=== PATIENT | male | born 1955 | race Caucasian/White ===

== ENCOUNTER 2016-10-05 11:07 | Inpatient (IN) | payer MEDICARE, MEDICAID ==
[~2016-10-05] VITALS: Ht 167.6 cm; Wt 70.3 kg
[~2016-10-05 11:07] MED LIST: ASPI-498 OR; BUDEPOW26 XX; CELE200C OR; CHOL20007 OR; DEXL60CA3 PO; DOCU100T15 PO; EZET10TA38 PO; FENO160T8 PO; FLUO20CA19 PO; GABA300C OR; LOSA100T27 PO; NOR10T PO; PRAS10TA6 PO
[2016-10-05] MEDS ORDERED: ONDANSETRON HCL 4 MG/2 ML VIAL ONE (11:19)
[2016-10-05] MEDS ORDERED: MORPHINE SULFATE 4 MG/ML SYRG ONE (11:20)
[2016-10-05] MEDS ORDERED: MORPHINE SULFATE 4 MG/ML SYRG IV ONE (11:30)
[2016-10-05] MEDS ORDERED: LORazepam 2MG/ML-1ML VIAL IV ONE (11:30)
[2016-10-05] MEDS ORDERED: ONDANSETRON HCL 4 MG/2 ML VIAL IV ONE (11:30)
[2016-10-05 11:34] LABS: Basophils # (auto) 0 uL; Eosinophils # (auto) 0 uL; Eosinophils % (auto) 0.1 % (0.0-7.0); Hematocrit 45.7 % (41.0-53.0); Hemoglobin 15.5 g/dL (13.5-17.5); Lymphocytes # (auto) 0.5 uL; Lymphocytes % (auto) 4.9 % (10.0-50.0); Mean Corpuscular Hgb Conc. 33.9 g/dL (32.0-36.0); Mean Corpuscular Volume 82.5 fL (80.0-100.0); Mean Platelet Volume 7.6 fL (7.4-10.4); Monocytes # (auto) 0.2 uL; Monocytes % (auto) 2.2 % (0.0-12.0); Neutrophils # (auto) 9.1 uL; Neutrophils % (auto) 92.8 % (37.0-80.0); Platelet Count (auto) 297 10^3/uL (140-450); Red Cell Distribution Width 13.6 % (11.6-16.0); White Blood Cell 9.8 10^3/uL (4.4-10.8)
[2016-10-05 12:04] LABS: Albumin 4.3 g/dL (3.4-5.0); Alkaline Phosphatase 65 U/L (45-117); Anion Gap 8 (5-15); Aspartate Aminotransferase 35 U/L (15-37); BUN/Creatinine Ratio 21.3; Bilirubin, Total 0.5 mg/dL (0.2-1.0); Blood Urea Nitrogen 23 mg/dL (7-18); Calcium 9.7 mg/dL (8.5-10.1); Carbon Dioxide 25 mmol/L (21-32); Chloride 110 mmol/L (98-107); GFR African American 90 mL/min; GFR Non-African American 74 mL/min; Glucose 130 mg/dL (74-106); Potassium 4.2 mmol/L (3.5-5.1); Sodium 143 mmol/L (136-145); Total Protein 8.6 g/dL (6.4-8.2)
[2016-10-05] MEDS ORDERED: NITROGLYCERIN 0.4 MG SL TAB SL PRN (13:30)
[2016-10-05] MEDS ORDERED: LORazepam 2MG/ML-1ML VIAL IV PRN (13:30)
[2016-10-05] MEDS ORDERED: ONDANSETRON HCL 4 MG/2 ML VIAL IV PRN (13:30)
[2016-10-05] MEDS ORDERED: MORPHINE SULF INJ 2 MG/ML SYRINGE 1ML IV PRN (13:30)
[2016-10-05] MEDS ORDERED: PANTOPRAZOLE SODIUM 40 MG/10 ML VIAL IV ONE ×2 (13:30→14:00)
[2016-10-05] MEDS: SODIUM CHLORIDE 0.9% 1,000 ML IV SCH (13:49)
[2016-10-05] MEDS: GABAPENTIN 300 MG CAP PO SCH ×2 (13:49→21:41)
[2016-10-05] MEDS: MORPHINE SULF INJ 2 MG/ML SYRINGE 1ML IV PRN ×3 (13:51→23:40)
[2016-10-05] MEDS ORDERED: FLUoxetine HCL 20 MG CAP PO ONE (14:00)
[2016-10-05] MEDS ORDERED: PRASUGREL HCL 10 MG TAB PO ONE (14:00)
[2016-10-05] MEDS ORDERED: ASPirin 81 mg TAB PO ONE (14:00)
[2016-10-05] MEDS: IPRATROPIUM BROM 0.5 MG/2.5ML INH SOL NEB SCH (18:00)
[2016-10-05] MEDS: ALBUTEROL SULF 2.5 MG/0.5ML(0.5%) NEB SOLN NEB SCH (18:00)
[2016-10-05] MEDS ORDERED: CHOL20007 PO (18:26)
[2016-10-05] MEDS ORDERED: PRAS10TA6 PO (18:26)
[2016-10-05 22:00] VITALS: BP 100/62
[2016-10-05] MEDS: BUDESONIDE (INHALATION) 0.5 MG/2 ML NEB NEB SCH (22:00)
[2016-10-05 23:44] VITALS: BP 148/72
[2016-10-06] MEDS: HYDROcodone-ACET 10/325MG TAB PO PRN ×2 (04:26→17:09)
[2016-10-06 05:00] VITALS: BP 99/64
[2016-10-06 05:41] LABS: Basophils # (auto) 0 uL; Basophils % (auto) 0.3 % (0.0-2.0); Eosinophils # (auto) 0 uL; Hematocrit 36.7 % (41.0-53.0); Hemoglobin 12.3 g/dL (13.5-17.5); Lymphocytes # (auto) 0.8 uL; Lymphocytes % (auto) 17.8 % (10.0-50.0); Mean Corpuscular Hemoglobin 27.8 pg (28.0-32.0); Mean Corpuscular Hgb Conc. 33.5 g/dL (32.0-36.0); Mean Corpuscular Volume 82.9 fL (80.0-100.0); Mean Platelet Volume 8.4 fL (7.4-10.4); Monocytes # (auto) 0.5 uL; Neutrophils # (auto) 3.1 uL; Neutrophils % (auto) 69.9 % (37.0-80.0); Platelet Count (auto) 203 10^3/uL (140-450); Red Cell Distribution Width 14.1 % (11.6-16.0); White Blood Cell 4.4 10^3/uL (4.4-10.8)
[2016-10-06] MEDS: GABAPENTIN 300 MG CAP PO SCH ×3 (05:45→21:51)
[2016-10-06 05:53] LABS: BUN/Creatinine Ratio 24.5; Potassium 3.4 mmol/L (3.5-5.1)
[2016-10-06] MEDS: IPRATROPIUM BROM 0.5 MG/2.5ML INH SOL NEB SCH ×4 (05:57→19:31)
[2016-10-06] MEDS: BUDESONIDE (INHALATION) 0.5 MG/2 ML NEB NEB SCH ×3 (05:58→19:33)
[2016-10-06] MEDS: ALBUTEROL SULF 2.5 MG/0.5ML(0.5%) NEB SOLN NEB SCH ×4 (05:58→19:31)
[2016-10-06 08:00] VITALS: BP 114/62
[2016-10-06 08:05] VITALS: BP 114/62
[2016-10-06] MEDS: ASPirin 81 mg TAB PO SCH (09:29)
[2016-10-06] MEDS: PANTOPRAZOLE SODIUM 40 MG/10 ML VIAL IV SCH (09:29)
[2016-10-06] MEDS: FLUoxetine HCL 20 MG CAP PO SCH (09:30)
[2016-10-06] MEDS: PRASUGREL HCL 10 MG TAB PO SCH (09:36)
[2016-10-06 11:45] VITALS: BP 113/68
[2016-10-06] MEDS: SODIUM CHLORIDE 0.9% 1,000 ML IV SCH ×2 (16:10→18:37)
[2016-10-06 16:39] VITALS: BP 140/81
[2016-10-06] MEDS ORDERED: POTASSIUM CHL 20 Meq TABLET PO ONE (17:45)
[2016-10-06 21:33] VITALS: BP 122/69
[2016-10-07] MEDS: ALBUTEROL SULF 2.5 MG/0.5ML(0.5%) NEB SOLN NEB SCH ×5 (00:37→23:50)
[2016-10-07] MEDS: IPRATROPIUM BROM 0.5 MG/2.5ML INH SOL NEB SCH ×5 (00:37→23:50)
[2016-10-07] MEDS: HYDROcodone-ACET 10/325MG TAB PO PRN ×3 (03:16→18:23)
[2016-10-07] MEDS: SODIUM CHLORIDE 0.9% 1,000 ML IV SCH ×2 (05:30→20:04)
[2016-10-07 05:52] VITALS: BP 133/74
[2016-10-07] MEDS: GABAPENTIN 300 MG CAP PO SCH ×3 (05:56→21:39)
[2016-10-07 07:45] LABS: Urine RBC None Seen /hpf (0 - 3)
[2016-10-07] MEDS ORDERED: LIDOCAINE 2%HCL (LOCAL ANESTH.) INJ 20ML MDV ONE (07:56)
[2016-10-07] MEDS ORDERED: IOHEXOL 350 MG/ML 100ML IJ ONE (07:56)
[2016-10-07 08:13] LABS: Urine Bilirubin Negative (Negative); Urine Blood Negative /uL (Negative); Urine Color Yellow (Yellow); Urine Glucose Normal (Normal); Urine Ketone Negative (Negative); Urine Mucus FEW (None Seen); Urine Nitrite Negative (Negative); Urine Squamous Epithelial Cell FEW /hpf (<5); Urine Urobilinogen Normal (Negative); Urine pH 5.5 (5.0-8.0)
[2016-10-07] MEDS ORDERED: ANGIOMAX 250 MG VIAL IV ONE (08:35)
[2016-10-07] MEDS ORDERED: MIDAZOLAM HCL 1MG/1ML-2 ML VIAL ONE (08:36)
[2016-10-07] MEDS ORDERED: fentaNYL CITRATE 100 MCG/2 ML VL ONE (08:36)
[2016-10-07] MEDS ORDERED: SODIUM CHL 0.9% 50 ML ONE (08:36)
[2016-10-07 08:46] LABS: INR 0.96 (0.9-1.15); Prothrombin Time 10.4 sec (9.37-12.3)
[2016-10-07 08:49] VITALS: BP 127/68
[2016-10-07] MEDS ORDERED: ATROPINE SULF 0.5 MG/5ML SYR ONE (09:15)
[2016-10-07] MEDS: ASPirin 81 mg TAB PO SCH (09:52)
[2016-10-07] MEDS: PRASUGREL HCL 10 MG TAB PO SCH (09:52)
[2016-10-07] MEDS: FLUoxetine HCL 20 MG CAP PO SCH (12:26)
[2016-10-07] MEDS: PANTOPRAZOLE SODIUM 40 MG/10 ML VIAL IV SCH (12:28)
[2016-10-07 13:00] VITALS: BP 130/69
[2016-10-07 17:00] VITALS: BP 126/73
[2016-10-07] MEDS: BUDESONIDE (INHALATION) 0.5 MG/2 ML NEB NEB SCH (19:12)
[2016-10-07 20:03] VITALS: BP 126/73
[2016-10-07 22:00] VITALS: BP 126/71
[2016-10-08] MEDS: HYDROcodone-ACET 10/325MG TAB PO PRN ×3 (01:05→16:00)
[2016-10-08 05:00] VITALS: BP 136/73
[2016-10-08] MEDS: GABAPENTIN 300 MG CAP PO SCH ×2 (05:45→14:14)
[2016-10-08] MEDS: SODIUM CHLORIDE 0.9% 1,000 ML IV SCH (08:10)
[2016-10-08] MEDS: IPRATROPIUM BROM 0.5 MG/2.5ML INH SOL NEB SCH ×3 (08:22→18:00)
[2016-10-08] MEDS: ALBUTEROL SULF 2.5 MG/0.5ML(0.5%) NEB SOLN NEB SCH ×3 (08:22→18:00)
[2016-10-08 08:45] VITALS: BP 129/61
[2016-10-08] MEDS: FLUoxetine HCL 20 MG CAP PO SCH (09:17)
[2016-10-08] MEDS: PRASUGREL HCL 10 MG TAB PO SCH (09:17)
[2016-10-08] MEDS: ASPirin 81 mg TAB PO SCH (09:17)
[2016-10-08] MEDS: PANTOPRAZOLE SODIUM 40 MG/10 ML VIAL IV SCH (09:17)
[2016-10-08] MEDS: BUDESONIDE (INHALATION) 0.5 MG/2 ML NEB NEB SCH ×2 (10:00→18:40)
[2016-10-08 13:00] VITALS: BP 125/66
[2016-10-08 17:04] VITALS: BP 138/77
[2016-10-08 17:08] VITALS: BP 138/77
== END 2016-10-08 18:30 | disposition home or self-care (01) | DRG 247 ==
LOC: EDBD 11:07 → ER 11:07 → TELE 11:08 → TELE-E-ADS 17:44 → TELE-WESTW 18:19
PROVIDERS: ADMIT Internal Medicine; ATTEND Internal Medicine Cardiovascular Disease
PROC: B2111ZZ Fluoroscopy of Multiple Coronary Arteries using Low Osmolar Contrast (ICD-10-PCS; principal; 2016-10-08)
PROC: 027034Z Dilation of Coronary Artery, One Artery with Drug-eluting Intraluminal Device, Percutaneous Approach (ICD-10-PCS; 2016-10-08)
DX: I25.10 Atherosclerotic heart disease of native coronary artery without angina pectoris (principal); I24.9 Acute ischemic heart disease, unspecified; E78.5 Hyperlipidemia, unspecified; I10 Essential (primary) hypertension; J44.9 Chronic obstructive pulmonary disease, unspecified; Z87.891 Personal history of nicotine dependence; Z95.5 Presence of coronary angioplasty implant and graft; I25.2 Old myocardial infarction; Z88.1 Allergy status to other antibiotic agents; Z88.8 Allergy status to other drugs, medicaments and biological substances; Z79.899 Other long term (current) drug therapy
CPT/HCPCS: 36415; 71010; 80048; 80053; 81001; 83735; 84484; 85025; 85610; 93005; 93306; 94640; 96374; 96375; 96376; 99152; C1874; C1887; C9113; J0461; J2250; J2405

== ENCOUNTER → 2016-10-21 | Outpatient (CLI) | payer MEDICARE, MEDICAID ==
[~2016-10-21] MED LIST changes: +CHOL20007 PO
[2016-10-21 09:19] VITALS: BP_SYST 123; BP_SYST 124; BP_DIAS 72
== END | disposition home or self-care (01) ==
LOC: CHF HDHVI 08:52
PROVIDERS: ATTEND Internal Medicine Cardiovascular Disease
DX: I25.738 Atherosclerosis of nonautologous biological coronary artery bypass graft(s) with other forms of angina pectoris (principal); I50.33 Acute on chronic diastolic (congestive) heart failure; R06.02 Shortness of breath; E11.9 Type 2 diabetes mellitus without complications; Z98.61 Coronary angioplasty status
CPT/HCPCS: G0166

== ENCOUNTER → 2016-10-22 | Outpatient (CLI) | payer MEDICARE, MEDICAID ==
[2016-10-22 09:13] VITALS: BP_SYST 127; BP_SYST 140; BP_DIAS 76; BP_DIAS 82
== END | disposition home or self-care (01) ==
LOC: CHF HDHVI 09:07
PROVIDERS: ATTEND Internal Medicine Cardiovascular Disease
CPT/HCPCS: G0166

== ENCOUNTER → 2016-10-23 | Outpatient (CLI) | payer MEDICARE, MEDICAID ==
[2016-10-23 09:10] VITALS: BP_SYST 133; BP_SYST 139; BP_DIAS 72; BP_DIAS 79
== END | disposition home or self-care (01) ==
LOC: CHF HDHVI 08:54
PROVIDERS: ATTEND Internal Medicine Cardiovascular Disease
CPT/HCPCS: G0166

== ENCOUNTER → 2016-10-26 | Outpatient (CLI) | payer MEDICARE, MEDICAID ==
[2016-10-26 09:13] VITALS: BP_SYST 120; BP_SYST 122; BP_DIAS 72; BP_DIAS 79
== END | disposition home or self-care (01) ==
LOC: CHF HDHVI 08:58
PROVIDERS: ATTEND Internal Medicine Cardiovascular Disease
DX: I25.738 Atherosclerosis of nonautologous biological coronary artery bypass graft(s) with other forms of angina pectoris (principal); I50.33 Acute on chronic diastolic (congestive) heart failure; E11.9 Type 2 diabetes mellitus without complications; R06.02 Shortness of breath; Z98.61 Coronary angioplasty status; Z95.0 Presence of cardiac pacemaker
CPT/HCPCS: G0166

== ENCOUNTER → 2016-10-27 | Outpatient (CLI) | payer MEDICARE, MEDICAID ==
[2016-10-27 09:08] VITALS: BP_SYST 133; BP_SYST 136; BP_DIAS 76
== END | disposition home or self-care (01) ==
LOC: CHF HDHVI 09:26
PROVIDERS: ATTEND Internal Medicine Cardiovascular Disease
DX: I25.738 Atherosclerosis of nonautologous biological coronary artery bypass graft(s) with other forms of angina pectoris (principal); I50.33 Acute on chronic diastolic (congestive) heart failure; R06.02 Shortness of breath; E11.9 Type 2 diabetes mellitus without complications; Z98.61 Coronary angioplasty status; Z95.0 Presence of cardiac pacemaker
CPT/HCPCS: G0166

== ENCOUNTER → 2016-10-28 | Outpatient (CLI) | payer MEDICARE, MEDICAID ==
[2016-10-28 09:08] VITALS: BP_SYST 130; BP_DIAS 69; BP_DIAS 70
== END | disposition home or self-care (01) ==
LOC: CHF HDHVI 09:03
PROVIDERS: ATTEND Internal Medicine Cardiovascular Disease
DX: I25.738 Atherosclerosis of nonautologous biological coronary artery bypass graft(s) with other forms of angina pectoris (principal); I50.33 Acute on chronic diastolic (congestive) heart failure; E11.9 Type 2 diabetes mellitus without complications; R06.02 Shortness of breath; Z98.61 Coronary angioplasty status; Z95.0 Presence of cardiac pacemaker
CPT/HCPCS: G0166

== ENCOUNTER → 2016-10-29 | Outpatient (CLI) | payer MEDICARE, MEDICAID ==
[~2016-10-29] MED LIST changes: +MIDAZOLAM HCL 1MG/1ML-2 ML VIAL ONE; +ROCURONIUM 10MG/ML 10ML VIAL IV ONE; +fentaNYL CITRATE 0 ML ONE
[2016-10-29 09:05] VITALS: BP_SYST 129; BP_SYST 130; BP_DIAS 64; BP_DIAS 69
== END | disposition home or self-care (01) ==
LOC: CHF HDHVI 09:10
PROVIDERS: ATTEND Internal Medicine Cardiovascular Disease
DX: I25.738 Atherosclerosis of nonautologous biological coronary artery bypass graft(s) with other forms of angina pectoris (principal); I50.33 Acute on chronic diastolic (congestive) heart failure; E11.9 Type 2 diabetes mellitus without complications; Z98.61 Coronary angioplasty status
CPT/HCPCS: G0166; J2250

== ENCOUNTER → 2016-10-30 | Outpatient (CLI) | payer MEDICARE, MEDICAID ==
[~2016-10-30] MED LIST changes: -MIDAZOLAM HCL 1MG/1ML-2 ML VIAL ONE; -ROCURONIUM 10MG/ML 10ML VIAL IV ONE; -fentaNYL CITRATE 0 ML ONE
[2016-10-30 09:09] VITALS: BP_SYST 120; BP_SYST 122; BP_DIAS 60; BP_DIAS 77
== END | disposition home or self-care (01) ==
LOC: CHF HDHVI 09:13
PROVIDERS: ATTEND Internal Medicine Cardiovascular Disease
DX: I25.738 Atherosclerosis of nonautologous biological coronary artery bypass graft(s) with other forms of angina pectoris (principal); I50.33 Acute on chronic diastolic (congestive) heart failure; E11.9 Type 2 diabetes mellitus without complications; Z98.61 Coronary angioplasty status
CPT/HCPCS: G0166

== ENCOUNTER → 2016-11-02 | Outpatient (CLI) | payer MEDICARE, MEDICAID ==
[2016-11-02 09:15] VITALS: BP_SYST 128; BP_SYST 138; BP_DIAS 64; BP_DIAS 68
== END | disposition home or self-care (01) ==
LOC: CHF HDHVI 08:53
PROVIDERS: ATTEND Internal Medicine Cardiovascular Disease
DX: I25.118 Atherosclerotic heart disease of native coronary artery with other forms of angina pectoris (principal); I63.9 Cerebral infarction, unspecified; I73.9 Peripheral vascular disease, unspecified; E11.9 Type 2 diabetes mellitus without complications
CPT/HCPCS: G0166

== ENCOUNTER → 2016-11-04 | Outpatient (CLI) | payer MEDICARE, MEDICAID ==
[2016-11-04 09:07] VITALS: BP_SYST 121; BP_SYST 126; BP_DIAS 70
== END | disposition home or self-care (01) ==
LOC: CHF HDHVI 09:04
PROVIDERS: ATTEND Internal Medicine Cardiovascular Disease
DX: I25.738 Atherosclerosis of nonautologous biological coronary artery bypass graft(s) with other forms of angina pectoris (principal); I50.33 Acute on chronic diastolic (congestive) heart failure; E11.9 Type 2 diabetes mellitus without complications; Z98.61 Coronary angioplasty status; Z95.0 Presence of cardiac pacemaker
CPT/HCPCS: G0166

== ENCOUNTER → 2016-11-06 | Outpatient (CLI) | payer MEDICARE, MEDICAID ==
[2016-11-06 09:03] VITALS: BP_SYST 124; BP_SYST 137; BP_DIAS 69; BP_DIAS 70
== END | disposition home or self-care (01) ==
LOC: CHF HDHVI 09:12
PROVIDERS: ATTEND Internal Medicine Cardiovascular Disease
DX: I25.738 Atherosclerosis of nonautologous biological coronary artery bypass graft(s) with other forms of angina pectoris (principal); I50.33 Acute on chronic diastolic (congestive) heart failure; E11.9 Type 2 diabetes mellitus without complications; Z98.61 Coronary angioplasty status
CPT/HCPCS: G0166

== ENCOUNTER → 2016-11-09 | Outpatient (CLI) | payer MEDICARE, MEDICAID ==
[2016-11-09 09:11] VITALS: BP_SYST 134; BP_SYST 138; BP_DIAS 70; BP_DIAS 76
== END | disposition home or self-care (01) ==
LOC: CHF HDHVI 08:49
PROVIDERS: ATTEND Internal Medicine Cardiovascular Disease
DX: I50.33 Acute on chronic diastolic (congestive) heart failure (principal); E11.9 Type 2 diabetes mellitus without complications; R06.02 Shortness of breath; Z95.1 Presence of aortocoronary bypass graft; Z98.61 Coronary angioplasty status
CPT/HCPCS: G0166

== ENCOUNTER → 2016-11-11 | Outpatient (CLI) | payer MEDICARE, MEDICAID ==
[2016-11-11 09:14] VITALS: BP_SYST 118; BP_SYST 119; BP_DIAS 69; BP_DIAS 77
== END | disposition home or self-care (01) ==
LOC: CHF HDHVI 09:00
PROVIDERS: ATTEND Internal Medicine Cardiovascular Disease
DX: I25.738 Atherosclerosis of nonautologous biological coronary artery bypass graft(s) with other forms of angina pectoris (principal); I50.33 Acute on chronic diastolic (congestive) heart failure; E11.9 Type 2 diabetes mellitus without complications; R06.02 Shortness of breath; Z95.5 Presence of coronary angioplasty implant and graft
CPT/HCPCS: G0166

== ENCOUNTER → 2016-11-12 | Outpatient (CLI) | payer MEDICARE, MEDICAID ==
[2016-11-12 09:15] VITALS: BP_SYST 123; BP_SYST 125; BP_DIAS 70; BP_DIAS 75
== END | disposition home or self-care (01) ==
LOC: CHF HDHVI 08:56
PROVIDERS: ATTEND Internal Medicine Cardiovascular Disease
DX: I25.738 Atherosclerosis of nonautologous biological coronary artery bypass graft(s) with other forms of angina pectoris (principal); I50.33 Acute on chronic diastolic (congestive) heart failure; R06.02 Shortness of breath; E11.9 Type 2 diabetes mellitus without complications; Z98.61 Coronary angioplasty status
CPT/HCPCS: G0166

== ENCOUNTER → 2016-11-13 | Outpatient (CLI) | payer MEDICARE, MEDICAID ==
[2016-11-13 09:08] VITALS: BP_SYST 121; BP_SYST 133; BP_DIAS 65; BP_DIAS 69
== END | disposition home or self-care (01) ==
LOC: CHF HDHVI 08:55
PROVIDERS: ATTEND Internal Medicine Cardiovascular Disease
DX: I25.738 Atherosclerosis of nonautologous biological coronary artery bypass graft(s) with other forms of angina pectoris (principal); I50.33 Acute on chronic diastolic (congestive) heart failure; E11.9 Type 2 diabetes mellitus without complications; Z98.61 Coronary angioplasty status
CPT/HCPCS: G0166

== ENCOUNTER → 2016-11-16 | Outpatient (CLI) | payer MEDICARE, MEDICAID ==
[2016-11-16 09:05] VITALS: BP_SYST 122; BP_SYST 125; BP_DIAS 66; BP_DIAS 67
== END | disposition home or self-care (01) ==
LOC: CHF HDHVI 08:43
PROVIDERS: ATTEND Internal Medicine Cardiovascular Disease
DX: I25.738 Atherosclerosis of nonautologous biological coronary artery bypass graft(s) with other forms of angina pectoris (principal); I50.33 Acute on chronic diastolic (congestive) heart failure; E11.9 Type 2 diabetes mellitus without complications; R06.02 Shortness of breath; Z98.61 Coronary angioplasty status
CPT/HCPCS: G0166

== ENCOUNTER → 2016-11-17 | Outpatient (CLI) | payer MEDICARE, MEDICAID ==
[2016-11-17 09:06] VITALS: BP_SYST 121; BP_SYST 122; BP_DIAS 64; BP_DIAS 69
== END | disposition home or self-care (01) ==
LOC: CHF HDHVI 09:05
PROVIDERS: ATTEND Internal Medicine Cardiovascular Disease
DX: I25.738 Atherosclerosis of nonautologous biological coronary artery bypass graft(s) with other forms of angina pectoris (principal); I50.33 Acute on chronic diastolic (congestive) heart failure; E11.9 Type 2 diabetes mellitus without complications; Z98.61 Coronary angioplasty status
CPT/HCPCS: G0166

== ENCOUNTER → 2016-11-19 | Outpatient (CLI) | payer MEDICARE, MEDICAID ==
[2016-11-19 09:15] VITALS: BP_SYST 131; BP_SYST 137; BP_DIAS 69; BP_DIAS 75
== END | disposition home or self-care (01) ==
LOC: CHF HDHVI 08:53
PROVIDERS: ATTEND Internal Medicine Cardiovascular Disease
DX: I25.738 Atherosclerosis of nonautologous biological coronary artery bypass graft(s) with other forms of angina pectoris (principal); I50.33 Acute on chronic diastolic (congestive) heart failure; E11.9 Type 2 diabetes mellitus without complications; Z98.61 Coronary angioplasty status
CPT/HCPCS: G0166

== ENCOUNTER → 2016-11-20 | Outpatient (CLI) | payer MEDICARE, MEDICAID ==
[2016-11-20 09:02] VITALS: BP_SYST 132; BP_SYST 133; BP_DIAS 67; BP_DIAS 72
== END | disposition home or self-care (01) ==
LOC: CHF HDHVI 08:50
PROVIDERS: ATTEND Internal Medicine Cardiovascular Disease
DX: I25.738 Atherosclerosis of nonautologous biological coronary artery bypass graft(s) with other forms of angina pectoris (principal); I50.33 Acute on chronic diastolic (congestive) heart failure; E11.9 Type 2 diabetes mellitus without complications; Z98.61 Coronary angioplasty status
CPT/HCPCS: G0166

== ENCOUNTER → 2016-11-24 | Outpatient (CLI) | payer MEDICARE, MEDICAID ==
[2016-11-24 08:58] VITALS: BP_SYST 130; BP_SYST 136; BP_DIAS 69; BP_DIAS 74
== END | disposition home or self-care (01) ==
LOC: CHF HDHVI 08:57
PROVIDERS: ATTEND Internal Medicine Cardiovascular Disease
DX: I25.738 Atherosclerosis of nonautologous biological coronary artery bypass graft(s) with other forms of angina pectoris (principal); I50.33 Acute on chronic diastolic (congestive) heart failure; E11.9 Type 2 diabetes mellitus without complications; R06.02 Shortness of breath; Z95.5 Presence of coronary angioplasty implant and graft; Z98.61 Coronary angioplasty status
CPT/HCPCS: G0166

== ENCOUNTER → 2016-11-25 | Outpatient (CLI) | payer MEDICARE, MEDICAID ==
[2016-11-25 08:50] VITALS: BP_SYST 133; BP_SYST 142; BP_DIAS 71; BP_DIAS 76
== END | disposition home or self-care (01) ==
LOC: CHF HDHVI 08:45
PROVIDERS: ATTEND Internal Medicine Cardiovascular Disease
DX: I25.738 Atherosclerosis of nonautologous biological coronary artery bypass graft(s) with other forms of angina pectoris (principal); I50.33 Acute on chronic diastolic (congestive) heart failure; E11.9 Type 2 diabetes mellitus without complications; Z98.61 Coronary angioplasty status
CPT/HCPCS: G0166

== ENCOUNTER → 2016-11-26 | Outpatient (CLI) | payer MEDICARE, MEDICAID ==
[2016-11-26 08:53] VITALS: BP 133/73
== END | disposition home or self-care (01) ==
LOC: CHF HDHVI 08:52
PROVIDERS: ATTEND Internal Medicine Cardiovascular Disease
DX: I25.738 Atherosclerosis of nonautologous biological coronary artery bypass graft(s) with other forms of angina pectoris (principal); I50.33 Acute on chronic diastolic (congestive) heart failure; E11.9 Type 2 diabetes mellitus without complications; Z98.61 Coronary angioplasty status
CPT/HCPCS: G0166

== ENCOUNTER → 2016-11-27 | Outpatient (CLI) | payer MEDICARE, MEDICAID ==
[2016-11-27 09:03] VITALS: BP_SYST 131; BP_SYST 132; BP_DIAS 73; BP_DIAS 76
== END | disposition home or self-care (01) ==
LOC: CHF HDHVI 09:03
PROVIDERS: ATTEND Internal Medicine Cardiovascular Disease
DX: I25.738 Atherosclerosis of nonautologous biological coronary artery bypass graft(s) with other forms of angina pectoris (principal); I50.33 Acute on chronic diastolic (congestive) heart failure; E11.9 Type 2 diabetes mellitus without complications; Z98.61 Coronary angioplasty status
CPT/HCPCS: G0166

== ENCOUNTER → 2016-11-30 | Outpatient (CLI) | payer MEDICARE, MEDICAID ==
[~2016-11-30] VITALS: Ht 162.6 cm; Wt 68.0 kg
[~2016-11-30] MED LIST changes: +ADENOSINE 57 MG in GIVE UN-DILUTED 0 ML IV ONE; +ADENOSINE 90 MG/30 ML INJ IV ONE
[2016-11-30 12:29] LABS: Basophils # (auto) 0 uL; Basophils % (auto) 0.4 % (0.0-2.0); Eosinophils # (auto) 0.1 uL; Eosinophils % (auto) 0.8 % (0.0-7.0); Hematocrit 36.9 % (41.0-53.0); Hemoglobin 12.3 g/dL (13.5-17.5); Lymphocytes # (auto) 1.3 uL; Lymphocytes % (auto) 18.3 % (10.0-50.0); Mean Corpuscular Hgb Conc. 33.2 g/dL (32.0-36.0); Mean Corpuscular Volume 84.3 fL (80.0-100.0); Monocytes # (auto) 0.5 uL; Monocytes % (auto) 7.4 % (0.0-12.0); Neutrophils # (auto) 5.1 uL; Neutrophils % (auto) 73.1 % (37.0-80.0); Platelet Count (auto) 256 10^3/uL (140-450); Red Cell Distribution Width 14.4 % (11.6-16.0)
[2016-11-30 12:33] LABS: BUN/Creatinine Ratio 30.4; Calcium 8.3 mg/dL (8.5-10.1); Potassium 3.7 mmol/L (3.5-5.1)
== END | disposition home or self-care (01) ==
LOC: CHF HDHVI 08:00
PROVIDERS: ATTEND Internal Medicine Cardiovascular Disease
DX: I10 Essential (primary) hypertension (principal); D64.9 Anemia, unspecified
CPT/HCPCS: 36415; 78452; 80048; 85025; 93005; 96374; 96375; J0153

== ENCOUNTER → 2016-12-01 | Outpatient (CLI) | payer MEDICARE, MEDICAID ==
[~2016-12-01] MED LIST changes: -ADENOSINE 57 MG in GIVE UN-DILUTED 0 ML IV ONE; -ADENOSINE 90 MG/30 ML INJ IV ONE
[2016-12-01 08:55] VITALS: BP_SYST 132; BP_SYST 133; BP_DIAS 69; BP_DIAS 76
== END | disposition home or self-care (01) ==
LOC: CHF HDHVI 08:40
PROVIDERS: ATTEND Internal Medicine Cardiovascular Disease
DX: I25.738 Atherosclerosis of nonautologous biological coronary artery bypass graft(s) with other forms of angina pectoris (principal); I50.33 Acute on chronic diastolic (congestive) heart failure; E11.9 Type 2 diabetes mellitus without complications; Z98.61 Coronary angioplasty status
CPT/HCPCS: G0166

== ENCOUNTER → 2016-12-02 | Outpatient (CLI) | payer MEDICARE, MEDICAID ==
[2016-12-02 08:53] VITALS: BP_SYST 130; BP_SYST 132; BP_DIAS 70; BP_DIAS 71
== END | disposition home or self-care (01) ==
LOC: CHF HDHVI 08:49
PROVIDERS: ATTEND Internal Medicine Cardiovascular Disease
DX: I25.738 Atherosclerosis of nonautologous biological coronary artery bypass graft(s) with other forms of angina pectoris (principal); I50.33 Acute on chronic diastolic (congestive) heart failure; E11.9 Type 2 diabetes mellitus without complications; Z98.61 Coronary angioplasty status
CPT/HCPCS: G0166

== ENCOUNTER → 2016-12-03 | Outpatient (CLI) | payer MEDICARE, MEDICAID ==
[2016-12-03 08:47] VITALS: BP_SYST 128; BP_SYST 135; BP_DIAS 73; BP_DIAS 77
== END | disposition home or self-care (01) ==
LOC: CHF HDHVI 08:46
PROVIDERS: ATTEND Internal Medicine Cardiovascular Disease
DX: I25.738 Atherosclerosis of nonautologous biological coronary artery bypass graft(s) with other forms of angina pectoris (principal); I50.33 Acute on chronic diastolic (congestive) heart failure; E11.9 Type 2 diabetes mellitus without complications; Z98.61 Coronary angioplasty status
CPT/HCPCS: G0166

== ENCOUNTER → 2016-12-04 | Outpatient (CLI) | payer MEDICARE, MEDICAID ==
[2016-12-04 08:52] VITALS: BP_SYST 128; BP_SYST 134; BP_DIAS 69; BP_DIAS 74
== END | disposition home or self-care (01) ==
LOC: CHF HDHVI 09:07
PROVIDERS: ATTEND Internal Medicine Cardiovascular Disease
DX: I25.738 Atherosclerosis of nonautologous biological coronary artery bypass graft(s) with other forms of angina pectoris (principal); I50.33 Acute on chronic diastolic (congestive) heart failure; E11.9 Type 2 diabetes mellitus without complications; Z98.61 Coronary angioplasty status
CPT/HCPCS: G0166

== ENCOUNTER → 2016-12-07 | Outpatient (CLI) | payer MEDICARE, MEDICAID ==
[2016-12-07 08:53] VITALS: BP_SYST 119; BP_SYST 128; BP_DIAS 70
== END | disposition home or self-care (01) ==
LOC: CHF HDHVI 08:36
PROVIDERS: ATTEND Internal Medicine Cardiovascular Disease
DX: I25.738 Atherosclerosis of nonautologous biological coronary artery bypass graft(s) with other forms of angina pectoris (principal); I50.33 Acute on chronic diastolic (congestive) heart failure; E11.9 Type 2 diabetes mellitus without complications; Z98.61 Coronary angioplasty status
CPT/HCPCS: G0166

== ENCOUNTER → 2016-12-08 | Outpatient (CLI) | payer MEDICARE, MEDICAID ==
[2016-12-08 08:55] VITALS: BP_SYST 139; BP_SYST 143; BP_DIAS 75; BP_DIAS 76
== END | disposition home or self-care (01) ==
LOC: CHF HDHVI 08:41
PROVIDERS: ATTEND Internal Medicine Cardiovascular Disease
DX: I25.738 Atherosclerosis of nonautologous biological coronary artery bypass graft(s) with other forms of angina pectoris (principal); I50.33 Acute on chronic diastolic (congestive) heart failure; E11.9 Type 2 diabetes mellitus without complications; Z98.61 Coronary angioplasty status
CPT/HCPCS: G0166

== ENCOUNTER → 2016-12-09 | Outpatient (CLI) | payer MEDICARE, MEDICAID ==
[2016-12-09 08:57] VITALS: BP_SYST 120; BP_SYST 134; BP_DIAS 74; BP_DIAS 93
== END | disposition home or self-care (01) ==
LOC: CHF HDHVI 08:34
PROVIDERS: ATTEND Internal Medicine Cardiovascular Disease
DX: I25.738 Atherosclerosis of nonautologous biological coronary artery bypass graft(s) with other forms of angina pectoris (principal); I50.33 Acute on chronic diastolic (congestive) heart failure; E11.9 Type 2 diabetes mellitus without complications; Z98.61 Coronary angioplasty status
CPT/HCPCS: G0166

== ENCOUNTER → 2016-12-10 | Outpatient (CLI) | payer MEDICARE, MEDICAID ==
[2016-12-10 08:55] VITALS: BP_SYST 122; BP_SYST 131; BP_DIAS 69; BP_DIAS 73
== END | disposition home or self-care (01) ==
LOC: CHF HDHVI 08:46
PROVIDERS: ATTEND Internal Medicine Cardiovascular Disease
DX: I25.738 Atherosclerosis of nonautologous biological coronary artery bypass graft(s) with other forms of angina pectoris (principal); I50.33 Acute on chronic diastolic (congestive) heart failure; E11.9 Type 2 diabetes mellitus without complications; Z98.61 Coronary angioplasty status
CPT/HCPCS: G0166

== ENCOUNTER → 2016-12-11 | Outpatient (CLI) | payer MEDICARE, MEDICAID ==
[2016-12-11 08:47] VITALS: BP_SYST 131; BP_SYST 133; BP_DIAS 73; BP_DIAS 81
== END | disposition home or self-care (01) ==
LOC: CHF HDHVI 08:32
PROVIDERS: ATTEND Internal Medicine Cardiovascular Disease
DX: I25.738 Atherosclerosis of nonautologous biological coronary artery bypass graft(s) with other forms of angina pectoris (principal); I50.33 Acute on chronic diastolic (congestive) heart failure; E11.9 Type 2 diabetes mellitus without complications; Z98.61 Coronary angioplasty status
CPT/HCPCS: G0166

== ENCOUNTER → 2016-12-14 | Outpatient (CLI) | payer MEDICARE, MEDICAID ==
[2016-12-14 11:54] VITALS: BP_SYST 125; BP_SYST 139; BP_DIAS 68; BP_DIAS 71
== END | disposition home or self-care (01) ==
LOC: CHF HDHVI 08:36
PROVIDERS: ATTEND Internal Medicine Cardiovascular Disease
DX: I25.738 Atherosclerosis of nonautologous biological coronary artery bypass graft(s) with other forms of angina pectoris (principal); I50.33 Acute on chronic diastolic (congestive) heart failure; E11.9 Type 2 diabetes mellitus without complications; R06.02 Shortness of breath; Z98.61 Coronary angioplasty status
CPT/HCPCS: G0166

== ENCOUNTER → 2016-12-15 | Outpatient (CLI) | payer MEDICARE, MEDICAID ==
[2016-12-15 08:58] VITALS: BP_SYST 131; BP_SYST 132; BP_DIAS 79
== END | disposition home or self-care (01) ==
LOC: CHF HDHVI 08:40
PROVIDERS: ATTEND Internal Medicine Cardiovascular Disease
DX: I25.738 Atherosclerosis of nonautologous biological coronary artery bypass graft(s) with other forms of angina pectoris (principal); I50.33 Acute on chronic diastolic (congestive) heart failure; E11.9 Type 2 diabetes mellitus without complications; R06.02 Shortness of breath; Z98.61 Coronary angioplasty status
CPT/HCPCS: G0166

== ENCOUNTER → 2016-12-16 | Outpatient (CLI) | payer MEDICARE, MEDICAID ==
[2016-12-16 09:10] VITALS: BP_SYST 129; BP_SYST 130; BP_DIAS 71; BP_DIAS 75
[2016-12-16 10:15] VITALS: BP 122/81
[2016-12-16 10:45] VITALS: BP 122/81
== END | disposition home or self-care (01) ==
LOC: CHF HDHVI 08:51
PROVIDERS: ATTEND Internal Medicine Cardiovascular Disease
DX: I25.738 Atherosclerosis of nonautologous biological coronary artery bypass graft(s) with other forms of angina pectoris (principal); I50.33 Acute on chronic diastolic (congestive) heart failure; I25.10 Atherosclerotic heart disease of native coronary artery without angina pectoris; E11.9 Type 2 diabetes mellitus without complications; Z98.61 Coronary angioplasty status
CPT/HCPCS: G0166; G0463

== ENCOUNTER → 2017-01-19 | Outpatient (CLI) | payer MEDICARE, MEDICAID ==
[2017-01-19 12:18] LABS: Basophils # (auto) 0 uL; Basophils % (auto) 0.5 % (0.0-2.0); CONDITION Y; Eosinophils # (auto) 0.1 uL; Eosinophils % (auto) 1.3 % (0.0-7.0); Hematocrit 40.8 % (41.0-53.0); Hemoglobin 13.7 g/dL (13.5-17.5); Lymphocytes # (auto) 1.7 uL; Lymphocytes % (auto) 33.7 % (10.0-50.0); Mean Corpuscular Hemoglobin 27.8 pg (28.0-32.0); Mean Corpuscular Hgb Conc. 33.6 g/dL (32.0-36.0); Mean Corpuscular Volume 82.9 fL (80.0-100.0); Mean Platelet Volume 8.2 fL (7.4-10.4); Monocytes # (auto) 0.4 uL; Monocytes % (auto) 7.4 % (0.0-12.0); Neutrophils # (auto) 2.9 uL; Neutrophils % (auto) 57.1 % (37.0-80.0); Platelet Count (auto) 259 10^3/uL (140-450); White Blood Cell 5.1 10^3/uL (4.4-10.8)
[2017-01-19 12:49] LABS: BUN/Creatinine Ratio 28.6; Potassium 4.4 mmol/L (3.5-5.1)
[2017-01-19 13:48] LABS: B-Type Natriuretic Peptide 0.71 pg/mL (0-100)
[2017-01-19 13:59] LABS: Temperature: 24.3 C (20.0-25.0)
== END | disposition home or self-care (01) ==
LOC: Rad HDHVI 08:05
PROVIDERS: ATTEND Internal Medicine Cardiovascular Disease
DX: I11.0 Hypertensive heart disease with heart failure (principal); I50.9 Heart failure, unspecified; D64.9 Anemia, unspecified
CPT/HCPCS: 36415; 80048; 83880; 85025; 93306

== ENCOUNTER → 2017-11-26 | Outpatient (CLI) | payer MEDICARE, MEDICAID ==
[2017-11-26 12:02] LABS: Urine Blood Negative /uL (Negative); Urine Specific Gravity 1.021 (1.001-1.035)
[2017-11-26 12:03] LABS: Basophils # (auto) 0 uL; Basophils % (auto) 0.5 % (0.0-2.0); Eosinophils # (auto) 0 uL; Hematocrit 39.8 % (41.0-53.0); Hemoglobin 13.1 g/dL (13.5-17.5); Lymphocytes # (auto) 1.7 uL; Lymphocytes % (auto) 33.6 % (10.0-50.0); Mean Corpuscular Hemoglobin 28.3 pg (28.0-32.0); Mean Corpuscular Hgb Conc. 32.9 g/dL (32.0-36.0); Monocytes # (auto) 0.4 uL; Monocytes % (auto) 7.5 % (0.0-12.0); Neutrophils # (auto) 2.9 uL; Neutrophils % (auto) 57.4 % (37.0-80.0); Nucleated Red Blood Cells % 0.6 %; Platelet Count (auto) 218 10^3/uL (140-450); Red Blood Cells 4.63 10^6/uL (4.5-5.90); Red Cell Distribution Width 15.2 % (11.8-14.3)
[2017-11-26 12:28] LABS: Albumin 3.3 g/dL (3.4-5.0); BUN/Creatinine Ratio 21.8; Calcium 8.9 mg/dL (8.5-10.1)
[2017-11-26 12:29] LABS: Bilirubin, Total 0.3 mg/dL (0.2-1.0)
[2017-11-26 12:42] LABS: Free T4 (Free Thyroxine) 1.41 ng/dL (0.89-1.76)
[2017-11-26 12:43] LABS: Prostate Specific Antigen 0.66 ng/mL (0.0-4.0)
== END | disposition home or self-care (01) ==
LOC: LAB 08:06
PROVIDERS: ATTEND Internal Medicine Cardiovascular Disease
DX: Z00.01 Encounter for general adult medical examination with abnormal findings (principal); E03.9 Hypothyroidism, unspecified; E55.9 Vitamin D deficiency, unspecified; C61 Malignant neoplasm of prostate; E29.1 Testicular hypofunction; E11.9 Type 2 diabetes mellitus without complications; N39.0 Urinary tract infection, site not specified; D51.9 Vitamin B12 deficiency anemia, unspecified
CPT/HCPCS: 36415; 80053; 80061; 81003; 82306; 82607; 83036; 84153; 84403; 84439; 84443; 85025

== ENCOUNTER → 2017-12-08 | Outpatient (CLI) | payer MEDICARE, MEDICAID | END | disposition home or self-care (01) | LOC: Rad HDHVI 12:53 | PROVIDERS: ATTEND Internal Medicine Cardiovascular Disease | DX: I08.8 Other rheumatic multiple valve diseases (principal); I25.5 Ischemic cardiomyopathy; I11.0 Hypertensive heart disease with heart failure; I50.43 Acute on chronic combined systolic (congestive) and diastolic (congestive) heart failure; E03.9 Hypothyroidism, unspecified; E11.9 Type 2 diabetes mellitus without complications; Z85.46 Personal history of malignant neoplasm of prostate | CPT/HCPCS: 93306 ==

== ENCOUNTER → 2018-05-09 | Outpatient (CLI) | payer MEDICARE, MEDICAID ==
[~2018-05-09] MED LIST changes: +LOSA-49 PO; -LOSA100T27 PO
[2018-05-09 16:14] LABS: Basophils # (auto) 0 uL; Basophils % (auto) 0.6 % (0.0-2.0); Eosinophils # (auto) 0 uL; Eosinophils % (auto) 0.5 % (0.0-7.0); Hematocrit 42.7 % (41.0-53.0); Lymphocytes # (auto) 1.6 uL; Lymphocytes % (auto) 30.6 % (10.0-50.0); Mean Corpuscular Hemoglobin 27.8 pg (28.0-32.0); Mean Corpuscular Hgb Conc. 32.7 g/dL (32.0-36.0); Monocytes # (auto) 0.5 uL; Monocytes % (auto) 9.6 % (0.0-12.0); Neutrophils # (auto) 3.1 uL; Neutrophils % (auto) 58.7 % (37.0-80.0); Nucleated Red Blood Cells % 0.5 %; Platelet Count (auto) 203 10^3/uL (140-450); Red Blood Cells 5.03 10^6/uL (4.5-5.90); White Blood Cell 5.4 10^3/uL (4.4-10.8)
[2018-05-09 16:32] LABS: Potassium 4.4 mmol/L (3.5-5.1)
[2018-05-09 16:37] LABS: BUN/Creatinine Ratio 21.5; Calcium 9.3 mg/dL (8.5-10.1)
== END | disposition home or self-care (01) ==
LOC: LAB 11:51
PROVIDERS: ATTEND Internal Medicine Cardiovascular Disease
DX: D64.9 Anemia, unspecified (principal); R94.4 Abnormal results of kidney function studies; I11.0 Hypertensive heart disease with heart failure; I50.9 Heart failure, unspecified
CPT/HCPCS: 36415; 80048; 85025

== ENCOUNTER → 2018-05-13 | Outpatient (CLI) | payer MEDICARE, MEDICAID | END | disposition home or self-care (01) | LOC: Rad HDHVI 13:44 | PROVIDERS: ATTEND Internal Medicine Cardiovascular Disease | DX: I25.2 Old myocardial infarction (principal); I20.9 Angina pectoris, unspecified; I95.9 Hypotension, unspecified | CPT/HCPCS: 93306 ==

== ENCOUNTER → 2018-05-26 | Outpatient (CLI) | payer MEDICARE, MEDICAID ==
[~2018-05-26] VITALS: Ht 162.6 cm; Wt 73.5 kg
[~2018-05-26] MED LIST changes: +ADENOSINE 62 MG in GIVE UN-DILUTED 0 ML IV ONE; +ADENOSINE 90 MG/30 ML INJ IV ONE
== END | disposition home or self-care (01) ==
LOC: Rad HDHVI 09:44
PROVIDERS: ATTEND Internal Medicine Cardiovascular Disease
DX: I20.9 Angina pectoris, unspecified (principal); I95.9 Hypotension, unspecified
CPT/HCPCS: 78452; 93005; 96374; 96375; A9500; J0153

== ENCOUNTER → 2018-06-07 | Outpatient (CLI) | payer MEDICARE, MEDICAID ==
[~2018-06-07] MED LIST changes: -ADENOSINE 62 MG in GIVE UN-DILUTED 0 ML IV ONE; -ADENOSINE 90 MG/30 ML INJ IV ONE; +ALBUAER3 IN; +ATOR1TAB PO; +CHOL500021 OR; +CLOP75TA41 PO; +DOCU-55 PO; +FINA5TAB4 PO; +FLUT1AER3 IN; +ISOS30TA4 PO; +MECL-87 PO; +TAMS0.4C36 PO
[2018-06-07 08:20] VITALS: BP 136/87
[2018-06-07 08:54] VITALS: BP 152/88
[2018-06-07 12:11] LABS: Basophils # (auto) 0 uL; Basophils % (auto) 0.9 % (0.0-2.0); Eosinophils # (auto) 0 uL; Eosinophils % (auto) 0.8 % (0.0-7.0); Hematocrit 38.8 % (41.0-53.0); Hemoglobin 12.7 g/dL (13.5-17.5); Lymphocytes # (auto) 2.1 uL; Lymphocytes % (auto) 42.8 % (10.0-50.0); Mean Corpuscular Hemoglobin 27.4 pg (28.0-32.0); Mean Corpuscular Hgb Conc. 32.6 g/dL (32.0-36.0); Mean Corpuscular Volume 84.1 fL (80.0-100.0); Monocytes # (auto) 0.5 uL; Monocytes % (auto) 9.6 % (0.0-12.0); Neutrophils # (auto) 2.2 uL; Neutrophils % (auto) 45.9 % (37.0-80.0); Nucleated Red Blood Cells % 0.7 %; Platelet Count (auto) 200 10^3/uL (140-450); Red Blood Cells 4.62 10^6/uL (4.5-5.90); Red Cell Distribution Width 14.3 % (11.8-14.3); White Blood Cell 4.8 10^3/uL (4.4-10.8)
[2018-06-07 12:20] LABS: Calcium 8.5 mg/dL (8.5-10.1); Potassium 4.4 mmol/L (3.5-5.1)
[2018-06-07 12:22] LABS: INR 0.93 (0.9-1.15); Partial Thromboplastin Time 25.5 sec (23.78-33.04)
[2018-06-07 12:23] LABS: BUN/Creatinine Ratio 18.6
== END | disposition home or self-care (01) ==
LOC: Rad HDHVI 08:06
PROVIDERS: ATTEND Internal Medicine Cardiovascular Disease
DX: Z01.818 Encounter for other preprocedural examination (principal); I70.0 Atherosclerosis of aorta; D64.9 Anemia, unspecified; R79.1 Abnormal coagulation profile; I10 Essential (primary) hypertension
CPT/HCPCS: 36415; 71046; 80048; 85025; 85610; 85730; 93005; G0463

== ENCOUNTER → 2018-08-16 | Outpatient (CLI) | payer MEDICARE, MEDICAID ==
[~2018-08-16] MED LIST changes: -CHOL20007 OR; -CHOL20007 PO; -DOCU100T15 PO; -EZET10TA38 PO; -FENO160T8 PO; -LOSA-49 PO; -PRAS10TA6 PO
[2018-08-16 11:00] VITALS: BP_SYST 135; BP_SYST 142; BP_DIAS 78; BP_DIAS 79
[2018-08-16 11:15] VITALS: BP 142/79
--- NOTE | 2018-08-16 11:15 | NUR ---
EECP Tx# 1 This is patient's 1st day of EECP. ekg completed. Patient has a Hx of: Coronary Artery Disease Status Post Multi Vessel Angioplasty PTCA STENT SOB COPD First BP check on Right arm is at 142/79 with a heart rate of 78bpm. Per patient he states he has Fatigue, Mild SOB. Will keep monitoring patient through his Tx if any other changes occur. 1st pleth at 1 min into Tx patient's EECP pressure will increase if tolerable. 2nd pleth at 35 min into Tx patient is tolerating Tx pressure at 280 well with no complaints or discomfort at this time. Monitor shows good pleth valves with a heart rate of 78bpm. 3rd and final pleth at 57 min into Tx patient is tolerating Tx pressure at 280.Patient denies any symptoms or discomfort at this time.Monitor shows excellent pleth valves with a heart rate of 76bpm. Patient has 3 min left till his Tx is completed for the day. Last BP check on Left arm is at 135/78 with a heart rate of 73bpm. Patient denies any symptoms or discomfort at this time.
--- NOTE | 2018-08-16 11:15 | NUR ---
CHF PT TO CHF CLINIC FOR BASELINE EVAL AND EKG PRIOR TO STARTING EECP TX.
[2018-08-16 12:25] VITALS: BP 135/78
--- NOTE | 2018-08-16 12:25 | NUR ---
CHF Discharge Instructions See e-MAR for any mediations given with this visit. Patient education given on disease process. Patient verbalized understanding. Previous labs reviewed. Patient discharged in stable condition with after care instructions and follow up appointment.
== END | disposition home or self-care (01) ==
LOC: CHF HDHVI 10:28
PROVIDERS: ATTEND Internal Medicine Cardiovascular Disease
DX: I25.118 Atherosclerotic heart disease of native coronary artery with other forms of angina pectoris (principal); I11.0 Hypertensive heart disease with heart failure; I50.23 Acute on chronic systolic (congestive) heart failure; J44.9 Chronic obstructive pulmonary disease, unspecified; R94.31 Abnormal electrocardiogram [ECG] [EKG]; Z98.61 Coronary angioplasty status
CPT/HCPCS: 93005; G0166; G0463

== ENCOUNTER → 2018-08-18 | Outpatient (CLI) | payer MEDICARE, MEDICAID ==
[2018-08-18 11:07] VITALS: BP_SYST 134; BP_SYST 147; BP_DIAS 77; BP_DIAS 88
--- NOTE | 2018-08-18 11:07 | NUR ---
EECP Tx# 2 First BP check on his Left arm is at 147/88 with a heart rate of 93bpm. Patient states he has mild SOB. We will continue to monitor patient through his Tx if any changes occur. Arginext was taken before coming in to his Tx. 1st Pleth at 1 min into Tx patient EECP pressure will be increase if tolerable. 2nd pleth at 43 min into Tx patient is tolerating Tx pressure at 160 well with no complaints or discomfort at this time. 3rd and final pleth at 56 min into Tx patient is doing well with his Tx.Monitor shows a good ekg and waveforms with a heart rate of 84bpm.Patient has 4 min left till his Tx is completed for the day. Last BP check on his Left arm is at 134/77 with a heart rate of 81bpm. Patient denies any symptoms or discomfort at this time.
== END | disposition home or self-care (01) ==
LOC: CHF HDHVI 10:50
PROVIDERS: ATTEND Internal Medicine Cardiovascular Disease
DX: I25.118 Atherosclerotic heart disease of native coronary artery with other forms of angina pectoris (principal); I11.0 Hypertensive heart disease with heart failure; I50.23 Acute on chronic systolic (congestive) heart failure; J44.9 Chronic obstructive pulmonary disease, unspecified; Z98.61 Coronary angioplasty status
CPT/HCPCS: G0166

== ENCOUNTER → 2018-08-19 | Outpatient (CLI) | payer MEDICARE, MEDICAID ==
[2018-08-19 10:33] VITALS: BP_SYST 130; BP_SYST 147; BP_DIAS 72; BP_DIAS 83
--- NOTE | 2018-08-19 10:33 | NUR ---
EECP Tx# 3 First BP check on his Left arm is at 147/83 with a heart rate of 86 bpm. Patient states he is having mild SOB. We will continue to monitor patient through his tx if any changes occur. 1st pleth at 6 min into Tx patient EECP pressure will be increase if tolerable. 2nd pleth at 37 min into Tx patient is tolerating Tx pressure at 280 well with no discomfort at this time.Monitor shows a regular rhythm with a heart rate of 87bpm. 3rd and final pleth at 53 min into Tx patient is tolerating Tx pressure at 280 well with no discomfort at this time.Monitor shows good pleth valves with a heart rate of 91bpm.Patient has 7 min left till his Tx is completed for the day. Last BP check on his Left arm is at 130/72 with a heart rate of 88bpm. Patient denies any symptoms or discomfort at this time.
== END | disposition home or self-care (01) ==
LOC: CHF HDHVI 10:26
PROVIDERS: ATTEND Internal Medicine Cardiovascular Disease
DX: I25.118 Atherosclerotic heart disease of native coronary artery with other forms of angina pectoris (principal); I11.0 Hypertensive heart disease with heart failure; I50.23 Acute on chronic systolic (congestive) heart failure; J44.9 Chronic obstructive pulmonary disease, unspecified; Z98.61 Coronary angioplasty status
CPT/HCPCS: G0166

== ENCOUNTER → 2018-08-22 | Outpatient (CLI) | payer MEDICARE, MEDICAID ==
[2018-08-22 10:54] VITALS: BP_SYST 130; BP_SYST 134; BP_DIAS 77; BP_DIAS 79
--- NOTE | 2018-08-22 10:54 | NUR ---
EECP Tx# 4 First BP check on his Left arm is at 130/77 with a heart rate of 76 bpm. Patient states he is having mild SOB. We will continue to monitor patient through his tx if any changes occur. 1st pleth at 1 min into Tx patient EECP pressure will be increase if tolerable. 2nd pleth at 38 min into Tx patient is tolerating Tx pressure at 280 well with no discomfort at this time. Monitor shows good pleth valves with a heart rate of 80bpm. 3rd and final pleth at 56 min into Tx patient is tolerating Tx pressure at 280 well with no discomfort at this time.Monitor shows good pleth valves with a heart rate of 81bpm.Patient has 4 min left till his Tx is completed for the day. Last BP check on his Left arm is at 134/79 with a heart rate of 72bpm. Patient denies any symptoms or discomfort at this time.
== END | disposition home or self-care (01) ==
LOC: CHF HDHVI 10:43
PROVIDERS: ATTEND Internal Medicine Cardiovascular Disease
DX: I25.118 Atherosclerotic heart disease of native coronary artery with other forms of angina pectoris (principal); I11.0 Hypertensive heart disease with heart failure; I50.23 Acute on chronic systolic (congestive) heart failure; J44.9 Chronic obstructive pulmonary disease, unspecified; Z98.61 Coronary angioplasty status
CPT/HCPCS: G0166

== ENCOUNTER → 2018-08-23 | Outpatient (CLI) | payer MEDICARE, MEDICAID ==
[2018-08-23 10:36] VITALS: BP_SYST 135; BP_SYST 150; BP_DIAS 77; BP_DIAS 79
--- NOTE | 2018-08-23 10:36 | NUR ---
EECP Tx# 5 First BP check on his Right arm is at 150/77 with a heart rate of 84bpm. Per patient he states he has mild SOB. As well as dizziness that comes and goes. At this time Patient denies feeling Dizzy. We will continue to monitor patient through his Tx if any changes occur. Arginext was taken before coming in to his Tx. Medications have been taken as prescribed no new changes at this time. 1st pleth at 1 min into Tx .EECP pressure will slowly increase if tolerable. 2nd pleth at 37 min into Tx patient is tolerating Tx pressure at 280 well with no discomfort at this time. Monitor shows a regular rhythm with a heart rate of 81 bpm. 3rd and final pleth at 55 min into Tx patient is tolerating Tx pressure.Monitor shows good pleth valves with a heart rate of 80bpm. Patient has 5 min left till his Tx is completed for the day. Last BP check on his Left arm is at 135/79 with a heart rate of 73bpm. Patient denies any symptoms or discomfort at this time.
== END | disposition home or self-care (01) ==
LOC: CHF HDHVI 10:40
PROVIDERS: ATTEND Internal Medicine Cardiovascular Disease
DX: I11.0 Hypertensive heart disease with heart failure (principal); I50.23 Acute on chronic systolic (congestive) heart failure; J44.9 Chronic obstructive pulmonary disease, unspecified; I25.118 Atherosclerotic heart disease of native coronary artery with other forms of angina pectoris; E78.5 Hyperlipidemia, unspecified; Z98.61 Coronary angioplasty status
CPT/HCPCS: G0166

== ENCOUNTER → 2018-08-24 | Outpatient (CLI) | payer MEDICARE, MEDICAID ==
[2018-08-24 10:52] VITALS: BP_SYST 138; BP_SYST 148; BP_DIAS 83; BP_DIAS 85
--- NOTE | 2018-08-24 10:52 | NUR ---
[facility] Tx# 6 First BP check on his Left arm is at 148/85 with a heart rate of 85bpm.Patient took his Arginext before coming in to his Tx.Patient states he is having mild SOB.We will continue to monitor patient through his Tx if any changes occur.Monitor shows a good ekg and waveforms with good pleth valves.Last BP and HR is at 138/83 with a heart rate of 75bpm.Patient denies any symptoms or discomfort at this time.
== END | disposition home or self-care (01) ==
LOC: CHF HDHVI 10:32
PROVIDERS: ATTEND Internal Medicine Cardiovascular Disease
DX: I25.118 Atherosclerotic heart disease of native coronary artery with other forms of angina pectoris (principal); J44.9 Chronic obstructive pulmonary disease, unspecified; I50.23 Acute on chronic systolic (congestive) heart failure; Z98.61 Coronary angioplasty status
CPT/HCPCS: G0166

== ENCOUNTER → 2018-08-25 | Outpatient (CLI) | payer MEDICARE, MEDICAID ==
[2018-08-25 11:00] VITALS: BP_SYST 131; BP_SYST 145; BP_DIAS 80; BP_DIAS 81
--- NOTE | 2018-08-25 11:00 | NUR ---
EECP Tx# 7 First BP check on his Left arm is at 145/81 with a heart rate of 85bpm. Per patient he states he is having mild SOB and fatigue. We will continue to monitor patient through his Tx if oxygen needs to be provided to patient. Arginext was taken before coming in to his Tx. 1st pleth at 1 min into Tx patient EECP pressure will be increase if tolerable. 2nd pleth at 26 min into Tx patient is tolerating Tx pressure at 120 at this time.Patient can't tolerate pressure higher than 120 at this moment.Monitor shows a good ekg and waveforms with excellent pleth valves and a heart rate of 87bpm. 3rd and final pleth at 51 min into Tx patient is doing well with his Tx.Monitor shows a good ekg and waveforms with good pleth valves and a heart rate of 83bpm.Patient has 9 min left till his Tx is completed for the day. Last BP and HR check left arm is at 131/80 with a heart rate of 74bpm. Patient denies any chest pain or discomfort at this time.
== END | disposition home or self-care (01) ==
LOC: CHF HDHVI 10:38
PROVIDERS: ATTEND Internal Medicine Cardiovascular Disease
DX: I25.118 Atherosclerotic heart disease of native coronary artery with other forms of angina pectoris (principal); I11.0 Hypertensive heart disease with heart failure; I50.23 Acute on chronic systolic (congestive) heart failure; J44.9 Chronic obstructive pulmonary disease, unspecified; Z98.61 Coronary angioplasty status
CPT/HCPCS: G0166

== ENCOUNTER → 2018-08-26 | Outpatient (CLI) | payer MEDICARE, MEDICAID ==
[2018-08-26 10:49] VITALS: BP_SYST 136; BP_SYST 141; BP_DIAS 77; BP_DIAS 80
--- NOTE | 2018-08-26 16:02 | NUR ---
EECP Tx# 8 First BP check on his Left arm is at 141/77 with a heart rate of 76bpm. Per patient he states he is having mild SOB and fatigue. We will continue to monitor patient through his Tx if oxygen needs to be provided to patient. Arginext was taken before coming in to his Tx. 1st pleth at 1 min into Tx patient EECP pressure will be increase if tolerable. 2nd pleth at 40 min into Tx patient is tolerating Tx pressure at 280 well at this time.Monitor shows a good ekg and waveforms.Heart rate is at 83bpm. 3rd and final pleth at 48 min into Tx patient is doing well with his Tx.Monitor shows a good ekg and waveforms with a heart rate of 77bpm.Patient has 12 min left till his Tx is completed for the day. Last BP and HR is at 136/80 with a heart rate of 68bpm. Patient denies any chest pain or discomfort at this time.
== END | disposition home or self-care (01) ==
LOC: Rad HDHVI 10:31
PROVIDERS: ATTEND Internal Medicine Cardiovascular Disease
DX: I25.118 Atherosclerotic heart disease of native coronary artery with other forms of angina pectoris (principal); I11.0 Hypertensive heart disease with heart failure; I50.23 Acute on chronic systolic (congestive) heart failure; J44.9 Chronic obstructive pulmonary disease, unspecified; Z98.61 Coronary angioplasty status
CPT/HCPCS: G0166

== ENCOUNTER → 2018-08-29 | Outpatient (CLI) | payer MEDICARE, MEDICAID ==
[2018-08-29 11:19] VITALS: BP_SYST 146; BP_SYST 147; BP_DIAS 77; BP_DIAS 81
--- NOTE | 2018-08-29 11:19 | NUR ---
EECP Tx# 9 First BP check on his Left arm is at 146/77 with a heart rate of 76bpm. Per patient he states he is having mild SOB. We will continue to monitor patient through his Tx if oxygen needs to be provided to patient. Arginext was taken before coming in to his Tx. 1st pleth at 1 min into Tx patient EECP pressure will be increase if tolerable. 2nd pleth at 30 min into Tx patient is tolerating Tx pressure at 220 well at this time.Monitor shows a good ekg and waveforms.Heart rate is at 81bpm. 3rd and final pleth at 46 min into Tx patient is doing well with his Tx.Monitor shows a good ekg and waveforms with a heart rate of 83bpm.Patient has 14 min left till his Tx is completed for the day. Last BP and HR is at 147/81 with a heart rate of 80bpm. Patient denies any chest pain or discomfort at this time.
== END | disposition home or self-care (01) ==
LOC: CHF HDHVI 10:37
PROVIDERS: ATTEND Internal Medicine Cardiovascular Disease
DX: I25.118 Atherosclerotic heart disease of native coronary artery with other forms of angina pectoris (principal); I11.0 Hypertensive heart disease with heart failure; I50.23 Acute on chronic systolic (congestive) heart failure; J44.9 Chronic obstructive pulmonary disease, unspecified; Z98.61 Coronary angioplasty status
CPT/HCPCS: G0166

== ENCOUNTER → 2018-08-31 | Outpatient (CLI) | payer MEDICARE, MEDICAID ==
[2018-08-31 10:49] VITALS: BP_SYST 136; BP_SYST 145; BP_DIAS 82
--- NOTE | 2018-08-31 14:38 | NUR ---
EECP Tx# 10 First BP check on his Left arm is at 145/82 with a heart rate of 89bpm. Patient states he was having a mild SOB. We will continue to monitor patient through his Tx if any changes occur. Arginext was taken before coming in to his Tx. 1st pleth at 1 min into Tx patient EECP pressure will increase if tolerable. 2nd pleth at 34 min into Tx patient is tolerating Tx pressure at 160 well with no complaints or problems.Monitor shows a good ekg and waveforms with excellent pleth valves and a heart rate of 89bpm. 3rd and final pleth at 58 min into Tx.Monitor shows a good ekg and waveforms with a heart rate of 87bpm.Monitor shows excellent pleth valves.Patient has 2 min left till his Tx is completed for the day. Last BP check on left arm is at 136/82 with a heart rate of 84bpm. Patient denies any symptoms or discomfort at this time.
== END | disposition home or self-care (01) ==
LOC: CHF HDHVI 10:37
PROVIDERS: ATTEND Internal Medicine Cardiovascular Disease
DX: I25.118 Atherosclerotic heart disease of native coronary artery with other forms of angina pectoris (principal); I50.23 Acute on chronic systolic (congestive) heart failure; J44.9 Chronic obstructive pulmonary disease, unspecified; Z98.61 Coronary angioplasty status
CPT/HCPCS: G0166

== ENCOUNTER → 2018-09-02 | Outpatient (CLI) | payer MEDICARE, MEDICAID ==
[2018-09-02 10:37] VITALS: BP_SYST 133; BP_SYST 145; BP_DIAS 70; BP_DIAS 82
--- NOTE | 2018-09-02 10:37 | NUR ---
EECP Tx# 11 First BP check on his Left arm is at 145/82 with a heart rate of 89bpm. Patient states he has mild SOB. We will monitor patient through his Tx if any changes occur during his Tx. Arginext was taken before coming in to his Tx. Patient EECP pressure will increase if tolerable. Patient at this time is tolerating Tx pressure at 200 well with no discomfort at this time.Monitor shows a good ekg and waveforms with good pleth valves at this time heart rate is at 81bpm. Patient Last BP and HR check on his Left arm is at 133/70 with a heart rate of 92bpm. Patient denies any symptoms or discomfort at this time.
== END | disposition home or self-care (01) ==
LOC: CHF HDHVI 10:33
PROVIDERS: ATTEND Internal Medicine Cardiovascular Disease
DX: I25.118 Atherosclerotic heart disease of native coronary artery with other forms of angina pectoris (principal); I11.0 Hypertensive heart disease with heart failure; I50.23 Acute on chronic systolic (congestive) heart failure; E11.9 Type 2 diabetes mellitus without complications; J44.9 Chronic obstructive pulmonary disease, unspecified; Z98.61 Coronary angioplasty status
CPT/HCPCS: G0166

== ENCOUNTER → 2018-09-05 | Outpatient (CLI) | payer MEDICARE, MEDICAID ==
[2018-09-05 10:47] VITALS: BP_SYST 132; BP_SYST 147; BP_DIAS 77; BP_DIAS 83
--- NOTE | 2018-09-05 10:47 | NUR ---
EECP Tx# 12 First BP check on his Left arm is at 147/83 with a heart rate of 89bpm. Patient states he has mild SOB. We will monitor patient through his Tx if any changes occur during his Tx. Arginext was taken before coming in to his Tx. Patient EECP pressure will increase if tolerable. Patient at this time is tolerating Tx pressure at 160 well with no discomfort at this time.Monitor shows a good ekg and waveforms.Heart rate at this time is 88bpm. Patient Last BP and HR check on his Left arm is at 132/77 with a heart rate of 75bpm. Patient denies any symptoms or discomfort at this time.
== END | disposition home or self-care (01) ==
LOC: CHF HDHVI 10:45
PROVIDERS: ATTEND Internal Medicine Cardiovascular Disease
DX: I25.118 Atherosclerotic heart disease of native coronary artery with other forms of angina pectoris (principal); I11.0 Hypertensive heart disease with heart failure; I50.23 Acute on chronic systolic (congestive) heart failure; J44.9 Chronic obstructive pulmonary disease, unspecified; Z98.61 Coronary angioplasty status
CPT/HCPCS: G0166

== ENCOUNTER → 2018-09-09 | Outpatient (CLI) | payer MEDICARE, MEDICAID ==
[2018-09-09 09:30] VITALS: BP 151/83
[2018-09-09 10:30] VITALS: BP 135/87
--- NOTE | 2018-09-09 10:30 | NUR ---
CHF CLINIC Discharge Instructions See e-MAR for any mediations given with this visit. Patient education given on disease process. Patient verbalized understanding. Previous labs reviewed. Patient discharged in stable condition with after care instructions and follow up appointment. NOTE PATIENT C/O OF SHOULDER PAIN, XRAY OF SHOULDER DONE, PATIENT TO RETURN NEXT WEEK FOR EECP TREATMENT.
== END | disposition home or self-care (01) ==
LOC: Rad HDHVI 11:13
PROVIDERS: ATTEND Internal Medicine Cardiovascular Disease
DX: M19.011 Primary osteoarthritis, right shoulder (principal); M85.811 Other specified disorders of bone density and structure, right shoulder; R94.31 Abnormal electrocardiogram [ECG] [EKG]
CPT/HCPCS: 73030; 93005; G0463

== ENCOUNTER → 2018-09-12 | Outpatient (CLI) | payer MEDICARE, MEDICAID ==
[2018-09-12 10:34] VITALS: BP_SYST 130; BP_SYST 135; BP_DIAS 71; BP_DIAS 75
--- NOTE | 2018-09-12 10:34 | NUR ---
EECP Tx# 13 First BP check on his L arm is at 130/71 with a heart rate of 74bpm. Patient states he is having mild SOB. Patient is still having right shoulder discomfort 12/05 We will continue to monitor patient through his Tx Arginext was taken before coming in to his Tx. EECP pressure will be increase if tolerable. 1st pleth at 2 min into Tx monitor shows a good ekg and waveforms with good pleth valves. 2nd pleth at 30 min into Tx patient is tolerating Tx pressure at 160 well with no discomfort at this time.Patient can't tolerate pressure at a higher rate.Monitor shows a good ekg and waveforms with excellent pleth valves and a heart rate of 82bpm. 3rd and final pleth at 55 min into Tx patient is tolerating Tx pressure at 160.Monitor shows a good ekg and waveforms with a heart rate of 75bpm.Patient has 5 min left till his Tx is completed for the day. Last BP and HR check on his Left arm is at 135/75 with a heart rate of 75 Patient denies any symptoms or discomfort at this time.
== END | disposition home or self-care (01) ==
LOC: Rad HDHVI 10:25
PROVIDERS: ATTEND Internal Medicine Cardiovascular Disease
DX: I11.0 Hypertensive heart disease with heart failure (principal); I50.23 Acute on chronic systolic (congestive) heart failure; I25.118 Atherosclerotic heart disease of native coronary artery with other forms of angina pectoris; J44.9 Chronic obstructive pulmonary disease, unspecified; Z98.61 Coronary angioplasty status
CPT/HCPCS: G0166

== ENCOUNTER → 2018-09-14 | Outpatient (CLI) | payer MEDICARE, MEDICAID ==
[2018-09-14 10:49] VITALS: BP_SYST 127; BP_SYST 149; BP_DIAS 73; BP_DIAS 88
--- NOTE | 2018-09-14 14:56 | NUR ---
EECP Tx# 14 First BP check on his L arm is at 149/88 with a heart rate of 83bpm. Patient states he is having mild SOB. Patient is still having right shoulder discomfort / We will continue to monitor patient through his Tx Arginext was taken before coming in to his Tx. EECP pressure will be increase if tolerable. 1st pleth at 1 min into Tx monitor shows a good ekg and waveforms with good pleth valves. 2nd pleth at 36 min into Tx patient is tolerating Tx pressure at 160 well with no discomfort at this time.Patient can't tolerate pressure at a higher rate.Monitor shows a good ekg and waveforms with good pleth valves and a heart rate of 79bpm. 3rd and final pleth at 58 min into Tx patient is tolerating Tx pressure at 160.Monitor shows a good ekg and waveforms with a heart rate of 77bpm.Patient has 2 min left till his Tx is completed for the day. Last BP and HR check on his Left arm is at 127/73 with a heart rate of 74bpm Patient denies any symptoms or discomfort at this time.
== END | disposition home or self-care (01) ==
LOC: Rad HDHVI 10:53
PROVIDERS: ATTEND Internal Medicine Cardiovascular Disease
DX: I25.118 Atherosclerotic heart disease of native coronary artery with other forms of angina pectoris (principal); I11.0 Hypertensive heart disease with heart failure; I50.23 Acute on chronic systolic (congestive) heart failure; J44.9 Chronic obstructive pulmonary disease, unspecified; Z98.61 Coronary angioplasty status
CPT/HCPCS: G0166

== ENCOUNTER → 2018-09-16 | Outpatient (CLI) | payer MEDICARE, MEDICAID ==
[2018-09-16 10:52] VITALS: BP_SYST 114; BP_SYST 125; BP_DIAS 73; BP_DIAS 74
--- NOTE | 2018-09-16 14:36 | NUR ---
EECP Tx# 15 First BP check on his L arm is at 114/73 with a heart rate of 80bpm. Patient states he is having mild SOB and fatigue Patient is still having right shoulder discomfort 3/10. Per patient he states putting a warm patch makes R shoulder feel better. We will continue to monitor patient through his Tx Arginext was taken before coming in to his Tx. EECP pressure will be increase if tolerable. 1st pleth at 1 min into Tx monitor shows a good ekg and waveforms with good pleth valves. 2nd pleth at 40 min into Tx patient is tolerating Tx pressure at 200 well with no discomfort at this time. Patient at this time can't tolerate pressure at a higher rate.Monitor shows a good ekg and waveforms with excellent pleth valves and a heart rate of 93bpm. 3rd and final pleth at 52 min into Tx patient is tolerating Tx pressure at 200.Monitor shows a good ekg and waveforms with a heart rate of 87bpm.Patient has 8 min left till his Tx is completed for the day. Last BP and HR check on his Left arm is at 125/74 with a heart rate of 88bpm Patient denies any symptoms or discomfort at this time.
== END | disposition home or self-care (01) ==
LOC: CHF HDHVI 10:32
PROVIDERS: ATTEND Internal Medicine Cardiovascular Disease
DX: I25.118 Atherosclerotic heart disease of native coronary artery with other forms of angina pectoris (principal); I11.0 Hypertensive heart disease with heart failure; I50.23 Acute on chronic systolic (congestive) heart failure; J44.9 Chronic obstructive pulmonary disease, unspecified; E11.9 Type 2 diabetes mellitus without complications; Z98.61 Coronary angioplasty status
CPT/HCPCS: G0166

== ENCOUNTER → 2018-09-19 | Outpatient (CLI) | payer MEDICARE, MEDICAID ==
--- NOTE | 2018-09-19 12:02 | NUR ---
EECP Tx# 16 First BP check on his L arm is at 153/81 with a heart rate of 85bpm. Patient has a Hx: SOB Patient is still having right shoulder discomfort 2/10. Per patient he sates R shoulder has been feeling better. We will continue to monitor patient through his Tx Arginext was taken before coming in to his Tx. EECP pressure will be increase if tolerable. 1st pleth at 1 min into Tx monitor shows a good ekg and waveforms with good pleth valves. 2nd pleth at 29 min into Tx patient is tolerating Tx pressure at 200 well with no discomfort at this time. Patient at this time can't tolerate pressure at a higher rate.Monitor shows excellent pleth valves with a heart rate of 86bpm. 3rd and final pleth at 55 min into Tx patient is tolerating Tx pressure at 200.Monitor shows good pleth valves heart rate is at 77bpm.Patient has 5 min left till his Tx is completed for the day. Last BP and HR check on his Left arm is at 121/68 with a heart rate of 78bpm Patient denies any symptoms or discomfort at this time.
[2018-09-19 12:06] VITALS: BP_SYST 121; BP_SYST 153; BP_DIAS 68; BP_DIAS 81
== END | disposition home or self-care (01) ==
LOC: CHF HDHVI 10:41
PROVIDERS: ATTEND Internal Medicine Cardiovascular Disease
DX: I25.118 Atherosclerotic heart disease of native coronary artery with other forms of angina pectoris (principal); J44.9 Chronic obstructive pulmonary disease, unspecified; I11.0 Hypertensive heart disease with heart failure; I50.23 Acute on chronic systolic (congestive) heart failure; Z98.61 Coronary angioplasty status
CPT/HCPCS: G0166

== ENCOUNTER → 2018-09-20 | Outpatient (CLI) | payer MEDICARE, MEDICAID ==
--- NOTE | 2018-09-21 08:16 | NUR ---
EECP Tx# 17 First BP check on his L arm is at 142/83 with a heart rate of 84bpm. Patient has a Hx: SOB Arginext was taken before coming in to his Tx. EECP pressure will be increase if tolerable. 1st pleth at 1 min into Tx monitor shows a good ekg and waveforms with good pleth valves. 2nd pleth at 42 min into Tx patient is tolerating Tx pressure at 200 well with no discomfort at this time. Patient at this time can't tolerate pressure at a higher rate.Monitor shows excellent pleth valves with a heart rate of 83bpm. 3rd and final pleth at 59 min into Tx patient is tolerating Tx pressure at 200.Monitor shows excellent pleth valves heart rate is at 79bpm.Patient has 5 min left till his Tx is completed for the day. Last BP and HR check on his Left arm is at 125/70 with a heart rate of 75bpm Patient denies any symptoms or discomfort at this time.
[2018-09-21 08:31] VITALS: BP_SYST 125; BP_SYST 142; BP_DIAS 70; BP_DIAS 83
== END | disposition home or self-care (01) ==
LOC: CHF HDHVI 10:44
PROVIDERS: ATTEND Internal Medicine Cardiovascular Disease
DX: I25.118 Atherosclerotic heart disease of native coronary artery with other forms of angina pectoris (principal); E11.9 Type 2 diabetes mellitus without complications; I11.0 Hypertensive heart disease with heart failure; I50.23 Acute on chronic systolic (congestive) heart failure; J44.9 Chronic obstructive pulmonary disease, unspecified; Z98.61 Coronary angioplasty status
CPT/HCPCS: G0166

== ENCOUNTER → 2018-09-21 | Outpatient (CLI) | payer MEDICARE, MEDICAID ==
--- NOTE | 2018-09-21 14:47 | NUR ---
EECP Tx# 18 Patient BP was check on his Left arm 152/76 with a heart rate of 78bpm. Patient denies any symptoms or discomfort at this time. Patient has a Hx of SOB. At this time EECP pressure is at 200.Patient is tolerating Tx pressure with no complaint or discomfort at this time.Monitor shows a good ekg and waveforms with excellent pleth valves. Last BP check on his Left arm is at 135/72 with a heart rate of 74bpm. At this time patient denies any symptoms or discomfort.
[2018-09-21 14:52] VITALS: BP_SYST 135; BP_SYST 152; BP_DIAS 72; BP_DIAS 76
== END | disposition home or self-care (01) ==
LOC: CHF HDHVI 11:01
PROVIDERS: ATTEND Internal Medicine Cardiovascular Disease
DX: I25.118 Atherosclerotic heart disease of native coronary artery with other forms of angina pectoris (principal); J44.9 Chronic obstructive pulmonary disease, unspecified; I11.0 Hypertensive heart disease with heart failure; I50.23 Acute on chronic systolic (congestive) heart failure; E11.9 Type 2 diabetes mellitus without complications; Z98.61 Coronary angioplasty status
CPT/HCPCS: G0166

== ENCOUNTER → 2018-09-22 | Outpatient (CLI) | payer MEDICARE, MEDICAID ==
[2018-09-22 10:58] VITALS: BP_SYST 136; BP_SYST 147; BP_DIAS 79; BP_DIAS 82
--- NOTE | 2018-09-22 11:16 | NUR ---
EECP Tx# 19 Patient came in c/o right arch pain above plantar.Patient was seen yesterday by . I notify .Per Dr.Subherwal morrow to have patient start treatment as long as patient is tolerating Tx and no discomfort on right arch.We will continue to monitor patient through his Tx if any changes occur. 1st BP check on his Left arm is at 147/79 with a heart rate of 69bpm. Patient has a Hx of SOB. Arginext was taken before coming in to his Tx. EECP pressure at this time is at 200 patient is tolerating Tx pressure at this time. patient denies any symptoms or discomfort at this moment.At 30 min into Tx monitor shows a good ekg and waveforms with good pleth valves and a heart rate of 70bpm. 3rd pleth at 53 min into Tx patient is doing well at this time.Monitor shows a good ekg and waveforms with excellent pleth valves and a heart rate of 74bpm. Last BP check on his Left arm is at 136/82 with a heart rate of 68bpm. Patient at this time denies any symptoms or discomfort.
== END | disposition home or self-care (01) ==
LOC: CHF HDHVI 10:40
PROVIDERS: ATTEND Internal Medicine Cardiovascular Disease
DX: I25.118 Atherosclerotic heart disease of native coronary artery with other forms of angina pectoris (principal); I11.0 Hypertensive heart disease with heart failure; I50.23 Acute on chronic systolic (congestive) heart failure; J44.9 Chronic obstructive pulmonary disease, unspecified; E11.9 Type 2 diabetes mellitus without complications; Z98.61 Coronary angioplasty status
CPT/HCPCS: G0166

== ENCOUNTER → 2018-09-23 | Outpatient (CLI) | payer MEDICARE, MEDICAID ==
[2018-09-23 10:41] VITALS: BP_SYST 131; BP_SYST 147; BP_DIAS 77; BP_DIAS 81
--- NOTE | 2018-09-23 16:53 | NUR ---
[facility] Tx# 20 First BP check on his Left arm is at 147/81 with a heart rate of 82bpm. Patient has a Hx of SOB. Arginext was taken before coming in to his Tx. Patient came in yesterday with right arch pain at this time pain level is at 5/10 At 31 min into Tx.EECP pressure is at 200 patient is tolerating Tx pressure at this time. patient denies any symptoms or discomfort at this moment.Monitor shows a good ekg and waveforms with a heart rate of 78bpm. 3rd pleth at 48 min into Tx patient is doing well at this time.Monitor shows a good ekg and waveforms with good pleth valves and a heart rate of 81bpm. Last BP check on his Left arm is at 131/77 with a heart rate of 78bpm. Patient at this time denies any symptoms or discomfort.
== END | disposition home or self-care (01) ==
LOC: CHF HDHVI 10:44
PROVIDERS: ATTEND Internal Medicine Cardiovascular Disease
DX: I25.118 Atherosclerotic heart disease of native coronary artery with other forms of angina pectoris (principal); I11.0 Hypertensive heart disease with heart failure; I50.23 Acute on chronic systolic (congestive) heart failure; J44.9 Chronic obstructive pulmonary disease, unspecified; Z98.61 Coronary angioplasty status
CPT/HCPCS: G0166

== ENCOUNTER → 2018-09-27 | Outpatient (CLI) | payer MEDICARE, MEDICAID ==
[2018-09-28 10:37] VITALS: BP_SYST 128; BP_SYST 129; BP_DIAS 71; BP_DIAS 85
--- NOTE | 2018-09-28 10:59 | NUR ---
Late entry for DOS 09/27/2018 EECP Tx# 21 First BP check on his Left arm is at 128/71 with a heart rate of 80bpm. Patient has a Hx of SOB. Arginext was taken before coming in to his Tx. Patient c/o Right arch pain at this time pain level is at 5/10 At 42 min into Tx.EECP pressure is at 200 patient is tolerating Tx pressure at this time. patient denies any symptoms or discomfort at this moment.Monitor shows a good ekg and waveforms with a heart rate of 81bpm. 3rd pleth at 58 min into Tx patient is doing well at this time.Monitor shows a good ekg and waveforms with good pleth valves and a heart rate of 78bpm. Last BP check on his Left arm is at 129/85 with a heart rate of 71bpm. Patient at this time denies any symptoms or discomfort.
== END | disposition home or self-care (01) ==
LOC: CHF HDHVI 10:27
PROVIDERS: ATTEND Internal Medicine Cardiovascular Disease
DX: I25.118 Atherosclerotic heart disease of native coronary artery with other forms of angina pectoris (principal); I11.0 Hypertensive heart disease with heart failure; I50.23 Acute on chronic systolic (congestive) heart failure; J44.9 Chronic obstructive pulmonary disease, unspecified; E11.9 Type 2 diabetes mellitus without complications; Z98.61 Coronary angioplasty status
CPT/HCPCS: G0166

== ENCOUNTER → 2018-09-28 | Outpatient (CLI) | payer MEDICARE, MEDICAID ==
[2018-09-28 10:41] VITALS: BP_SYST 134; BP_SYST 143; BP_DIAS 76; BP_DIAS 79
--- NOTE | 2018-09-28 11:28 | NUR ---
[facility] Tx# 22 First BP check on his Left arm is at 143/79 with a heart rate of 72bpm. Patient has a Hx of SOB. Arginext was taken before coming in to his Tx. Patient c/o Right arch pain at this time pain level is at 6/10 At 38 min into Tx.EECP pressure is at 200 patient is tolerating Tx pressure at this time.patient denies any symptoms or discomfort at this moment.Monitor shows a good ekg and waveforms with a heart rate of 80bpm. 3rd pleth at 52 min into Tx patient is doing well at this time.Monitor shows a good ekg and waveforms with good pleth valves and a heart rate of 81bpm.Patient has 8 min left till his Tx is completed for the day. Last BP check on his Left arm is at 134/76 with a heart rate of 70bpm. Patient at this time denies any symptoms or discomfort.
== END | disposition home or self-care (01) ==
LOC: CHF HDHVI 10:37
PROVIDERS: ATTEND Internal Medicine Cardiovascular Disease
DX: I25.118 Atherosclerotic heart disease of native coronary artery with other forms of angina pectoris (principal); I11.0 Hypertensive heart disease with heart failure; I50.23 Acute on chronic systolic (congestive) heart failure; J44.9 Chronic obstructive pulmonary disease, unspecified; Z98.61 Coronary angioplasty status
CPT/HCPCS: G0166

== ENCOUNTER → 2018-09-29 | Outpatient (CLI) | payer MEDICARE, MEDICAID ==
--- NOTE | 2018-09-29 15:15 | NUR ---
[facility] Tx# 23 First BP check on his Left arm is at 144/78 with a heart rate of 79bpm. Patient has a Hx of SOB. Arginext was taken before coming in to his Tx. At 39 min into Tx.EECP pressure is at 200 patient is tolerating Tx pressure at this time.patient denies any symptoms or discomfort at this moment.Monitor shows a good ekg and waveforms with a heart rate of 78bpm. 3rd pleth at 57 min into Tx patient is doing well at this time.Monitor shows a good ekg and waveforms with good pleth valves and a heart rate of 76bpm.Patient has 3 min left till his Tx is completed for the day. Last BP check on his Left arm is at 135/81 with a heart rate of 69bpm. Patient at this time denies any symptoms or discomfort.
[2018-09-29 15:20] VITALS: BP 144/78
[2018-09-29 15:22] VITALS: BP 135/81
== END | disposition home or self-care (01) ==
LOC: CHF HDHVI 10:28
PROVIDERS: ATTEND Internal Medicine Cardiovascular Disease
DX: I25.118 Atherosclerotic heart disease of native coronary artery with other forms of angina pectoris (principal); I11.0 Hypertensive heart disease with heart failure; I50.23 Acute on chronic systolic (congestive) heart failure; J44.9 Chronic obstructive pulmonary disease, unspecified; Z98.61 Coronary angioplasty status
CPT/HCPCS: G0166

== ENCOUNTER → 2018-09-30 | Outpatient (CLI) | payer MEDICARE, MEDICAID ==
[2018-09-30 10:29] VITALS: BP_SYST 126; BP_SYST 142; BP_DIAS 73; BP_DIAS 83
--- NOTE | 2018-09-30 15:54 | NUR ---
EECP Tx# 24 First BP check on his Left arm is at 142/83 with a heart rate of 80bpm. Patient has a Hx of SOB. Arginext was taken before coming in to his Tx. EECP pressure will increase if tolerable. 2nd pleth at 4 min into Tx.EECP pressure is at 200 patient is tolerating Tx pressure at this time.patient denies any symptoms or discomfort at this moment.Monitor shows a good ekg and waveforms with a heart rate of 88bpm with an Spo2 of 88bpm. 3rd pleth at 58 min into Tx patient is doing well at this time.Monitor shows a good ekg and waveforms with good pleth valves and a heart rate of 84bpm.Patient has 2 min left till his Tx is completed for the day. Last BP check on his Left arm is at 126/73 with a heart rate of 77bpm. Patient at this time denies any symptoms or discomfort. Addendum: 09/30/18 at 1602 by PARADISE OVALLES [id number] PLEASE DISREGARD Spo2 88bpm Documentation error. Correct Spo2 for 2nd pleth is Spo2 94 Spo2 for 3rd pleth is 93.
== END | disposition home or self-care (01) ==
LOC: CHF HDHVI 10:27
PROVIDERS: ATTEND Internal Medicine Cardiovascular Disease
DX: I25.118 Atherosclerotic heart disease of native coronary artery with other forms of angina pectoris (principal); I11.0 Hypertensive heart disease with heart failure; I50.23 Acute on chronic systolic (congestive) heart failure; J44.9 Chronic obstructive pulmonary disease, unspecified; Z98.61 Coronary angioplasty status
CPT/HCPCS: G0166

== ENCOUNTER → 2018-10-03 | Outpatient (CLI) | payer MEDICARE, MEDICAID ==
--- NOTE | 2018-10-03 14:29 | NUR ---
EECP Tx# 25 First BP check on his Left arm is at 154/80 with a heart rate of 86bpm. Patient has a Hx of SOB. Arginext was taken before coming in to his Tx. EECP pressure will increase if tolerable. 2nd pleth at 44 min into Tx.EECP pressure is at 200 patient is tolerating Tx pressure at this time.patient denies any symptoms or discomfort at this moment.Monitor shows a good ekg and waveforms with a heart rate of 86bpm. 3rd pleth at 58 min into Tx patient is doing well at this time.Monitor shows a good ekg and waveforms with good pleth valves and a heart rate of 88bpm.Patient has 2 min left till his Tx is completed for the day. Last BP check on his Left arm is at 135/76 with a heart rate of 79bpm. Patient at this time denies any symptoms or discomfort.
[2018-10-03 14:31] VITALS: BP 154/80
[2018-10-03 14:32] VITALS: BP 135/76
== END | disposition home or self-care (01) ==
LOC: CHF HDHVI 10:33
PROVIDERS: ATTEND Internal Medicine Cardiovascular Disease
DX: I25.118 Atherosclerotic heart disease of native coronary artery with other forms of angina pectoris (principal); I11.0 Hypertensive heart disease with heart failure; I50.23 Acute on chronic systolic (congestive) heart failure; J44.9 Chronic obstructive pulmonary disease, unspecified; Z98.61 Coronary angioplasty status
CPT/HCPCS: G0166

== ENCOUNTER → 2018-10-04 | Outpatient (CLI) | payer MEDICARE, MEDICAID ==
--- NOTE | 2018-10-04 14:38 | NUR ---
EECP Tx# 26 First BP check on his Left arm is at 153/77 with a heart rate of 83bpm. Patient has a Hx of SOB. Arginext was taken before coming in to his Tx. EECP pressure will increase if tolerable. 2nd pleth at 37 min into Tx.EECP pressure is at 200 patient is tolerating Tx pressure at this time.patient denies any symptoms or discomfort at this moment.Monitor shows a good ekg and waveforms with a heart rate of 82bpm and a Spo2 97 3rd pleth at 54 min into Tx patient is doing well at this time.Monitor shows a good ekg and waveforms with good pleth valves and a heart rate of 84bpm and a Spo2 96 Patient has 6 min left till his Tx is completed for the day. Last BP check on his Left arm is at 122/74 with a heart rate of 80bpm. Patient at this time denies any symptoms or discomfort.
[2018-10-04 14:40] VITALS: BP 153/77
[2018-10-04 14:44] VITALS: BP 122/74
== END | disposition home or self-care (01) ==
LOC: CHF HDHVI 10:28
PROVIDERS: ATTEND Internal Medicine Cardiovascular Disease
DX: I25.118 Atherosclerotic heart disease of native coronary artery with other forms of angina pectoris (principal); I11.0 Hypertensive heart disease with heart failure; I50.23 Acute on chronic systolic (congestive) heart failure; J44.9 Chronic obstructive pulmonary disease, unspecified; Z98.61 Coronary angioplasty status
CPT/HCPCS: G0166

== ENCOUNTER → 2018-10-05 | Outpatient (CLI) | payer MEDICARE, MEDICAID ==
--- NOTE | 2018-10-05 11:43 | NUR ---
EECP Tx# 27 First BP check on his Left arm is at 147/76 with a heart rate of 75bpm. Patient has a Hx of SOB. Arginext was taken before coming in to his Tx. EECP pressure will increase if tolerable. 2nd pleth at 34 min into Tx.EECP pressure is at 200 patient is tolerating Tx pressure at this time.patient denies any symptoms or discomfort at this moment.Monitor shows a good ekg and waveforms with a heart rate of 77bpm and a Spo2 94. 3rd pleth at 57 min into Tx patient is doing well at this time.Monitor shows a good ekg and waveforms with good pleth valves and a heart rate of 79bpm with an Spo2 97 Patient has 6 min left till his Tx is completed for the day. Last BP check on his Left arm is at 138/78 with a heart rate of 67bpm. Patient at this time denies any symptoms or discomfort.
[2018-10-05 11:47] VITALS: BP_SYST 138; BP_SYST 147; BP_DIAS 76; BP_DIAS 78
== END | disposition home or self-care (01) ==
LOC: CHF HDHVI 11:25
PROVIDERS: ATTEND Internal Medicine Cardiovascular Disease
DX: I25.118 Atherosclerotic heart disease of native coronary artery with other forms of angina pectoris (principal); I11.0 Hypertensive heart disease with heart failure; I50.23 Acute on chronic systolic (congestive) heart failure; J44.9 Chronic obstructive pulmonary disease, unspecified; Z98.61 Coronary angioplasty status
CPT/HCPCS: G0166

== ENCOUNTER → 2018-10-10 | Outpatient (CLI) | payer MEDICARE, MEDICAID ==
[~2018-10-10] VITALS: Ht 162.6 cm; Wt 72.6 kg
[~2018-10-10] MED LIST changes: +ADENOSINE 61 MG in GIVE UN-DILUTED 0 ML IV ONE; +ADENOSINE 90 MG/30 ML INJ IV ONE
--- NOTE | 2018-10-10 11:39 | NUR ---
EECP Tx# 28 First BP check on his Left arm is at 144/85 with a heart rate of 70bpm. Patient did no taken his Arginext morning. Medications are the same no new changes. 1st pleth at 1 min into Tx EECP pressure will increase if tolerable. 2nd pleth at 36 min into Tx patient is tolerating Tx pressure at 200 well with no discomfort at this time.Monitor shows a good ekg and waveforms with excellent pleth valves and a heart rate of 87bpm with an Spo2 of 95. 3rd and final pleth at 58 min mauricio Tx patient is tolerating Tx pressure at 200 well with no discomfort at this time.Monitor shows a good ekg and waveforms with good pleth valves and a heart rate of 83bpm. Patient has 2 min left till his Tx is completed for the day. Last BP check on his Left arm is at 127/89 with a heart rate of 78bpm. Patient denies any symptoms r discomfort at this time.
[2018-10-10 14:55] VITALS: BP 144/85
[2018-10-10 14:58] VITALS: BP 127/89
== END | disposition home or self-care (01) ==
LOC: Rad HDHVI 09:33
PROVIDERS: ATTEND Internal Medicine Cardiovascular Disease
DX: I25.118 Atherosclerotic heart disease of native coronary artery with other forms of angina pectoris (principal); I11.0 Hypertensive heart disease with heart failure; I50.23 Acute on chronic systolic (congestive) heart failure; J44.9 Chronic obstructive pulmonary disease, unspecified; Z98.61 Coronary angioplasty status
CPT/HCPCS: 78452; 93005; 96374; 96375; A9500; G0166; J0153

== ENCOUNTER → 2018-10-11 | Outpatient (CLI) | payer MEDICARE, MEDICAID ==
[~2018-10-11] MED LIST changes: -ADENOSINE 61 MG in GIVE UN-DILUTED 0 ML IV ONE; -ADENOSINE 90 MG/30 ML INJ IV ONE
--- NOTE | 2018-10-11 11:31 | NUR ---
EECP Tx# 29 First BP check on his Left arm is at 142/79 with a heart rate of 83bpm. Arginext was taken this AM before coming in to his Tx. Medications are the same no new changes. Patient has a Hx of SOB 1st pleth at 1 min into Tx EECP pressure will increase if tolerable Spo2 95. 2nd pleth at 41 min into Tx patient is tolerating Tx pressure at 200 well with no discomfort at this time.Monitor shows a good ekg and waveforms with good pleth valves and a heart rate of 85bpm with an Spo2 of 94. 3rd and final pleth at 58 min into Tx patient is tolerating Tx pressure at 200 well with no discomfort at this time.Monitor shows a good ekg and waveforms with good pleth valves and a heart rate of 84bpm with an Spo2 of 93. Patient has 2 min left till his Tx is completed for the day. Last BP check on his Left arm is at 132/73 with a heart rate of 82bpm. Patient denies any symptoms or discomfort at this time.
[2018-10-11 11:47] VITALS: BP 142/79
[2018-10-11 11:48] VITALS: BP 132/73
== END | disposition home or self-care (01) ==
LOC: CHF HDHVI 10:35
PROVIDERS: ATTEND Internal Medicine Cardiovascular Disease
DX: I25.118 Atherosclerotic heart disease of native coronary artery with other forms of angina pectoris (principal); J44.9 Chronic obstructive pulmonary disease, unspecified; I50.23 Acute on chronic systolic (congestive) heart failure; Z98.61 Coronary angioplasty status
CPT/HCPCS: G0166

== ENCOUNTER → 2018-10-12 | Outpatient (CLI) | payer MEDICARE, MEDICAID ==
--- NOTE | 2018-10-12 11:50 | NUR ---
EECP PT IN EECP THERAPY TACHYCARDIA NOTED. MD UPDATED EKG DONE, O2 PROVIDED. VITAL SIGNS OBTAINED 0 CHEST PAIN. PT DISCHARGED IN STABLE CONDITION
--- NOTE | 2018-10-12 14:34 | NUR ---
EECP Tx# 30 First BP check on his Left arm is at 145/81 with a heart rate of 110bpm. Patient denies any chest pain or any other symptoms at this time. Patient has a hx of SOB. EKG to be completed. Signed off by Magaly CARL Oxygen has katie provided for patient flow rate of 2L/min 1 min into Tx EECP pressure will be increase if tolerable Per patient all medications have been taken this morning. 2nd pleth at 43 min into Tx patient EECP pressure is at 200.Heart rate at this time is 99bpm with an Spo2 of 95.Patient at this time denies any symptoms or discomfort at this time.We will continue to monitor patient through his Tx if any changes occur. 3rd and final pleth at 54min into Tx patient is tolerating Tx pressure at 200 well with no complaint or discomfort at this time.Heart rate at this time is 102bpm with an Spo2 of 92. Patient denies any symptoms or discomfort at this time. We will continue to monitor patient through his Tx if any changes occur.Patient has 6 min left till his Tx is completed for the day. Patient Last BP check on Left arm is at 125/73 with a heart rate of 105bpm. Check Bp after 10 min of last Bp CHECK LAST BP CHECK ON HIS RIGHT ARM IS AT 129/77 WITH A HEART RATE OF 90BPM. Patient denies any symptoms or discomfort at this time.
[2018-10-12 16:02] VITALS: BP_SYST 125; BP_SYST 145; BP_DIAS 73; BP_DIAS 81
== END | disposition home or self-care (01) ==
LOC: CHF HDHVI 10:45
PROVIDERS: ATTEND Internal Medicine Cardiovascular Disease
DX: I25.118 Atherosclerotic heart disease of native coronary artery with other forms of angina pectoris (principal); I11.0 Hypertensive heart disease with heart failure; I50.23 Acute on chronic systolic (congestive) heart failure; J44.9 Chronic obstructive pulmonary disease, unspecified; R00.0 Tachycardia, unspecified; Z95.5 Presence of coronary angioplasty implant and graft
CPT/HCPCS: 93005; G0166

== ENCOUNTER → 2018-10-13 | Outpatient (CLI) | payer MEDICARE, MEDICAID ==
--- NOTE | 2018-10-14 09:54 | NUR ---
[facility] Tx# 31 First BP check on his Left arm is at 154/83 with a heart rate of 98bpm.At this time patient c/o of mild SOB no chest pain. O2 will be provided to patient flow rate 2L/m. Will continue to monitor patient through his Tx if any other changes occur.Arginext was taken before coming in to his Tx.Medications have been updated no new changes at this time.EECP pressure will be increase during his Tx if tolerable. At 36 min into Tx patient is tolerating Tx pressure at 200 well with no discomfort at this time.Patient can't tolerate pressure higher than 200 at this moment.Patient states he feels oxygen is helping him during his Tx.Spo2 at this time is 99 with oxygen flow rate of 2l/min. Monitor shows a good ekg and waveforms with a heart rate of 83bpm.3rd pleth check at 52 min into Tx patient is doing well with his Tx heart rate at this time is 84bpm with an Spo2 of 97. Patient has 8 min remaining till his Tx is completed for the day.Will check last BP and HR at the end of his Tx. Last BP check on his Left arm is at 125/75 with a heart rate of 79bpm with O2 flow rate of 2L/m. Patient at this time denies any symptoms or discomfort at this time.Per patient he states he feels less SOB with the oxygen that has been provided during his Tx.
== END | disposition home or self-care (01) ==
LOC: CHF HDHVI 10:37
PROVIDERS: ATTEND Internal Medicine Cardiovascular Disease
DX: I25.118 Atherosclerotic heart disease of native coronary artery with other forms of angina pectoris (principal); I11.0 Hypertensive heart disease with heart failure; I50.23 Acute on chronic systolic (congestive) heart failure; J44.9 Chronic obstructive pulmonary disease, unspecified; Z98.61 Coronary angioplasty status
CPT/HCPCS: G0166

== ENCOUNTER → 2018-10-14 | Outpatient (CLI) | payer MEDICARE, MEDICAID ==
--- NOTE | 2018-10-14 13:51 | NUR ---
EECP Tx# 32 Patient states that he was having an episode of SOB yesterday evening and Heart rate at that time was 114.Check patient BP this morning on his Left arm is at 144/79 with a heart rate of 87bpm.At this time.Patient c/o mild SOB we will provide O2 flow rate of 2L/min during his Tx and patient will see Doctor after his Tx. EECP pressure will increase if tolerable. At 27 min into Tx patient is tolerating Tx pressure at 200 well with no discomfort at this time.Monitor shows a good ekg and waveforms with a heart rate of 85bpm and a Spo2 of 97 with O2 flow rate of 2L/min.At 3rd pleth at 58 min into Tx patient is tolerating Tx pressure at 200 well with no discomfort monitor shows a good ekg and waveforms with excellent pleth valves and a heart rate of 79bpm with an Spo2 of 91 with O2 flow rate of 2L/min.At this time patient denies any symptoms or discomfort will check last BP and HR at the end of his Tx. Last BP and HR check on his Left arm is at 128/82 with a heart rate of 79bpm with oxygen flow rate of 2L/min. Patient denies any symptoms or discomfort at this time.Patient will follow up with .
[2018-10-14 14:26] VITALS: BP_SYST 128; BP_SYST 144; BP_DIAS 79; BP_DIAS 82
== END | disposition home or self-care (01) ==
LOC: CHF HDHVI 10:27
PROVIDERS: ATTEND Internal Medicine Cardiovascular Disease
DX: I25.118 Atherosclerotic heart disease of native coronary artery with other forms of angina pectoris (principal); J44.9 Chronic obstructive pulmonary disease, unspecified; I11.0 Hypertensive heart disease with heart failure; I50.23 Acute on chronic systolic (congestive) heart failure; Z98.61 Coronary angioplasty status
CPT/HCPCS: G0166

== ENCOUNTER → 2018-10-17 | Outpatient (CLI) | payer MEDICARE, MEDICAID ==
--- NOTE | 2018-10-17 12:22 | NUR ---
EECP Tx# 33 First BP check this morning on left arm is at 135/79 with a heart rate of 75bpm.Patient states he is having mild SOB.We will provide patient with 02 oxygen flow rate of 2L/min during his EECP Tx.Medications have been review with patient per patient he states wants patient to take Toprol 25 mg before coming in to his EECP Tx instead of his Toprol 50mg. Arginext has been taken as well before coming in to his Tx. EECP pressure will be increase if tolerable 1st pleth at 1 min into Tx monitor shows a good ekg and waveforms with a heart rate of 76bpm and a Spo2 of 98 with 02 flow rate of 2L/m. 2nd pleth at 37 min into Tx patient is tolerating Tx pressure at 200 well with no discomfort at this time.Monitor shows a good ekg and waveforms with good pleth valves and a heart rate of 85bpm and a Spo2 of 98 with O2 flow rate of 2L/m. 3rd and final pleth at 51 min into Tx patient is doing well with his Tx. Monitor shows a good ekg and waveforms with excellent pleth valves and a heart rate of 74bpm.Patient Spo2 is at 98 with 02 flow rate of 2L/m.Patient has 9 min left till his Tx is completed for the day.Patient denies any symptoms or discomfort at this time.Will check last BP and HR at the end of his Tx. Last BP and HR check on his Left arm is at 131/75 with a heart rate of 70bpm with O2 flow rate of 2L/m. Patient at this time denies any symptoms or discomfort at this time.
[2018-10-17 14:24] VITALS: BP 135/79
[2018-10-17 14:25] VITALS: BP 131/75
== END | disposition home or self-care (01) ==
LOC: CHF HDHVI 10:29
PROVIDERS: ATTEND Internal Medicine Cardiovascular Disease
DX: I25.118 Atherosclerotic heart disease of native coronary artery with other forms of angina pectoris (principal); I11.0 Hypertensive heart disease with heart failure; I50.23 Acute on chronic systolic (congestive) heart failure; J44.9 Chronic obstructive pulmonary disease, unspecified; Z98.61 Coronary angioplasty status
CPT/HCPCS: G0166

== ENCOUNTER → 2018-10-18 | Outpatient (CLI) | payer MEDICARE, MEDICAID ==
[2018-10-18 10:40] VITALS: BP_SYST 135; BP_SYST 142; BP_DIAS 77; BP_DIAS 79
--- NOTE | 2018-10-18 12:07 | NUR ---
EECP Tx# 34 First BP check on his left arm is at 142/79 with a heart rate of 83bpm.Patient came in and notify me that he was having SOB.Patient will be provided with O2 oxygen flow rate of 2L/min during his Tx.We will monitor patient through his Tx if any other changes occur.Medications have been updated no new changes at this time.Patient took his Arginext before coming in to his Tx. EECP pressure will be increase if tolerable. 1st pleth at 5 min into Tx patient is tolerating Tx pressure at 160 well with no discomfort at this time.Monitor shows a good ekg and waveforms with good pleth valves and a heart rate of 80bpm with oxygen flow rate of 95. 2nd pleth at 32 min into Tx patient is tolerating Tx pressure at 200 well with no discomfort at this time. 3rd and final pleth at 50 min into Tx patient is tolerating Tx pressure at 200 well with no discomfort at this time.Monitor shows a regular rhythm with good pleth valves and heart rate of 81bpm and oxygen flow rate of 2L/M. Patient has 10 min left till his Tx is completed for the day. Last BP and HR check on his Left arm is at 135/77 with a heart rate of 77bpm. Patient denies any symptoms or discomfort at this time. Patient will come in tomorrow for Tx #35.
== END | disposition home or self-care (01) ==
LOC: CHF HDHVI 10:28
PROVIDERS: ATTEND Internal Medicine Cardiovascular Disease
DX: I25.118 Atherosclerotic heart disease of native coronary artery with other forms of angina pectoris (principal); I11.0 Hypertensive heart disease with heart failure; I50.23 Acute on chronic systolic (congestive) heart failure; J44.9 Chronic obstructive pulmonary disease, unspecified; Z98.61 Coronary angioplasty status
CPT/HCPCS: G0166

== ENCOUNTER → 2018-10-19 | Outpatient (CLI) | payer MEDICARE, MEDICAID ==
--- NOTE | 2018-10-20 09:19 | NUR ---
Late entry for DOS 10/19/2018 Tx# 35 First BP check on his Left arm is at 148/84 with a heart rate of 94bpm.Patient c/o SOB.Oxygen will be provided during his Tx.Arginext was taken before coming in and all medications have been review no new changes at this time. eecp pressure will be increase if tolerable. 1st pleth at 1 min into Tx patient was put in 02 oxygen flow rate of 2L/min.Monitor at this time shows good pleth valves with a heart rate of 93bpm and a SPo2 of 98 with 02. 2nd pleth at 39 min into Tx patient is tolerating Tx pressure at 200 well with no complaints or discomfort at this time.Monitor shows good pleth valves with a heart rate of 79bpm and a Spo2 of 99 with 02. 3rd and final pleth at 54 min into Tx patient is tolerating Tx pressure at 200 well.Patient denies any symptoms or discomfort at this time.Monitor shows a good ekg and waveforms with good pleth valves and a heart rate of 74 bpm with an Spo2 of 98 with 02 flow rate of 2L/min.Patient has 6 min left till his 35 day of Tx have been completed. Patient has completed his 35 days of EECP. Patient states that he did felt an increase of energy during his Tx.Per patient he felt that the oxygen help him during his Tx decreasing his SOB. Patient has an appointment schedule to follow up with .
[2018-10-20 09:33] VITALS: BP_SYST 145; BP_SYST 148; BP_DIAS 82; BP_DIAS 84
== END | disposition home or self-care (01) ==
LOC: LAB 11:20
PROVIDERS: ATTEND Internal Medicine Cardiovascular Disease
DX: J44.9 Chronic obstructive pulmonary disease, unspecified (principal); I25.118 Atherosclerotic heart disease of native coronary artery with other forms of angina pectoris; I11.0 Hypertensive heart disease with heart failure; I50.23 Acute on chronic systolic (congestive) heart failure; Z98.61 Coronary angioplasty status
CPT/HCPCS: G0166

== ENCOUNTER → 2018-11-07 | Outpatient (CLI) | payer MEDICARE, MEDICAID ==
[~2018-11-07] MED LIST changes: +IOHEXOL 350 MG/ML 100ML IJ ONE
[2018-11-07 14:17] VITALS: BP 148/84
--- NOTE | 2018-11-07 14:17 | NUR ---
CHF PT ARRIVED TO THE CHF CLINIC FOR IV AND CT CHEST WITH IV CONTRAST. PT A/0 X 2 0 DISTRESS. C/O SOB SENT FROM DR GRAHAM OFFICE WITH ORDERS
--- NOTE | 2018-11-07 14:40 | NUR ---
IV insertion IV access obtained, via clean sterile technique by inserting 18 gauge catheter at after attempt(s). IV secured properly. No trauma to site. Patient tolerated procedure well.
--- NOTE | 2018-11-07 15:45 | NUR ---
IV removal IV DC'd with sterile technique, catheter fully intact. Pressure dressing applied to site. Patient tolerated procedure well. Discharged with aftercare instructions per MD. NOTE: PT TOLERATED PROCEDURE WELL 0 DISTRESS
[2018-11-07 15:50] VITALS: BP 174/91
--- NOTE | 2018-11-07 15:50 | NUR ---
Discharge Instructions See e-MAR for any mediations given with this visit. Patient education given on disease process. Patient verbalized understanding. Previous labs reviewed. Patient discharged in stable condition with after care instructions and follow up appointment. MEDICATIONS PT ENCOURAGED TO INCREASE FLUID INTAKE AND CALL OR GO TO ER IF SHORTNESS OF BREATH INCREASES. PT VERBALIZED UNDERSTANDING
--- NOTE | 2018-11-07 16:24 | NUR ---
LAB CREATINE RECEIVED 0.86
== END | disposition home or self-care (01) ==
LOC: Rad HDHVI 14:10
PROVIDERS: ATTEND Internal Medicine Cardiovascular Disease
DX: J43.9 Emphysema, unspecified (principal); E11.9 Type 2 diabetes mellitus without complications; E55.9 Vitamin D deficiency, unspecified; R94.4 Abnormal results of kidney function studies; I25.10 Atherosclerotic heart disease of native coronary artery without angina pectoris; R91.1 Solitary pulmonary nodule
CPT/HCPCS: 36415; 71260; 82306; 82565; 83036; G0463; Q9967

== ENCOUNTER → 2019-05-16 | Outpatient (CLI) | payer MEDICARE, MEDICAID ==
[~2019-05-16] MED LIST changes: +BUDE1POW9 XX; -BUDEPOW26 XX; +LIDOCAINE 2%HCL (LOCAL ANESTH.) INJ 20ML MDV ONE; +METO-6 PO; +OXYB5TAB61 PO; +SPIR25TA88 PO
[2019-05-16 09:20] VITALS: BP 122/73
[2019-05-16 09:35] VITALS: BP 137/73
--- NOTE | 2019-05-16 09:35 | NUR ---
Pre-Op Discharge Summary: See e-MAR for any medications given for this visit. Pre-op orders received and carried out per MD of EKG, LABS and chest xrays. Patient given a copy of EKG with instructions to go to [facility] out patient for further follow up care. PT SCHEDULED FOR LEFT HEART CATH VERBALIZED UNDERSTANDING
[2019-05-16 12:15] LABS: Basophils # (auto) 0 uL; Eosinophils # (auto) 0 uL; Lymphocytes # (auto) 1.5 uL; Mean Corpuscular Hemoglobin 26.8 pg (28.0-32.0); Monocytes # (auto) 0.4 uL
[2019-05-16 12:18] LABS: Basophils % (auto) 0.8 % (0.0-2.0); Eosinophils % (auto) 0.9 % (0.0-7.0); Hematocrit 39.2 % (41.0-53.0); Hemoglobin 12.9 g/dL (13.5-17.5); Lymphocytes % (auto) 33.4 % (10.0-50.0); Mean Corpuscular Volume 81.5 fL (80.0-100.0); Monocytes % (auto) 8.1 % (0.0-12.0); Neutrophils # (auto) 2.5 uL; Neutrophils % (auto) 56.8 % (37.0-80.0); Nucleated Red Blood Cells % 0.1 %; Platelet Count (auto) 183 10^3/uL (140-450); Red Blood Cells 4.82 10^6/uL (4.5-5.90); Red Cell Distribution Width 14.3 % (11.8-14.3); White Blood Cell 4.4 10^3/uL (4.4-10.8)
[2019-05-16 12:36] LABS: INR 1.01 (0.9-1.15); Partial Thromboplastin Time 24.7 sec (23.64-32.05)
[2019-05-16 12:49] LABS: Potassium 4.3 mmol/L (3.5-5.1)
[2019-05-16 12:55] LABS: BUN/Creatinine Ratio 16.8; Calcium 9.3 mg/dL (8.5-10.1)
== END | disposition home or self-care (01) ==
LOC: Rad HDHVI 08:54
PROVIDERS: ATTEND Internal Medicine Cardiovascular Disease
DX: Z01.812 Encounter for preprocedural laboratory examination (principal); I70.0 Atherosclerosis of aorta; I50.9 Heart failure, unspecified; J44.9 Chronic obstructive pulmonary disease, unspecified; I25.119 Atherosclerotic heart disease of native coronary artery with unspecified angina pectoris; Z95.818 Presence of other cardiac implants and grafts
CPT/HCPCS: 36415; 71046; 80048; 85025; 85610; 85730; 93005; G0463

== ENCOUNTER 2019-05-18 08:53 | Day surgery (SDC) | payer MEDICARE, MEDICAID ==
[~2019-05-18] VITALS: Ht 162.6 cm; Wt 74.8 kg
[~2019-05-18 08:53] MED LIST changes: -BUDE1POW9 XX; -DOCU-55 PO; -FINA5TAB4 PO; -FLUT1AER3 IN; -IOHEXOL 350 MG/ML 100ML IJ ONE; -ISOS30TA4 PO; -LIDOCAINE 2%HCL (LOCAL ANESTH.) INJ 20ML MDV ONE; -TAMS0.4C36 PO
[2019-05-18] MEDS ORDERED: fentaNYL CITRATE 100 MCG/2 ML VL ONE (13:04)
[2019-05-18] MEDS ORDERED: ANGIOMAX 250 MG VIAL IV ONE (13:04)
[2019-05-18] MEDS ORDERED: MIDAZOLAM HCL 1MG/1ML-2 ML VIAL ONE (13:05)
[2019-05-18] MEDS ORDERED: IOHEXOL 350 MG/ML 100ML IJ ONE (13:05)
[2019-05-18] MEDS ORDERED: SODIUM CHL 0.9% 0 ML ONE (13:05)
[2019-05-18] MEDS ORDERED: LIDOCAINE 2%HCL (LOCAL ANESTH.) INJ 20ML MDV ONE (13:08)
[2019-05-18] MEDS ORDERED: SODIUM CHL 0.9% 500 ML IV ONE (15:30)
[2019-05-18] MEDS ORDERED: HYDROcodone-ACET 5/325MG TAB PO PRN (15:30)
[2019-05-18] MEDS ORDERED: ACETAMINOPHEN 500 MG TAB PO PRN (15:30)
[2019-05-18] MEDS ORDERED: ONDANSETRON HCL 4 MG/2 ML VIAL IV PRN (15:30)
== END 2019-05-18 16:20 | disposition home or self-care (01) ==
LOC: CATH 08:53
PROVIDERS: ATTEND Internal Medicine Cardiovascular Disease
DX: I25.10 Atherosclerotic heart disease of native coronary artery without angina pectoris (principal); E78.00 Pure hypercholesterolemia, unspecified; I25.2 Old myocardial infarction; J44.9 Chronic obstructive pulmonary disease, unspecified; I11.0 Hypertensive heart disease with heart failure; I50.9 Heart failure, unspecified; Z87.891 Personal history of nicotine dependence; Z95.818 Presence of other cardiac implants and grafts; Z88.8 Allergy status to other drugs, medicaments and biological substances
CPT/HCPCS: 93458; 93571; C1760; C1769; C1894; J1644; J2250; J3010; J7030; Q9967; 99152; 99153

== ENCOUNTER → 2019-11-03 | Outpatient (CLI) | payer MEDICARE, MEDICAID ==
[~2019-11-03] MED LIST changes: -MECL-87 PO; +MECL25TA18 PO
[2019-11-03 12:01] LABS: Basophils # (auto) 0 10 ^3/uL (0-0.2); Basophils % (auto) 0.9 % (0.0-2.0); Eosinophils # (auto) 0.1 10 ^3/uL (0-0.8); Eosinophils % (auto) 1.8 % (0.0-7.0); Hematocrit 38.7 % (41.0-53.0); Hemoglobin 12.6 g/dL (13.5-17.5); Lymphocytes # (auto) 1.9 10 ^3/uL (0.4-5.4); Lymphocytes % (auto) 40.3 % (10.0-50.0); Mean Corpuscular Hemoglobin 26.5 pg (28.0-32.0); Mean Corpuscular Hgb Conc. 32.7 g/dL (32.0-36.0); Monocytes # (auto) 0.5 10 ^3/uL (0-1.3); Monocytes % (auto) 10.9 % (0.0-12.0); Neutrophils # (auto) 2.2 10 ^3/uL (1.6-8.6); Neutrophils % (auto) 46.1 % (37.0-80.0); Nucleated Red Blood Cells % 0.4 %; Platelet Count (auto) 223 10^3/uL (140-450); Red Blood Cells 4.78 10^6/uL (4.5-5.90); Red Cell Distribution Width 15.7 % (11.8-14.3); Urine Blood 1+ /uL (Negative); Urine Specific Gravity 1.027 (1.001-1.035); White Blood Cell 4.8 10^3/uL (4.4-10.8)
[2019-11-03 12:09] LABS: Alanine Aminotransferase 31 U/L (16-61); Albumin 3.3 g/dL (3.4-5.0); Anion Gap 5 (5-15); Blood Urea Nitrogen 20 mg/dL (7-18); Calcium 8.6 mg/dL (8.5-10.1); Carbon Dioxide 24 mmol/L (21-32); Chloride 111 mmol/L (98-107); Glucose 91 mg/dL (74-106); Potassium 4.3 mmol/L (3.5-5.1); Sodium 140 mmol/L (136-145)
[2019-11-03 12:15] LABS: Alkaline Phosphatase 53 U/L (45-117); Aspartate Aminotransferase 22 U/L (15-37); Bilirubin, Total 0.2 mg/dL (0.2-1.0); Cholesterol 134 mg/dL (< 200); GFR African American 108 mL/min; GFR Non-African American 89 mL/min; HDL Cholesterol 22 mg/dL (40-59); Total Protein 7.1 g/dL (6.4-8.2); Triglycerides 530 mg/dL (< 150)
[2019-11-03 12:23] LABS: Free T4 (Free Thyroxine) 1.09 ng/dL (0.89-1.76); Prostate Specific Antigen 0.59 ng/mL (0.0-4.0)
== END | disposition home or self-care (01) ==
LOC: LAB 08:10
PROVIDERS: ATTEND Internal Medicine Cardiovascular Disease
DX: C61 Malignant neoplasm of prostate (principal); E03.9 Hypothyroidism, unspecified; K90.9 Intestinal malabsorption, unspecified; E29.1 Testicular hypofunction; N39.0 Urinary tract infection, site not specified; D51.9 Vitamin B12 deficiency anemia, unspecified; Z00.00 Encounter for general adult medical examination without abnormal findings; Z79.899 Other long term (current) drug therapy
CPT/HCPCS: 36415; 80053; 80061; 81003; 82306; 82607; 83036; 84153; 84403; 84439; 84443; 85025

== ENCOUNTER → 2020-02-16 | Outpatient (CLI) | payer MEDICARE, MEDICAID ==
[~2020-02-16] MED LIST changes: -DEXL60CA3 PO; +DEXL60CA4 PO
[2020-02-16 12:19] LABS: Basophils # (auto) 0 10 ^3/uL (0-0.2); Eosinophils # (auto) 0 10 ^3/uL (0-0.8); Hemoglobin 12.5 g/dL (13.5-17.5); Lymphocytes # (auto) 2.2 10 ^3/uL (0.4-5.4); Mean Corpuscular Hgb Conc. 32.3 g/dL (32.0-36.0); Monocytes # (auto) 0.5 10 ^3/uL (0-1.3)
[2020-02-16 12:21] LABS: Basophils % (auto) 0.8 % (0.0-2.0); Eosinophils % (auto) 0.6 % (0.0-7.0); Hematocrit 38.5 % (41.0-53.0); Lymphocytes % (auto) 40.6 % (10.0-50.0); Mean Corpuscular Hemoglobin 26.9 pg (28.0-32.0); Mean Corpuscular Volume 83.3 fL (80.0-100.0); Monocytes % (auto) 9.5 % (0.0-12.0); Neutrophils # (auto) 2.6 10 ^3/uL (1.6-8.6); Neutrophils % (auto) 48.5 % (37.0-80.0); Platelet Count (auto) 213 10^3/uL (140-450); Red Blood Cells 4.63 10^6/uL (4.5-5.90); Red Cell Distribution Width 15.5 % (11.8-14.3); White Blood Cell 5.4 10^3/uL (4.4-10.8)
[2020-02-16 12:33] LABS: Calcium 9.2 mg/dL (8.5-10.1)
[2020-02-16 12:36] LABS: BUN/Creatinine Ratio 15.9
[2020-02-16 16:21] LABS: Urine Blood Negative /uL (Negative); Urine Specific Gravity 1.012 (1.001-1.035)
== END | disposition home or self-care (01) ==
LOC: LAB 11:14
PROVIDERS: ATTEND Internal Medicine Cardiovascular Disease
DX: I10 Essential (primary) hypertension (principal); D64.9 Anemia, unspecified; N39.0 Urinary tract infection, site not specified
CPT/HCPCS: 36415; 80048; 81003; 85025

== ENCOUNTER → 2020-04-30 | Outpatient (CLI) | payer MEDICARE, MEDICAID | END | disposition home or self-care (01) | LOC: Rad HDHVI 10:03 | PROVIDERS: ATTEND Internal Medicine Cardiovascular Disease | DX: I50.33 Acute on chronic diastolic (congestive) heart failure (principal); R07.9 Chest pain, unspecified | CPT/HCPCS: 93306 ==

== ENCOUNTER → 2020-05-02 | Outpatient (CLI) | payer MEDICARE, MEDICAID ==
[~2020-05-02] VITALS: Ht 162.6 cm; Wt 79.8 kg
[~2020-05-02] MED LIST changes: +ADENOSINE 67 MG in GIVE UN-DILUTED 0 ML IV ONE; +ADENOSINE 90 MG/30 ML INJ IV ONE
== END | disposition home or self-care (01) ==
LOC: Rad HDHVI 13:15
PROVIDERS: ATTEND Internal Medicine Cardiovascular Disease
DX: I25.10 Atherosclerotic heart disease of native coronary artery without angina pectoris (principal); I10 Essential (primary) hypertension; I25.2 Old myocardial infarction; E11.9 Type 2 diabetes mellitus without complications; E78.00 Pure hypercholesterolemia, unspecified; R07.9 Chest pain, unspecified; Z82.49 Family history of ischemic heart disease and other diseases of the circulatory system
CPT/HCPCS: 78452; 93005; 96374; 96375; A9500; J0153

== ENCOUNTER 2020-05-08 09:03 | Inpatient (IN) | payer MEDICARE, MEDICAID ==
[~2020-05-08] VITALS: Ht 162.6 cm; Wt 78.0 kg
[~2020-05-08 09:03] MED LIST changes: -ADENOSINE 67 MG in GIVE UN-DILUTED 0 ML IV ONE; -ADENOSINE 90 MG/30 ML INJ IV ONE
[2020-05-08] MEDS ORDERED: cefTRIAXone 1GM/50ML D5W 50 ML IV ONE (10:00)
[2020-05-08] MEDS ORDERED: ASCORBIC ACID 500 MG TAB PO ONE (10:00)
[2020-05-08] MEDS ORDERED: ZINC SULFATE 220mg CAP or TAB PO ONE (10:00)
[2020-05-08] MEDS ORDERED: methylPREDNISolone SOD SUCC 125 MG/2 ML VL IV ONE (10:00)
[2020-05-08] MEDS ORDERED: AZITHROMYCIN 500MG/ 250ML 250 ML IV ONE (10:00)
[2020-05-08 11:29] LABS: Hemoglobin 14.5 g/dL (13.5-17.5); Mean Corpuscular Hemoglobin 29.6 pg (28.0-32.0); Mean Corpuscular Hgb Conc. 34.6 g/dL (32.0-36.0); Mean Corpuscular Volume 85.7 fL (80.0-100.0); Platelet Count (auto) 203 10^3/uL (140-450); Red Cell Distribution Width 15.4 % (11.8-14.3); White Blood Cell 4.7 10^3/uL (4.4-10.8)
[2020-05-08 11:45] LABS: Basophils % (manual) 0 (0.0-2.0); Blast Cells 0; Eosinophils % (manual) 0 (0-7); Metamyelocytes % 0; Myelocytes % 0; Promyelocytes % 0; Reactive Lymphocytes 0
[2020-05-08 11:46] LABS: Lactic Acid w/Reflex 2.3 mmol/L (0.4-2.0)
[2020-05-08 12:13] LABS: Band Neutrophils % (manual) 6; Lymphocytes % (manual) 11 (10.0-50.0); Monocytes % (manual) 19 (0-12)
[2020-05-08 12:53] LABS: Anion Gap 4 (5-15); Blood Urea Nitrogen 15 mg/dL (7-18); Calcium 9.3 mg/dL (8.5-10.1); Carbon Dioxide 25 mmol/L (21-32); Chloride 108 mmol/L (98-107); Glucose 99 mg/dL (74-106); Potassium 5.1 mmol/L (3.5-5.1); Sodium 137 mmol/L (136-145)
[2020-05-08 13:00] LABS: Alanine Aminotransferase 114 U/L (16-61); Alkaline Phosphatase 39 U/L (45-117); Aspartate Aminotransferase 88 U/L (15-37); BUN/Creatinine Ratio 11.5; Bilirubin, Total 0.3 mg/dL (0.2-1.0); CRP High Sensitivity 0.48 mg/dL (< 0.3); GFR African American 71 mL/min; GFR Non-African American 59 mL/min; Lactate Dehydrogenase 236 U/L (87-241)
[2020-05-08] MEDS ORDERED: KETOROLAC TROMETH 30 MG/ML 1ML VIAL IV ONE (14:30)
[2020-05-08] MEDS: DexAMETHasone SOD PHOS 10MG/1ML VIAL INJ IV SCH (19:05)
[2020-05-08 20:35] VITALS: BP 125/79
--- NOTE | 2020-05-08 20:35 | NUR ---
Telemetry admit from ER AISHWARYA WILSON admitted to Telemetry unit after SBAR received. Patient oriented to Jayne Carvalho RN primary RN, unit, room, bed, and unit policies regarding patient care and visiting hours. Patient now on continuous telemetry monitoring, tele box #3. Patient placed on bedside oxygen, weighed by bedscale and encouraged to call if they need something. All questions and concerns addressed, patient verbalized understanding. Bed is in lowest locked position with bed rails up x2 and call light is within reach of the patient.
[2020-05-08] MEDS: GABAPENTIN 300 MG CAP PO SCH (21:46)
[2020-05-08] MEDS: CELECOXIB 100 MG CAP PO SCH (21:48)
[2020-05-08] MEDS: OXYBUTYNIN CHL 5 MG TAB PO SCH (21:49)
[2020-05-08] MEDS: HYDROcodone-ACET 10/325MG TAB PO PRN (21:54)
[2020-05-08 22:00] VITALS: BP 125/79
[2020-05-08] MEDS ORDERED: HYDROcodone-ACET 10/325MG TAB PO SCH (22:00)
[2020-05-08] MEDS ORDERED: ALBUTEROL SULF HFA 90MCG INH 200DOSE IN SCH (22:00)
[2020-05-08] MEDS: ALBUTEROL SULF HFA 90MCG INH 200DOSE IN SCH (22:32)
[2020-05-08 23:30] VITALS: BP 112/61
[2020-05-08] MEDS ORDERED: FENO134C16 PO (23:39)
[2020-05-08] MEDS ORDERED: NITR0.4S29 SL (23:39)
[2020-05-08] MEDS ORDERED: DOCU-55 PO (23:39)
[2020-05-08] MEDS ORDERED: PNEUMOCOCCAL VACC POLYS 25 MCG/0.5 ML VIAL IM ONE (23:45)
[2020-05-09 05:00] VITALS: BP 112/70
[2020-05-09] MEDS: GABAPENTIN 300 MG CAP PO SCH ×3 (06:01→22:14)
[2020-05-09] MEDS: HYDROcodone-ACET 10/325MG TAB PO PRN ×2 (06:32→21:43)
[2020-05-09] MEDS: ALBUTEROL SULF HFA 90MCG INH 200DOSE IN SCH ×2 (07:12→21:58)
[2020-05-09 09:00] VITALS: BP 154/88
[2020-05-09] MEDS ORDERED: PATIENTS OWN MEDICATION (Cholecalciferol (Vitamin D) 5,000 UNIT) OR SCH (10:00)
[2020-05-09] MEDS: DexAMETHasone SOD PHOS 10MG/1ML VIAL INJ IV SCH (10:46)
[2020-05-09] MEDS: ZINC SULFATE 220mg CAP or TAB PO SCH (10:46)
[2020-05-09] MEDS: SPIRONOLACTONE 25 MG TAB PO SCH (10:47)
[2020-05-09] MEDS: CELECOXIB 100 MG CAP PO SCH ×2 (10:48→22:28)
[2020-05-09] MEDS: ATORVASTATIN 20 MG TAB PO SCH (10:48)
[2020-05-09] MEDS: MECLIZINE HCL 25 MG TAB PO SCH (10:48)
[2020-05-09] MEDS: ASPirin-EC 81 mg tab PO SCH (10:48)
[2020-05-09] MEDS: PANTOPRAZOLE 40 MG TAB PO SCH (10:49)
[2020-05-09] MEDS: CLOPIDOGREL BISULFATE 75 MG TAB PO SCH (10:49)
[2020-05-09] MEDS: METOPROLOL SUCCINATE XL 50 MG TAB PO SCH (10:49)
[2020-05-09] MEDS: ASCORBIC ACID 500 MG TAB PO SCH (10:50)
[2020-05-09] MEDS: CHOLECALCIFEROL (VITD3) 1,000UNIT=25mCg TAB PO SCH (10:50)
[2020-05-09] MEDS: ENOXAPARIN SOD 60 MG/0.6 ML SYRINGE SC SCH (10:51)
[2020-05-09 13:00] VITALS: BP 113/67
[2020-05-09 17:00] VITALS: BP 130/73
--- NOTE | 2020-05-09 19:55 | NUR ---
Opening Shift Note Assumed care of patient, awake and alert. No S/S of distress/SOB noted. Instructed on POC and to call for assist PRN. Bed is in lowest locked position with bed rails up x2 and call light is within reach of the patient.
[2020-05-09 22:00] VITALS: BP 124/75
[2020-05-09] MEDS: OXYBUTYNIN CHL 5 MG TAB PO SCH (22:27)
[2020-05-10 05:00] VITALS: BP 124/64
[2020-05-10] MEDS: ALBUTEROL SULF HFA 90MCG INH 200DOSE IN SCH (05:54)
[2020-05-10] MEDS: GABAPENTIN 300 MG CAP PO SCH ×2 (06:25→14:22)
[2020-05-10 08:00] VITALS: BP 115/72
[2020-05-10] MEDS: DexAMETHasone SOD PHOS 10MG/1ML VIAL INJ IV SCH (09:57)
[2020-05-10] MEDS: ZINC SULFATE 220mg CAP or TAB PO SCH (09:57)
[2020-05-10] MEDS: CELECOXIB 100 MG CAP PO SCH (09:58)
[2020-05-10] MEDS: MECLIZINE HCL 25 MG TAB PO SCH (09:58)
[2020-05-10] MEDS: SPIRONOLACTONE 25 MG TAB PO SCH (09:58)
[2020-05-10] MEDS: ASPirin-EC 81 mg tab PO SCH (09:58)
[2020-05-10] MEDS: ATORVASTATIN 20 MG TAB PO SCH (09:59)
[2020-05-10] MEDS: CLOPIDOGREL BISULFATE 75 MG TAB PO SCH (09:59)
[2020-05-10] MEDS: PANTOPRAZOLE 40 MG TAB PO SCH (09:59)
[2020-05-10] MEDS: METOPROLOL SUCCINATE XL 50 MG TAB PO SCH (09:59)
[2020-05-10] MEDS: ASCORBIC ACID 500 MG TAB PO SCH (10:00)
[2020-05-10] MEDS: ENOXAPARIN SOD 60 MG/0.6 ML SYRINGE SC SCH (10:00)
[2020-05-10] MEDS ORDERED: FLUoxetine HCL 20 MG CAP PO SCH (10:00)
[2020-05-10] MEDS: CHOLECALCIFEROL (VITD3) 1,000UNIT=25mCg TAB PO SCH (10:00)
--- NOTE | 2020-05-10 10:05 | NUR ---
Pain Patient complains of back pain 02/04. Patient requesting [place] as this is what relieves his pain at home. Will medicate per MD orders and continue to monitor.
[2020-05-10] MEDS: HYDROcodone-ACET 10/325MG TAB PO PRN (10:09)
[2020-05-10 12:00] VITALS: BP 129/70
[2020-05-10 14:30] VITALS: BP 129/70
--- NOTE | 2020-05-10 17:15 | NUR ---
Discharge Discharge instructions given as ordered. Encourage to follow up with PMD as instructed once he has been cleared from viral infection. All questions and concerns addressed. Patient verbalized understanding. Needed vaccines given. IV removed with catheter intact, pressure dressing applied. Telemetry unit returned to ICU. Patient taken to vehicle via wheelchair with all personal belongings, accompanied by staff. No distress noted at time of departure.
== END 2020-05-10 17:30 | disposition home or self-care (01) | DRG 177 ==
LOC: ER 09:03 → TELE 16:54 → TELE-EAST 20:40
PROVIDERS: ADMIT Internal Medicine Cardiovascular Disease; ATTEND Internal Medicine Cardiovascular Disease
DX: U07.1 COVID-19 (principal); J96.90 Respiratory failure, unspecified, unspecified whether with hypoxia or hypercapnia; I25.10 Atherosclerotic heart disease of native coronary artery without angina pectoris; E78.5 Hyperlipidemia, unspecified; E87.5 Hyperkalemia; I10 Essential (primary) hypertension; J44.9 Chronic obstructive pulmonary disease, unspecified; R07.89 Other chest pain; Z88.5 Allergy status to narcotic agent; Z88.8 Allergy status to other drugs, medicaments and biological substances; Z23 Encounter for immunization; I25.2 Old myocardial infarction; Z82.49 Family history of ischemic heart disease and other diseases of the circulatory system; Z98.61 Coronary angioplasty status; E11.9 Type 2 diabetes mellitus without complications; Z88.6 Allergy status to analgesic agent
CPT/HCPCS: 36415; 36600; 71045; 80053; 82728; 82805; 83605; 83615; 83880; 84484; 85007; 85027; 85379; 86141; 87040; 87426; 93005; 94640; 96365; 96368; 96375; G0378; J0696; J1100; J1885

== ENCOUNTER 2020-05-14 13:32 | Inpatient (IN) | payer MEDICARE, MEDICAID ==
[~2020-05-14] VITALS: Ht 162.6 cm; Wt 77.1 kg
[~2020-05-14 13:32] MED LIST changes: +DOCU-55 PO; +FENO134C16 PO; +NITR0.4S29 SL
[2020-05-14 14:17] LABS: Basophils # (auto) 0 10 ^3/uL (0-0.2); Basophils % (auto) 0.4 % (0.0-2.0); Eosinophils # (auto) 0 10 ^3/uL (0-0.8); Hematocrit 40.3 % (41.0-53.0); Hemoglobin 13.3 g/dL (13.5-17.5); Lymphocytes # (auto) 0.7 10 ^3/uL (0.4-5.4); Lymphocytes % (auto) 12.4 % (10.0-50.0); Mean Corpuscular Hemoglobin 28.2 pg (28.0-32.0); Mean Corpuscular Volume 85.3 fL (80.0-100.0); Monocytes # (auto) 0.6 10 ^3/uL (0-1.3); Monocytes % (auto) 11.4 % (0.0-12.0); Neutrophils # (auto) 4.2 10 ^3/uL (1.6-8.6); Neutrophils % (auto) 75.8 % (37.0-80.0); Platelet Count (auto) 190 10^3/uL (140-450); Red Blood Cells 4.72 10^6/uL (4.5-5.90); Red Cell Distribution Width 15.4 % (11.8-14.3); White Blood Cell 5.6 10^3/uL (4.4-10.8)
[2020-05-14 14:34] LABS: Albumin 3.1 g/dL (3.4-5.0); Anion Gap 6 (5-15); Calcium 8.3 mg/dL (8.5-10.1); Carbon Dioxide 24 mmol/L (21-32); Chloride 107 mmol/L (98-107); Glucose 104 mg/dL (74-106); Sodium 137 mmol/L (136-145)
[2020-05-14 14:43] LABS: Alanine Aminotransferase 65 U/L (16-61); Alkaline Phosphatase 54 U/L (45-117); Aspartate Aminotransferase 47 U/L (15-37); Bilirubin, Total 0.4 mg/dL (0.2-1.0); CRP High Sensitivity 3.21 mg/dL (< 0.3); GFR African American 86 mL/min; GFR Non-African American 71 mL/min; Lactate Dehydrogenase 243 U/L (87-241); Total Protein 7.6 g/dL (6.4-8.2)
[2020-05-14 15:33] LABS: BUN/Creatinine Ratio 21.6; Blood Urea Nitrogen 24 mg/dL (7-18)
[2020-05-14] MEDS ORDERED: MORPHINE SULFATE 4 MG/ML SYR/VIAL IV ONE (16:00)
[2020-05-14] MEDS ORDERED: ONDANSETRON HCL 4 MG/2 ML VIAL IV ONE (16:00)
[2020-05-14] MEDS ORDERED: SODIUM CHLORIDE 0.9% 1,000 ML IV ONE (19:15)
[2020-05-14] MEDS ORDERED: MORPHINE SULF INJ 2 MG/ML SYRINGE 1ML IV PRN (19:15)
[2020-05-14] MEDS ORDERED: ASCORBIC ACID 500 MG TAB PO ONE (20:00)
[2020-05-14] MEDS ORDERED: DexAMETHasone SOD PHOS 10MG/1ML VIAL INJ IV ONE (20:00)
[2020-05-14] MEDS ORDERED: ZINC SULFATE 220mg CAP or TAB PO ONE (20:00)
[2020-05-14] MEDS ORDERED: AZITHROMYCIN 500MG/ 250ML 250 ML IV ONE (20:00)
[2020-05-14] MEDS ORDERED: CHOLECALCIFEROL (VITD3) 1,000UNIT=25mCg TAB PO ONE (20:00)
[2020-05-14] MEDS: LEVALBUTEROL HCL 1.25 MG/3 ML NEB NEB SCH (22:00)
[2020-05-14 22:45] VITALS: BP 127/75
--- NOTE | 2020-05-14 22:45 | NUR ---
Telemetry admit from ER AISHWARYA WILSON admitted to Telemetry unit. Patient oriented to Kapil Marin, primary RN, unit, room, bed, and unit policies regarding patient care and visiting hours. Patient now on continuous telemetry monitoring, tele box #1 and telemetry reading on arrival to unit is [facility]. Patient placed on 2L oxygen on NC with a SPO2 of 97%, and weighed by bedscale. Patient reports 7/10 back pain. Patient states that he takes [place] 10s at home for his chronic back pain. Will notified MD. Patient has been encouraged to call if they need something. All questions and concerns addressed, patient verbalized understanding.
[2020-05-14 23:00] VITALS: BP 127/75
--- NOTE | 2020-05-14 23:10 | NUR ---
MD CONTACTED Contacted Dr. Gipson about the patient's 01/04 back pain and notified him about the patient's pain medication that he takes at home. New order received for [place] 10/325 PO Q8HR PRN.
[2020-05-15] MEDS: HYDROcodone-ACET 10/325MG TAB PO PRN ×2 (00:05→17:14)
--- NOTE | 2020-05-15 00:25 | NUR ---
MD CONTACTED Patient is requesting a sleeping aid. He states that he has a hard time sleeping in the hospital. Notified Dr. Gipson. New order for Temazepam 15 mg PO PRN HS.
[2020-05-15] MEDS: TEMAZEPAM 15 MG CAP PO PRN ×2 (01:00→23:51)
[2020-05-15 05:53] VITALS: BP 149/87
[2020-05-15] MEDS: LEVALBUTEROL HCL 1.25 MG/3 ML NEB NEB SCH ×3 (06:25→21:19)
[2020-05-15 08:36] VITALS: BP 149/80
[2020-05-15 09:38] VITALS: BP 149/80
[2020-05-15] MEDS: PANTOPRAZOLE 40 MG TAB PO SCH (10:25)
[2020-05-15] MEDS: ZINC SULFATE 220mg CAP or TAB PO SCH (10:25)
[2020-05-15] MEDS: ASPirin 81 mg TAB PO SCH (10:25)
[2020-05-15] MEDS: CLOPIDOGREL BISULFATE 75 MG TAB PO SCH (10:25)
[2020-05-15] MEDS: DexAMETHasone SOD PHOS 10MG/1ML VIAL INJ IV SCH (10:25)
[2020-05-15] MEDS: AZITHROMYCIN 500MG/ 250ML 250 ML IV SCH (10:25)
[2020-05-15] MEDS: ASCORBIC ACID 500 MG TAB PO SCH (10:26)
[2020-05-15] MEDS: CHOLECALCIFEROL (VITD3) 1,000UNIT=25mCg TAB PO SCH (10:26)
[2020-05-15 13:00] VITALS: BP 154/90
[2020-05-15 16:56] VITALS: BP 145/81
--- NOTE | 2020-05-15 19:47 | NUR ---
Opening Shift Note Assumed care of patient, awake and alert. Patient is resting comfortably in bed while watching TV and eating dinner. Patient is currently on 2 L NC with no signs of distress/SOB. Patient reports having 4/10 lower back pain but states that his pain is tolerable at the moment. Instructed on POC and to call for assist PRN, will continue to monitor for changes Q1hr and PRN.
[2020-05-15 22:00] VITALS: BP 143/80
--- NOTE | 2020-05-15 22:15 | NUR ---
ASSESSMENT Patient states that he suddenly started feeling "itchy" and noticed redness in his arms bilaterally. Patient is requesting medication to relieve his symptoms. Will contact Dr. Gipson.
--- NOTE | 2020-05-15 23:15 | NUR ---
PATIENT'S SYMPTOMS HAVE IMPROVED. RESTING COMFORTABLY IN BED.
[2020-05-15] MEDS ORDERED: diphenhdrAMINE HCL 50 MG/1 ML VL IV ONE (23:30)
--- NOTE | 2020-05-15 23:33 | NUR ---
RECEIVED ORDER FOR [id number] MG IV ONCE FROM DR. RICKS.
[2020-05-16] MEDS: HYDROcodone-ACET 10/325MG TAB PO PRN (03:32)
[2020-05-16 05:00] VITALS: BP 142/81
[2020-05-16] MEDS: LEVALBUTEROL HCL 1.25 MG/3 ML NEB NEB SCH ×3 (06:24→23:07)
--- NOTE | 2020-05-16 07:38 | NUR ---
OPENING NOTE ASSUMED CARE OF PT. ALERT AND ORIENTED. NO S/S OF SOB/DISTRESS NOTED. BED SET TO LOWEST POSITION/LOCKED, BEDSIDE RAILS UP X2, CALL LIGHT WITHIN REACH. INSTRUCTED PT TO CALL FOR ASSISTANCE. UPDATED ON POC. PT VERBALIZED UNDERSTANDING. WILL CONTINUE TO MONITOR Q1HR AND PRN.
--- NOTE | 2020-05-16 07:49 | NUR ---
PATIENT IS C/O OF A TERRIBLE HEADACHE 04/06. PATIENT STATES, "IT FEELS LIKE IT'S GOING TO EXPLODE." WILL MAKE MD AWARE. PAGED RE: NEW ORDER FOR PAIN MEDICATION. AWAITING CALL BACK.
[2020-05-16 09:00] VITALS: BP 136/80
[2020-05-16] MEDS: HYDROmorphone HCL 2 MG/ML VL IV PRN ×3 (09:04→21:20)
[2020-05-16] MEDS: DexAMETHasone SOD PHOS 10MG/1ML VIAL INJ IV SCH (09:13)
[2020-05-16] MEDS: AZITHROMYCIN 500MG/ 250ML 250 ML IV SCH (09:13)
[2020-05-16] MEDS: ASPirin 81 mg TAB PO SCH (09:15)
[2020-05-16] MEDS: ZINC SULFATE 220mg CAP or TAB PO SCH (09:15)
[2020-05-16] MEDS: PANTOPRAZOLE 40 MG TAB PO SCH (09:16)
[2020-05-16] MEDS: ASCORBIC ACID 500 MG TAB PO SCH (09:16)
[2020-05-16] MEDS: CHOLECALCIFEROL (VITD3) 1,000UNIT=25mCg TAB PO SCH (09:16)
[2020-05-16] MEDS: CLOPIDOGREL BISULFATE 75 MG TAB PO SCH (09:16)
[2020-05-16 13:00] VITALS: BP 129/74
[2020-05-16 16:58] VITALS: BP 123/65
[2020-05-16] MEDS ORDERED: REMDESIVIR 200 MG in NS 210ml LOADING DOSE ADULT IV ONE (17:00)
--- NOTE | 2020-05-16 18:00 | NUR ---
REMDESIVIR PRE-INFUSION VS BP: 127/72 MMHG HR: 73 BPM SPO2: 95% WILL CONTINUE TO MONITOR.
--- NOTE | 2020-05-16 18:15 | NUR ---
REMDESIVIR PRE-INFUSION VS BP: 140/75 MMHG HR: 91 BPM SPO2: 94% WILL CONTINUE TO MONITOR. NO S/S OF SOB/DISTRESS NOTED. Addendum: 05/16/20 at 2050 by Anyi Renae RN THIS IS 15 MIN-INFUSION
--- NOTE | 2020-05-16 18:21 | NUR ---
THIS IS 15 MIN-INFUSION
[2020-05-16 22:00] VITALS: BP 127/74
[2020-05-17] MEDS: HYDROcodone-ACET 5/325MG TAB PO PRN ×3 (02:05→19:09)
[2020-05-17 05:44] VITALS: BP 123/69
[2020-05-17] MEDS: LEVALBUTEROL HCL 1.25 MG/3 ML NEB NEB SCH ×3 (05:53→23:02)
[2020-05-17] MEDS: HYDROmorphone HCL 2 MG/ML VL IV PRN ×3 (06:02→19:28)
[2020-05-17 07:54] LABS: Albumin 2.7 g/dL (3.4-5.0); BUN/Creatinine Ratio 29.4; Calcium 8.5 mg/dL (8.5-10.1)
[2020-05-17 07:56] LABS: Bilirubin, Total 0.3 mg/dL (0.2-1.0); Total Protein 7.1 g/dL (6.4-8.2)
[2020-05-17 08:39] VITALS: BP 135/83
[2020-05-17] MEDS ORDERED: PATIENTS OWN MEDICATION (REMDESIVIR 100 MG) IV SCH (10:00)
[2020-05-17] MEDS: ZINC SULFATE 220mg CAP or TAB PO SCH (12:15)
[2020-05-17] MEDS: AZITHROMYCIN 500MG/ 250ML 250 ML IV SCH (12:15)
[2020-05-17] MEDS: ASPirin 81 mg TAB PO SCH (12:15)
[2020-05-17] MEDS: DexAMETHasone SOD PHOS 10MG/1ML VIAL INJ IV SCH (12:15)
[2020-05-17] MEDS: CLOPIDOGREL BISULFATE 75 MG TAB PO SCH (12:15)
[2020-05-17] MEDS: ASCORBIC ACID 500 MG TAB PO SCH (12:16)
[2020-05-17] MEDS: CHOLECALCIFEROL (VITD3) 1,000UNIT=25mCg TAB PO SCH (12:16)
[2020-05-17] MEDS: PANTOPRAZOLE 40 MG TAB PO SCH (12:16)
[2020-05-17] MEDS: ONDANSETRON HCL 4 MG/2 ML VIAL IV PRN (12:17)
[2020-05-17 13:00] VITALS: BP 125/68
--- NOTE | 2020-05-17 15:04 | NUR ---
Assessment Patient is a 64 year old male, patient is alert and oriented. Patient cognitive abilities are intact. Patient states that he can do all ADL's and ambulate with a walker independently. Patient stated that he is retired and receives social security as income. Patient stated that he lives with his (Sesar [phone]), patient has plans to return home post discharge. Patient stated that his will provide transportation post discharge. Patient stated that his is his support system. Patient is receptive to receiving Advance Directives forms. Discharge planning: Patient will return home post discharge and follow up with his PCP post discharge. SW will provide Advance Directive forms to patient. Patient has no post discharge needs to identify at this moment. Addendum: 05/17/20 at 1509 by FRANKY POWELL Amended: Links added.
[2020-05-17 16:40] VITALS: BP 132/80
[2020-05-17] MEDS: REMDESIVIR 100mg in NS 230ml DAILYx4DAYS (NO VENT) IV SCH (17:25)
[2020-05-17] MEDS: TEMAZEPAM 15 MG CAP PO PRN (21:02)
[2020-05-17 22:00] VITALS: BP 132/70
[2020-05-18 05:00] VITALS: BP 130/70
[2020-05-18] MEDS: HYDROmorphone HCL 2 MG/ML VL IV PRN ×2 (05:10→20:48)
[2020-05-18] MEDS: ONDANSETRON HCL 4 MG/2 ML VIAL IV PRN (05:11)
[2020-05-18] MEDS: LEVALBUTEROL HCL 1.25 MG/3 ML NEB NEB SCH ×3 (06:08→21:08)
[2020-05-18 08:51] VITALS: BP 122/62
[2020-05-18] MEDS: AZITHROMYCIN 500MG/ 250ML 250 ML IV SCH (10:54)
[2020-05-18] MEDS: DexAMETHasone SOD PHOS 10MG/1ML VIAL INJ IV SCH (10:54)
[2020-05-18] MEDS: ASCORBIC ACID 500 MG TAB PO SCH (10:55)
[2020-05-18] MEDS: CHOLECALCIFEROL (VITD3) 1,000UNIT=25mCg TAB PO SCH (10:56)
[2020-05-18] MEDS: HYDROcodone-ACET 5/325MG TAB PO PRN (10:56)
[2020-05-18] MEDS: ASPirin 81 mg TAB PO SCH (10:56)
[2020-05-18] MEDS: PANTOPRAZOLE 40 MG TAB PO SCH (10:57)
[2020-05-18] MEDS: ZINC SULFATE 220mg CAP or TAB PO SCH (10:57)
[2020-05-18] MEDS: CLOPIDOGREL BISULFATE 75 MG TAB PO SCH (10:57)
--- NOTE | 2020-05-18 12:00 | NUR ---
IV insertion IV access obtained, via clean sterile technique by inserting 20 gauge catheter at right wrist after 1 attempt. IV secured properly. No trauma to site. Patient tolerated procedure well.
[2020-05-18 12:08] VITALS: BP 122/62
[2020-05-18 12:48] VITALS: BP 124/67
--- NOTE | 2020-05-18 14:27 | NUR ---
Nutrition Assessment Est energy needs [id number] kcal (20-25 kcal/kg BW 79kg) Est protein needs 63-79g (0.8-1g/kg BW 79kg) Will monitor and reassess prn. Addendum: 05/18/20 at [address] Amended: Links added.
[2020-05-18 16:31] VITALS: BP 150/78
[2020-05-18] MEDS: REMDESIVIR 100mg in NS 230ml DAILYx4DAYS (NO VENT) IV SCH (17:15)
--- NOTE | 2020-05-18 17:15 | NUR ---
PRE REMDESIVIR VITALS 133/68 88HR 95% 97.9 TEMP 19 RR
--- NOTE | 2020-05-18 17:30 | NUR ---
PRE REMDESIVIR VITALS 138/69 95% 84HR 97.6 TEMP NO S/S OF DISTRESS NOTED.
--- NOTE | 2020-05-18 18:20 | NUR ---
POST REMDESIVIR VITALS 103/51 52HR 94% 97.9 TEMP 20 RR Addendum: 05/18/20 at 1913 by SUMIT PETERSEN RN RN WRONG PT
--- NOTE | 2020-05-18 18:30 | NUR ---
POST REMDESIVIR VITALS 136/67 87HR 95% 98.2 TEMP 20 RR NO S/S OF DISTRESS NOTED
--- NOTE | 2020-05-18 19:30 | NUR ---
1 hour post remdesivir 134/64 bp hr 87 95% 19 rr 98.2 temp no S/S of distress noted.
--- NOTE | 2020-05-18 19:30 | NUR ---
Opening Shift Note Assumed care of patient, awake and alert. No S/S of distress/SOB. Instructed on POC and to call for assist PRN, will continue to monitor for changes Q1hr and PRN.
[2020-05-18 22:00] VITALS: BP 142/75
[2020-05-18] MEDS: TEMAZEPAM 15 MG CAP PO PRN (22:18)
[2020-05-19] MEDS: HYDROmorphone HCL 2 MG/ML VL IV PRN ×3 (02:40→22:43)
[2020-05-19] MEDS: NITROGLYCERIN 0.4 MG SL TAB SL PRN ×3 (02:55→21:00)
--- NOTE | 2020-05-19 02:56 | NUR ---
Patient stated he was having chest pain - sharp stabbing pain. Nitro sublingual given. Chest pain protocol initiated. VS taken - BP 135/78, HR 94, O2 sat at 89%, pain level 8. EKG reading SR 92. After 2-3 minutes, patient stated pain was subsiding and level was down to 4. Will continue to monitor.
[2020-05-19 05:00] VITALS: BP 122/72
[2020-05-19] MEDS: LEVALBUTEROL HCL 1.25 MG/3 ML NEB NEB SCH ×3 (07:20→20:32)
[2020-05-19 08:00] LABS: Potassium 3.9 mmol/L (3.5-5.1)
[2020-05-19 08:09] LABS: Albumin 2.3 g/dL (3.4-5.0); Calcium 8.5 mg/dL (8.5-10.1)
[2020-05-19 08:12] LABS: Bilirubin, Total 0.3 mg/dL (0.2-1.0); Total Protein 6.7 g/dL (6.4-8.2)
[2020-05-19] MEDS: ONDANSETRON HCL 4 MG/2 ML VIAL IV PRN ×3 (08:48→22:44)
[2020-05-19] MEDS: DexAMETHasone SOD PHOS 10MG/1ML VIAL INJ IV SCH (08:53)
[2020-05-19] MEDS: ASPirin 81 mg TAB PO SCH (08:55)
[2020-05-19] MEDS: CLOPIDOGREL BISULFATE 75 MG TAB PO SCH (08:55)
[2020-05-19] MEDS: AZITHROMYCIN 500MG/ 250ML 250 ML IV SCH (08:55)
[2020-05-19] MEDS: PANTOPRAZOLE 40 MG TAB PO SCH (08:56)
[2020-05-19] MEDS: CHOLECALCIFEROL (VITD3) 1,000UNIT=25mCg TAB PO SCH (08:58)
[2020-05-19] MEDS: ASCORBIC ACID 500 MG TAB PO SCH (08:58)
[2020-05-19] MEDS: ZINC SULFATE 220mg CAP or TAB PO SCH (08:59)
[2020-05-19 09:00] VITALS: BP 116/80
[2020-05-19] MEDS: HYDROcodone-ACET 5/325MG TAB PO PRN (11:58)
[2020-05-19 13:00] VITALS: BP 139/74
[2020-05-19 15:17] LABS: Basophils # (auto) 0 10 ^3/uL (0-0.2); Eosinophils # (auto) 0 10 ^3/uL (0-0.8); Hematocrit 37.7 % (41.0-53.0); Hemoglobin 12.4 g/dL (13.5-17.5); Lymphocytes # (auto) 0.5 10 ^3/uL (0.4-5.4); Mean Corpuscular Hemoglobin 28.2 pg (28.0-32.0); Mean Corpuscular Volume 85.4 fL (80.0-100.0); Monocytes # (auto) 0.2 10 ^3/uL (0-1.3); Monocytes % (auto) 2.6 % (0.0-12.0); Neutrophils # (auto) 7.5 10 ^3/uL (1.6-8.6); Neutrophils % (auto) 91.4 % (37.0-80.0); Platelet Count (auto) 316 10^3/uL (140-450); Red Blood Cells 4.41 10^6/uL (4.5-5.90); White Blood Cell 8.2 10^3/uL (4.4-10.8)
[2020-05-19 15:54] LABS: Calcium 8.5 mg/dL (8.5-10.1)
[2020-05-19 15:56] LABS: BUN/Creatinine Ratio 22.3
--- NOTE | 2020-05-19 16:45 | NUR ---
PRE REMDESIVIR V/S 97.8 TEMP 90HR 18 RR 124/82
[2020-05-19 17:00] VITALS: BP 124/72
[2020-05-19] MEDS: REMDESIVIR 100mg in NS 230ml DAILYx4DAYS (NO VENT) IV SCH (17:00)
--- NOTE | 2020-05-19 17:00 | NUR ---
15 REMDESIVIR V/S 124/72 97% 81HR 145/82 20 RR NO S/S OF DISTRESS NOTED
--- NOTE | 2020-05-19 18:02 | NUR ---
POST REMDESIVIR V/S 95% 77HR 20RR 97.6 TEMP 20RR NO S/S OF DISTRESS NOTED
--- NOTE | 2020-05-19 19:02 | NUR ---
1 hr post remdesivir 97% 86hr 98.2 temp 17 rr 138/70 NO S/S OF DISTRESS NOTED.
--- NOTE | 2020-05-19 19:30 | NUR ---
OPENING NOTE Received report from day shift RN. Patient is A&O X's 4 with no s/s of distress and reports some back pain at this time. Patient reports not wanting any pain medication at this time. Educated patient on POC and to use call light when in need of any assistance and before ambulating. Patient verbalized understanding. Patient is currently receiving 5L O2 via N.C. Respirations are even and unlabored. Bed is in lowest/locked position with side rails up X's 2 and call light is within reach of patient. Bed alarm is on for safety. Will continue care.
--- NOTE | 2020-05-19 20:42 | NUR ---
Respiratory note: PT STARTED ON SCHEDULED MED NEB TX BUT ENTERING THE ROOM THE PT WAS COUGHING ALOT AND COMPLAINING OF CHEST PAIN. PT DID NOT TAKE TREATMENT STATING IT IS NOT GOING TO HELP, I NEED NITRO. RN MADE AWARE. TREATMENT STOPPED AT THIS TIME. PT'S SATURATION DROPPED TO 67% ON NASAL CANNULA, SWITCHED THE PT TO A 15L NRB MASK. PTS SAT INCREASED TO 94%. WILL CONT TO MONITOR.
--- NOTE | 2020-05-19 20:50 | NUR ---
CHEST PAIN Patient was c/o severe 10/10 chest pain at this time. Patient denies any radiation of pain, describes it as "sharp". VS taken 123/54 HR 98 Patient switched from 5L NC d/t saturation dropped to 67% to 15L NRB saturation 94%. EKG was done. Nitro given. SEE EMAR. DR. Gipson was notified of situation and patient's status at about 2100 and read EKG at 2104. No new orders received. EKG was normal. Patient reports that CP decreased now to about a 4 but feels better. Educated patient to use call light and notify me if symptoms worsen. Patient verbalized understanding. Will continue care.
[2020-05-19 22:00] VITALS: BP 123/54
[2020-05-19] MEDS: TEMAZEPAM 15 MG CAP PO PRN (22:06)
--- NOTE | 2020-05-19 23:00 | NUR ---
REASSESSMENT Patient is now on 5L Oxymizer with SPO2 at 99%. No s/s of distress noted. Will continue care.
--- NOTE | 2020-05-19 23:10 | NUR ---
Respiratory note: PT REASSESSED AND IS NOW ON 5L OXYMIZER WITH SP02 OF 99%. NO RESPIRATORY DISTRESS NOTED.
[2020-05-20 05:00] VITALS: BP 133/72
[2020-05-20] MEDS: LEVALBUTEROL HCL 1.25 MG/3 ML NEB NEB SCH ×3 (06:18→21:54)
[2020-05-20] MEDS: HYDROmorphone HCL 2 MG/ML VL IV PRN ×2 (06:23→17:58)
[2020-05-20 06:39] LABS: Potassium 4.4 mmol/L (3.5-5.1)
[2020-05-20 07:09] LABS: Albumin 2.2 g/dL (3.4-5.0); Bilirubin, Total 0.4 mg/dL (0.2-1.0); Calcium 8.1 mg/dL (8.5-10.1); Total Protein 6.6 g/dL (6.4-8.2)
[2020-05-20 09:01] VITALS: BP 131/73
[2020-05-20] MEDS: PANTOPRAZOLE 40 MG TAB PO SCH (10:00)
[2020-05-20] MEDS: ASCORBIC ACID 500 MG TAB PO SCH (10:00)
[2020-05-20] MEDS: DexAMETHasone SOD PHOS 10MG/1ML VIAL INJ IV SCH (11:14)
[2020-05-20] MEDS: AZITHROMYCIN 500MG/ 250ML 250 ML IV SCH (11:14)
[2020-05-20] MEDS: ASPirin 81 mg TAB PO SCH (11:15)
[2020-05-20] MEDS: CLOPIDOGREL BISULFATE 75 MG TAB PO SCH (11:15)
[2020-05-20] MEDS: ZINC SULFATE 220mg CAP or TAB PO SCH (11:15)
[2020-05-20] MEDS: CHOLECALCIFEROL (VITD3) 1,000UNIT=25mCg TAB PO SCH (11:16)
[2020-05-20 13:00] VITALS: BP 121/71
[2020-05-20] MEDS: HYDROcodone-ACET 5/325MG TAB PO PRN (13:05)
--- NOTE | 2020-05-20 17:07 | NUR ---
ss for ARUNA Mullins RN has been given IM for patient to sign. Patient is in Covid unit. Addendum: 05/20/20 at 1716 by Nory Rogers SS Amended: Links added.
[2020-05-20 17:08] VITALS: BP 139/80
[2020-05-20] MEDS: REMDESIVIR 100mg in NS 230ml DAILYx4DAYS (NO VENT) IV SCH (17:59)
--- NOTE | 2020-05-20 19:40 | NUR ---
OPENING NOTE Received report from day shift RN. Patient is A&O X's 4 with no s/s of distress. Patient is currently receiving 6L O2 via oxymizer. Patient has continuous pulse ox and SPO2 96%. Patient reports no pain or SOB at this time. Educated patient on POC and to use call light when in need of any assistance. Patient also confirmed that he was aware and given information on the convalescent plasma already and agrees to receive it. Consents are signed and in chart. Bed is in lowest/locked position with side rails up X's 2 and call light is within reach of patient. IV to right wrist is intact and patent, flushed with NS. Will continue care.
[2020-05-20] MEDS: TEMAZEPAM 15 MG CAP PO PRN (22:06)
[2020-05-20 22:18] VITALS: BP 126/75
[2020-05-21] VITALS (8 sets, daily range): BP systolic 107–143; BP diastolic 59–83
[2020-05-21] MEDS: HYDROmorphone HCL 2 MG/ML VL IV PRN ×2 (02:57→17:30)
[2020-05-21] MEDS: LEVALBUTEROL HCL 1.25 MG/3 ML NEB NEB SCH ×3 (06:51→21:29)
--- NOTE | 2020-05-21 08:00 | NUR ---
Opening Shift Note Assumed care of patient, awake, alert and oriented X4. O2 @ 6 LPM via Oxymizer with sats @ 92%. No S/S of distress/SOB or pain. Tele# 1, sinus rhythm @ 93 bpm. IV to right wrist, 20 gauge, patent and saline locked. Instructed on POC and to call for assist PRN, verbalized understanding. Bed locked, in lowest position, call light within reach, will continue to monitor for changes Q1hr and PRN.
[2020-05-21] MEDS: HYDROcodone-ACET 5/325MG TAB PO PRN (12:33)
--- NOTE | 2020-05-21 13:01 | NUR ---
Nutrition Followup Notes Pt wt is 81.6 kg Pt is positive for COVID. Pt is with a 2 gm Sodium diet, appetite is good aeb 75% PO intake x6 meals per RN doc. Pt is with no s/s of distress or pain per RN note. Est energy needs 4053-4603 kcal (20-25 kcal/kg BW 79kg) Est protein needs 63-79g (0.8-1g/kg BW 79kg) Will monitor and reassess prn. LABS: BUN 19 H, CA 8.1 L, ALB 2.2 L GI: Pt had 1 BM on 05/19 per RN doc. BS: 19 low risk. Refer to wound assessment notes for further details. PES: Overweight r/t caloric intake in excess of needs aeb pt with a BMI of 29.9kg/m2 Comments Will continue to monitor PO status, skin status, pertinent labs and weight trends. Will f/u in 3-5 days 1) Continue to monitor po intake, labs, skin 2) Refer pt to OPD on DC 3) Continue current plan of care
[2020-05-21] MEDS: DexAMETHasone SOD PHOS 10MG/1ML VIAL INJ IV SCH (14:32)
[2020-05-21] MEDS: AZITHROMYCIN 500MG/ 250ML 250 ML IV SCH (14:32)
[2020-05-21] MEDS: ZINC SULFATE 220mg CAP or TAB PO SCH (14:33)
[2020-05-21] MEDS: PANTOPRAZOLE 40 MG TAB PO SCH (14:33)
[2020-05-21] MEDS: ASPirin 81 mg TAB PO SCH (14:33)
[2020-05-21] MEDS: CLOPIDOGREL BISULFATE 75 MG TAB PO SCH (14:33)
[2020-05-21] MEDS: ASCORBIC ACID 500 MG TAB PO SCH (14:34)
[2020-05-21] MEDS: CHOLECALCIFEROL (VITD3) 1,000UNIT=25mCg TAB PO SCH (14:34)
--- NOTE | 2020-05-21 17:28 | NUR ---
IV removal IV DC'd with clean sterile technique to right wrist due to leaking, catheter fully intact.Pressure dressing applied to site. Patient tolerated well. IV insertion IV access obtained, via clean sterile technique by inserting 22 gauge catheter to the right forearm. IV secured properly. No trauma to site. Patient tolerated procedure well.
--- NOTE | 2020-05-21 19:00 | NUR ---
OPENING NOTE Received report from day shift RN. Patient is A&O X's 4 with no s/s of distress and reports no pain at this time. Patient is receiving 6L O2 via oxymizer. Patient is on continuous pulse ox. Educated patient on POC and to use call light when in need of assistance. Patient verbalized understanding. bed is in lowest/locked position with side rails up X's 2 and call light is within reach of patient. Will continue care.
--- NOTE | 2020-05-21 19:12 | NUR ---
Care endorsed to SIDDHARTHA Navarrete, night nurse.
[2020-05-21] MEDS: TEMAZEPAM 15 MG CAP PO PRN (22:32)
[2020-05-22] MEDS: HYDROmorphone HCL 2 MG/ML VL IV PRN (02:42)
[2020-05-22 05:00] VITALS: BP 131/69
[2020-05-22] MEDS: LEVALBUTEROL HCL 1.25 MG/3 ML NEB NEB SCH ×3 (06:06→20:34)
[2020-05-22 08:31] VITALS: BP 122/81
[2020-05-22] MEDS: ASCORBIC ACID 1,000 MG TAB PO SCH (10:03)
[2020-05-22] MEDS: DexAMETHasone SOD PHOS 10MG/1ML VIAL INJ IV SCH (10:03)
[2020-05-22] MEDS: AZITHROMYCIN 500MG/ 250ML 250 ML IV SCH (10:03)
[2020-05-22] MEDS: ASPirin 81 mg TAB PO SCH (10:04)
[2020-05-22] MEDS: ZINC SULFATE 220mg CAP or TAB PO SCH (10:04)
[2020-05-22] MEDS: PANTOPRAZOLE 40 MG TAB PO SCH (10:04)
[2020-05-22] MEDS: CLOPIDOGREL BISULFATE 75 MG TAB PO SCH (10:04)
[2020-05-22] MEDS: CHOLECALCIFEROL (VITD3) 1,000UNIT=25mCg TAB PO SCH (10:04)
--- NOTE | 2020-05-22 12:45 | NUR ---
pain Patient complains of a 10/10 throbbing headache. Will medicate per MD orders with Dilaudid 1mg IV at this time and continue to monitor his pain.
[2020-05-22] MEDS: HYDROcodone-ACET 5/325MG TAB PO PRN (16:27)
[2020-05-22 17:00] VITALS: BP 128/72
--- NOTE | 2020-05-22 18:20 | NUR ---
Spoke with family Spoke with patient's daughter over phone. Daughter updated on patient condition at this time, all questions and concerns addressed. Daughter requesting to speak with MD, will page Dr. Gipson to notify.
--- NOTE | 2020-05-22 19:25 | NUR ---
Opening Shift Note Received report from Scarlett CARL. Assumed care of patient, awake and alert. No S/S of distress/SOB or pain. Instructed on POC and to call for assist PRN. Fall precaution measures in place, will continue to monitor for changes Q1hr and PRN.
[2020-05-22 22:00] VITALS: BP 121/76
[2020-05-22] MEDS: TEMAZEPAM 15 MG CAP PO PRN (23:01)
[2020-05-23] MEDS: HYDROmorphone HCL 2 MG/ML VL IV PRN ×3 (01:39→18:58)
--- NOTE | 2020-05-23 01:39 | NUR ---
Patient complains of headache at 10/, Dilaudid IV given per order. Will continue care.
[2020-05-23] MEDS: LEVALBUTEROL HCL 1.25 MG/3 ML NEB NEB SCH ×3 (06:50→21:25)
[2020-05-23] MEDS: DexAMETHasone SOD PHOS 10MG/1ML VIAL INJ IV SCH (10:05)
[2020-05-23] MEDS: ASPirin 81 mg TAB PO SCH (10:06)
[2020-05-23] MEDS: AZITHROMYCIN 500MG/ 250ML 250 ML IV SCH (10:06)
[2020-05-23] MEDS: CLOPIDOGREL BISULFATE 75 MG TAB PO SCH (10:06)
[2020-05-23] MEDS: ZINC SULFATE 220mg CAP or TAB PO SCH (10:06)
[2020-05-23] MEDS: PANTOPRAZOLE 40 MG TAB PO SCH (10:07)
[2020-05-23] MEDS: ASCORBIC ACID 1,000 MG TAB PO SCH (10:07)
[2020-05-23] MEDS: CHOLECALCIFEROL (VITD3) 1,000UNIT=25mCg TAB PO SCH (10:12)
--- NOTE | 2020-05-23 11:58 | NUR ---
pain Patient complains of a 9/10 throbbing headache. Will medicate per MD orders with Dilaudid 1mg IV at this time and continue to monitor his pain.
[2020-05-23 12:44] VITALS: BP 125/78
[2020-05-23 16:40] VITALS: BP 123/73
--- NOTE | 2020-05-23 18:55 | NUR ---
pain Patient complains of a 9/10 throbbing headache. Will medicate per MD orders with Dilaudid 1mg IV at this time and continue to monitor his pain.
--- NOTE | 2020-05-23 21:40 | NUR ---
Respiratory note: TOOK PT OFF OF NRB AT THIS TIME AND PLACED ON 8L SM.
[2020-05-23 22:27] VITALS: BP 131/71
[2020-05-23] MEDS: HYDROcodone-ACET 5/325MG TAB PO PRN (23:26)
[2020-05-23] MEDS: TEMAZEPAM 15 MG CAP PO PRN (23:26)
[2020-05-24] VITALS (7 sets, daily range): BP systolic 105–139; BP diastolic 55–72
[2020-05-24] MEDS: LEVALBUTEROL HCL 1.25 MG/3 ML NEB NEB SCH ×3 (06:15→21:40)
[2020-05-24] MEDS: ASPirin 81 mg TAB PO SCH (08:47)
[2020-05-24] MEDS: DexAMETHasone SOD PHOS 10MG/1ML VIAL INJ IV SCH (08:47)
[2020-05-24] MEDS: AZITHROMYCIN 500MG/ 250ML 250 ML IV SCH (08:47)
[2020-05-24] MEDS: PANTOPRAZOLE 40 MG TAB PO SCH (08:47)
[2020-05-24] MEDS: CLOPIDOGREL BISULFATE 75 MG TAB PO SCH (08:47)
[2020-05-24] MEDS: HYDROmorphone HCL 2 MG/ML VL IV PRN ×2 (08:48→16:36)
[2020-05-24] MEDS: ZINC SULFATE 220mg CAP or TAB PO SCH (08:48)
[2020-05-24] MEDS: CHOLECALCIFEROL (VITD3) 1,000UNIT=25mCg TAB PO SCH (08:48)
[2020-05-24] MEDS: ASCORBIC ACID 1,000 MG TAB PO SCH (08:48)
--- NOTE | 2020-05-24 13:57 | NUR ---
Nutrition Followup Notes Pt wt is 76.2 kg Pt is positive for COVID. Pt is with a 2 gm Sodium diet, appetite is improved and good aeb 95% PO intake x5 meals per RN doc. Pt is with no s/s of distress or pain per RN note. Est energy needs 7356-7720 kcal (20-25 kcal/kg BW 79kg) Est protein needs 63-79g (0.8-1g/kg BW 79kg) Will monitor and reassess prn. LABS: BUN 19 H, CA 8.1 L, ALB 2.2 L GI: Pt had 1 BM on 05/24 per RN doc. BS: 21 low risk. Refer to wound assessment notes for further details. PES: Overweight r/t caloric intake in excess of needs aeb pt with a BMI of 29.9kg/m2 Comments Will continue to monitor PO status, skin status, pertinent labs and weight trends. Will f/u in 3-5 days 1) Continue to monitor po intake, labs, skin 2) Refer pt to OPD on DC 3) Continue current plan of care
--- NOTE | 2020-05-24 16:30 | NUR ---
Oxygen Patient's oxygen titrated down to 3L Oxymizer, patient currently saturating 93%, breath sounds are even/unlabored.Will continue to monitor. Addendum: 05/24/20 at 1737 by Pretty Villatoro RN oxygen re-assesed Patient is on 3L Oxymizer and oxygen saturations are at 95%. Will continue to monitor.
--- NOTE | 2020-05-24 19:19 | NUR ---
closing shift note care endorsed to NOC SIDDHARTHA Hannah.
--- NOTE | 2020-05-24 19:20 | NUR ---
Opening Shift Note Received report from Soraida CARL. Assumed care of patient, awake and alert. No S/S of distress/SOB or pain. Instructed on POC and to call for assist PRN, will continue to monitor for changes Q1hr and PRN.
[2020-05-24] MEDS: HYDROcodone-ACET 5/325MG TAB PO PRN (23:10)
[2020-05-24] MEDS: TEMAZEPAM 15 MG CAP PO PRN (23:11)
[2020-05-25 05:00] VITALS: BP 113/67
[2020-05-25] MEDS: LEVALBUTEROL HCL 1.25 MG/3 ML NEB NEB SCH ×2 (06:11→13:29)
[2020-05-25] MEDS: HYDROmorphone HCL 2 MG/ML VL IV PRN (06:15)
[2020-05-25 08:00] VITALS: BP 104/66
[2020-05-25 09:12] VITALS: BP 104/66
[2020-05-25] MEDS: AZITHROMYCIN 500MG/ 250ML 250 ML IV SCH (09:34)
[2020-05-25] MEDS: DexAMETHasone SOD PHOS 10MG/1ML VIAL INJ IV SCH (09:34)
[2020-05-25] MEDS: ASPirin 81 mg TAB PO SCH (09:34)
[2020-05-25] MEDS: ZINC SULFATE 220mg CAP or TAB PO SCH (09:34)
[2020-05-25] MEDS: CHOLECALCIFEROL (VITD3) 1,000UNIT=25mCg TAB PO SCH (09:35)
[2020-05-25] MEDS: CLOPIDOGREL BISULFATE 75 MG TAB PO SCH (09:35)
[2020-05-25] MEDS: ASCORBIC ACID 1,000 MG TAB PO SCH (09:35)
[2020-05-25] MEDS: PANTOPRAZOLE 40 MG TAB PO SCH (09:35)
[2020-05-25 13:00] VITALS: BP 119/68
--- NOTE | 2020-05-25 13:33 | NUR ---
prescription called in to [facility] A pharmacy located at [id number] [place] [address], , per MD orders.
[2020-05-25 14:39] VITALS: BP 119/68
--- NOTE | 2020-05-25 17:01 | NUR ---
Patient had an episode of dizziness while getting dressed. VS: bp 139/83, HR 109, Spo2 88-90% on 2L NC. Advised patient to take it easy and sit down before getting up to walk to allow blood-flow to run down to legs. Patient verbalized understanding. Patient states, "feels better" .
--- NOTE | 2020-05-25 17:56 | NUR ---
Discharge instructions given as ordered. Encourage to follow up with PMD as instructed. All questions and concerns addressed. Patient verbalized understanding. Medication reconciliation form completed and copy given to patient. IV removed with catheter intact, pressure dressing applied. Telemetry unit returned to ICU. Patient taken to vehicle via wheelchair with all personal belongings, accompanied by this nurse and EVS member. No distress noted at time of departure.
--- NOTE | 2020-05-25 18:00 | NUR ---
Patient left on 2L NC with personal portable oxygen. oxygen saturations 90%-91%. No s/s of distress noted/stated.
== END 2020-05-25 18:00 | disposition home or self-care (01) | DRG 177 ==
LOC: ER 13:32 → EDBD 13:32 → TELE 19:23 → TELE-EAST 21:45
PROVIDERS: ADMIT Internal Medicine Cardiovascular Disease; ATTEND Internal Medicine Cardiovascular Disease
PROC: XW033E5 Introduction of Remdesivir Anti-infective into Peripheral Vein, Percutaneous Approach, New Technology Group 5 (ICD-10-PCS; 2020-05-16)
PROC: XW13325 Transfusion of Convalescent Plasma (Nonautologous) into Peripheral Vein, Percutaneous Approach, New Technology Group 5 (ICD-10-PCS; principal; 2020-05-21)
DX: U07.1 COVID-19 (principal); J12.89 Other viral pneumonia; E86.9 Volume depletion, unspecified; R19.7 Diarrhea, unspecified; E78.5 Hyperlipidemia, unspecified; I10 Essential (primary) hypertension; E11.9 Type 2 diabetes mellitus without complications; G89.29 Other chronic pain; I25.10 Atherosclerotic heart disease of native coronary artery without angina pectoris; Z82.49 Family history of ischemic heart disease and other diseases of the circulatory system; Z95.5 Presence of coronary angioplasty implant and graft; Z79.899 Other long term (current) drug therapy; I25.2 Old myocardial infarction; Z88.5 Allergy status to narcotic agent; Z88.6 Allergy status to analgesic agent; Z88.8 Allergy status to other drugs, medicaments and biological substances
CPT/HCPCS: 36415; 36600; 70450; 71045; 72125; 80048; 80053; 82728; 82805; 83615; 84484; 85025; 85379; 86141; 86850; 86900; 86901; 87081; 93005; 94640; 96372; 97163; G0378; J1100; J2405

== ENCOUNTER → 2020-06-24 | Outpatient (CLI) | payer MEDICARE, MEDICAID | END | disposition home or self-care (01) | LOC: Rad HDHVI 10:04 | PROVIDERS: ATTEND Internal Medicine Cardiovascular Disease | DX: M47.816 Spondylosis without myelopathy or radiculopathy, lumbar region (principal); R91.8 Other nonspecific abnormal finding of lung field; M43.16 Spondylolisthesis, lumbar region; M25.78 Osteophyte, vertebrae; M51.25 Other intervertebral disc displacement, thoracolumbar region; M51.26 Other intervertebral disc displacement, lumbar region; M47.815 Spondylosis without myelopathy or radiculopathy, thoracolumbar region; R06.02 Shortness of breath; Z98.1 Arthrodesis status | CPT/HCPCS: 71046; 72131 ==

== ENCOUNTER → 2020-06-26 | Outpatient (CLI) | payer MEDICARE, MEDICAID | END | disposition home or self-care (01) | LOC: Rad HDHVI 12:51 | PROVIDERS: ATTEND Internal Medicine Cardiovascular Disease | DX: I08.8 Other rheumatic multiple valve diseases (principal); I27.21 Secondary pulmonary arterial hypertension; I25.5 Ischemic cardiomyopathy; R07.89 Other chest pain | CPT/HCPCS: 93306 ==

== ENCOUNTER 2021-01-14 07:37 | Emergency (ER) | payer MEDICARE, MEDICAID ==
[~2021-01-14] VITALS: Ht 157.5 cm; Wt 76.2 kg
[~2021-01-14 07:37] MED LIST changes: +ATOR-47 PO; -ATOR1TAB PO; -CLOP75TA41 PO; +CLOP75TA70 PO; +SPIR25TA PO; -SPIR25TA88 PO
[2021-01-14] MEDS ORDERED: ALBUTEROL SULF 2.5 MG/0.5ML(0.5%) NEB SOLN NEB ONE (08:00)
[2021-01-14] MEDS ORDERED: methylPREDNISolone SOD SUCC 125 MG/2 ML VL IV ONE (08:00)
[2021-01-14] MEDS ORDERED: IPRATROPIUM BROM 0.5 MG/2.5ML INH SOL NEB ONE (08:00)
[2021-01-14] MEDS ORDERED: MAGNESIUM SULFATE 1GM/100ML 100 ML IV ONE (08:00)
[2021-01-14 08:29] LABS: Basophils # (auto) 0 10 ^3/uL (0-0.2); Basophils % (auto) 0.6 % (0.0-2.0); Eosinophils # (auto) 0 10 ^3/uL (0-0.8); Eosinophils % (auto) 0.1 % (0.0-7.0); Hematocrit 38.4 % (41.0-53.0); Hemoglobin 12.8 g/dL (13.5-17.5); Lymphocytes # (auto) 0.4 10 ^3/uL (0.4-5.4); Lymphocytes % (auto) 7.4 % (10.0-50.0); Mean Corpuscular Hemoglobin 27.6 pg (28.0-32.0); Mean Corpuscular Hgb Conc. 33.4 g/dL (32.0-36.0); Mean Corpuscular Volume 82.7 fL (80.0-100.0); Monocytes # (auto) 0.4 10 ^3/uL (0-1.3); Monocytes % (auto) 7.2 % (0.0-12.0); Neutrophils # (auto) 5.1 10 ^3/uL (1.6-8.6); Neutrophils % (auto) 84.7 % (37.0-80.0); Red Blood Cells 4.64 10^6/uL (4.5-5.90)
[2021-01-14] MEDS ORDERED: HYDROcodone-ACET 5/325MG TAB PO ONE (08:45)
[2021-01-14 08:47] LABS: Alanine Aminotransferase 38 U/L (16-61); Albumin 3.7 g/dL (3.4-5.0); Anion Gap 8 (5-15); Aspartate Aminotransferase 27 U/L (15-37); Blood Urea Nitrogen 22 mg/dL (7-18); Carbon Dioxide 21 mmol/L (21-32); Chloride 106 mmol/L (98-107); Glucose 129 mg/dL (74-106); Potassium 4.2 mmol/L (3.5-5.1); Sodium 135 mmol/L (136-145)
[2021-01-14 08:52] LABS: Alkaline Phosphatase 38 U/L (45-117); BUN/Creatinine Ratio 17.3; Bilirubin, Total 0.4 mg/dL (0.2-1.0); GFR African American 73 mL/min; GFR Non-African American 61 mL/min; Total Protein 7.8 g/dL (6.4-8.2)
[2021-01-14] MEDS ORDERED: IOHEXOL 350 MG/ML 100ML IJ ONE (09:10)
[2021-01-14 10:44] VITALS: BP 120/72
== END 2021-01-14 10:45 | disposition home or self-care (01) ==
LOC: ER 07:37
DX: J44.1 Chronic obstructive pulmonary disease with (acute) exacerbation (principal); R00.0 Tachycardia, unspecified; I11.0 Hypertensive heart disease with heart failure; I50.9 Heart failure, unspecified; I25.10 Atherosclerotic heart disease of native coronary artery without angina pectoris; I25.2 Old myocardial infarction; E11.9 Type 2 diabetes mellitus without complications; E78.5 Hyperlipidemia, unspecified; Z87.891 Personal history of nicotine dependence; Z79.82 Long term (current) use of aspirin; Z79.01 Long term (current) use of anticoagulants; Z79.899 Other long term (current) drug therapy; Z88.8 Allergy status to other drugs, medicaments and biological substances; Z20.822 Contact with and (suspected) exposure to COVID-19
CPT/HCPCS: 36415; 71045; 71275; 74018; 80053; 83735; 83880; 84484; 85025; 87426; 93005; 94640; 96365; 96375; 99285; C9803; J2930; J3475; J7644; Q9967; U0003

== ENCOUNTER → 2021-06-02 | Outpatient (CLI) | payer MEDICARE, MEDICAID ==
[2021-06-02 10:43] LABS: Basophils # (auto) 0 10 ^3/uL (0-0.2); Basophils % (auto) 0.7 % (0.0-2.0); Eosinophils # (auto) 0.1 10 ^3/uL (0-0.8); Eosinophils % (auto) 1.3 % (0.0-7.0); Hematocrit 39.3 % (41.0-53.0); Hemoglobin 12.9 g/dL (13.5-17.5); Lymphocytes # (auto) 1.8 10 ^3/uL (0.4-5.4); Lymphocytes % (auto) 36.7 % (10.0-50.0); Mean Corpuscular Hemoglobin 27.6 pg (28.0-32.0); Mean Corpuscular Hgb Conc. 32.7 g/dL (32.0-36.0); Mean Corpuscular Volume 84.4 fL (80.0-100.0); Monocytes # (auto) 0.5 10 ^3/uL (0-1.3); Monocytes % (auto) 9.5 % (0.0-12.0); Neutrophils # (auto) 2.6 10 ^3/uL (1.6-8.6); Neutrophils % (auto) 51.8 % (37.0-80.0); Red Blood Cells 4.66 10^6/uL (4.5-5.90)
[2021-06-02 10:52] LABS: Urine Blood TRACE /uL (Negative); Urine Specific Gravity 1.019 (1.001-1.035)
[2021-06-02 11:10] LABS: Potassium 4.8 mmol/L (3.5-5.1)
[2021-06-02 11:14] LABS: Free T4 (Free Thyroxine) 1.15 ng/dL (0.89-1.76); Prostate Specific Antigen 0.6 ng/mL (0.0-4.0)
[2021-06-02 11:20] LABS: Albumin 3.5 g/dL (3.4-5.0); BUN/Creatinine Ratio 20.7; Bilirubin, Total 0.3 mg/dL (0.2-1.0); Calcium 8.8 mg/dL (8.5-10.1); Total Protein 7.5 g/dL (6.4-8.2)
== END | disposition home or self-care (01) ==
LOC: LAB 08:27
PROVIDERS: ATTEND Internal Medicine Cardiovascular Disease
DX: C61 Malignant neoplasm of prostate (principal); D51.3 Other dietary vitamin B12 deficiency anemia; D64.9 Anemia, unspecified; E11.9 Type 2 diabetes mellitus without complications; E55.9 Vitamin D deficiency, unspecified; I10 Essential (primary) hypertension; R00.2 Palpitations; R53.1 Weakness; R30.0 Dysuria
CPT/HCPCS: 36415; 80053; 80061; 81003; 82306; 82607; 83036; 84153; 84403; 84439; 84443; 85025

== ENCOUNTER → 2021-06-23 | Outpatient (CLI) | payer MEDICARE, MEDICAID | END | disposition home or self-care (01) | LOC: Rad HDHVI 08:52 | PROVIDERS: ATTEND Internal Medicine Cardiovascular Disease | DX: I51.7 Cardiomegaly (principal); R06.02 Shortness of breath | CPT/HCPCS: 93306 ==

== ENCOUNTER → 2021-06-30 | Outpatient (CLI) | payer MEDICARE, MEDICAID ==
[~2021-06-30] VITALS: Ht 162.6 cm; Wt 74.4 kg
[~2021-06-30] MED LIST changes: +ADENOSINE 62 MG in GIVE UN-DILUTED 0 ML IV ONE; +ADENOSINE 90 MG/30 ML INJ IV ONE
== END | disposition home or self-care (01) ==
LOC: Rad HDHVI 08:16
PROVIDERS: ATTEND Internal Medicine Cardiovascular Disease
DX: I11.0 Hypertensive heart disease with heart failure (principal); I50.43 Acute on chronic combined systolic (congestive) and diastolic (congestive) heart failure; I25.10 Atherosclerotic heart disease of native coronary artery without angina pectoris; E78.5 Hyperlipidemia, unspecified; I25.2 Old myocardial infarction; R07.89 Other chest pain; I10 Essential (primary) hypertension; R06.02 Shortness of breath; Z82.49 Family history of ischemic heart disease and other diseases of the circulatory system
CPT/HCPCS: 78452; 93005; 96374; 96375; A9500; J0153

== ENCOUNTER → 2021-08-25 | Outpatient (CLI) | payer MEDICARE, MEDICAID ==
[~2021-08-25] MED LIST changes: -ADENOSINE 62 MG in GIVE UN-DILUTED 0 ML IV ONE; -ADENOSINE 90 MG/30 ML INJ IV ONE
[2021-08-25 11:52] VITALS: BP 130/68
[2021-08-25 12:28] VITALS: BP 130/70
[2021-08-25 12:48] VITALS: BP 130/70
== END | disposition home or self-care (01) ==
LOC: CHF HDHVI 10:57
PROVIDERS: ATTEND Internal Medicine Cardiovascular Disease
DX: I11.0 Hypertensive heart disease with heart failure (principal); I50.42 Chronic combined systolic (congestive) and diastolic (congestive) heart failure; I25.118 Atherosclerotic heart disease of native coronary artery with other forms of angina pectoris; J44.9 Chronic obstructive pulmonary disease, unspecified; I73.9 Peripheral vascular disease, unspecified; I25.5 Ischemic cardiomyopathy; E78.5 Hyperlipidemia, unspecified
CPT/HCPCS: 93005; G0166; G0463

== ENCOUNTER → 2021-08-27 | Outpatient (CLI) | payer MEDICARE, MEDICAID ==
[2021-08-27 12:52] VITALS: BP 134/70
[2021-08-27 12:58] VITALS: BP 130/70
== END | disposition home or self-care (01) ==
LOC: CHF HDHVI 11:39
PROVIDERS: ATTEND Internal Medicine Cardiovascular Disease
DX: I50.42 Chronic combined systolic (congestive) and diastolic (congestive) heart failure (principal); I25.118 Atherosclerotic heart disease of native coronary artery with other forms of angina pectoris; J44.9 Chronic obstructive pulmonary disease, unspecified; I73.9 Peripheral vascular disease, unspecified; I25.5 Ischemic cardiomyopathy; E78.5 Hyperlipidemia, unspecified
CPT/HCPCS: G0166

== ENCOUNTER → 2021-08-28 | Outpatient (CLI) | payer MEDICARE, MEDICAID ==
[2021-08-28 12:45] VITALS: BP 150/78
[2021-08-28 12:50] VITALS: BP 136/78
== END | disposition home or self-care (01) ==
LOC: CHF HDHVI 11:32
PROVIDERS: ATTEND Internal Medicine Cardiovascular Disease
DX: I11.0 Hypertensive heart disease with heart failure (principal); I50.42 Chronic combined systolic (congestive) and diastolic (congestive) heart failure; I25.118 Atherosclerotic heart disease of native coronary artery with other forms of angina pectoris; E11.9 Type 2 diabetes mellitus without complications; J44.9 Chronic obstructive pulmonary disease, unspecified; I25.5 Ischemic cardiomyopathy; E78.5 Hyperlipidemia, unspecified; I73.9 Peripheral vascular disease, unspecified; Z95.5 Presence of coronary angioplasty implant and graft
CPT/HCPCS: G0166

== ENCOUNTER → 2021-08-29 | Outpatient (CLI) | payer MEDICARE, MEDICAID ==
[2021-08-29 12:57] VITALS: BP 150/84
[2021-08-29 13:03] VITALS: BP 126/74
== END | disposition home or self-care (01) ==
LOC: CHF HDHVI 11:34
PROVIDERS: ATTEND Internal Medicine Cardiovascular Disease
DX: I11.0 Hypertensive heart disease with heart failure (principal); I50.42 Chronic combined systolic (congestive) and diastolic (congestive) heart failure; I25.118 Atherosclerotic heart disease of native coronary artery with other forms of angina pectoris; I25.5 Ischemic cardiomyopathy; J44.9 Chronic obstructive pulmonary disease, unspecified; I73.9 Peripheral vascular disease, unspecified; E78.5 Hyperlipidemia, unspecified
CPT/HCPCS: G0166

== ENCOUNTER → 2021-09-03 | Outpatient (CLI) | payer MEDICARE, MEDICAID ==
[2021-09-03 15:52] VITALS: BP 144/76
[2021-09-03 15:57] VITALS: BP 132/74
== END | disposition home or self-care (01) ==
LOC: CHF HDHVI 11:13
PROVIDERS: ATTEND Internal Medicine Cardiovascular Disease
DX: I11.0 Hypertensive heart disease with heart failure (principal); I50.42 Chronic combined systolic (congestive) and diastolic (congestive) heart failure; I25.118 Atherosclerotic heart disease of native coronary artery with other forms of angina pectoris; I25.5 Ischemic cardiomyopathy; J44.9 Chronic obstructive pulmonary disease, unspecified; I73.9 Peripheral vascular disease, unspecified; E78.5 Hyperlipidemia, unspecified
CPT/HCPCS: G0166

== ENCOUNTER → 2021-09-04 | Outpatient (CLI) | payer MEDICARE, MEDICAID ==
[2021-09-04 11:44] VITALS: BP 144/72
[2021-09-04 12:18] VITALS: BP 122/70
== END | disposition home or self-care (01) ==
LOC: CHF HDHVI 11:10
PROVIDERS: ATTEND Internal Medicine Cardiovascular Disease
DX: I11.0 Hypertensive heart disease with heart failure (principal); I50.42 Chronic combined systolic (congestive) and diastolic (congestive) heart failure; I25.118 Atherosclerotic heart disease of native coronary artery with other forms of angina pectoris; J44.9 Chronic obstructive pulmonary disease, unspecified; I73.9 Peripheral vascular disease, unspecified; I25.5 Ischemic cardiomyopathy; E78.5 Hyperlipidemia, unspecified
CPT/HCPCS: G0166

== ENCOUNTER → 2021-09-05 | Outpatient (CLI) | payer MEDICARE, MEDICAID ==
[2021-09-05 11:40] VITALS: BP 110/70
[2021-09-05 12:01] VITALS: BP 124/72
== END | disposition home or self-care (01) ==
LOC: CHF HDHVI 10:54
PROVIDERS: ATTEND Internal Medicine Cardiovascular Disease
DX: I11.0 Hypertensive heart disease with heart failure (principal); I50.42 Chronic combined systolic (congestive) and diastolic (congestive) heart failure; I25.118 Atherosclerotic heart disease of native coronary artery with other forms of angina pectoris; Z79.899 Other long term (current) drug therapy; J44.9 Chronic obstructive pulmonary disease, unspecified; E78.5 Hyperlipidemia, unspecified; I73.9 Peripheral vascular disease, unspecified; I25.5 Ischemic cardiomyopathy; Z88.8 Allergy status to other drugs, medicaments and biological substances; M25.511 Pain in right shoulder
CPT/HCPCS: G0166

== ENCOUNTER → 2021-09-10 | Outpatient (CLI) | payer MEDICARE, MEDICAID ==
[2021-09-10 15:03] VITALS: BP 112/72
[2021-09-10 15:13] VITALS: BP 150/70
== END | disposition home or self-care (01) ==
LOC: CHF HDHVI 11:02
PROVIDERS: ATTEND Internal Medicine Cardiovascular Disease
DX: I11.0 Hypertensive heart disease with heart failure (principal); I25.118 Atherosclerotic heart disease of native coronary artery with other forms of angina pectoris; I50.42 Chronic combined systolic (congestive) and diastolic (congestive) heart failure; J44.9 Chronic obstructive pulmonary disease, unspecified; I73.9 Peripheral vascular disease, unspecified; I25.5 Ischemic cardiomyopathy; Z79.899 Other long term (current) drug therapy; M25.011 Hemarthrosis, right shoulder
CPT/HCPCS: G0166

== ENCOUNTER → 2021-09-11 | Outpatient (CLI) | payer MEDICARE, MEDICAID ==
[2021-09-11 11:38] VITALS: BP 110/62
[2021-09-11 12:05] VITALS: BP 130/74
== END | disposition home or self-care (01) ==
LOC: CHF HDHVI 11:07
PROVIDERS: ATTEND Internal Medicine Cardiovascular Disease
DX: I11.0 Hypertensive heart disease with heart failure (principal); I50.42 Chronic combined systolic (congestive) and diastolic (congestive) heart failure; I25.118 Atherosclerotic heart disease of native coronary artery with other forms of angina pectoris; J44.9 Chronic obstructive pulmonary disease, unspecified; I25.5 Ischemic cardiomyopathy; I73.9 Peripheral vascular disease, unspecified
CPT/HCPCS: G0166

== ENCOUNTER → 2021-09-15 | Outpatient (CLI) | payer MEDICARE, MEDICAID ==
[2021-09-15 11:27] VITALS: BP 126/68
[2021-09-15 11:49] VITALS: BP 124/72
== END | disposition home or self-care (01) ==
LOC: CHF HDHVI 10:47
PROVIDERS: ATTEND Internal Medicine Cardiovascular Disease
DX: I11.0 Hypertensive heart disease with heart failure (principal); I50.42 Chronic combined systolic (congestive) and diastolic (congestive) heart failure; I25.118 Atherosclerotic heart disease of native coronary artery with other forms of angina pectoris; J44.9 Chronic obstructive pulmonary disease, unspecified; I73.9 Peripheral vascular disease, unspecified; I25.5 Ischemic cardiomyopathy; E78.5 Hyperlipidemia, unspecified
CPT/HCPCS: G0166

== ENCOUNTER → 2021-09-17 | Outpatient (CLI) | payer MEDICARE, MEDICAID ==
[2021-09-17 11:26] VITALS: BP 134/66
[2021-09-17 11:42] VITALS: BP 122/68
== END | disposition home or self-care (01) ==
LOC: CHF HDHVI 10:39
PROVIDERS: ATTEND Internal Medicine Cardiovascular Disease
DX: I11.0 Hypertensive heart disease with heart failure (principal); I50.42 Chronic combined systolic (congestive) and diastolic (congestive) heart failure; I25.118 Atherosclerotic heart disease of native coronary artery with other forms of angina pectoris; I25.5 Ischemic cardiomyopathy; I73.9 Peripheral vascular disease, unspecified; J44.9 Chronic obstructive pulmonary disease, unspecified; E78.5 Hyperlipidemia, unspecified
CPT/HCPCS: G0166

== ENCOUNTER → 2021-09-18 | Outpatient (CLI) | payer MEDICARE, MEDICAID ==
[2021-09-18 11:13] VITALS: BP 126/70
[2021-09-18 11:59] VITALS: BP 132/68
== END | disposition home or self-care (01) ==
LOC: CHF HDHVI 10:43
PROVIDERS: ATTEND Internal Medicine Cardiovascular Disease
DX: I11.0 Hypertensive heart disease with heart failure (principal); I50.42 Chronic combined systolic (congestive) and diastolic (congestive) heart failure; I25.118 Atherosclerotic heart disease of native coronary artery with other forms of angina pectoris; J44.9 Chronic obstructive pulmonary disease, unspecified; I73.9 Peripheral vascular disease, unspecified; I25.5 Ischemic cardiomyopathy; E78.5 Hyperlipidemia, unspecified
CPT/HCPCS: G0166

== ENCOUNTER → 2021-09-19 | Outpatient (CLI) | payer MEDICARE, MEDICAID ==
[2021-09-19 11:21] VITALS: BP 130/70
[2021-09-19 11:51] VITALS: BP 126/68
== END | disposition home or self-care (01) ==
LOC: CHF HDHVI 10:51
PROVIDERS: ATTEND Internal Medicine Cardiovascular Disease
DX: I11.0 Hypertensive heart disease with heart failure (principal); I50.42 Chronic combined systolic (congestive) and diastolic (congestive) heart failure; I25.118 Atherosclerotic heart disease of native coronary artery with other forms of angina pectoris; J44.9 Chronic obstructive pulmonary disease, unspecified; I73.9 Peripheral vascular disease, unspecified; I25.5 Ischemic cardiomyopathy; E78.5 Hyperlipidemia, unspecified
CPT/HCPCS: G0166

== ENCOUNTER → 2021-09-22 | Outpatient (CLI) | payer MEDICARE, MEDICAID ==
[2021-09-22 11:48] VITALS: BP 116/68
[2021-09-22 11:56] VITALS: BP 122/64
== END | disposition home or self-care (01) ==
LOC: CHF HDHVI 10:48
PROVIDERS: ATTEND Internal Medicine Cardiovascular Disease
DX: I11.0 Hypertensive heart disease with heart failure (principal); I50.42 Chronic combined systolic (congestive) and diastolic (congestive) heart failure; I25.118 Atherosclerotic heart disease of native coronary artery with other forms of angina pectoris; J44.9 Chronic obstructive pulmonary disease, unspecified; I73.9 Peripheral vascular disease, unspecified; I25.5 Ischemic cardiomyopathy; E78.5 Hyperlipidemia, unspecified
CPT/HCPCS: G0166

== ENCOUNTER → 2021-09-25 | Outpatient (CLI) | payer MEDICARE, MEDICAID ==
[2021-09-25 12:08] VITALS: BP 116/68
[2021-09-25 12:15] VITALS: BP 120/62
== END | disposition home or self-care (01) ==
LOC: CHF HDHVI 10:51
PROVIDERS: ATTEND Internal Medicine Cardiovascular Disease
DX: I11.0 Hypertensive heart disease with heart failure (principal); I50.42 Chronic combined systolic (congestive) and diastolic (congestive) heart failure; I25.118 Atherosclerotic heart disease of native coronary artery with other forms of angina pectoris; J44.9 Chronic obstructive pulmonary disease, unspecified; I73.9 Peripheral vascular disease, unspecified; E78.5 Hyperlipidemia, unspecified; I25.5 Ischemic cardiomyopathy
CPT/HCPCS: G0166

== ENCOUNTER → 2021-09-26 | Outpatient (CLI) | payer MEDICARE, MEDICAID ==
[2021-09-26 12:17] VITALS: BP 130/70
[2021-09-26 12:25] VITALS: BP 128/70
== END | disposition home or self-care (01) ==
LOC: CHF HDHVI 10:54
PROVIDERS: ATTEND Internal Medicine Cardiovascular Disease
DX: I11.0 Hypertensive heart disease with heart failure (principal); I50.42 Chronic combined systolic (congestive) and diastolic (congestive) heart failure; I25.118 Atherosclerotic heart disease of native coronary artery with other forms of angina pectoris; I73.9 Peripheral vascular disease, unspecified; J44.9 Chronic obstructive pulmonary disease, unspecified; E78.5 Hyperlipidemia, unspecified; I25.5 Ischemic cardiomyopathy
CPT/HCPCS: G0166

== ENCOUNTER → 2021-10-02 | Outpatient (CLI) | payer MEDICARE, MEDICAID ==
[2021-10-02 11:14] VITALS: BP 122/64
[2021-10-02 11:49] VITALS: BP 112/60
== END | disposition home or self-care (01) ==
LOC: CHF HDHVI 10:44
PROVIDERS: ATTEND Internal Medicine Cardiovascular Disease
DX: I11.0 Hypertensive heart disease with heart failure (principal); I50.42 Chronic combined systolic (congestive) and diastolic (congestive) heart failure; I25.118 Atherosclerotic heart disease of native coronary artery with other forms of angina pectoris; I25.5 Ischemic cardiomyopathy; I73.9 Peripheral vascular disease, unspecified; J44.9 Chronic obstructive pulmonary disease, unspecified; E78.5 Hyperlipidemia, unspecified
CPT/HCPCS: G0166

== ENCOUNTER → 2022-01-21 | Outpatient (CLI) | payer MEDICARE, MEDICAID ==
[2022-01-21 16:28] LABS: Urine Blood Negative /uL (Negative); Urine Specific Gravity 1.013 (1.001-1.035)
== END | disposition home or self-care (01) ==
LOC: CHF HDHVI 12:21
PROVIDERS: ATTEND Internal Medicine Cardiovascular Disease
DX: N39.0 Urinary tract infection, site not specified (principal)
CPT/HCPCS: 81003

== ENCOUNTER → 2022-01-27 | Outpatient (CLI) | payer MEDICARE, MEDICAID ==
[~2022-01-27] MED LIST changes: +READI-CAT 2 (BARIUM SULF)(VANILLA SMOOTHIE) 450ML ONE
== END | disposition home or self-care (01) ==
LOC: Rad HDHVI 09:24
PROVIDERS: ATTEND Internal Medicine Cardiovascular Disease
DX: K76.0 Fatty (change of) liver, not elsewhere classified (principal); K40.90 Unilateral inguinal hernia, without obstruction or gangrene, not specified as recurrent; J43.8 Other emphysema; N42.89 Other specified disorders of prostate
CPT/HCPCS: 74176

== ENCOUNTER → 2022-07-22 | Outpatient (CLI) | payer MEDICARE, MEDICAID ==
[~2022-07-22] MED LIST changes: -READI-CAT 2 (BARIUM SULF)(VANILLA SMOOTHIE) 450ML ONE
[2022-07-22 11:06] LABS: Basophils # (auto) 0 10 ^3/uL (0-0.2); Basophils % (auto) 0.6 % (0.0-2.0); Eosinophils # (auto) 0 10 ^3/uL (0-0.8); Eosinophils % (auto) 0.9 % (0.0-7.0); Hematocrit 37.3 % (41.0-53.0); Hemoglobin 12.4 g/dL (13.5-17.5); Lymphocytes # (auto) 1.6 10 ^3/uL (0.4-5.4); Lymphocytes % (auto) 32.8 % (10.0-50.0); Mean Corpuscular Hgb Conc. 33.3 g/dL (32.0-36.0); Mean Corpuscular Volume 83.9 fL (80.0-100.0); Monocytes # (auto) 0.5 10 ^3/uL (0-1.3); Monocytes % (auto) 10.6 % (0.0-12.0); Neutrophils # (auto) 2.7 10 ^3/uL (1.6-8.6); Neutrophils % (auto) 55.1 % (37.0-80.0); Nucleated Red Blood Cells % 0.2 %; Red Blood Cells 4.45 10^6/uL (4.5-5.90); Red Cell Distribution Width 14.1 % (11.8-14.3); Urine Blood 1+ /uL (Negative); Urine Specific Gravity 1.021 (1.001-1.035); White Blood Cell 4.8 10^3/uL (4.4-10.8)
[2022-07-22 11:17] LABS: Albumin 3.9 g/dL (3.4-5.0); BUN/Creatinine Ratio 24.3; Calcium 9.2 mg/dL (8.5-10.1); Potassium 4.3 mmol/L (3.5-5.1)
[2022-07-22 11:20] LABS: Bilirubin, Total 0.3 mg/dL (0.2-1.0)
[2022-07-22 11:25] LABS: Free T4 (Free Thyroxine) 0.99 ng/dL (0.89-1.76)
[2022-07-22 11:26] LABS: Prostate Specific Antigen 0.85 ng/mL (0.0-4.0)
== END | disposition home or self-care (01) ==
LOC: LAB 08:12
PROVIDERS: ATTEND Internal Medicine Cardiovascular Disease
DX: I50.33 Acute on chronic diastolic (congestive) heart failure (principal); E55.9 Vitamin D deficiency, unspecified
CPT/HCPCS: 36415; 80053; 80061; 81003; 82306; 82607; 83036; 84153; 84403; 84439; 84443; 85025

== ENCOUNTER 2022-09-27 17:07 | Emergency (ER) | payer MEDICARE, MEDICAID ==
[~2022-09-27] VITALS: Ht 157.5 cm; Wt 82.3 kg
[2022-09-27 17:21] VITALS: BP 154/78
[2022-09-27 17:50] LABS: Basophils # (auto) 0 10 ^3/uL (0-0.2); Basophils % (auto) 0.7 % (0.0-2.0); Eosinophils # (auto) 0.1 10 ^3/uL (0-0.8); Eosinophils % (auto) 1.6 % (0.0-7.0); Hematocrit 38.7 % (41.0-53.0); Hemoglobin 12.7 g/dL (13.5-17.5); Lymphocytes # (auto) 2.3 10 ^3/uL (0.4-5.4); Lymphocytes % (auto) 35.5 % (10.0-50.0); Mean Corpuscular Hemoglobin 26.1 pg (28.0-32.0); Mean Corpuscular Hgb Conc. 32.8 g/dL (32.0-36.0); Mean Corpuscular Volume 79.5 fL (80.0-100.0); Monocytes # (auto) 0.8 10 ^3/uL (0-1.3); Monocytes % (auto) 12.3 % (0.0-12.0); Neutrophils # (auto) 3.2 10 ^3/uL (1.6-8.6); Neutrophils % (auto) 49.9 % (37.0-80.0); Nucleated Red Blood Cells % 0.1 %; Red Blood Cells 4.87 10^6/uL (4.5-5.90); Red Cell Distribution Width 14.1 % (11.8-14.3); White Blood Cell 6.5 10^3/uL (4.4-10.8)
[2022-09-27 17:57] LABS: Urine Bacteria NONE SEEN /hpf (None Seen); Urine Blood 3+ /uL (Negative); Urine Specific Gravity 1.018 (1.001-1.035); Urine WBC 10 /hpf (0 - 3)
[2022-09-27 17:59] LABS: Urine Budding Yeast Moderate /hpf (None Seen)
[2022-09-27 18:08] LABS: Calcium 9.6 mg/dL (8.5-10.1); Potassium 3.9 mmol/L (3.5-5.1)
[2022-09-27 18:10] LABS: BUN/Creatinine Ratio 22.9 (10.0-20.0)
[2022-09-27 18:12] LABS: Bilirubin, Total 0.2 mg/dL (0.2-1.0); Total Protein 7.6 g/dL (6.4-8.2)
[2022-09-27] MEDS ORDERED: cefTRIAXone SOD 1,000 MG VL IM ONE (23:00)
[2022-09-28] MEDS ORDERED: CEPH-510 PO (00:10)
== END 2022-09-28 02:18 | disposition home or self-care (01) ==
LOC: ER 17:07 → EEVIPCON 17:07 → ER 09-28 02:18
DX: N30.91 Cystitis, unspecified with hematuria (principal); D64.9 Anemia, unspecified; I11.0 Hypertensive heart disease with heart failure; I50.9 Heart failure, unspecified; J44.9 Chronic obstructive pulmonary disease, unspecified; E11.9 Type 2 diabetes mellitus without complications; E78.5 Hyperlipidemia, unspecified; Z87.891 Personal history of nicotine dependence; Z88.6 Allergy status to analgesic agent; Z88.8 Allergy status to other drugs, medicaments and biological substances
CPT/HCPCS: 36415; 74176; 80053; 81001; 85025; 96372; 99285; J0696

== ENCOUNTER 2023-02-04 06:14 | Day surgery (SDC) | payer MEDICARE, MEDICAID ==
[2023-01-25 13:00] LABS: Basophils # (auto) 0.1 10 ^3/uL (0-0.2); Basophils % (auto) 0.7 % (0.0-2.0); Eosinophils # (auto) 0 10 ^3/uL (0-0.8); Eosinophils % (auto) 0.5 % (0.0-7.0); Hematocrit 42.4 % (41.0-53.0); Hemoglobin 13.8 g/dL (13.5-17.5); Lymphocytes # (auto) 2.2 10 ^3/uL (0.4-5.4); Lymphocytes % (auto) 27.6 % (10.0-50.0); Mean Corpuscular Hemoglobin 27.4 pg (28.0-32.0); Mean Corpuscular Hgb Conc. 32.7 g/dL (32.0-36.0); Mean Corpuscular Volume 83.7 fL (80.0-100.0); Monocytes # (auto) 0.8 10 ^3/uL (0-1.3); Monocytes % (auto) 10.2 % (0.0-12.0); Neutrophils # (auto) 4.9 10 ^3/uL (1.6-8.6); Red Blood Cells 5.06 10^6/uL (4.5-5.90); Red Cell Distribution Width 18.7 % (11.8-14.3); White Blood Cell 8.1 10^3/uL (4.4-10.8)
[2023-01-25 13:13] LABS: INR 1.03 (0.9-1.15); Partial Thromboplastin Time 25.9 SEC (24.5-34.5); Prothrombin Time 10.8 sec (9.3-11.8)
[2023-01-25 13:33] LABS: Urine Bacteria NONE SEEN /hpf (None Seen); Urine Blood 1+ /uL (Negative); Urine Clarity HAZY (Clear); Urine Color Yellow (Yellow); Urine Mucus FEW (None Seen); Urine Protein, UAD TRACE (Negative); Urine Specific Gravity 1.021 (1.001-1.035); Urine Urobilinogen Normal (Negative); Urine WBC 78 /hpf (0 - 3); Urine WBC Clumps PRESENT /hpf (None Seen); Urine pH 5.5 (5.0-8.0)
[2023-01-25 13:54] LABS: Potassium 4.5 mmol/L (3.5-5.1)
[2023-01-25 14:00] LABS: BUN/Creatinine Ratio 19.8 (10.0-20.0); Bilirubin, Total 0.4 mg/dL (0.2-1.0); Calcium 9.7 mg/dL (8.5-10.1); Total Protein 7.9 g/dL (6.4-8.2)
[~2023-02-04] VITALS: Ht 157.5 cm; Wt 81.6 kg
[~2023-02-04 06:14] MED LIST changes: -ATOR-47 PO; +CALC-332 OR; +FORMPOW9 XX; +MECL1TAB32 PO; -MECL25TA18 PO; +OXYB5TAB10 PO; -OXYB5TAB61 PO; +ROSU1TAB15 PO
[2023-02-04] MEDS ORDERED: LIDOCAINE 2% (LOCAL ANESTH.) PF 5ml SDV ONE (06:49)
[2023-02-04] MEDS ORDERED: PROPOFOL 10 MG/ML 20 ML IV ONE (06:49)
[2023-02-04] MEDS ORDERED: ONDANSETRON HCL 4 MG/2 ML VIAL ONE (06:49)
[2023-02-04] MEDS ORDERED: GLYCOPYRROLATE 0.2 MG/ML 1ML VIAL ONE (06:49)
[2023-02-04] MEDS ORDERED: DexAMETHasone SOD PHOS 10MG/1ML VIAL INJ ONE (06:49)
[2023-02-04] MEDS ORDERED: ASPirin 325 MG TAB PO ONE (07:15)
[2023-02-04] MEDS ORDERED: CIPROFLOXACIN 400MG/200ML 200 ML IV ONE (07:42)
[2023-02-04] MEDS ORDERED: ESMOLOL HCL 10 ML IV ONE (08:13)
[2023-02-04 08:25] VITALS: PULSE 85; RESP 12; O2SAT 99
[2023-02-04 09:10] VITALS: BP 148/79; PULSE 73; RESP 10; O2SAT 99
== END 2023-02-04 09:40 | disposition home or self-care (01) ==
LOC: SUR 06:14
PROVIDERS: ATTEND Urology
DX: C67.5 Malignant neoplasm of bladder neck (principal); I11.0 Hypertensive heart disease with heart failure; I50.9 Heart failure, unspecified; E78.2 Mixed hyperlipidemia; F32.9 Major depressive disorder, single episode, unspecified; Z95.5 Presence of coronary angioplasty implant and graft; Z98.890 Other specified postprocedural states; Z79.899 Other long term (current) drug therapy
CPT/HCPCS: 36415; 52240; 80053; 81001; 85025; 85610; 85730; 87086; 87088; 87186; J0744; J1100; J2001; J2405; J2704

== ENCOUNTER → 2023-06-03 | Outpatient (CLI) | payer MEDICARE, MEDICAID | END | disposition home or self-care (01) | LOC: Rad HDHVI 12:47 | PROVIDERS: ATTEND Internal Medicine Cardiovascular Disease | DX: I08.8 Other rheumatic multiple valve diseases (principal); I11.9 Hypertensive heart disease without heart failure | CPT/HCPCS: 93306 ==

== ENCOUNTER 2023-08-21 22:43 | Inpatient (IN) | payer MEDICARE, MEDICAID ==
[~2023-08-21] VITALS: Ht 162.6 cm; Wt 88.1 kg
[~2023-08-21 22:43] MED LIST changes: -ALBUAER3 IN; +ALBUAER3 INH; -ASPI-498 OR; +ASPI-498 PO; -GABA300C OR; +GABA300C PO
[2023-08-21 23:00] VITALS: PULSE 95; RESP 20; O2SAT 99
[2023-08-21 23:06] LABS: Basophils # (auto) 0.1 10 ^3/uL (0-0.2); Basophils % (auto) 0.7 % (0.0-2.0); Eosinophils # (auto) 0.2 10 ^3/uL (0-0.8); Eosinophils % (auto) 1.8 % (0.0-7.0); Hematocrit 43.4 % (41.0-53.0); Hemoglobin 14.9 g/dL (13.5-17.5); Lymphocytes # (auto) 2.8 10 ^3/uL (0.4-5.4); Lymphocytes % (auto) 27.8 % (10.0-50.0); Mean Corpuscular Hemoglobin 30.2 pg (28.0-32.0); Mean Corpuscular Hgb Conc. 34.2 g/dL (32.0-36.0); Mean Corpuscular Volume 88.2 fL (80.0-100.0); Monocytes # (auto) 1.2 10 ^3/uL (0-1.3); Monocytes % (auto) 12.4 % (0.0-12.0); Neutrophils # (auto) 5.7 10 ^3/uL (1.6-8.6); Neutrophils % (auto) 57.3 % (37.0-80.0); Nucleated Red Blood Cells % 0.1 %; Red Blood Cells 4.92 10^6/uL (4.5-5.90); Red Cell Distribution Width 12.7 % (11.8-14.3); White Blood Cell 9.9 10^3/uL (4.4-10.8)
[2023-08-21 23:17] LABS: Alanine Aminotransferase 48 U/L (7-40); Albumin 4.5 g/dL (3.2-4.8); Alkaline Phosphatase 46 U/L (46-116); Anion Gap 10 (5-15); Aspartate Aminotransferase 63 U/L (13-40); BUN/Creatinine Ratio 10.8 (10.0-20.0); Blood Urea Nitrogen 11 mg/dL (9-23); Calcium 9.5 mg/dL (8.7-10.4); Carbon Dioxide 20 mmol/L (20-30); Chloride 109 mmol/L (98-107); Glucose 104 mg/dL (74-106); Magnesium 1.8 mg/dL (1.6-2.6); Potassium 3.7 mmol/L (3.5-5.1); Sodium 139 mmol/L (136-145)
[2023-08-21 23:18] LABS: Bilirubin, Total 0.7 mg/dL (0.2-1.0); Total Protein 7.4 g/dL (5.7-8.2)
[2023-08-21 23:26] LABS: INR 1.02 (0.9-1.15); Partial Thromboplastin Time 27.1 SEC (24.5-34.5); Prothrombin Time 10.7 sec (9.3-11.8)
[2023-08-22] VITALS (7 sets, daily range): BP systolic 116–141; BP diastolic 63–71; PULSE 62–99; RESP 14–19; TEMP 97.5–99.1; O2SAT 98
[2023-08-22] MEDS: ONDANSETRON HCL 4 MG/2 ML VIAL IV ONE ×2 (00:25→06:00)
[2023-08-22] MEDS: MORPHINE SULFATE 4 MG/ML SYR/VIAL IV ONE (00:29)
[2023-08-22] MEDS: IOHEXOL 350 MG/ML 100ML IJ ONE (00:30)
[2023-08-22] MEDS: ASPirin 81 mg TAB PO ONE (00:30)
[2023-08-22] MEDS: IODIXANOL 320MG/ML 100ML BTL IV ONE (00:30)
[2023-08-22] MEDS: HEPARIN SODIUM (PORCINE) 5000 UNITS/ML 1ML VIAL IV ONE (00:30)
[2023-08-22] MEDS: LIDOCAINE 2%HCL (LOCAL ANESTH.) INJ 20ML MDV ONE (00:30)
[2023-08-22] MEDS: HEPARIN SODIUM (PORCINE) 5000 UNITS/ML 1ML VIAL ONE (00:31)
[2023-08-22] MEDS: NITROGLYCERIN 2% OINT 1GM PKG TD ONE (00:31)
[2023-08-22] MEDS: ANGIOMAX 250 MG VIAL IV ONE (00:36)
[2023-08-22] MEDS: SODIUM CHL 0.9% 50 ML ONE ×2 (00:37→01:18)
[2023-08-22] MEDS: fentaNYL CITRATE 100 MCG/2 ML VL ONE (00:37)
[2023-08-22] MEDS: MIDAZOLAM HCL 2MG/2ML 2ml VIAL (1mg/ml) ONE (00:37)
[2023-08-22] MEDS ORDERED: ONDANSETRON HCL 4 MG/2 ML VIAL IV PRN (00:45)
[2023-08-22] MEDS ORDERED: ACETAMINOPHEN 325 MG TAB PO PRN (00:45)
[2023-08-22] MEDS ORDERED: DEXTROSE (50%) 50ML SYRG IV PRN ×2 (00:45→05:15)
[2023-08-22] MEDS: SODIUM CHLORIDE 0.9% 1,000 ML IV SCH (00:45)
[2023-08-22] MEDS: CLOPIDOGREL 300 MG TAB ONE ×2 (02:14)
[2023-08-22] MEDS: ASPirin 81 mg TAB ONE (02:14)
[2023-08-22] MEDS ORDERED: MORPHINE SULFATE INJ 2 MG/ml SYRG IV PRN (02:15)
[2023-08-22] MEDS ORDERED: NITROGLYCERIN 0.4 MG SL TAB SL PRN (02:15)
[2023-08-22] MEDS: SOD CHL 0.45% WITH 20MEQ KCL 1,000 ML IV ONE (02:30)
[2023-08-22 03:34] LABS: Basophils # (auto) 0 10 ^3/uL (0-0.2); Basophils % (auto) 0.5 % (0.0-2.0); Eosinophils # (auto) 0.1 10 ^3/uL (0-0.8); Eosinophils % (auto) 1.3 % (0.0-7.0); Hemoglobin 13.5 g/dL (13.5-17.5); Lymphocytes # (auto) 2.3 10 ^3/uL (0.4-5.4); Mean Corpuscular Hemoglobin 29.7 pg (28.0-32.0); Mean Corpuscular Hgb Conc. 33.8 g/dL (32.0-36.0); Mean Corpuscular Volume 88.1 fL (80.0-100.0); Monocytes # (auto) 1.1 10 ^3/uL (0-1.3); Monocytes % (auto) 10.4 % (0.0-12.0); Neutrophils % (auto) 65.8 % (37.0-80.0); Red Blood Cells 4.55 10^6/uL (4.5-5.90); Red Cell Distribution Width 12.9 % (11.8-14.3); White Blood Cell 10.6 10^3/uL (4.4-10.8)
[2023-08-22 03:40] LABS: Alanine Aminotransferase 44 U/L (7-40); Alkaline Phosphatase 42 U/L (46-116); Anion Gap 8 (5-15); Aspartate Aminotransferase 54 U/L (13-40); BUN/Creatinine Ratio 12.1 (10.0-20.0); Bilirubin, Total 0.8 mg/dL (0.2-1.0); Blood Urea Nitrogen 12 mg/dL (9-23); Calcium 8.9 mg/dL (8.7-10.4); Carbon Dioxide 20 mmol/L (20-30); Chloride 110 mmol/L (98-107); Glucose 115 mg/dL (74-106); Sodium 138 mmol/L (136-145)
[2023-08-22 03:41] LABS: Total Protein 6.8 g/dL (5.7-8.2)
[2023-08-22] MEDS: MORPHINE SULFATE INJ 2 MG/ml SYRG IV PRN (05:05)
[2023-08-22] MEDS ORDERED: HYDROcodone-ACET 5/325MG TAB PO ONE (06:00)
[2023-08-22] MEDS: ACCU-CHEK COMFORT CURVE STRIP VI SCH (06:29)
[2023-08-22] MEDS: InsuLIN REG 1unit/0.01ml Soln (100units/ml) SC SCH ×2 (06:32→21:27)
[2023-08-22] MEDS ORDERED: ACCU-CHEK COMFORT CURVE STRIP VI SCH (07:00)
[2023-08-22] MEDS ORDERED: InsuLIN REG 1unit/0.01ml Soln (100units/ml) SC SCH (07:00)
[2023-08-22] MEDS: METOPROLOL TARTRATE 25 MG TAB PO ONE (08:56)
[2023-08-22] MEDS: HYDROcodone-ACET 5/325MG TAB PO PRN (08:57)
[2023-08-22] MEDS ORDERED: CLOPIDOGREL BISULFATE 75 MG TAB PO ONE (10:00)
[2023-08-22] MEDS ORDERED: ASPirin-EC 81 mg tab PO ONE (10:00)
[2023-08-22] MEDS: ATORVASTATIN 20 MG TAB PO ONE (10:29)
[2023-08-22] MEDS: ASPirin 81 mg TAB PO SCH (10:29)
[2023-08-22] MEDS: CLOPIDOGREL BISULFATE 75 MG TAB PO SCH (10:29)
[2023-08-22] MEDS: DOCUSATE SOD 100 MG CAP PO PRN (14:24)
[2023-08-23] VITALS (7 sets, daily range): BP systolic 107–149; BP diastolic 72–78; PULSE 78–94; RESP 18; TEMP 98–98.7; O2SAT 95–100
[2023-08-23 05:35] LABS: Basophils # (auto) 0 10 ^3/uL (0-0.2); Basophils % (auto) 0.5 % (0.0-2.0); Eosinophils # (auto) 0.1 10 ^3/uL (0-0.8); Eosinophils % (auto) 1.9 % (0.0-7.0); Hematocrit 36.2 % (41.0-53.0); Hemoglobin 12.4 g/dL (13.5-17.5); Lymphocytes # (auto) 1.8 10 ^3/uL (0.4-5.4); Lymphocytes % (auto) 29.5 % (10.0-50.0); Mean Corpuscular Hemoglobin 30.4 pg (28.0-32.0); Mean Corpuscular Hgb Conc. 34.3 g/dL (32.0-36.0); Mean Corpuscular Volume 88.7 fL (80.0-100.0); Monocytes # (auto) 0.8 10 ^3/uL (0-1.3); Monocytes % (auto) 12.5 % (0.0-12.0); Neutrophils # (auto) 3.4 10 ^3/uL (1.6-8.6); Neutrophils % (auto) 55.6 % (37.0-80.0); Red Blood Cells 4.07 10^6/uL (4.5-5.90); Red Cell Distribution Width 12.8 % (11.8-14.3)
[2023-08-23 05:52] LABS: Alanine Aminotransferase 38 U/L (7-40); Albumin 3.9 g/dL (3.2-4.8); Alkaline Phosphatase 43 U/L (46-116); Anion Gap 7 (5-15); Aspartate Aminotransferase 35 U/L (13-40); BUN/Creatinine Ratio 14.5 (10.0-20.0); Bilirubin, Total 0.6 mg/dL (0.2-1.0); Blood Urea Nitrogen 12 mg/dL (9-23); Calcium 8.9 mg/dL (8.7-10.4); Carbon Dioxide 23 mmol/L (20-30); Chloride 107 mmol/L (98-107); Glucose 100 mg/dL (74-106); Potassium 3.6 mmol/L (3.5-5.1); Sodium 137 mmol/L (136-145); Total Protein 6.4 g/dL (5.7-8.2)
[2023-08-23] MEDS: GABAPENTIN 300 MG CAP PO SCH (09:15)
[2023-08-23] MEDS: KETOROLAC TROMETH 30 MG/ML 1ML VIAL IV ONE (11:38)
[2023-08-23] MEDS: FLUoxetine HCL 20 MG CAP PO ONE (11:38)
[2023-08-23 14:24] LABS: Urine Bacteria FEW /hpf (None Seen); Urine Blood 3+ /uL (Negative); Urine Clarity Clear (Clear); Urine Color Yellow (Yellow); Urine Mucus FEW (None Seen); Urine Protein, UAD 1+ (Negative); Urine Specific Gravity 1.022 (1.001-1.035); Urine Urobilinogen Normal (Negative); Urine WBC 13 /hpf (0 - 3)
[2023-08-23] MEDS: ATORVASTATIN 20 MG TAB PO SCH (21:53)
[2023-08-24 05:00] VITALS: BP 145/74; PULSE 81; RESP 18; TEMP 98.8; O2SAT 98
[2023-08-24 05:59] LABS: Chloride 106 mmol/L (98-107); Potassium 3.7 mmol/L (3.5-5.1); Sodium 137 mmol/L (136-145)
[2023-08-24 06:00] LABS: Anion Gap 6 (5-15); Calcium 9.2 mg/dL (8.5-10.1); Carbon Dioxide 25 mmol/L (20-30)
[2023-08-24 06:05] LABS: BUN/Creatinine Ratio 13.6 (10.0-20.0); Blood Urea Nitrogen 12 mg/dL (9-23); Glucose 89 mg/dL (74-106); Triglycerides 112 mg/dL (< 150)
[2023-08-24 06:06] LABS: LDL Cholesterol 82 mg/dL (< 100)
[2023-08-24 06:07] LABS: Cholesterol 129 mg/dL (< 200); HDL Cholesterol 31 mg/dL (40-59)
[2023-08-24 08:00] VITALS: PULSE 78; O2SAT 98
[2023-08-24 09:00] VITALS: BP 128/71; PULSE 71; RESP 17; TEMP 98.5; O2SAT 98
[2023-08-24] MEDS: FLUoxetine HCL 20 MG CAP PO SCH (10:05)
[2023-08-24] MEDS: PANTOPRAZOLE 40 MG TAB PO SCH (10:06)
[2023-08-24] MEDS: METOPROLOL SUCCINATE XL 50 MG TAB PO SCH (10:07)
[2023-08-24 13:00] VITALS: BP 126/66; PULSE 72; RESP 17; TEMP 97.8; O2SAT 93
[2023-08-24] MEDS ORDERED: METO25TA5 PO (14:28)
[2023-08-24] MEDS ORDERED: CHOL200010 PO (14:28)
[2023-08-24] MEDS ORDERED: FORM20NE3 INH (14:39)
[2023-08-24] MEDS ORDERED: TAMS0.4C36 PO (14:41)
[2023-08-24] MEDS ORDERED: FINA5TAB4 PO (14:41)
[2023-08-24] MEDS: KETOROLAC TROMETH 30 MG/ML 1ML VIAL IV ONE (15:54)
[2023-08-25] MEDS ORDERED: FLUoxetine HCL 10 MG CAP PO SCH (10:00)
== END 2023-08-24 18:00 | disposition home or self-care (01) | DRG 322 ==
LOC: EEVIPCON 22:43 → ER 22:43 → TELE-EAST 08-22 02:15 → TELE 08-22 02:15 → TELE-EAST 08-22 03:25
PROVIDERS: ADMIT Specialist; ATTEND Internal Medicine
PROC: 027034Z Dilation of Coronary Artery, One Artery with Drug-eluting Intraluminal Device, Percutaneous Approach (ICD-10-PCS; principal; 2023-08-22)
PROC: B2111ZZ Fluoroscopy of Multiple Coronary Arteries using Low Osmolar Contrast (ICD-10-PCS; 2023-08-22)
PROC: B2151ZZ Fluoroscopy of Left Heart using Low Osmolar Contrast (ICD-10-PCS; 2023-08-22)
PROC: 4A023N7 Measurement of Cardiac Sampling and Pressure, Left Heart, Percutaneous Approach (ICD-10-PCS; 2023-08-22)
PROC: 4A133B1 Monitoring of Arterial Pressure, Peripheral, Percutaneous Approach (ICD-10-PCS; 2023-08-22)
PROC: B41G1ZZ Fluoroscopy of Left Lower Extremity Arteries using Low Osmolar Contrast (ICD-10-PCS; 2023-08-22)
DX: I21.3 ST elevation (STEMI) myocardial infarction of unspecified site (principal); I50.32 Chronic diastolic (congestive) heart failure; R74.01 Elevation of levels of liver transaminase levels; F32.A Depression, unspecified; E78.5 Hyperlipidemia, unspecified; I11.0 Hypertensive heart disease with heart failure; J44.9 Chronic obstructive pulmonary disease, unspecified; E66.9 Obesity, unspecified; I25.2 Old myocardial infarction; Z85.51 Personal history of malignant neoplasm of bladder; Z88.5 Allergy status to narcotic agent; Z88.8 Allergy status to other drugs, medicaments and biological substances; Z79.899 Other long term (current) drug therapy; Z79.82 Long term (current) use of aspirin; Z87.891 Personal history of nicotine dependence; Z82.49 Family history of ischemic heart disease and other diseases of the circulatory system; Z68.33 Body mass index [BMI] 33.0-33.9, adult
CPT/HCPCS: 36415; 71045; 72125; 80048; 80053; 80061; 81001; 82962; 83735; 83880; 84484; 85025; 85379; 85610; 85730; 86850; 86900; 86901; 87081; 92941; 93005; 93306; 93458; G0378; J1885; J2250; J2405; Q9967

== ENCOUNTER 2023-09-04 02:41 | Inpatient (IN) | payer MEDICARE, MEDICAID ==
[~2023-09-04] VITALS: Ht 162.6 cm; Wt 84.7 kg
[~2023-09-04 02:41] MED LIST changes: -CALC-332 OR; +CHOL200010 PO; -CHOL500021 OR; +FINA5TAB4 PO; -FLUO20CA19 PO; +FORM20NE3 INH; -FORMPOW9 XX; -METO-6 PO; +METO25TA5 PO; -NITR0.4S29 SL; -NOR10T PO; +TAMS0.4C36 PO
[2023-09-04 03:05] LABS: Urine WBC None Seen /hpf (0 - 3)
[2023-09-04 03:14] LABS: Urine Bacteria NONE SEEN /hpf (None Seen); Urine Blood 3+ /uL (Negative); Urine Clarity CLOUDY (Clear); Urine Color Red (Yellow); Urine Protein, UAD 3+ (Negative); Urine Urobilinogen Normal (Negative)
[2023-09-04 03:20] LABS: Urine Specific Gravity 1.025 (1.001-1.035)
[2023-09-04 04:01] LABS: Basophils # (auto) 0 10 ^3/uL (0-0.2); Basophils % (auto) 0.4 % (0.0-2.0); Eosinophils # (auto) 0.1 10 ^3/uL (0-0.8); Eosinophils % (auto) 1.9 % (0.0-7.0); Hematocrit 37.3 % (41.0-53.0); Hemoglobin 12.5 g/dL (13.5-17.5); Lymphocytes # (auto) 2.6 10 ^3/uL (0.4-5.4); Lymphocytes % (auto) 32.9 % (10.0-50.0); Mean Corpuscular Hemoglobin 29.8 pg (28.0-32.0); Mean Corpuscular Hgb Conc. 33.6 g/dL (32.0-36.0); Mean Corpuscular Volume 88.8 fL (80.0-100.0); Monocytes # (auto) 0.6 10 ^3/uL (0-1.3); Monocytes % (auto) 7.8 % (0.0-12.0); Neutrophils # (auto) 4.5 10 ^3/uL (1.6-8.6); Red Cell Distribution Width 12.9 % (11.8-14.3); White Blood Cell 7.9 10^3/uL (4.4-10.8)
[2023-09-04] MEDS: ONDANSETRON HCL 4 MG/2 ML VIAL IV ONE (04:09)
[2023-09-04 04:11] VITALS: PULSE 73; RESP 22; O2SAT 100
[2023-09-04] MEDS: HYDROmorphone HCL 2 MG/ML VL/or syr IV ONE (04:12)
[2023-09-04 04:22] LABS: Alanine Aminotransferase 32 U/L (7-40); Albumin 4.3 g/dL (3.2-4.8); Alkaline Phosphatase 44 U/L (46-116); Anion Gap 6 (5-15); Aspartate Aminotransferase 22 U/L (13-40); BUN/Creatinine Ratio 20.8 (10.0-20.0); Blood Urea Nitrogen 21 mg/dL (9-23); Calcium 9.2 mg/dL (8.7-10.4); Carbon Dioxide 24 mmol/L (20-30); Chloride 108 mmol/L (98-107); Glucose 112 mg/dL (74-106); Potassium 4.2 mmol/L (3.5-5.1); Sodium 138 mmol/L (136-145)
[2023-09-04 04:23] LABS: Bilirubin, Total 0.3 mg/dL (0.2-1.0); Total Protein 7.2 g/dL (5.7-8.2)
[2023-09-04] MEDS: levoFLOXacin 500MG 100 ML IV ONE (05:50)
[2023-09-04] MEDS ORDERED: DEXTROSE (50%) 50ML SYRG IV PRN (07:15)
[2023-09-04] MEDS ORDERED: ONDANSETRON HCL 4 MG/2 ML VIAL IV PRN (07:15)
[2023-09-04] MEDS ORDERED: ACETAMINOPHEN 325 MG TAB PO PRN (07:15)
[2023-09-04 07:30] VITALS: PULSE 71; RESP 13; O2SAT 99
[2023-09-04] MEDS ORDERED: MORPHINE SULFATE INJ 2 MG/ml SYRG IV PRN (07:30)
[2023-09-04] MEDS ORDERED: NITROGLYCERIN 0.4 MG SL TAB SL PRN (07:30)
[2023-09-04 07:46] LABS: Basophils # (auto) 0 10 ^3/uL (0-0.2); Basophils % (auto) 0.2 % (0.0-2.0); Eosinophils # (auto) 0.1 10 ^3/uL (0-0.8); Eosinophils % (auto) 0.5 % (0.0-7.0); Hematocrit 36.1 % (41.0-53.0); Hemoglobin 11.8 g/dL (13.5-17.5); Lymphocytes # (auto) 1.4 10 ^3/uL (0.4-5.4); Lymphocytes % (auto) 12.8 % (10.0-50.0); Mean Corpuscular Hemoglobin 28.8 pg (28.0-32.0); Mean Corpuscular Hgb Conc. 32.7 g/dL (32.0-36.0); Mean Corpuscular Volume 88.1 fL (80.0-100.0); Monocytes # (auto) 0.5 10 ^3/uL (0-1.3); Monocytes % (auto) 4.8 % (0.0-12.0); Neutrophils # (auto) 9.3 10 ^3/uL (1.6-8.6); Neutrophils % (auto) 81.7 % (37.0-80.0); Red Blood Cells 4.09 10^6/uL (4.5-5.90); White Blood Cell 11.3 10^3/uL (4.4-10.8)
[2023-09-04 08:08] LABS: Alanine Aminotransferase 29 U/L (7-40); Alkaline Phosphatase 44 U/L (46-116); Calcium 9.5 mg/dL (8.5-10.1)
[2023-09-04 08:09] LABS: Albumin 4.2 g/dL (3.2-4.8); Anion Gap 5 (5-15); Aspartate Aminotransferase 23 U/L (13-40); BUN/Creatinine Ratio 18.4 (10.0-20.0); Bilirubin, Total 0.3 mg/dL (0.2-1.0); Blood Urea Nitrogen 19 mg/dL (9-23); Carbon Dioxide 25 mmol/L (20-30); Chloride 108 mmol/L (98-107); Glucose 108 mg/dL (74-106); Potassium 4.6 mmol/L (3.5-5.1); Sodium 138 mmol/L (136-145); Total Protein 6.8 g/dL (5.7-8.2)
[2023-09-04] MEDS: SODIUM CHLORIDE 0.9% 1,000 ML IV SCH (08:29)
[2023-09-04] MEDS: InsuLIN REG 1unit/0.01ml Soln (100units/ml) SC SCH ×2 (12:03→21:13)
[2023-09-04] MEDS: ACCU-CHEK COMFORT CURVE STRIP VI SCH (12:03)
[2023-09-04 13:00] VITALS: BP 148/67; PULSE 69; PULSE 71; RESP 16; TEMP 98.2; O2SAT 98
[2023-09-04] MEDS: HYDROcodone-ACET 5/325MG TAB PO PRN (13:20)
[2023-09-04 17:00] VITALS: BP 126/59; PULSE 73; RESP 14; TEMP 97.9; O2SAT 98
[2023-09-04] MEDS: TAMSULOSIN HYDROCHLORIDE 0.4 MG CAP PO SCH (17:19)
[2023-09-04 19:30] VITALS: PULSE 72; RESP 17; O2SAT 98
[2023-09-04] MEDS: DOCUSATE SOD 100 MG CAP PO PRN (21:40)
[2023-09-04 22:00] VITALS: BP 126/62; PULSE 74; RESP 20; TEMP 97.5; O2SAT 98
[2023-09-04] MEDS: HYDROmorphone HCL 2 MG/ML VL/or syr IV PRN (22:43)
[2023-09-05] VITALS (7 sets, daily range): BP systolic 124–139; BP diastolic 56–74; PULSE 65–92; RESP 17–20; TEMP 98.3–98.6; O2SAT 91–99
[2023-09-05 07:00] LABS: Basophils # (auto) 0 10 ^3/uL (0-0.2); Basophils % (auto) 0.4 % (0.0-2.0); Eosinophils # (auto) 0.1 10 ^3/uL (0-0.8); Hematocrit 32.4 % (41.0-53.0); Lymphocytes # (auto) 2.2 10 ^3/uL (0.4-5.4); Lymphocytes % (auto) 32.1 % (10.0-50.0); Mean Corpuscular Hemoglobin 30.1 pg (28.0-32.0); Mean Corpuscular Hgb Conc. 33.9 g/dL (32.0-36.0); Mean Corpuscular Volume 88.8 fL (80.0-100.0); Monocytes # (auto) 0.5 10 ^3/uL (0-1.3); Monocytes % (auto) 7.9 % (0.0-12.0); Neutrophils % (auto) 57.6 % (37.0-80.0); Nucleated Red Blood Cells % 0.1 %; Red Blood Cells 3.65 10^6/uL (4.5-5.90); Red Cell Distribution Width 12.8 % (11.8-14.3); White Blood Cell 6.9 10^3/uL (4.4-10.8)
[2023-09-05 07:08] LABS: Alanine Aminotransferase 24 U/L (7-40); Albumin 3.8 g/dL (3.2-4.8); Alkaline Phosphatase 42 U/L (46-116); Anion Gap 4 (5-15); Aspartate Aminotransferase 9 U/L (13-40); BUN/Creatinine Ratio 15.3 (10.0-20.0); Bilirubin, Total 0.4 mg/dL (0.2-1.0); Blood Urea Nitrogen 15 mg/dL (9-23); Calcium 9.1 mg/dL (8.5-10.1); Carbon Dioxide 27 mmol/L (20-30); Chloride 108 mmol/L (98-107); Glucose 90 mg/dL (74-106); Potassium 3.7 mmol/L (3.5-5.1); Sodium 139 mmol/L (136-145); Total Protein 6.1 g/dL (5.7-8.2)
[2023-09-05] MEDS: levoFLOXacin 500MG 100 ML IV SCH (10:58)
[2023-09-06] VITALS (7 sets, daily range): BP systolic 102–142; BP diastolic 66–72; PULSE 69–108; RESP 14–24; TEMP 97.9–98.1; O2SAT 95–99
[2023-09-06] MEDS: ENOXAPARIN SOD 40 MG/0.4 ML SYRINGE SC SCH (10:00)
[2023-09-06] MEDS: cefTRIAXone 1GM/50ML D5W 50 ML IV ONE (11:30)
[2023-09-06 12:38] LABS: INR 1.07 (0.9-1.15); Partial Thromboplastin Time 25.9 SEC (24.5-34.5); Prothrombin Time 11.2 sec (9.3-11.8)
[2023-09-06] MEDS: mitoMYcin 40 MG in STERILE WATER 60 ML IS ONE (14:45)
[2023-09-06] MEDS ORDERED: PROPOFOL 10 MG/ML 20 ML IV ONE (15:52)
[2023-09-06] MEDS ORDERED: fentaNYL CITRATE 100 MCG/2 ML VL ONE ×2 (15:52→16:52)
[2023-09-06] MEDS ORDERED: ONDANSETRON HCL 4 MG/2 ML VIAL ONE (16:43)
[2023-09-06] MEDS ORDERED: ePHEDrine SULFATE 50 MG/ML AMP ONE (16:44)
[2023-09-06] MEDS ORDERED: LABETALOL HCL 5 MG/ML 4ML SYRINGE IV PRN (17:30)
[2023-09-06] MEDS ORDERED: ONDANSETRON HCL 4 MG/2 ML VIAL IV PRN (17:30)
[2023-09-06] MEDS: HYDROmorphone HCL 2 MG/ML VL/or syr IV PRN (17:38)
[2023-09-07] VITALS (7 sets, daily range): BP systolic 115–142; BP diastolic 62–80; PULSE 66–101; RESP 16–20; TEMP 97.8–98.6; O2SAT 10–99
[2023-09-07] MEDS: cefTRIAXone 1GM/50ML D5W 50 ML IV SCH (08:30)
[2023-09-08] VITALS (7 sets, daily range): BP systolic 127–147; BP diastolic 61–69; PULSE 80–101; RESP 16–20; TEMP 98–98.6; O2SAT 94–99
[2023-09-08] MEDS: CLOPIDOGREL BISULFATE 75 MG TAB PO ONE (16:19)
[2023-09-08] MEDS: PHENAZOPYRIDINE HCL 100 MG TAB PO SCH (21:56)
[2023-09-08] MEDS: ENOXAPARIN SOD 40 MG/0.4 ML SYRINGE SC SCH (22:00)
[2023-09-09] VITALS (8 sets, daily range): BP systolic 113–153; BP diastolic 71–81; PULSE 83–105; RESP 16–19; TEMP 97.6–98.4; O2SAT 92–100
[2023-09-09] MEDS: CLOPIDOGREL BISULFATE 75 MG TAB PO SCH (10:24)
== END 2023-09-09 18:10 | disposition home or self-care (01) | DRG 669 ==
LOC: ER 02:41 → EEVIPCON 02:41 → TELE 07:27 → TELE-CENTR 12:53
PROVIDERS: ADMIT Nurse Practitioner Family; ATTEND Internal Medicine Cardiovascular Disease
PROC: 0TCB8ZZ Extirpation of Matter from Bladder, Via Natural or Artificial Opening Endoscopic (ICD-10-PCS; 2023-09-06)
PROC: 3E0M705 Introduction of Other Antineoplastic into Peritoneal Cavity, Via Natural or Artificial Opening (ICD-10-PCS; 2023-09-06)
PROC: 0T5B8ZZ Destruction of Bladder, Via Natural or Artificial Opening Endoscopic (ICD-10-PCS; principal; 2023-09-06 16:33)
DX: C67.9 Malignant neoplasm of bladder, unspecified (principal); J44.1 Chronic obstructive pulmonary disease with (acute) exacerbation; N30.91 Cystitis, unspecified with hematuria; E11.65 Type 2 diabetes mellitus with hyperglycemia; E78.5 Hyperlipidemia, unspecified; I50.9 Heart failure, unspecified; I11.0 Hypertensive heart disease with heart failure; N32.89 Other specified disorders of bladder; M54.9 Dorsalgia, unspecified; G89.29 Other chronic pain; I25.5 Ischemic cardiomyopathy; I25.10 Atherosclerotic heart disease of native coronary artery without angina pectoris; I25.2 Old myocardial infarction; Z85.51 Personal history of malignant neoplasm of bladder; Z95.5 Presence of coronary angioplasty implant and graft; Z86.008 Personal history of in-situ neoplasm of other site; Z88.5 Allergy status to narcotic agent; Z88.8 Allergy status to other drugs, medicaments and biological substances; Z79.899 Other long term (current) drug therapy; Z82.49 Family history of ischemic heart disease and other diseases of the circulatory system; Z79.82 Long term (current) use of aspirin
CPT/HCPCS: 36415; 74176; 80053; 81001; 82962; 85025; 85610; 85730; 87081; 96365; 96375; G0378; J1815; J1956; J2405; J2704; J9280

== ENCOUNTER 2023-11-22 04:00 | Inpatient (IN) | payer MEDICARE, MEDICAID ==
[~2023-11-22] VITALS: Ht 162.6 cm; Wt 80.0 kg
[~2023-11-22 04:00] MED LIST changes: +MECL-90 PO; -MECL1TAB32 PO; -OXYB5TAB10 PO; -ROSU1TAB15 PO; +ROSU40TA47 PO
[2023-11-22 04:35] VITALS: PULSE 96; RESP 15; O2SAT 97
[2023-11-22] MEDS: ASPirin 81 mg TAB PO ONE (04:53)
[2023-11-22] MEDS: NITROGLYCERIN 2% OINT 1GM PKG TD ONE (04:53)
[2023-11-22] MEDS: ONDANSETRON HCL 4 MG/2 ML VIAL IV ONE (04:53)
[2023-11-22] MEDS: MORPHINE SULFATE 4 MG/ML SYR/VIAL IV ONE (04:54)
[2023-11-22 04:55] LABS: Basophils # (auto) 0 10 ^3/uL (0-0.2); Basophils % (auto) 0.2 % (0.0-2.0); Eosinophils # (auto) 0 10 ^3/uL (0-0.8); Eosinophils % (auto) 0.1 % (0.0-7.0); Hematocrit 43.4 % (41.0-53.0); Hemoglobin 14.4 g/dL (13.5-17.5); Lymphocytes # (auto) 0.7 10 ^3/uL (0.4-5.4); Lymphocytes % (auto) 6.5 % (10.0-50.0); Mean Corpuscular Hemoglobin 28.7 pg (28.0-32.0); Mean Corpuscular Hgb Conc. 33.2 g/dL (32.0-36.0); Mean Corpuscular Volume 86.4 fL (80.0-100.0); Monocytes # (auto) 0.6 10 ^3/uL (0-1.3); Monocytes % (auto) 5.6 % (0.0-12.0); Neutrophils # (auto) 8.8 10 ^3/uL (1.6-8.6); Neutrophils % (auto) 87.6 % (37.0-80.0); Red Blood Cells 5.03 10^6/uL (4.5-5.90); Red Cell Distribution Width 13.1 % (11.8-14.3)
[2023-11-22 05:03] LABS: Alanine Aminotransferase 28 U/L (7-40); Albumin 4.7 g/dL (3.2-4.8); Alkaline Phosphatase 42 U/L (46-116); Anion Gap 10 (5-15); Aspartate Aminotransferase 30 U/L (13-40); BUN/Creatinine Ratio 9.6 (10.0-20.0); Bilirubin, Total 0.4 mg/dL (0.2-1.0); Blood Urea Nitrogen 11 mg/dL (9-23); Calcium 10.3 mg/dL (8.7-10.4); Carbon Dioxide 20 mmol/L (20-30); Chloride 106 mmol/L (98-107); Glucose 111 mg/dL (74-106); Magnesium 1.6 mg/dL (1.6-2.6); Potassium 3.8 mmol/L (3.5-5.1); Sodium 136 mmol/L (136-145); Total Protein 7.7 g/dL (5.7-8.2)
[2023-11-22 05:08] LABS: INR 1.03 (0.9-1.15); Partial Thromboplastin Time 25.4 SEC (24.5-34.5); Prothrombin Time 10.9 sec (9.3-11.8)
[2023-11-22] MEDS: IOHEXOL 350 MG/ML 100ML IJ ONE (05:22)
[2023-11-22] MEDS ORDERED: NITROGLYCERIN 0.4 MG SL TAB SL PRN (07:00)
[2023-11-22 08:20] VITALS: PULSE 108; RESP 16; O2SAT 98
[2023-11-22] MEDS ORDERED: FLUO-125 PO (09:31)
[2023-11-22] MEDS ORDERED: NITR0.4S29 SL (09:31)
[2023-11-22] MEDS: METOPROLOL TARTRATE 25 MG TAB PO SCH (09:32)
[2023-11-22] MEDS: SPIRONOLACTONE 25 MG TAB PO SCH (09:33)
[2023-11-22] MEDS: FUROSEMIDE 20 MG TAB PO SCH (09:33)
[2023-11-22] MEDS: ONDANSETRON HCL 4 MG/2 ML VIAL IV PRN (09:33)
[2023-11-22] MEDS: MORPHINE SULFATE INJ 2 MG/ml SYRG IV PRN (09:33)
[2023-11-22] MEDS: CLOPIDOGREL BISULFATE 75 MG TAB PO SCH (09:34)
[2023-11-22] MEDS ORDERED: HEPARIN DRIP/D5W 100UNITS/ML 250 ML IV SCH ×2 (10:00→10:45)
[2023-11-22 10:44] LABS: Urine Bacteria None Seen /hpf (None Seen)
[2023-11-22 10:56] LABS: Urine Blood 1+ /uL (Negative); Urine Clarity Clear (Clear); Urine Color Light-Yellow (Yellow); Urine Mucus FEW (None Seen); Urine Protein, UAD TRACE (Negative); Urine Urobilinogen Normal (Negative); Urine WBC 1 /hpf (0 - 3)
[2023-11-22] MEDS: HEPARIN SODIUM (PORCINE) 5000 UNITS/ML 1ML VIAL IV ONE (11:14)
[2023-11-22 11:59] VITALS: PULSE 92; RESP 18; O2SAT 95
[2023-11-22] MEDS: GABAPENTIN 300 MG CAP PO SCH (14:15)
[2023-11-22] MEDS: ceFAZolin 1GM/50ML 50 ML IV SCH (14:15)
[2023-11-22] MEDS: PANTOPRAZOLE 40 MG TAB PO ONE (14:42)
[2023-11-22] MEDS: FINASTERIDE 5 MG TAB PO ONE (14:51)
[2023-11-22 16:52] VITALS: BP 113/65; PULSE 98; RESP 17; TEMP 98; O2SAT 95
[2023-11-22] MEDS: ACETAMINOPHEN 325 MG TAB PO PRN (17:51)
[2023-11-22] MEDS: TAMSULOSIN HYDROCHLORIDE 0.4 MG CAP PO SCH (17:51)
[2023-11-22 20:10] VITALS: BP 131/61; PULSE 101; PULSE 91; RESP 20; TEMP 98.1; O2SAT 97
[2023-11-22 21:00] VITALS: BP 131/61; PULSE 91; RESP 20; TEMP 98.1; O2SAT 97
[2023-11-22] MEDS: ATORVASTATIN 20 MG TAB PO SCH (21:21)
[2023-11-22] MEDS ORDERED: ATORVASTATIN 20 MG TAB PO SCH (22:00)
[2023-11-23] VITALS (9 sets, daily range): BP systolic 115–138; BP diastolic 59–77; PULSE 69–91; RESP 14–23; TEMP 97.4–98.7; O2SAT 97–99
[2023-11-23] MEDS: PANTOPRAZOLE 40 MG TAB PO SCH (05:10)
[2023-11-23 06:43] LABS: Basophils # (auto) 0 10 ^3/uL (0-0.2); Basophils % (auto) 0.2 % (0.0-2.0); Eosinophils # (auto) 0 10 ^3/uL (0-0.8); Eosinophils % (auto) 0.1 % (0.0-7.0); Hematocrit 38.7 % (41.0-53.0); Hemoglobin 13.3 g/dL (13.5-17.5); Lymphocytes # (auto) 0.9 10 ^3/uL (0.4-5.4); Lymphocytes % (auto) 20.6 % (10.0-50.0); Mean Corpuscular Hemoglobin 29.3 pg (28.0-32.0); Mean Corpuscular Hgb Conc. 34.3 g/dL (32.0-36.0); Mean Corpuscular Volume 85.4 fL (80.0-100.0); Monocytes # (auto) 0.7 10 ^3/uL (0-1.3); Monocytes % (auto) 15.1 % (0.0-12.0); Neutrophils # (auto) 2.9 10 ^3/uL (1.6-8.6); Red Blood Cells 4.52 10^6/uL (4.5-5.90); White Blood Cell 4.5 10^3/uL (4.4-10.8)
[2023-11-23 06:46] LABS: Chloride 104 mmol/L (98-107); Potassium 3.3 mmol/L (3.5-5.1); Sodium 136 mmol/L (136-145)
[2023-11-23 06:47] LABS: Anion Gap 8 (5-15); Carbon Dioxide 24 mmol/L (20-30)
[2023-11-23 06:48] LABS: Calcium 9.3 mg/dL (8.5-10.1)
[2023-11-23 06:53] LABS: BUN/Creatinine Ratio 13.1 (10.0-20.0); Blood Urea Nitrogen 14 mg/dL (9-23); Glucose 115 mg/dL (74-106)
[2023-11-23] MEDS: ASPirin 81 mg TAB PO SCH (09:31)
[2023-11-23] MEDS: FINASTERIDE 5 MG TAB PO SCH (09:32)
[2023-11-23] MEDS: POTASSIUM CHL 20 Meq TABLET PO ONE (14:45)
[2023-11-23] MEDS ORDERED: HYDR-4798 PO (15:40)
[2023-11-23] MEDS ORDERED: FURO20TA3 PO (15:40)
[2023-11-23] MEDS ORDERED: POTA-36 PO (15:40)
[2023-11-23] MEDS ORDERED: POM PO (15:40)
[2023-11-23] MEDS ORDERED: FERR325T20 PO (15:40)
[2023-11-24] VITALS (8 sets, daily range): BP systolic 126–138; BP diastolic 68–86; PULSE 67–82; RESP 18–21; TEMP 97.3–98; O2SAT 67–100
[2023-11-24 07:25] LABS: Calcium 9.7 mg/dL (8.5-10.1); Chloride 105 mmol/L (98-107); Potassium 3.5 mmol/L (3.5-5.1); Sodium 140 mmol/L (136-145)
[2023-11-24 07:26] LABS: Anion Gap 6 (5-15); Carbon Dioxide 29 mmol/L (20-30)
[2023-11-24 07:31] LABS: BUN/Creatinine Ratio 13.9 (10.0-20.0); Blood Urea Nitrogen 15 mg/dL (9-23); Glucose 122 mg/dL (74-106)
[2023-11-24] MEDS: POTASSIUM EFFERVESENT TAB 25 MEQ PO SCH (09:36)
[2023-11-24] MEDS ORDERED: HYDROcodone-ACET 10/325MG TAB PO PRN (19:15)
[2023-11-24] MEDS: HYDROcodone-ACET 10/325MG TAB PO PRN (21:41)
[2023-11-24] MEDS: TEMAZEPAM 15 MG CAP PO PRN (21:41)
[2023-11-25] VITALS (10 sets, daily range): BP systolic 116–140; BP diastolic 61–85; PULSE 66–77; RESP 12–19; TEMP 36.5; O2SAT 95–99
[2023-11-25] MEDS ORDERED: ANGIOMAX 250 MG VIAL IV ONE (08:57)
[2023-11-25] MEDS ORDERED: SODIUM CHL 0.9% 0 ML ONE (08:58)
[2023-11-25] MEDS ORDERED: MIDAZOLAM HCL 2MG/2ML 2ml VIAL (1mg/ml) ONE (08:58)
[2023-11-25] MEDS ORDERED: fentaNYL CITRATE 100 MCG/2 ML VL ONE (08:58)
[2023-11-25] MEDS ORDERED: IOHEXOL 350 MG/ML 100ML IJ ONE (09:04)
[2023-11-25] MEDS ORDERED: LIDOCAINE 2%HCL (LOCAL ANESTH.) INJ 20ML MDV ONE (09:04)
[2023-11-25] MEDS ORDERED: HEPARIN SODIUM (PORCINE) 5000 UNITS/ML 1ML VIAL ONE (09:08)
[2023-11-25] MEDS ORDERED: VERAPAMIL 2.5MG/ML INJ 2ML VIAL IV ONE (09:08)
[2023-11-25] MEDS ORDERED: HYDROmorphone HCL 2 MG/ML VL/or syr ONE (09:50)
== END 2023-11-25 14:40 | disposition home or self-care (01) | DRG 287 ==
LOC: ER 04:00 → TELE 07:02 → TELE-WESTW 15:34
PROVIDERS: ADMIT Nurse Practitioner; ATTEND Internal Medicine
PROC: 4A023N7 Measurement of Cardiac Sampling and Pressure, Left Heart, Percutaneous Approach (ICD-10-PCS; principal; 2023-11-25)
PROC: B2111ZZ Fluoroscopy of Multiple Coronary Arteries using Low Osmolar Contrast (ICD-10-PCS; 2023-11-25)
PROC: B2151ZZ Fluoroscopy of Left Heart using Low Osmolar Contrast (ICD-10-PCS; 2023-11-25)
DX: I25.110 Atherosclerotic heart disease of native coronary artery with unstable angina pectoris (principal); I50.32 Chronic diastolic (congestive) heart failure; J96.10 Chronic respiratory failure, unspecified whether with hypoxia or hypercapnia; E11.9 Type 2 diabetes mellitus without complications; E78.5 Hyperlipidemia, unspecified; I11.0 Hypertensive heart disease with heart failure; N40.0 Benign prostatic hyperplasia without lower urinary tract symptoms; E87.6 Hypokalemia; J44.9 Chronic obstructive pulmonary disease, unspecified; E66.9 Obesity, unspecified; Z95.5 Presence of coronary angioplasty implant and graft; Z85.51 Personal history of malignant neoplasm of bladder; Z83.3 Family history of diabetes mellitus; I25.2 Old myocardial infarction; Z68.30 Body mass index [BMI] 30.0-30.9, adult; Z79.4 Long term (current) use of insulin; Z79.899 Other long term (current) drug therapy
CPT/HCPCS: 36415; 71045; 71275; 80048; 80053; 81001; 83735; 83880; 84484; 85025; 85379; 85610; 85730; 86850; 86900; 86901; 93005; 93458; 93970; 96374; 96375; 96376; 99152; 99291; G0378; J2250; J2405

== ENCOUNTER 2023-12-31 13:57 | Inpatient (IN) | payer MEDICARE, MEDICAID ==
[~2023-12-31] VITALS: Ht 162.6 cm; Wt 80.3 kg
[~2023-12-31 13:57] MED LIST changes: -ASPI-498 PO; -CELE200C OR; +FERR325T20 PO; +FLUO-125 PO; +FURO20TA3 PO; +HYDR-4798 PO; +NITR0.4S29 SL; +POM PO; +POTA-36 PO
[2023-12-31] MEDS: ONDANSETRON HCL 4 MG/2 ML VIAL IV ONE ×3 (15:21→21:24)
[2023-12-31] MEDS: MORPHINE SULFATE 4 MG/ML SYR/VIAL IV ONE ×2 (15:22→18:11)
[2023-12-31] MEDS: PANTOPRAZOLE 40 MG/10 ML VIAL INJ IV ONE (15:23)
[2023-12-31] MEDS: SODIUM CHLORIDE 0.9% 500 ML IVB ONE (15:24)
[2023-12-31 16:21] VITALS: PULSE 89; RESP 16; O2SAT 96
[2023-12-31 16:33] LABS: Basophils # (auto) 0 10 ^3/uL (0-0.2); Basophils % (auto) 0.3 % (0.0-2.0); Eosinophils # (auto) 0 10 ^3/uL (0-0.8); Hematocrit 45.3 % (41.0-53.0); Hemoglobin 15.3 g/dL (13.5-17.5); Lymphocytes # (auto) 1.3 10 ^3/uL (0.4-5.4); Lymphocytes % (auto) 12.4 % (10.0-50.0); Mean Corpuscular Hemoglobin 28.6 pg (28.0-32.0); Mean Corpuscular Hgb Conc. 33.9 g/dL (32.0-36.0); Mean Corpuscular Volume 84.5 fL (80.0-100.0); Monocytes # (auto) 0.6 10 ^3/uL (0-1.3); Monocytes % (auto) 5.5 % (0.0-12.0); Neutrophils # (auto) 8.3 10 ^3/uL (1.6-8.6); Neutrophils % (auto) 81.8 % (37.0-80.0); Nucleated Red Blood Cells % 0.1 %; Red Blood Cells 5.36 10^6/uL (4.5-5.90); Red Cell Distribution Width 13.7 % (11.8-14.3); White Blood Cell 10.2 10^3/uL (4.4-10.8)
[2023-12-31 16:34] LABS: Alanine Aminotransferase 28 U/L (7-40); Albumin 4.7 g/dL (3.2-4.8); Alkaline Phosphatase 43 U/L (46-116); Anion Gap 12 (5-15); Aspartate Aminotransferase 27 U/L (13-40); BUN/Creatinine Ratio 12.5 (10.0-20.0); Bilirubin, Total 0.5 mg/dL (0.2-1.0); Blood Urea Nitrogen 12 mg/dL (9-23); Calcium 11.3 mg/dL (8.7-10.4); Carbon Dioxide 21 mmol/L (20-30); Chloride 106 mmol/L (98-107); Glucose 112 mg/dL (74-106); Lipase 29 U/L (12-53); Potassium 3.8 mmol/L (3.5-5.1); Sodium 139 mmol/L (136-145); Total Protein 7.8 g/dL (5.7-8.2)
[2023-12-31 16:58] VITALS: PULSE 111; PULSE 122; RESP 16; O2SAT 96
[2023-12-31 19:30] VITALS: PULSE 91; RESP 16; O2SAT 97
[2023-12-31] MEDS: SODIUM CHLORIDE 0.9% 1,000 ML IV SCH (21:00)
[2023-12-31] MEDS ORDERED: ACETAMINOPHEN 325 MG TAB PO PRN (21:00)
[2023-12-31] MEDS: HYDROmorphone HCL 2 MG/ML VL/or syr IV ONE (21:23)
[2023-12-31] MEDS ORDERED: MORPHINE SULFATE INJ 2 MG/ml SYRG IV PRN (23:45)
[2023-12-31] MEDS ORDERED: NITROGLYCERIN 0.4 MG SL TAB SL PRN (23:45)
[2024-01-01] VITALS (8 sets, daily range): BP systolic 117–144; BP diastolic 60–74; PULSE 62–79; RESP 16–21; TEMP 97.5–99; O2SAT 96–99
[2024-01-01] MEDS: MORPHINE SULFATE INJ 2 MG/ml SYRG IV PRN (01:32)
[2024-01-01] MEDS: ONDANSETRON HCL 4 MG/2 ML VIAL IV PRN (01:32)
[2024-01-01 06:16] LABS: Basophils # (auto) 0 10 ^3/uL (0-0.2); Basophils % (auto) 0.3 % (0.0-2.0); Eosinophils # (auto) 0 10 ^3/uL (0-0.8); Eosinophils % (auto) 0.2 % (0.0-7.0); Hematocrit 39.2 % (41.0-53.0); Hemoglobin 13.2 g/dL (13.5-17.5); Lymphocytes # (auto) 1.6 10 ^3/uL (0.4-5.4); Mean Corpuscular Hemoglobin 28.4 pg (28.0-32.0); Mean Corpuscular Hgb Conc. 33.6 g/dL (32.0-36.0); Mean Corpuscular Volume 84.6 fL (80.0-100.0); Monocytes # (auto) 0.9 10 ^3/uL (0-1.3); Monocytes % (auto) 10.3 % (0.0-12.0); Neutrophils # (auto) 5.9 10 ^3/uL (1.6-8.6); Neutrophils % (auto) 70.2 % (37.0-80.0); Nucleated Red Blood Cells % 0.1 %; Red Blood Cells 4.64 10^6/uL (4.5-5.90); Red Cell Distribution Width 13.4 % (11.8-14.3); White Blood Cell 8.4 10^3/uL (4.4-10.8)
[2024-01-01 06:37] LABS: Alanine Aminotransferase 21 U/L (7-40); Alkaline Phosphatase 36 U/L (46-116); Anion Gap 6 (5-15); Calcium 9.8 mg/dL (8.7-10.4); Carbon Dioxide 26 mmol/L (20-30); Chloride 109 mmol/L (98-107); Sodium 141 mmol/L (136-145)
[2024-01-01 06:38] LABS: Albumin 4.1 g/dL (3.2-4.8); BUN/Creatinine Ratio 14.9 (10.0-20.0); Blood Urea Nitrogen 17 mg/dL (9-23); Glucose 104 mg/dL (74-106)
[2024-01-01 06:40] LABS: Aspartate Aminotransferase 19 U/L (13-40); Bilirubin, Total 0.4 mg/dL (0.2-1.0); Total Protein 6.6 g/dL (5.7-8.2)
[2024-01-01] MEDS: PANTOPRAZOLE 40 MG/10 ML VIAL INJ IV SCH (08:43)
[2024-01-01 11:13] LABS: INR 1.03 (0.9-1.15); Prothrombin Time 10.9 sec (9.3-11.8)
[2024-01-01] MEDS: GASTROGRAFIN 120 ML SOL ONE (14:03)
[2024-01-01] MEDS: SORE THROAT SPRAY 6OZ BOTTLE MT PRN (17:26)
[2024-01-01] MEDS: MELATONIN 5 MG TAB PO ONE (22:15)
[2024-01-02] VITALS (7 sets, daily range): BP systolic 103–154; BP diastolic 7–79; PULSE 66–93; RESP 16–20; TEMP 97–98.8; O2SAT 95–100
[2024-01-02 06:28] LABS: Anion Gap 9 (5-15); Calcium 9.6 mg/dL (8.5-10.1); Carbon Dioxide 23 mmol/L (20-30); Chloride 112 mmol/L (98-107); Potassium 3.6 mmol/L (3.5-5.1); Sodium 144 mmol/L (136-145)
[2024-01-02 06:34] LABS: Blood Urea Nitrogen 12 mg/dL (9-23); Glucose 75 mg/dL (74-106)
[2024-01-02 06:39] LABS: BUN/Creatinine Ratio 12.8 (10.0-20.0)
[2024-01-02 06:44] LABS: Basophils # (auto) 0 10 ^3/uL (0-0.2); Basophils % (auto) 0.3 % (0.0-2.0); Eosinophils # (auto) 0.1 10 ^3/uL (0-0.8); Eosinophils % (auto) 0.8 % (0.0-7.0); Hematocrit 40.8 % (41.0-53.0); Hemoglobin 13.5 g/dL (13.5-17.5); Lymphocytes # (auto) 1.8 10 ^3/uL (0.4-5.4); Lymphocytes % (auto) 27.8 % (10.0-50.0); Mean Corpuscular Hemoglobin 28.7 pg (28.0-32.0); Monocytes # (auto) 0.6 10 ^3/uL (0-1.3); Monocytes % (auto) 9.8 % (0.0-12.0); Neutrophils # (auto) 3.9 10 ^3/uL (1.6-8.6); Neutrophils % (auto) 61.3 % (37.0-80.0); Red Blood Cells 4.69 10^6/uL (4.5-5.90); Red Cell Distribution Width 13.9 % (11.8-14.3); White Blood Cell 6.3 10^3/uL (4.4-10.8)
[2024-01-02] MEDS: HYDROcodone-ACET 5/325MG TAB PO PRN (15:13)
[2024-01-03 01:00] VITALS: BP 128/70; PULSE 64; RESP 18; TEMP 97.9; O2SAT 99
[2024-01-03 08:00] VITALS: PULSE 72; RESP 18
[2024-01-03 09:00] VITALS: BP 132/66; PULSE 62; RESP 18; TEMP 98.7; O2SAT 96
[2024-01-03] MEDS ORDERED: FENO160T PO (11:06)
[2024-01-03] MEDS ORDERED: METO-289 PO (11:06)
[2024-01-03] MEDS ORDERED: VERI2.5T PO (11:10)
[2024-01-03] MEDS ORDERED: ASPI-543 PO (11:10)
[2024-01-03 12:36] VITALS: BP 141/74; PULSE 67; RESP 17; TEMP 98; O2SAT 100
[2024-01-03] MEDS: ASPirin 81 mg TAB PO ONE (15:15)
[2024-01-03 17:00] VITALS: BP 136/70; PULSE 62; RESP 17; TEMP 97.6; O2SAT 99
[2024-01-03] MEDS: CLOPIDOGREL BISULFATE 75 MG TAB PO ONE (19:07)
[2024-01-03] MEDS: TAMSULOSIN HYDROCHLORIDE 0.4 MG CAP PO SCH (19:07)
[2024-01-03] MEDS: ATORVASTATIN 20 MG TAB PO SCH (20:53)
[2024-01-03 21:00] VITALS: BP 152/70; PULSE 74; RESP 18; TEMP 98; O2SAT 97
[2024-01-03] MEDS: GABAPENTIN 300 MG CAP PO SCH (22:12)
[2024-01-03] MEDS: MELATONIN 5 MG TAB PO SCH (22:12)
[2024-01-03] MEDS: DOCUSATE SOD 100 MG CAP PO PRN (22:14)
[2024-01-04 08:00] VITALS: BP 137/73; PULSE 73; PULSE 82; RESP 16; RESP 18; TEMP 97.6; O2SAT 97
[2024-01-04] MEDS: ASPirin 81 mg TAB PO SCH (10:00)
[2024-01-04] MEDS: CLOPIDOGREL BISULFATE 75 MG TAB PO SCH (10:00)
[2024-01-04] MEDS: SPIRONOLACTONE 25 MG TAB PO SCH (10:14)
[2024-01-04] MEDS: FINASTERIDE 5 MG TAB PO SCH (10:14)
[2024-01-04] MEDS: FLUoxetine HCL 20 MG CAP PO SCH (10:15)
[2024-01-04] MEDS: METOPROLOL SUCCINATE XL 50 MG TAB PO SCH (10:16)
[2024-01-04] MEDS: FUROSEMIDE 20 MG TAB PO SCH (10:16)
[2024-01-04 12:00] VITALS: BP 124/67; PULSE 71; RESP 16; TEMP 98; O2SAT 99
[2024-01-04 13:44] VITALS: BP 137/73; PULSE 73; TEMP 36.7
== END 2024-01-04 16:19 | disposition home or self-care (01) | DRG 389 ==
LOC: ER 13:57 → TELE 23:44 → TELE-WESTW 23:44 → WEST WING 01-03 15:16
PROVIDERS: ADMIT Internal Medicine; ATTEND Internal Medicine
PROC: 0D9670Z Drainage of Stomach with Drainage Device, Via Natural or Artificial Opening (ICD-10-PCS; principal; 2024-01-01)
DX: K56.2 Volvulus (principal); I50.42 Chronic combined systolic (congestive) and diastolic (congestive) heart failure; J96.11 Chronic respiratory failure with hypoxia; J44.9 Chronic obstructive pulmonary disease, unspecified; E66.9 Obesity, unspecified; N40.0 Benign prostatic hyperplasia without lower urinary tract symptoms; E78.00 Pure hypercholesterolemia, unspecified; I25.10 Atherosclerotic heart disease of native coronary artery without angina pectoris; F41.9 Anxiety disorder, unspecified; D50.9 Iron deficiency anemia, unspecified; K59.00 Constipation, unspecified; G47.00 Insomnia, unspecified; F32.A Depression, unspecified; E11.9 Type 2 diabetes mellitus without complications; E87.6 Hypokalemia; I11.0 Hypertensive heart disease with heart failure; I25.2 Old myocardial infarction; Z82.49 Family history of ischemic heart disease and other diseases of the circulatory system; Z85.51 Personal history of malignant neoplasm of bladder; Z95.5 Presence of coronary angioplasty implant and graft; Z68.30 Body mass index [BMI] 30.0-30.9, adult; Z79.4 Long term (current) use of insulin
CPT/HCPCS: 36415; 71045; 74176; 74250; 80048; 80053; 83690; 85025; 85610; 93005; 96361; 96374; 96375; 96376; G0378; J2405

== ENCOUNTER 2024-01-27 23:12 | Inpatient (IN) | payer MEDICARE, MEDICAID ==
[~2024-01-27] VITALS: Ht 162.6 cm; Wt 79.7 kg
[~2024-01-27 23:12] MED LIST changes: +ASPI-543 PO; -FENO134C16 PO; +FENO160T PO; +METO-289 PO; -METO25TA5 PO; +VERI2.5T PO
[2024-01-27 23:30] VITALS: PULSE 104; RESP 20; O2SAT 95
[2024-01-28] VITALS (7 sets, daily range): BP systolic 122–128; BP diastolic 60–63; PULSE 14–68; RESP 14–18; TEMP 98; O2SAT 96–98
[2024-01-28 00:01] LABS: Alanine Aminotransferase 19 U/L (7-40); Albumin 4.4 g/dL (3.2-4.8); Alkaline Phosphatase 41 U/L (46-116); Anion Gap 10 (5-15); Aspartate Aminotransferase 12 U/L (13-40); BUN/Creatinine Ratio 11.8 (10.0-20.0); Bilirubin, Total 0.5 mg/dL (0.2-1.0); Blood Urea Nitrogen 14 mg/dL (9-23); Calcium 9.9 mg/dL (8.7-10.4); Carbon Dioxide 20 mmol/L (20-30); Chloride 107 mmol/L (98-107); Glucose 157 mg/dL (74-106); Lipase 33 U/L (12-53); Potassium 3.8 mmol/L (3.5-5.1); Sodium 137 mmol/L (136-145); Total Protein 7.1 g/dL (5.7-8.2)
[2024-01-28] MEDS: MORPHINE SULFATE 4 MG/ML SYR/VIAL IV ONE ×2 (00:14→07:40)
[2024-01-28] MEDS: ONDANSETRON HCL 4 MG/2 ML VIAL IV ONE ×2 (00:14→07:37)
[2024-01-28] MEDS: CEFEPIME 2GM/50ML NS 50 ML IV ONE (00:14)
[2024-01-28] MEDS: SODIUM CHLORIDE 0.9% 1,000 ML IV ONE (00:15)
[2024-01-28] MEDS: ACETAMINOPHEN 325 MG TAB PO ONE (00:15)
[2024-01-28 00:23] LABS: Basophils # (auto) 0.1 10 ^3/uL (0-0.2); Basophils % (auto) 0.4 % (0.0-2.0); Eosinophils # (auto) 0.1 10 ^3/uL (0-0.8); Eosinophils % (auto) 0.6 % (0.0-7.0); Hematocrit 39.4 % (41.0-53.0); Lymphocytes # (auto) 0.8 10 ^3/uL (0.4-5.4); Lymphocytes % (auto) 6.5 % (10.0-50.0); Mean Corpuscular Hemoglobin 28.2 pg (28.0-32.0); Mean Corpuscular Hgb Conc. 32.9 g/dL (32.0-36.0); Mean Corpuscular Volume 85.7 fL (80.0-100.0); Monocytes % (auto) 7.7 % (0.0-12.0); Neutrophils % (auto) 84.8 % (37.0-80.0); Red Cell Distribution Width 13.8 % (11.8-14.3)
[2024-01-28 03:11] LABS: Urine Bacteria FEW /hpf (None Seen); Urine Blood 2+ /uL (Negative); Urine Budding Yeast FEW /hpf (None Seen); Urine Clarity Turbid (Clear); Urine Color Yellow (Yellow); Urine Mucus FEW (None Seen); Urine Protein, UAD 1+ (Negative); Urine Urobilinogen Normal (Negative); Urine WBC 102 /hpf (0 - 3)
[2024-01-28] MEDS: LIDOCAINE 2% TOPICAL JELLY 5 ML URJT TOP ONE (03:37)
[2024-01-28] MEDS ORDERED: MORPHINE SULFATE INJ 2 MG/ml SYRG IV PRN (10:15)
[2024-01-28] MEDS ORDERED: NITROGLYCERIN 0.4 MG SL TAB SL PRN ×2 (10:15→10:30)
[2024-01-28] MEDS ORDERED: DOCUSATE SOD 100 MG CAP PO PRN ×2 (10:15→10:30)
[2024-01-28] MEDS ORDERED: SODIUM CHLORIDE 0.9% 1,000 ML IV SCH (10:15)
[2024-01-28] MEDS ORDERED: cefTRIAXone 1GM/50ML D5W 50 ML IV ONE (10:15)
[2024-01-28] MEDS ORDERED: ONDANSETRON HCL 4 MG/2 ML VIAL IV PRN ×2 (10:15→10:30)
[2024-01-28] MEDS: cefTRIAXone 1GM/50ML D5W 50 ML IV ONE (12:34)
[2024-01-28] MEDS: SODIUM CHLORIDE 0.9% 1,000 ML IV SCH (12:35)
[2024-01-28] MEDS: MORPHINE SULFATE INJ 2 MG/ml SYRG IV PRN (16:10)
[2024-01-28] MEDS ORDERED: CLOP75TA70 PO (17:14)
[2024-01-28] MEDS ORDERED: MECL-90 PO (17:16)
[2024-01-29] VITALS (7 sets, daily range): BP systolic 123–148; BP diastolic 59–73; PULSE 63–75; RESP 16–20; TEMP 97.4–98; O2SAT 96–99
[2024-01-29 07:07] LABS: Alanine Aminotransferase 18 U/L (7-40); Albumin 4.1 g/dL (3.2-4.8); Alkaline Phosphatase 39 U/L (46-116); Anion Gap 12 (5-15); Aspartate Aminotransferase 18 U/L (13-40); Bilirubin, Total 0.4 mg/dL (0.2-1.0); Blood Urea Nitrogen 7 mg/dL (9-23); Calcium 9.6 mg/dL (8.7-10.4); Carbon Dioxide 17 mmol/L (20-30); Chloride 108 mmol/L (98-107); Glucose 88 mg/dL (74-106); Potassium 4.6 mmol/L (3.5-5.1); Sodium 137 mmol/L (136-145)
[2024-01-29] MEDS ORDERED: cefTRIAXone 1GM/50ML D5W 50 ML IV SCH (09:00)
[2024-01-29] MEDS: cefTRIAXone 1GM/50ML D5W 50 ML IV SCH (10:12)
[2024-01-29 11:16] LABS: Basophils # (auto) 0 10 ^3/uL (0-0.2); Basophils % (auto) 0.4 % (0.0-2.0); Eosinophils # (auto) 0.1 10 ^3/uL (0-0.8); Eosinophils % (auto) 1.3 % (0.0-7.0); Hematocrit 37.2 % (41.0-53.0); Hemoglobin 12.5 g/dL (13.5-17.5); Lymphocytes # (auto) 1.3 10 ^3/uL (0.4-5.4); Lymphocytes % (auto) 17.7 % (10.0-50.0); Mean Corpuscular Hemoglobin 28.9 pg (28.0-32.0); Mean Corpuscular Hgb Conc. 33.6 g/dL (32.0-36.0); Mean Corpuscular Volume 85.9 fL (80.0-100.0); Monocytes # (auto) 0.8 10 ^3/uL (0-1.3); Monocytes % (auto) 10.6 % (0.0-12.0); Neutrophils # (auto) 5.1 10 ^3/uL (1.6-8.6); Red Blood Cells 4.33 10^6/uL (4.5-5.90); Red Cell Distribution Width 14.1 % (11.8-14.3); White Blood Cell 7.3 10^3/uL (4.4-10.8)
[2024-01-29] MEDS: LIDOCAINE HCL 5 % TOP OINT 35 GM TOP PRN (19:26)
[2024-01-30] VITALS (8 sets, daily range): BP systolic 138–152; BP diastolic 68–76; PULSE 71–85; RESP 17–20; TEMP 97.6–98.5; O2SAT 96–100
[2024-01-30] MEDS: HYDROcodone-ACET 10/325MG TAB PO PRN (15:00)
[2024-01-31 00:37] VITALS: BP 150/75; PULSE 78; RESP 16; TEMP 97.9; O2SAT 99
[2024-01-31 05:00] VITALS: BP 140/76; PULSE 84; RESP 17; TEMP 97.6; O2SAT 99
[2024-01-31 08:20] VITALS: RESP 18; O2SAT 96
[2024-01-31 08:41] VITALS: BP 133/72; PULSE 76; RESP 16; TEMP 97.6; O2SAT 97
[2024-01-31 13:00] VITALS: BP 140/70; PULSE 68; RESP 14; TEMP 98.3; O2SAT 97
[2024-01-31] MEDS ORDERED: APIX2.5T PO (14:39)
[2024-01-31] MEDS ORDERED: LEVO500T91 PO (14:39)
[2024-01-31 14:51] LABS: Urine Bacteria FEW /hpf (None Seen); Urine Blood 1+ /uL (Negative); Urine Budding Yeast OCCASIONAL /hpf (None Seen); Urine Clarity Clear (Clear); Urine Color Light-Yellow (Yellow); Urine Hyaline Cast FEW /lpf (0 - 2); Urine Mucus FEW (None Seen); Urine Protein, UAD Negative (Negative); Urine Specific Gravity 1.015 (1.001-1.035); Urine Urobilinogen Normal (Negative); Urine WBC 50 /hpf (0 - 3)
[2024-01-31 14:57] VITALS: TEMP 36.8
== END 2024-01-31 15:30 | disposition home or self-care (01) | DRG 872 ==
LOC: ER 23:12 → OVERFLOW 01-28 10:10 → WEST WING 01-28 12:14
PROVIDERS: ADMIT Nurse Practitioner Family; ATTEND Internal Medicine
DX: A41.81 Sepsis due to Enterococcus (principal); N30.01 Acute cystitis with hematuria; J96.10 Chronic respiratory failure, unspecified whether with hypoxia or hypercapnia; I50.42 Chronic combined systolic (congestive) and diastolic (congestive) heart failure; E11.9 Type 2 diabetes mellitus without complications; E87.6 Hypokalemia; I11.0 Hypertensive heart disease with heart failure; N40.0 Benign prostatic hyperplasia without lower urinary tract symptoms; E66.9 Obesity, unspecified; E78.00 Pure hypercholesterolemia, unspecified; I25.10 Atherosclerotic heart disease of native coronary artery without angina pectoris; J44.9 Chronic obstructive pulmonary disease, unspecified; Z87.440 Personal history of urinary (tract) infections; Z88.5 Allergy status to narcotic agent; Z88.8 Allergy status to other drugs, medicaments and biological substances; Z79.899 Other long term (current) drug therapy; Z79.82 Long term (current) use of aspirin; Z85.51 Personal history of malignant neoplasm of bladder; I25.2 Old myocardial infarction; Z95.5 Presence of coronary angioplasty implant and graft; Z68.30 Body mass index [BMI] 30.0-30.9, adult; Z79.01 Long term (current) use of anticoagulants
CPT/HCPCS: 36415; 71045; 76775; 80053; 81001; 83605; 83690; 83880; 85025; 87081; 87086; 87088; 87186; G0378; J0692; J2405

== ENCOUNTER 2024-07-04 10:50 | Emergency (ER) | payer MEDICARE, MEDICAID ==
[~2024-07-04] VITALS: Ht 152.4 cm; Wt 75.0 kg
[~2024-07-04 10:50] MED LIST changes: +APIX2.5T PO; +LEVO500T91 PO; -TAMS0.4C36 PO; +TAMS0.4C39 PO
--- NOTE | 2024-07-04 11:13 | ECG ---
[facility] Test Date: 2024-07-04 Test Time: 11:13:02 Pat Name: AISHWARYA WILSON Department: ER Room: Gender: M Decontaminator: GP : [id number] Requested By: BLAINE BOLTON Order Number: [id number] Reading MD: Eduardo Villeda Measurements Intervals [place] Rate: 74 P: 17 NE: 156 QRS: 5 QRSD: 91 T: -3 QT: 370 QTc: 411 Interpretive Statements Sinus rhythm Abnormal R-wave progression, early transition Electronically Signed On 07-04-2024 18:29:44 PST by Eduardo Villeda Please click the below link to view image of tracing.
--- NOTE | 2024-07-04 11:28 | ED.PDOC ---
History of Present Illness HPI Comments 68 yo male with recent history of bladder removal surgery for cancer at [facility], [place] on 06/16/24 here today with complaints of abdominal pain that started 2 days ago. No trauma. Has a ostomy for urine output with pink-tinged urine. No F/C/N/V/D. No chest pain. Patient has history of shortness of breath 2/2 COPD, on 2L NC at all times. No other complaints. Not constipated. No rash Chief Complaint: General Weakness Time Seen by MD: 11:06 Primary Care Provider: MILLICENT Allergies: Coded Allergies: Carisoprodol (Verified Allergy, Unknown, 05/16/19) Iodide (Verified Allergy, Unknown, 07/04/24) Meperidine (Verified Allergy, Unknown, 05/16/19) Oxycodone (Verified Allergy, Unknown, 05/16/19) Piroxicam (Verified Allergy, Unknown, 05/16/19) Propoxyphene (Verified Allergy, Unknown, 05/16/19) Home Meds Active Scripts Apixaban Base (ELIQUIS) 2.5 Mg Tab, 2.5 MG PO BID for 30 Days, #60 TAB 1 Refill Prov:KAIT CHAPARRO MD 01/31/24 Levofloxacin Hemihydrate (LEVAQUIN 500 MG) 500 Mg Tab, 500 MG PO DAILY for 10 Days, #10 TAB Prov:KAIT CHAPARRO MD 01/31/24 Reported Medications Meclizine Hcl (Meclizine Hcl) 25 Mg Tab, 25 MG PO DAILY for 30 Days, MG 01/28/24 Clopidogrel Bisulfate (CLOPIDOGREL) 75 Mg Tab, 75 MG PO EOD for 30 Days, MG 01/28/24 Aspirin (Aspir-Low) 81 Mg Tab, 81 MG PO DAILY, MG 01/03/24 Vericiguat (Verquvo) 2.5 Mg Tab, 5 MG PO DAILY, TAB 01/03/24 Metoprolol Succinate (Metoprolol Succinate Er) 50 Mg Tab, 50 MG PO DAILY, TAB 01/03/24 Fenofibrate (Fenofibrate) 160 Mg Tab, 160 MG PO DAILY, TAB 01/03/24 Ferrous Sulfate (Ferosul) 325 Mg Tab, 1 TAB PO TID 11/23/23 Patients Own Medication (PATIENTS OWN MEDICATION) ., 61 MG PO DAILY PTS OWN MED-OBTAIN FROM PT AND SEND TO RX DRUG: [id number] 61 MG CAPSULE FREQ: TAKE 1 CAPSULE BY MOUTH DAILY RX# EXP: DATE DISP: TECH: RPH: 11/23/23 Hydrocodone-Acetaminophen (Hydrocodone Bitartrate/AC 10-325 mg) 1 Tab Tab, 1 TAB PO Q6HR 11/23/23 Potassium Chloride (POTASSIUM CHLORIDE CR) 10 Meq Tb, 1 TAB PO DAILY 11/23/23 Furosemide (Furosemide) 20 Mg Tab, 1 TAB PO DAILY 11/23/23 Nitroglycerin (NTROSTAT SUBLINGUAL) 0.4 Mg Sl, 0.4 MG SL PRN, TAB *MAY REPEAT EVERY 5 MINUTES X 3 TOTAL IF NO RELIEF, INITIATE ANALGESIC THERAPY. NOTIFY PHYSICIAN *Do not crush. 11/22/23 Fluoxetine Hcl (Fluoxetine Hcl) 20 Mg Cap, 20 MG PO DAILY, MG 11/22/23 Tamsulosin Hcl (Tamsulosin Hcl) 0.4 Mg Cap, 2 CAP PO DAILY 08/24/23 Finasteride (Finasteride) 5 Mg Tab, 1 TAB PO DAILY 08/24/23 Formoterol Fumarate Dihydrate (Formoterol Fumarate) 20 Mcg/2 Ml Neb, 1 INH INH BID 08/24/23 Cholecalciferol (Vitamin D) 2,000 Unit Cap, 1 CAP PO DAILY 08/24/23 Rosuvastatin Calcium (Rosuvastatin Calcium) 40 Mg Tab, 40 MG PO DAILY, TAB 01/27/23 Docusate Sodium (Docusil) 100 Mg Cap, 100 MG PO BID, CAP 05/08/20 Spironolactone (Aldactone) 25 Mg Tab, 1 TAB PO DAILY for SP, #90 TAB 1 Refill 05/16/19 Albuterol Sulfate (VENTOLIN MDI) 90 Mcg Ih, 1 PUFF INH Q4-6HR PRN 06/07/18 Dexlansoprazole (Dexilant) 60 Mg Cap, 60 MG PO DAILY, CAP 08/06/15 Gabapentin (Neurontin) 300 Mg Cap, 1 TAB PO TID 01/15/11 Information Source: Patient Mode of Arrival: EMS Severity: Mild Timing: Days Duration: Days Prehospital treatment: Oxygen Past Medical History PAST MEDICAL HISTORY: CAD, Cancer, CHF, COPD, DM, High Lipids, HTN, MO, UTI'S Surgical History: PTCA Family History Family History: No family hx of DM, No family hx of Heart reid, Family hx of Cancer Social History Smoker: Non-Smoker, Quit Greater Than 1 Year Alcohol: Denies ETOH Use Drugs: Denies Drug Use Lives In: Home Constitutional: denies: chills, diaphoresis, fatigue, fever, malaise, sweats, weakness, others EENTM: denies: blurred vision, double vision, ear bleeding, ear discharge, ear drainage, ear pain, ear ringing, eye pain, eye redness, hearing loss, mouth pain, mouth swelling, nasal discharge, nose bleeding, nose congestion, nose pain, photophobia, tearing, throat pain, throat swelling, voice changes, others Respiratory: denies: cough, hemoptysis, orthopnea, SOB at rest, shortness of breath, SOB with excertion, stridor, wheezing, others Cardiovascular: denies: chest pain, dizzy spells, diaphoresis, Dyspnea on exertion, edema, irregular heart beat, left arm pain, lightheadedness, palpitations, PND, syncope, others Gastrointestinal: reports: abdominal pain; denies: abdomen distended, blood streaked bowels, constipated, diarrhea, dysphagia, difficulty swallowing, hematemesis, melena, nausea, poor appetite, poor fluid intake, rectal bleeding, rectal pain, vomiting, others Genitourinary: denies: burning, dysuria, flank pain, frequency, hematuria, incontinence, penile discharge, penile sore, pain, testicle pain, testicle swelling, urgency, others Neurological: denies: dizziness, fainting, headache, left sided numbness, left sided weakness, numbness, paresthesia, pre-existing deficit, right sided n umbness, right sided weakness, seizure, speech problems, tingling, tremors, weakness, others Musculoskeletal: denies: back pain, gout, joint pain, joint swelling, muscle pain, muscle stiffness, neck pain, others Hematologic/Lymphatic: denies: anemia, blood clots, easy bleeding, easy bruising, swollen glands, others Psychiatric: denies: anxiety, bipolar disorder, depression, hopeless, panic disorder, schizophrenia, sleepless, suicidal, others Physical Exam General Appearance: No Apparent Distress, Normal HEENT: Normal ENT Inspection Neck: Full Range of Motion, Non-Tender Respiratory: No Accessory Muscle Use, No Respiratory Distress, Other (on 2L NC which is chronic for him) Cardiovascular: Regular Rate/Rhythm Breast Exam: Deferred Gastrointestinal: Other (RLQ ostomy with pink tinged urine, mild diffuse ttp to lower quadrants) Genitalia: Deferred Pelvic: Deferred Rectal: Deferred Extremities: Non-tender Neurologic: Alert, No Motor Deficits, Normal Affect, Normal Mood Cerebellar Function: NOT DONE Reflexes: NOT DONE Skin: Normal Color Lymphatic: NOT DONE Was a procedure done? Was a procedure done?: No Differential Dx Considerations may include: bowel obstruction (small/large), cellulitis, NSTI, abscess, appendicitis, cholecystitis X-Ray, Labs, Meds, VS Vital Signs Date Time Temp Pulse Resp B/P (MAP) Pulse Ox O2 Delivery O2 Flow Rate FiO2 07/04/24 14:38 97.8 68 20 116/56 (76) 100 97.8 07/04/24 13:04 73 16 116/56 07/04/24 11:13 74 07/04/24 11:05 97.8 80 18 115/58 (77) 100 Lab Test 07/04/24 13:38 Range/Units White Blood Count 5.0 4.4-10.8 10^3/uL Red Blood Count 2.98 L 4.5-5.90 10^6/uL Hemoglobin 9.1 L 13.5-17.5 g/dL Hematocrit 27.2 L 41.0-53.0 % Mean Corpuscular Volume 91.4 80.0-100.0 fL Mean Corpuscular Hemoglobin 30.6 28.0-32.0 pg Mean Corpuscular Hemoglobin Concent 33.4 32.0-36.0 g/dL Red Cell Distribution Width 14.0 11.8-14.3 % Platelet Count 221 140-450 10^3/uL Mean Platelet Volume 6.8 L 6.9-10.8 fL Neutrophils (%) (Auto) 69.3 37.0-80.0 % Lymphocytes (%) (Auto) 21.1 10.0-50.0 % Monocytes (%) (Auto) 7.5 0.0-12.0 % Eosinophils (%) (Auto) 1.5 0.0-7.0 % Basophils (%) (Auto) 0.6 0.0-2.0 % Neutrophils # (Auto) 3.5 1.6-8.6 10 ^3/uL Lymphocytes # (Auto) 1.1 0.4-5.4 10 ^3/uL Monocytes # (Auto) 0.4 0-1.3 10 ^3/uL Eosinophils # (Auto) 0.1 0-0.8 10 ^3/uL Basophils # (Auto) 0 0-0.2 10 ^3/uL Nucleated Red Blood Cells 0.0 % Sodium Level 140 136-145 mmol/L Potassium Level 4.2 3.5-5.1 mmol/L Chloride Level 109 H 98-107 mmol/L Carbon Dioxide Level 24 20-31 mmol/L Anion Gap 7 5-15 Blood Urea Nitrogen 9 9-23 mg/dL Creatinine 0.90 0.700-1.30 mg/dL Glomerular Filtration Rate Calc 94 >90 mL/min BUN/Creatinine Ratio 10.0 10.0-20.0 Serum Glucose 89 74-106 mg/dL Lactic Acid Level 0.6 0.4-2.0 mmol/L Calcium Level 9.6 8.7-10.4 mg/dL Total Bilirubin 0.2 0.2-1.0 mg/dL Direct Bilirubin < 0.1 <0.3 mg/dL Aspartate Amino Transferase (AST) 14 13-40 U/L Alanine Aminotransferase (ALT) 10 7-40 U/L Alkaline Phosphatase 51 46-116 U/L Total Protein 6.2 5.7-8.2 g/dL Albumin 3.6 3.2-4.8 g/dL Lipase 47 12-53 U/L Current Medications Medications (Trade) Dose Ordered Sig/Tyler Route Start Time Stop Time Status Last Admin Sodium Chloride 1,000 ml @ 1,000 mls/hr Q1H ONCE IV 07/04/24 11:30 07/04/24 12:29 DC 07/04/24 13:03 Ondansetron HCl (Zofran) 4 mg ONCE ONCE IV 07/04/24 11:30 07/04/24 11:49 DC 07/04/24 13:03 Morphine Sulfate 4 mg ONCE ONCE IV 07/04/24 11:30 07/04/24 11:52 DC 07/04/24 13:04 X-Ray, Labs, Meds, VS Comment 68 yo male here w recent history of bladder removal 2/2 cancer here with c/o lower abdominal pain. VSS. Exam with minimal ttp but overall reassuring without signs of significant acute infection or other acute process. Labs reassuring, no significant leukocytosis. Patient mildly anemic with hgb 9 down from 12 in March 2024, no active bleed at this time. CT without evidence of acute pathology as well. Patient's pain was well controlled in the ER. I provided a refill of robaxin to hold them over until patient sees his surgeon next wednesday at the follow-up visit. Doubt appy, inna, obstruction, cellulitis, deep space infection or any other significant acute pathology. Patient was instructed to f/u with his PMD in 2-3 days for reeval and both he and his expressed understanding of this and were in agreement with the plan today. Images Reviewed?: Images reviewed and evaluated by me Time of 1ST Reevaluation: 12:36 Reevaluation 1ST: states pain improving Time of 2ND Reevaluation: 16:09 Reevaluation 2ND: Improved Patient Education/Counseling: Diagnosis, Treatment, Prognosis, Need For Follow Up Family Education/Counseling: Diagnosis, Treatment, Prognosis, Need For Follow Up, No Family Present Departure 1 Departure Time of Disposition: 16:09 Impression: Primary Impression: Abdominal pain Additional Impression: History of bladder cancer Disposition: 01 HOME / SELF CARE / HOMELESS Condition: Stable Discharged With: Spouse Critical Care Note Critical Care Time?: No Stability Stability form required: BALTAZAR Lopez MD Jul 04, 2024 11:28
[2024-07-04] MEDS: SODIUM CHLORIDE 0.9% 1,000 ML IV ONE (13:03)
[2024-07-04] MEDS: ONDANSETRON HCL 4 MG/2 ML VIAL IV ONE ×2 (13:03→16:44)
[2024-07-04] MEDS: MORPHINE SULFATE 4 MG/ML SYR/VIAL IV ONE ×2 (13:04→16:45)
[2024-07-04 13:55] LABS: Basophils # (auto) 0 10 ^3/uL (0-0.2); Basophils % (auto) 0.6 % (0.0-2.0); Eosinophils # (auto) 0.1 10 ^3/uL (0-0.8); Eosinophils % (auto) 1.5 % (0.0-7.0); Hematocrit 27.2 % (41.0-53.0); Hemoglobin 9.1 g/dL (13.5-17.5); Lymphocytes # (auto) 1.1 10 ^3/uL (0.4-5.4); Lymphocytes % (auto) 21.1 % (10.0-50.0); Mean Corpuscular Hemoglobin 30.6 pg (28.0-32.0); Mean Corpuscular Hgb Conc. 33.4 g/dL (32.0-36.0); Mean Corpuscular Volume 91.4 fL (80.0-100.0); Monocytes # (auto) 0.4 10 ^3/uL (0-1.3); Monocytes % (auto) 7.5 % (0.0-12.0); Neutrophils # (auto) 3.5 10 ^3/uL (1.6-8.6); Neutrophils % (auto) 69.3 % (37.0-80.0); Platelet Count (auto) 221 10^3/uL (140-450); Red Blood Cells 2.98 10^6/uL (4.5-5.90)
[2024-07-04 14:11] LABS: Alanine Aminotransferase 10 U/L (7-40); Albumin 3.6 g/dL (3.2-4.8); Alkaline Phosphatase 51 U/L (46-116); Anion Gap 7 (5-15); Aspartate Aminotransferase 14 U/L (13-40); Calcium 9.6 mg/dL (8.7-10.4); Carbon Dioxide 24 mmol/L (20-31); Glucose 89 mg/dL (74-106); Potassium 4.2 mmol/L (3.5-5.1); Sodium 140 mmol/L (136-145)
[2024-07-04 14:13] LABS: Total Protein 6.2 g/dL (5.7-8.2)
[2024-07-04 14:18] LABS: Bilirubin, Direct < 0.1 mg/dL (<0.3); Bilirubin, Total 0.2 mg/dL (0.2-1.0); Blood Urea Nitrogen 9 mg/dL (9-23); Chloride 109 mmol/L (98-107)
--- NOTE | 2024-07-04 14:39 | DVH ---
CT CT AB PEL WO CON-NO ORAL OR IV INDICATION: lower abdominal pain, hx bladder removal due to CA 06/16/24 EXAM DATE: 07/04/2024 02:12 PM COMPARISON: CT CT AB PEL WO CON-NO ORAL OR IV on DOS: 12/31/23, CT CT AB PEL WO CON-NO ORAL OR IV on DO S: 09/04/23, CT CT AB PEL WO CON-NO ORAL OR IV on DOS: 09/27/22 RADIATION DOSE: CTDIvol: 8 mGy, DLP: 454 mGy*cm PROCEDURE: Helical CT images were obtained of the abdomen and pelvis without IV contrast Sagittal an d coronal reconstructions are provided. ORAL CONTRAST: None. ADDITIONAL IMAGES / REFORMATS: None All CT scans at this medical facility are performed using dose modulation techniques as appropriate t o a performed exam including the following: Automated exposure control was utilized; adjustment of th e MA and/or KV according to patient size; and use of iterative reconstruction technique. FINDINGS: LUNG BASE: Bibasilar atelectasis. LIVER: Normal. GALLBLADDER AND BILIARY TREE: Gallbladder sludge is seen. No intra- or extrahepatic biliary ductal di lation. PANCREAS: Normal. SPLEEN: Normal. BOWEL: Post surgical changes with bowel anastomotic sutures. No small bowel dilation is seen. ADRENALS: Normal. KIDNEYS AND URETER: Bilateral ureteral stent into the ileal conduit with mild left hydronephrosis. BLADDER: Post surgical resection of the bladder with a right lower quadrant ileal conduit. REPRODUCTIVE ORGANS: Normal. LYMPH NODES:No lymphadenopathy. PERITONEUM: No ascites or free air. No other fluid collection. VESSELS: Scattered atherosclerotic calcifications are noted. Mild ectasia of the abdominal aorta. RETROPERITONEUM: Normal. ABDOMINAL WALL: Small bilateral fat containing inguinal hernias. BONES: Scattered osseous degenerative changes are noted. Lumbar spinal fusion hardware is noted. IMPRESSION: Post surgical resection of the bladder with a right lower quadrant ileal conduit. Bilateral ureteral stent into the ileal conduit with mild left hydronephrosis. Post surgical changes with bowel anastomotic sutures. No small bowel dilation is seen. Gallbladder sludge is seen.
[2024-07-04 14:47] LABS: Lipase 47 U/L (12-53)
[2024-07-04] MEDS ORDERED: METH-1181 PO (16:24)
[2024-07-04 16:37] VITALS: TEMP 98.5; O2SAT 100
[2024-07-04 17:06] VITALS: BP 143/70; PULSE 71; RESP 18
== END 2024-07-04 17:06 | disposition home or self-care (01) ==
LOC: EDBD 10:50 → ER 10:50
DX: R10.31 Right lower quadrant pain (principal); I11.0 Hypertensive heart disease with heart failure; I50.89 Other heart failure; J44.9 Chronic obstructive pulmonary disease, unspecified; E11.9 Type 2 diabetes mellitus without complications; E78.5 Hyperlipidemia, unspecified; Z88.8 Allergy status to other drugs, medicaments and biological substances; Z88.6 Allergy status to analgesic agent; Z79.899 Other long term (current) drug therapy; Z79.84 Long term (current) use of oral hypoglycemic drugs; Z98.890 Other specified postprocedural states
CPT/HCPCS: 36415; 74176; 80048; 80076; 82962; 83605; 83690; 85025; 93005; 96361; 96374; 96375; 96376; 99285; J2270; J2405; J7030

== ENCOUNTER → 2024-07-17 | Outpatient (CLI) | payer MEDICARE, MEDICAID ==
[~2024-07-17] MED LIST changes: +METH-1181 PO
== END | disposition home or self-care (01) ==
LOC: Rad HDHVI 14:19
PROVIDERS: ATTEND Internal Medicine Cardiovascular Disease
DX: I82.621 Acute embolism and thrombosis of deep veins of right upper extremity (principal); R22.31 Localized swelling, mass and lump, right upper limb
CPT/HCPCS: 93971

== ENCOUNTER 2024-12-06 17:04 | Inpatient (IN) | payer MEDICARE, MEDICAID ==
[2024-12-06] VITALS (7 sets, daily range): BP systolic 123; BP diastolic 67; PULSE 68–85; RESP 14–20; TEMP 97.8; O2SAT 99–100
[~2024-12-06] VITALS: Ht 162.6 cm; Wt 74.1 kg
--- NOTE | 2024-12-06 17:13 | ED.PDOC ---
HPI Comments HPI: PMHx: CAD, Cancer, CHF, COPD, DM, HLD, HTN, SD, UTIs PSHx: Coronary Stents KASCRYSIAN: HPI: Poor Historian. 69-year-old male brought in by ambulance for evaluation of midsternal chest tightness radiating to the throat and bilateral upper extremities numbness and tingling sensation. This happened after he had a CT scan with contrast of abdomen and pelvis to monitor his bladder cancer. He says that the symptoms are similar to previous MIs. Patient is on Plavix and Eliquis and compliant with his medications. He declined aspirin but he did take nitroglycerin by ambulance. It improved his pain from 8/10 now to 4/10. Vital signs were otherwise unremarkable. Past Medical History: Hypertension, hyperlipidemia, COPD 2 L nasal cannula, MIs x4, Past Surgical History: Bladder cancer resection, back surgery, REVIEW OF SYSTEMS: CONSTITUTIONAL: Denies acute: fever, diaphoresis, chills, generalized weakness. HEAD: Denies acute: headache, photophobia Eyes: Denies acute: Double vision, vision loss, eye pain, eye discharge. EARS: Denies acute: tinnitus, hearing loss, ear discharge, ear pain, THROAT: Denies acute: sore throat, swelling, difficulty swallowing , pain with swallowing, change in voice. NECK: Denies acute: neck pain, neck swelling, stiff neck. HEART: Denies acute : palpitations, LUNGS: Denies acute: , wheezing, cough, hemoptysis ABDOMEN: Denies acute: abdominal pain, Nausea, Vomiting, diarrhea, melena , hematemesis, hematochezia SKIN: Denies acute: rash, redness, lesions, itchiness. EXTREMITIES: Denies acute: calf pain, , , weakness, denies pain in extremity. Denies acute: Low back pain. Neuro: Denies acute: focal neurological deficit, motor or sensory focal neurological deficit, tremors, seizure like activity, confusion, dizziness, change in mental status, loss of bowel or bladder function, cauda equina like symptoms. : Denies acute: dysuria, hematuria, flank pain, increase in urinary frequency. PSYCH: Denies acute: hallucination, suicidal ideation, homicidal ideation. PHYSICAL EXAM: General: -----mild---acute distress, awake and alert. Head: normocephalic, atraumatic. Neck: supple, trachea is midline, no swelling. Throat: Normal phonation. Eyes:, no erythema, no purulent discharge, no proptosis, no icterus. Heart: regular rate, regular rhythm, no significant murmur appreciated. Lungs: no apparent respiratory distress, Able to speak in full sentences. No wheezing, no rhonchi, no crackles. No stridors Clear to auscultation bilaterally. Abdomen: non tender to palpation, non distended, soft, no guarding, no rebound, + bowel sounds. Noted abdominal ostomy pouch after his bladder resection. Neuro: Awake, Alert, oriented to name, self, situation, follows commands GCS=15. Speech is normal. Skin: no petechia, no purpura, no cyanosis, slightly-pale, not jaundice. Lower extremities: --trace- Pitting edema no deformity, no focal swelling, no calf TTP. Makes eye contact. moves all four extremities. Face: no apparent facial droop. ED COURSE: Time Seen by MD: 17:12 Primary Care Provider: MILLICENT Reviewed Notes: Medications, Allergies Allergies: Coded Allergies: Carisoprodol (Verified Allergy, Unknown, 05/16/19) Iodide (Verified Allergy, Unknown, 07/04/24) Meperidine (Verified Allergy, Unknown, 05/16/19) Oxycodone (Verified Allergy, Unknown, 05/16/19) Piroxicam (Verified Allergy, Unknown, 05/16/19) Propoxyphene (Verified Allergy, Unknown, 05/16/19) Home Meds Active Scripts Methocarbamol (Methocarbamol) 500 Mg Tab, 500 MG PO QID for 5 Days, #20 TAB Prov:BALTAZAR BERRIOS MD 07/04/24 Apixaban Base (ELIQUIS) 2.5 Mg Tab, 2.5 MG PO BID for 30 Days, #60 TAB 1 Refill Prov:KAIT CHAPARRO MD 01/31/24 Levofloxacin Hemihydrate (LEVAQUIN 500 MG) 500 Mg Tab, 500 MG PO DAILY for 10 Days, #10 TAB Prov:KAIT CHAPARRO MD 01/31/24 Reported Medications Meclizine Hcl (Meclizine Hcl) 25 Mg Tab, 25 MG PO DAILY for 30 Days, MG 01/28/24 Clopidogrel Bisulfate (CLOPIDOGREL) 75 Mg Tab, 75 MG PO EOD for 30 Days, MG 01/28/24 Vericiguat (Verquvo) 2.5 Mg Tab, 5 MG PO DAILY, TAB 01/03/24 Metoprolol Succinate (Metoprolol Succinate Er) 50 Mg Tab, 50 MG PO DAILY, TAB 01/03/24 Fenofibrate (Fenofibrate) 160 Mg Tab, 160 MG PO DAILY, TAB 01/03/24 Patients Own Medication (PATIENTS OWN MEDICATION) ., 61 MG PO DAILY PTS OWN MED-OBTAIN FROM PT AND SEND TO RX DRUG: [id number] 61 MG CAPSULE FREQ: TAKE 1 CAPSULE BY MOUTH DAILY RX# EXP: DATE DISP: TECH: [facility]: 11/23/23 Hydrocodone-Acetaminophen (Hydrocodone Bitartrate/AC 10-325 mg) 1 Tab Tab, 1 TAB PO Q6HR 11/23/23 Potassium Chloride (POTASSIUM CHLORIDE CR) 10 Meq Tb, 1 TAB PO DAILY 11/23/23 Furosemide (Furosemide) 20 Mg Tab, 1 TAB PO DAILY 11/23/23 Nitroglycerin (NTROSTAT SUBLINGUAL) 0.4 Mg Sl, 0.4 MG SL PRN, TAB *MAY REPEAT EVERY 5 MINUTES X 3 TOTAL IF NO RELIEF, INITIATE ANALGESIC THERAPY. NOTIFY PHYSICIAN *Do not crush. 11/22/23 Fluoxetine Hcl (Fluoxetine Hcl) 20 Mg Cap, 20 MG PO DAILY, MG 11/22/23 Finasteride (Finasteride) 5 Mg Tab, 1 TAB PO DAILY 08/24/23 Formoterol Fumarate Dihydrate (Formoterol Fumarate) 20 Mcg/2 Ml Neb, 1 INH INH BID 08/24/23 Cholecalciferol (Vitamin D) 2,000 Unit Cap, 1 CAP PO DAILY 08/24/23 Rosuvastatin Calcium (Rosuvastatin Calcium) 40 Mg Tab, 40 MG PO DAILY, TAB 01/27/23 Docusate Sodium (Docusil) 100 Mg Cap, 100 MG PO BID, CAP 05/08/20 Spironolactone (Aldactone) 25 Mg Tab, 1 TAB PO DAILY for SP, #90 TAB 1 Refill 05/16/19 Albuterol Sulfate (VENTOLIN MDI) 90 Mcg Ih, 1 PUFF INH Q4-6HR PRN 06/07/18 Dexlansoprazole (Dexilant) 60 Mg Cap, 60 MG PO DAILY, CAP 08/06/15 Gabapentin (Neurontin) 300 Mg Cap, 1 TAB PO TID 01/15/11 Discontinued Reported Medications Aspirin (Aspir-Low) 81 Mg Tab, 81 MG PO DAILY, MG 01/03/24 Ferrous Sulfate (Ferosul) 325 Mg Tab, 1 TAB PO TID 11/23/23 Tamsulosin Hcl (Tamsulosin Hcl) 0.4 Mg Cap, 2 CAP PO DAILY 08/24/23 Past Medical History PAST MEDICAL HISTORY: CAD, Cancer, CHF, COPD, DM, High Lipids, HTN, SD, UTI'S Surgical History: PTCA Family History Family History: No family hx of DM, No family hx of Heart reid, Family hx of Cancer Social History Smoker: Non-Smoker, Quit Greater Than 1 Year Alcohol: Denies ETOH Use Drugs: Denies Drug Use Lives In: Home Was a procedure done? Was a procedure done?: No CP Differential Dx Differential Diagnosis: N/A Differential Diagnosis: Other (Ddx include but not limitied to gastritis, musculoskeletal pain, radiculopathy, atypical chest pain, dissection, aneurysm, ACS, unstable angina, hiatal hernia, GERD, anxiety, costochondritis, PE, pneumothroax, neoplasm, cardiac ischemia, drug abuse, anemia.) X-Ray, Labs, Meds, VS Vital Signs Date Time Temp Pulse Resp B/P (MAP) Pulse Ox O2 Delivery O2 Flow Rate FiO2 12/06/24 19:30 97.4 85 16 107/52 (70) 99 97.4 12/06/24 19:30 85 16 100 Nasal Cannula* 2 12/06/24 19:20 107/52 12/06/24 18:28 80 12/06/24 17:59 100 Nasal Cannula* 2 12/06/24 17:59 80 14 127/61 (83) 100 12/06/24 17:59 80 14 100 Nasal Cannula* 2 28 12/06/24 17:57 127/61 12/06/24 17:42 98.0 96 18 145/83 (103) 99 98.0 12/06/24 17:14 89 Lab Test 12/06/24 18:48 12/06/24 17:48 Range/Units Troponin I High Sensitivity 187 *H 81 *H </=54 ng/L White Blood Count 9.1 4.4-10.8 10^3/uL Red Blood Count 3.62 L 4.5-5.90 10^6/uL Hemoglobin 8.0 L 13.5-17.5 g/dL Hematocrit 25.3 L 41.0-53.0 % Mean Corpuscular Volume 70.0 L 80.0-100.0 fL Mean Corpuscular Hemoglobin 22.0 L 28.0-32.0 pg Mean Corpuscular Hemoglobin Concent 31.5 L 32.0-36.0 g/dL Red Cell Distribution Width 16.9 H 11.8-14.3 % Platelet Count 243 140-450 10^3/uL Mean Platelet Volume 7.9 6.9-10.8 fL Neutrophils (%) (Auto) 89.9 H 37.0-80.0 % Lymphocytes (%) (Auto) 7.6 L 10.0-50.0 % Monocytes (%) (Auto) 2.4 0.0-12.0 % Eosinophils (%) (Auto) 0.0 0.0-7.0 % Basophils (%) (Auto) 0.1 0.0-2.0 % Neutrophils # (Auto) 8.1 1.6-8.6 10 ^3/uL Lymphocytes # (Auto) 0.7 0.4-5.4 10 ^3/uL Monocytes # (Auto) 0.2 0-1.3 10 ^3/uL Eosinophils # (Auto) 0 0-0.8 10 ^3/uL Basophils # (Auto) 0 0-0.2 10 ^3/uL Nucleated Red Blood Cells 0.0 % Prothrombin Time 11.4 9.3-11.8 sec Prothrombin Time INR 1.08 0.9-1.15 Activated Partial Thromboplast Time 23.9 L 24.5-34.5 SEC Sodium Level 138 136-145 mmol/L Potassium Level 4.5 3.5-5.1 mmol/L Chloride Level 107 98-107 mmol/L Carbon Dioxide Level 22 20-31 mmol/L Anion Gap 9 5-15 Blood Urea Nitrogen 19 9-23 mg/dL Creatinine 1.15 0.700-1.30 mg/dL Glomerular Filtration Rate Calc 69 >90 mL/min BUN/Creatinine Ratio 16.5 10.0-20.0 Serum Glucose 124 H 74-106 mg/dL Calcium Level 10.3 8.7-10.4 mg/dL Total Bilirubin 0.3 0.2-1.0 mg/dL Aspartate Amino Transferase (AST) 13 13-40 U/L Alanine Aminotransferase (ALT) < 9 7-40 U/L Alkaline Phosphatase 34 L 46-116 U/L B-Type Natriuretic Peptide 158.98 0-100 pg/mL Total Protein 7.1 5.7-8.2 g/dL Albumin 4.6 3.2-4.8 g/dL PATIENT: JAIME WILSONCCT: [id number]: [id number] : 1955 LOC: ER ROOM / BED: / AGE / SEX: 69 / M ADM STATUS: REG ER SERVICE 174 ORDERING PHYSICIAN: ERIC MOREAU DO PROCEDURE(s): CXRP - CHEST PORTABLE REASON: cp ORDER NUMBER(s): [id number], ACCESSION NUMBER(s): [id number] EXAM: XY CHEST PORTABLE TECHNIQUE: Single frontal chest radiograph CLINICAL HISTORY: cp COMPARISON: XY CHEST PORTABLE on DOS: 01/27/24, XY CHEST XRAY 1 VIEW on DOS: 01/01/24, XY CHEST PORTABLE on DOS: 11/22/23 Findings/Impression: Frontal chest radiograph demonstrates no acute osseous or superficial soft tissue abnormalities. The trachea is midline. The cardiac silhouette and mediastinum are within normal limits. No pneumothorax, pleural effusions, or consolidations. ATED BY: CECELIA DUONG DO DICTATED DATE/TIME: 12/06/241804 SIGNED BY: CECELIA DUONG DO SIGNED DATE/TIME: 12/06/241804 Time of 1ST Reevaluation: 17:42 Reevaluation 1ST: Unchanged Patient Education/Counseling: Diagnosis, Treatment Family Education/Counseling: No Family Present Comments Cardiology was consulted Dr. Villeda. He reviewed the EKG and troponin levels r ising. States inferior ischemia. Patient presented with the above HPI.---cardiac---workup was initiated. patient was found with the above mentioned diagnosis. the following medications were ordered: please refer to order lists of meds and tests obtained by myself Dr. Moreau. Patient ED course and VS have been stabilized. Patient has been reassessed in the ED and remained in a stable condition. Pertinent incidental findings were discussed with the patient and/or family. Patient/family voices understanding and is agreeable with plan. Patient has been observed in the ED adequate length of time to insure improvement/stability. Escalation of care considered: Consideration of escalation to observation or admission Patient was ADMITTED to the medicine team for further evaluation and treatment of their presentation. All the reports of any imaging studies that were ordered by myself were reviewed by myself. Departure 1 Departure Time of Disposition: 17:15 Impression: Primary Impression: Chest pain Additional Impressions: Elevated troponin Abnormal EKG Anemia Disposition: ADMITTED INPATIENT Admit to: Tele Condition: Guarded Discharged With: Self Critical Care Note Critical Care Time?: Yes (55 min-critical care time only) Heart Score Heart Score: Heart Score Response (Comments) Value History Highly Suspicious [address]-Deviation 2 Age >65 2 Risk Factors >3 or Hx ASHD 2 Troponin >3 x's Normal limit 2 Total 10 I personally scribed for ERIC MOREAU DO ([email or web address]) on 12/06/24 at 17:13. Electronically submitted by Darryl Davis ([email or web address]). I personally scribed for ERIC MOREAU DO ([email or web address]) on 12/06/24 at 20:37. Electronically submitted by Darryl Davis ([email or web address]). ERIC MOREAU DO Dec 06, 2024 17:13
[2024-12-06] MEDS: NITROGLYCERIN 0.4 MG SL TAB SL ONE (17:57)
[2024-12-06 18:02] LABS: Basophils # (auto) 0 10 ^3/uL (0-0.2); Basophils % (auto) 0.1 % (0.0-2.0); Eosinophils # (auto) 0 10 ^3/uL (0-0.8); Lymphocytes # (auto) 0.7 10 ^3/uL (0.4-5.4); Monocytes # (auto) 0.2 10 ^3/uL (0-1.3); Neutrophils # (auto) 8.1 10 ^3/uL (1.6-8.6); White Blood Cell 9.1 10^3/uL (4.4-10.8)
[2024-12-06 18:03] LABS: Hematocrit 25.3 % (41.0-53.0); Lymphocytes % (auto) 7.6 % (10.0-50.0); Mean Corpuscular Hgb Conc. 31.5 g/dL (32.0-36.0); Monocytes % (auto) 2.4 % (0.0-12.0); Neutrophils % (auto) 89.9 % (37.0-80.0); Platelet Count (auto) 243 10^3/uL (140-450); Red Blood Cells 3.62 10^6/uL (4.5-5.90); Red Cell Distribution Width 16.9 % (11.8-14.3)
--- NOTE | 2024-12-06 18:07 | DVH ---
EXAM: XY CHEST PORTABLE TECHNIQUE: Single frontal chest radiograph CLINICAL HISTORY: cp COMPARISON: XY CHEST PORTABLE on DOS: 01/27/24, XY CHEST XRAY 1 VIEW on DOS: 01/01/24, XY CHEST PORTABLE on DOS: 11/22/23 Findings/Impression: Frontal chest radiograph demonstrates no acute osseous or superficial soft tissue abnormalities. The trachea is midline. The cardiac silhouette and mediastinum are within normal limits. No pneumothorax, pleural effusions, or consolidations.
[2024-12-06 18:16] LABS: Alanine Aminotransferase < 9 U/L (7-40); Albumin 4.6 g/dL (3.2-4.8); Alkaline Phosphatase 34 U/L (46-116); Anion Gap 9 (5-15); Aspartate Aminotransferase 13 U/L (13-40); BUN/Creatinine Ratio 16.5 (10.0-20.0); Bilirubin, Total 0.3 mg/dL (0.2-1.0); Blood Urea Nitrogen 19 mg/dL (9-23); Calcium 10.3 mg/dL (8.7-10.4); Carbon Dioxide 22 mmol/L (20-31); Chloride 107 mmol/L (98-107); Glucose 124 mg/dL (74-106); Potassium 4.5 mmol/L (3.5-5.1); Sodium 138 mmol/L (136-145); Total Protein 7.1 g/dL (5.7-8.2)
--- NOTE | 2024-12-06 18:29 | ECG ---
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
[2024-12-06] MEDS ORDERED: ACETAMINOPHEN 325 MG TAB PO PRN (19:45)
[2024-12-06] MEDS ORDERED: NITROGLYCERIN 0.4 MG SL TAB SL PRN (19:45)
[2024-12-06 20:08] LABS: Urine Bacteria None Seen /hpf (None Seen)
[2024-12-06] MEDS: ALBUTEROL SULF 2.5 MG/0.5ML(0.5%) NEB SOLN NEB PRN (20:24)
--- NOTE | 2024-12-06 20:31 | ECG ---
[facility] Test Date: 2024-12-06 Test Time: 20:07:51 Pat Name: AISHWARYA WILSON Department: ED Room: [address] [place] [id number] Gender: M Medical Staff Manager: KRISTAL : 1955 Requested By: ERIC MOREAU Order Number: [id number] Reading MD: Eduardo Villeda Measurements Intervals [place] Rate: 78 P: 59 [place]: 181 QRS: 34 QRSD: 100 T: -34 QT: 379 QTc: 432 Interpretive Statements Sinus rhythm Abnormal R-wave progression, early transition Repol abnrm suggests ischemia, diffuse leads Electronically Signed On 12-06-2024 21:18:26 PDT by Eduardo Villeda Please click the below link to view image of tracing.
[2024-12-06 20:36] LABS: INR 1.08 (0.9-1.15); Partial Thromboplastin Time 23.9 SEC (24.5-34.5); Prothrombin Time 11.4 sec (9.3-11.8)
[2024-12-06 20:42] LABS: Urine Blood Negative /uL (Negative); Urine Clarity Clear (Clear); Urine Color Light-Yellow (Yellow); Urine Protein, UAD Negative (Negative); Urine Specific Gravity 1.025 (1.001-1.035); Urine Squamous Epithelial Cell None Seen /hpf (<5); Urine Urobilinogen Normal (Negative); Urine WBC 9 /HPF (0-3); Urine pH 7.5 (5.0-9.0)
[2024-12-06] MEDS ORDERED: APIXABAN 2.5 MG TAB PO SCH (22:00)
[2024-12-06] MEDS: ATORVASTATIN 20 MG TAB PO SCH (22:15)
[2024-12-06] MEDS: MORPHINE SULFATE INJ 2 MG/ml SYRG IV PRN (22:18)
[2024-12-06] MEDS: MORPHINE SULFATE 4 MG/ML SYR/VIAL ONE (22:45)
[2024-12-06] MEDS: ENOXAPARIN SOD 100 MG/1 ML SYRINGE SC ONE (23:12)
[2024-12-07] VITALS (10 sets, daily range): BP systolic 105–120; BP diastolic 45–61; PULSE 62–82; RESP 17–20; TEMP 97.6–98.6; O2SAT 98–100
[2024-12-07] MEDS: MORPHINE SULFATE 4 MG/ML SYR/VIAL IV PRN (03:25)
--- NOTE | 2024-12-07 04:06 | DVHHP2 ---
History of Present Illness Reason for Visit: Chest pain History of Present Illness 69-year-old male presents for evaluation of chest pain. Patient with a history of multiple stents reports a one day history of substernal pressure-like nonradiating chest pain. She also reports shortness for breath. No nausea or vomiting. No cough or fever. Past Medical History COPD, dyslipidemia, CHF, cancer, CAD, hypertension, mi Past Surgical History PTCA Family History Noncontributory Lives: with Family Review of Systems Review of Systems Review of systems are currently negative otherwise addressed in HPI. Allergies: Coded Allergies: Carisoprodol (Verified Allergy, Unknown, 05/16/19) Iodide (Verified Allergy, Unknown, 07/04/24) Meperidine (Verified Allergy, Unknown, 05/16/19) Oxycodone (Verified Allergy, Unknown, 05/16/19) Piroxicam (Verified Allergy, Unknown, 05/16/19) Propoxyphene (Verified Allergy, Unknown, 05/16/19) Medications Current Medications Medications Dose Ordered Sig/Tyler Route Start Time Stop Time Status Last Admin Dose Admin Nitroglycerin 0.4 mg Q5MINP PRN SL 12/06/24 19:45 Aspirin 162 mg DAILY PO 12/07/24 10:00 Albuterol 2.5 mg Q6HPRN PRN NEB 12/06/24 19:45 12/06/24 20:24 2.5 MG Clopidogrel Bisulfate 75 mg DAILY PO 12/07/24 10:00 Furosemide 20 mg DAILY PO 12/07/24 10:00 Metoprolol Succinate 50 mg DAILY PO 12/07/24 10:00 Atorvastatin Calcium 40 mg HS PO 12/06/24 22:00 12/06/24 22:15 40 MG Spironolactone 25 mg DAILY PO 12/07/24 10:00 Ondansetron HCl 4 mg Q4HP PRN IV 12/06/24 19:45 Acetaminophen 650 mg Q6HP PRN PO 12/06/24 19:45 Morphine Sulfate 2 mg Q30MIN PRN IV 12/07/24 01:30 12/07/24 03:25 2 MG Exam Vital Signs Vital Signs Date Time Temp Pulse Resp B/P (MAP) Pulse Ox O2 Delivery O2 Flow Rate FiO2 12/07/24 03:25 65 19 118/69 12/07/24 01:11 100 Nasal Cannula* 2 28 12/06/24 23:58 97.8 97.8 Exam Gen: 69-year-old male in mild distress Skin: Warm, dry, normal color and texture, no rash. HEENT: Normocephalic atraumatic, mucous membranes moist and pink. Neck: Cervical and supraclavicular nodes normal without enlargement, trachea is midline, thyroid gland is normal without masses. Pulmonary: Clear to auscultation and percussion bilaterally. Cardiac: Regular rate and rhythm. No murmur Abdomen: Soft, nontender, nondistended, bowel sounds present all 4 quadrants, no guarding, no rigidity, no organomegaly. Extremities: No cyanosis, clubbing, no edema Neuro: Cranial nerves II through XII grossly intact, normal affect and speech, no focal motor deficits. Labs/Xrays ORDERING PHYSICIAN: ERIC MOREAU DO PROCEDURE(s): CXRP - CHEST PORTABLE REASON: ORDER NUMBER(s): [id number], ACCESSION NUMBER(s): [id number] EXAM: XY CHEST PORTABLE TECHNIQUE: Single frontal chest radiograph CLINICAL HISTORY: COMPARISON: XY CHEST PORTABLE on DOS: 01/27/24, XY CHEST XRAY 1 VIEW on DOS: 01/01/24, XY CHEST PORTABLE on DOS: 11/22/23 Findings/Impression: Frontal chest radiograph demonstrates no acute osseous or superficial soft tissue abnormalities. The trachea is midline. The cardiac silhouette and mediastinum are within normal limits. No pneumothorax, pleural effusions, or consolidations. Labs Test 12/06/24 20:49 12/06/24 19:58 12/06/24 17:48 Range/Units Troponin I High Sensitivity 312 *H </=54 ng/L Urine Color Light-yellow Yellow Urine Clarity Clear Clear Urine pH 7.5 5.0-9.0 Urine Specific [place] 1.025 1.001-1.035 Urine Protein Negative Negative Urine Ketones Negative Negative Urine Blood Negative Negative /uL Urine Nitrite 2+ H Negative Urine Bilirubin Negative Negative Urine Urobilinogen Normal Negative mg/dL Urine Leukocyte Esterase Negative Negative /uL Urine RBC 1 0 - 3 /hpf Urine Microscopic WBC 9 H 0-3 /HPF Urine Squamous Epithelial Cells None seen <5 /hpf Urine Bacteria None seen None Seen /hpf Urine Glucose Normal Normal mg/dL White Blood Count 9.1 4.4-10.8 10^3/uL Red Blood Count 3.62 L 4.5-5.90 10^6/uL Hemoglobin 8.0 L 13.5-17.5 g/dL Hematocrit 25.3 L 41.0-53.0 % Mean Corpuscular Volume 70.0 L 80.0-100.0 fL Mean Corpuscular Hemoglobin 22.0 L 28.0-32.0 pg Mean Corpuscular Hemoglobin Concent 31.5 L 32.0-36.0 g/dL Red Cell Distribution Width 16.9 H 11.8-14.3 % Platelet Count 243 140-450 10^3/uL Mean Platelet Volume 7.9 6.9-10.8 fL Neutrophils (%) (Auto) 89.9 H 37.0-80.0 % Lymphocytes (%) (Auto) 7.6 L 10.0-50.0 % Monocytes (%) (Auto) 2.4 0.0-12.0 % Eosinophils (%) (Auto) 0.0 0.0-7.0 % Basophils (%) (Auto) 0.1 0.0-2.0 % Neutrophils # (Auto) 8.1 1.6-8.6 10 ^3/uL Lymphocytes # (Auto) 0.7 0.4-5.4 10 ^3/uL Monocytes # (Auto) 0.2 0-1.3 10 ^3/uL Eosinophils # (Auto) 0 0-0.8 10 ^3/uL Basophils # (Auto) 0 0-0.2 10 ^3/uL Nucleated Red Blood Cells 0.0 % Prothrombin Time 11.4 9.3-11.8 sec Prothrombin Time INR 1.08 0.9-1.15 Activated Partial Thromboplast Time 23.9 L 24.5-34.5 SEC Sodium Level 138 136-145 mmol/L Potassium Level 4.5 3.5-5.1 mmol/L Chloride Level 107 98-107 mmol/L Carbon Dioxide Level 22 20-31 mmol/L Anion Gap 9 5-15 Blood Urea Nitrogen 19 9-23 mg/dL Creatinine 1.15 0.700-1.30 mg/dL Glomerular Filtration Rate Calc 69 >90 mL/min BUN/Creatinine Ratio 16.5 10.0-20.0 Serum Glucose 124 H 74-106 mg/dL Calcium Level 10.3 8.7-10.4 mg/dL Total Bilirubin 0.3 0.2-1.0 mg/dL Aspartate Amino Transferase (AST) 13 13-40 U/L Alanine Aminotransferase (ALT) < 9 7-40 U/L Alkaline Phosphatase 34 L 46-116 U/L B-Type Natriuretic Peptide 158.98 0-100 pg/mL Total Protein 7.1 5.7-8.2 g/dL Albumin 4.6 3.2-4.8 g/dL Assessment/Plan Assessment/Plan Assessment Chest pain rule out ACS Elevated troponin Mild anemia Hypertension History of NC Plan Admit the patient to telemetry to the hospitalist ACS protocol NPO after midnight Continue treatment per orders. Plan discussed with: Patient My Orders Orders - KAIT ASHBY Procedure Category Date Status Time Admit ADMIT 12/06/24 Transmitted 19:39 Nitroglycerin PHA 12/06/24 In Process Sublingual (Ntrostat 19:45 Notify Of Changes BEBO 12/06/24 In Process From Base 19:39 Government Minister For [facility] 12/06/24 In Process 24 Hours 19:39 Emergency Dysrhythmia BEBO 12/06/24 In Process Protocol 19:39 Rhythm Strips Once BEBO 12/06/24 In Process Every Shift 19:39 Oxygen By Nasal RT 12/06/24 Transmitted Cannula 19:39 Stat Ekg For Chest BEBO 12/06/24 In Process Pain 19:39 Aspirin Tablet PHA 12/07/24 In Process 10:00 Albuterol Medneb PHA 12/06/24 In Process (Ventolin Medneb) 19:45 Metoprolol Xl PHA 12/07/24 In Process Succinate (Toprol Xl) 10:00 Atorvastatin (Lipitor) PHA 12/06/24 In Process 22:00 Spironolactone PHA 12/07/24 In Process (Aldactone) 10:00 * Cardiology Consult CONS 12/06/24 Transmitted 19:44 Basic Metabolic Panel LAB 12/07/24 Logged 04:00 Ondansetron Hcl PHA 12/06/24 In Process (Zofran) 19:45 Complete Blood Count LAB 12/07/24 Logged 04:00 Echo 2d Mode Cardiac US 12/06/24 Logged DOP 19:44 Condition: Fair BEBO 12/06/24 In Process 19:44 Acetaminophen Tablet PHA 12/06/24 In Process (Tylenol Tablet) 19:45 Bedrest With Bathroom BEBO 12/06/24 In Process Privileg 19:44 Clopidogrel Bisulfate PHA 12/07/24 In Process (Plavix) 10:00 Furosemide Tablet PHA 12/07/24 In Process (Lasix Tablet) 10:00 Npo (Nothing By DIET 12/07/24 Transmitted Mouth) Diet Breakfast Morphine Sulfate PHA 12/07/24 In Process Injection 01:30 * Senior Physical Therapist CONS 12/07/24 Transmitted Consult 01:56 Date of Service: Dec 06, 2024 Billing Provider: KAIT ASHBY Common Visit Codes: [id number] INP/OBS CARE (HIGH) KAIT ASHBY Dec 07, 2024 04:06
[2024-12-07 06:17] LABS: Basophils # (auto) 0 10 ^3/uL (0-0.2); Basophils % (auto) 0.1 % (0.0-2.0); Eosinophils # (auto) 0 10 ^3/uL (0-0.8); Hemoglobin 7.8 g/dL (13.5-17.5); Lymphocytes # (auto) 1.1 10 ^3/uL (0.4-5.4); Monocytes # (auto) 0.7 10 ^3/uL (0-1.3)
[2024-12-07 06:20] LABS: Hematocrit 25.3 % (41.0-53.0); Mean Corpuscular Hemoglobin 21.2 pg (28.0-32.0); Mean Corpuscular Hgb Conc. 30.9 g/dL (32.0-36.0); Mean Corpuscular Volume 68.7 fL (80.0-100.0); Monocytes % (auto) 6.2 % (0.0-12.0); Neutrophils # (auto) 9.4 10 ^3/uL (1.6-8.6); Neutrophils % (auto) 83.7 % (37.0-80.0); Platelet Count (auto) 217 10^3/uL (140-450); Red Blood Cells 3.69 10^6/uL (4.5-5.90); Red Cell Distribution Width 16.8 % (11.8-14.3); White Blood Cell 11.2 10^3/uL (4.4-10.8)
[2024-12-07 06:40] LABS: Albumin 4.4 g/dL (3.2-4.8); Anion Gap 11 (5-15); Aspartate Aminotransferase 21 U/L (13-40); BUN/Creatinine Ratio 15.7 (10.0-20.0); Blood Urea Nitrogen 17 mg/dL (9-23); Calcium 9.4 mg/dL (8.7-10.4); Carbon Dioxide 21 mmol/L (20-31); Chloride 107 mmol/L (98-107); Glucose 102 mg/dL (74-106); Potassium 4.1 mmol/L (3.5-5.1); Sodium 139 mmol/L (136-145); Total Protein 6.8 g/dL (5.7-8.2)
[2024-12-07 06:41] LABS: Alanine Aminotransferase 9 U/L (7-40); Bilirubin, Total 0.2 mg/dL (0.2-1.0)
[2024-12-07 07:42] LABS: Alkaline Phosphatase 33 U/L (46-116)
[2024-12-07] MEDS: SPIRONOLACTONE 25 MG TAB PO SCH (10:00)
[2024-12-07] MEDS: ASPirin 81 mg TAB PO SCH (10:00)
--- NOTE | 2024-12-07 10:48 | ECG ---
[facility] Test Date: 2024-12-06 Test Time: 17:14:00 Pat Name: AISHWARYA WILSON Department: ED Room: [facility] A Gender: M Gold Buyer: billy : 1955 Requested By: ERIC MOREAU Order Number: [id number] Reading MD: Eduardo Villeda Measurements Intervals [place] Rate: 89 P: 44 [place]: 183 QRS: 29 QRSD: 95 T: -44 QT: 349 QTc: 425 Interpretive Statements Sinus rhythm Inferoposterior infarct, recent Lateral leads are also involved Electronically Signed On 12-08-2024 9:25:36 PDT by Eduardo Villeda Please click the below link to view image of tracing.
[2024-12-07] MEDS: CLOPIDOGREL BISULFATE 75 MG TAB PO SCH (10:57)
[2024-12-07] MEDS: METOPROLOL SUCCINATE XL 50 MG TAB PO SCH (10:58)
[2024-12-07] MEDS: FUROSEMIDE 20 MG TAB PO SCH (10:58)
--- NOTE | 2024-12-07 12:32 | DVHPN2 ---
Progress Note Date Seen: Dec 07, 2024 Medical Necessity Reason Pt with a Central, PICC or Fol: No Subjective Patient reports: No new complaints Review of Systems: HEENT:Normal, CVS:Normal, RESPIRATORY:Normal, GI:Normal, :Normal, MSK:Normal, NEURO:Normal Objective vital signs Vital Sign Date Time Temp Pulse Resp B/P (MAP) Pulse Ox O2 Delivery O2 Flow Rate FiO2 12/07/24 10:58 82 120/54 12/07/24 08:33 97.6 17 100 97.6 12/07/24 08:00 Room Air* 0 21 Total Intake and Output 12/06/24 12/06/24 12/07/24 15:00 23:00 07:00 Intake Total 0 ml Balance 0 ml medications Current Medications Medications Dose Ordered Sig/Tyler Route Start Time Stop Time Status Last Admin Dose Admin Nitroglycerin 0.4 mg Q5MINP PRN SL 12/06/24 19:45 Aspirin 162 mg DAILY PO 12/07/24 10:00 Albuterol 2.5 mg Q6HPRN PRN NEB 12/06/24 19:45 12/06/24 20:24 2.5 MG Clopidogrel Bisulfate 75 mg DAILY PO 12/07/24 10:00 12/07/24 10:57 75 MG Furosemide 20 mg DAILY PO 12/07/24 10:00 12/07/24 10:58 20 MG Metoprolol Succinate 50 mg DAILY PO 12/07/24 10:00 12/07/24 10:58 50 MG Atorvastatin Calcium 40 mg HS PO 12/06/24 22:00 12/06/24 22:15 40 MG Spironolactone 25 mg DAILY PO 12/07/24 10:00 Ondansetron HCl 4 mg Q4HP PRN IV 12/06/24 19:45 Acetaminophen 650 mg Q6HP PRN PO 12/06/24 19:45 Morphine Sulfate 2 mg Q30MIN PRN IV 12/07/24 01:30 12/07/24 03:25 2 MG Examination: GENERAL:Normal, HEENT:Normal, NECK:Normal, LUNGS:Normal, CVS:Normal, ABDOMEN:Normal, MSK:Normal, SKIN:Normal, NEURO:Normal, :Normal laboratory and microbiology Laboratory Tests 12/07/24 04:56 Test 12/07/24 04:56 Range/Units Serum Glucose 102 74-106 mg/dL Problem List/Assessment/Plan Problem List/Assessment/Plan * acute mi: angio in am * History of bladder cancer/sp surgery * Coronary artery disease, status post stents. * Chronic systolic/diastolic heart failure. * Chronic obstructive pulmonary disease. * Chronic respiratory failure. * Hyperlipidemia. * Obesity * Benign prostatic hyperplasia. * Hypertension. * anemia: monitor advance care planning- full code- time spent 19 mins Plan discussed with: Patient Date of Service: Dec 07, 2024 Billing Provider: KAIT CHAPARRO MD Common Visit Codes: [id number] INP/OBS CARE(HIGH) Secondary Visit Codes: [id number] CARE PLAN 30 MINUTES KAIT CHAPARRO MD Dec 07, 2024 12:32
[2024-12-07] MEDS: ONDANSETRON HCL 4 MG/2 ML VIAL IV PRN (12:57)
[2024-12-07 15:52] LABS: LDL Cholesterol 97 mg/dL (< 100); Triglycerides 144 mg/dL (< 150)
[2024-12-07 15:53] LABS: Cholesterol 143 mg/dL (< 200)
[2024-12-07 15:54] LABS: HDL Cholesterol 34 mg/dL (40-59)
[2024-12-08] VITALS (14 sets, daily range): BP systolic 104–133; BP diastolic 58–77; PULSE 61–115; RESP 16–19; TEMP 97.4–98.6; O2SAT 92–100
[2024-12-08] MEDS: fentaNYL CITRATE 100 MCG/2 ML VL ONE (07:48)
[2024-12-08] MEDS: LIDOCAINE 2%HCL (LOCAL ANESTH.) INJ 20ML MDV ONE ×3 (07:48→10:05)
[2024-12-08] MEDS: HEPARIN IN NS 1000Units/500mL 1,500 ML ONE (07:49)
[2024-12-08] MEDS: IOHEXOL 350 MG/ML 100ML IJ ONE ×3 (07:49→09:48)
[2024-12-08] MEDS: FAMOTIDINE (10MG/ML) 2ML VL IV ONE (09:28)
[2024-12-08] MEDS: diphenhdrAMINE HCL 50 MG/1 ML VL ONE (09:29)
[2024-12-08] MEDS: methylPREDNISolone SOD SUCC 125 MG/2 ML VL ONE (09:29)
[2024-12-08] MEDS: ANGIOMAX 250 MG VIAL IV ONE ×2 (09:29→10:22)
[2024-12-08] MEDS: SODIUM CHL 0.9% 50 ML ONE ×2 (09:30→10:22)
[2024-12-08] MEDS: NITROGLYCERIN 50MG/250ML 250 ML IV ONE (09:47)
[2024-12-08] MEDS: HYDROmorphone HCL 2 MG/ML VL/or syr ONE (10:06)
[2024-12-08] MEDS: FUROSEMIDE 20 MG/2 ML VIAL ONE (10:44)
[2024-12-08] MEDS: MIDAZOLAM HCL 2MG/2ML 2ml VIAL (1mg/ml) ONE (11:19)
[2024-12-08] MEDS: CLOPIDOGREL BISULFATE 75 MG TAB ONE (11:23)
--- NOTE | 2024-12-08 11:42 | DVHOP ---
DATE OF SURGERY: 12/08/2024 PROCEDURES PERFORMED: * Abdominal aortography. * Selective left and right lower extremity angiography. * Thrombectomy of left and right iliac ostium. * Thrombectomy with shockwave of left and right external iliac. * Bilateral stent placement of the ostial iliac with an 8 mm x 27 mm on the left iliac and an 8 mm x 37 mm Express stent in the right iliac ostium. DESCRIPTION OF PROCEDURE: The patient was prepped and draped in sterile condition. 1% Xylocaine used to anesthetize the right groin. Using ultrasound guidance, we were able to cannulate the right iliac. A 6-Chadian sheath was introduced in the right femoral artery. Similarly, after imaging of the abdominal aorta, we were able to successfully engage the left iliac. A 6-Chadian sheath was introduced to the left iliac and eventually upsized to a 7-Chadian. Then, using an angled Terumo wire, we were able to cross the high-grade narrowing of the left and right iliacs. Two Terumo wires were placed in appropriate positions above the renal arteries. Then, a thrombectomy was performed of the right and left iliac using shockwave 8 mm x 30 mm shockwave balloon. Following the thrombectomy, two stents were placed, 8 mm x 37 mm in the right iliac and 8 mm x 27 mm Express stent in the left iliac. Both were deployed at 6 atmospheres. There were no complications. The patient tolerated the procedure well. Arteriotomy site was closed using the AngioSeal device. CONCLUSION: The patient with severe peripheral vascular disease. Now, while doing coronary angiography, we had to treat and fix the iliac system bilaterally so we can have access to the coronary artery. Brandan Haywood MD SA/GWEN TID: [id number] RECEIPT: [id number]
--- NOTE | 2024-12-08 11:51 | DVHPN2 ---
Progress Note - Dictate Date Seen: Dec 07, 2024 Medical Necessity Reason Pt with a Central, PICC or Fol: No Subjective PT WITH CHEST PAIN RADIATING TO THE LEFT ARM SIMILAR TO SX PRIOR TO MD SIGNIFICANT CARDIAC HX WITH MULTIPLE STENTS IN THE RCA PMH; BLADDER CA S/P SURGERY NOW WITH HEMATURIA ABD PAIN PMH CAD S/P PTCA STENT MULTIPLE INTERVENTIONS RECENT ACUTE MD X2 NOW AGAIN WITH CHEST PAIN HX OF TRANSITIONAL CA OF THE BLADDER HX OF HEMATURIA CAD HYPERLIPIDEMIA HYPOKALEMIA S/P [facility] vital signs Vital Sign Date Time Temp Pulse Resp B/P (MAP) Pulse Ox O2 Delivery O2 Flow Rate FiO2 12/08/24 11:11 98.1 62 16 133/65 (87) 92 98.1 12/08/24 07:38 Room Air* 0 21 Total Intake and Output 12/07/24 12/07/24 12/08/24 15:00 23:00 07:00 Intake Total 400 ml 0 ml Balance 400 ml 0 ml medications Current Medications Medications Dose Ordered Sig/Tyler Route Start Time Stop Time Status Last Admin Dose Admin Nitroglycerin 0.4 mg Q5MINP PRN SL 12/06/24 19:45 Aspirin 162 mg DAILY PO 12/07/24 10:00 Albuterol 2.5 mg Q6HPRN PRN NEB 12/06/24 19:45 12/06/24 20:24 2.5 MG Clopidogrel Bisulfate 75 mg DAILY PO 12/07/24 10:00 12/07/24 10:57 75 MG Furosemide 20 mg DAILY PO 12/07/24 10:00 12/07/24 10:58 20 MG Metoprolol Succinate 50 mg DAILY PO 12/07/24 10:00 12/07/24 10:58 50 MG Atorvastatin Calcium 40 mg HS PO 12/06/24 22:00 12/07/24 20:12 40 MG Spironolactone 25 mg DAILY PO 12/07/24 10:00 Ondansetron HCl 4 mg Q4HP PRN IV 12/06/24 19:45 12/07/24 12:57 4 MG Acetaminophen 650 mg Q6HP PRN PO 12/06/24 19:45 Morphine Sulfate 2 mg Q30MIN PRN IV 12/07/24 01:30 12/08/24 05:32 2 MG laboratory and microbiology Laboratory Tests 12/07/24 04:56 Test 12/07/24 04:56 Range/Units Serum Glucose 102 74-106 mg/dL Problem List CHEST PAIN RADIATING TO THE LEFT ARM SIMILAR TO SX PRIOR TO MD SIGNIFICANT CARDIAC HX WITH MULTIPLE STENTS IN THE RCA PMH; BLADDER CA S/P SURGERY NOW WITH HEMATURIA ABD PAIN PMH CAD S/P PTCA STENT MULTIPLE INTERVENTIONS RECENT ACUTE MD X2 NOW AGAIN WITH CHEST PAIN HX OF TRANSITIONAL CA OF THE BLADDER HX OF HEMATURIA CAD HYPERLIPIDEMIA HYPOKALEMIA S/P [facility] Assessment/Plan [facility] [place] Plan discussed with: Patient MILLICENT HERNANDEZ MD Dec 08, 2024 11:51
--- NOTE | 2024-12-08 11:57 | DVHPN2 ---
Progress Note - Dictate Date Seen: Dec 08, 2024 Medical Necessity Reason Pt with a Central, PICC or Fol: No Subjective PT WITH CHEST PAIN RADIATING TO THE LEFT ARM SIMILAR TO SX PRIOR TO AL SIGNIFICANT CARDIAC HX WITH MULTIPLE STENTS IN THE RCA PMH; BLADDER CA S/P SURGERY NOW WITH HEMATURIA ABD PAIN PMH CAD S/P PTCA STENT MULTIPLE INTERVENTIONS RECENT ACUTE AL X2 NOW AGAIN WITH CHEST PAIN HX OF TRANSITIONAL CA OF THE BLADDER HX OF HEMATURIA CAD HYPERLIPIDEMIA HYPOKALEMIA S/P [facility] vital signs Vital Sign Date Time Temp Pulse Resp B/P (MAP) Pulse Ox O2 Delivery O2 Flow Rate FiO2 12/08/24 11:11 98.1 62 16 133/65 (87) 92 98.1 12/08/24 07:38 Room Air* 0 21 Total Intake and Output 12/07/24 12/07/24 12/08/24 15:00 23:00 07:00 Intake Total 400 ml 0 ml Balance 400 ml 0 ml medications Current Medications Medications Dose Ordered Sig/Tyler Route Start Time Stop Time Status Last Admin Dose Admin Nitroglycerin 0.4 mg Q5MINP PRN SL 12/06/24 19:45 Aspirin 162 mg DAILY PO 12/07/24 10:00 Albuterol 2.5 mg Q6HPRN PRN NEB 12/06/24 19:45 12/06/24 20:24 2.5 MG Clopidogrel Bisulfate 75 mg DAILY PO 12/07/24 10:00 12/07/24 10:57 75 MG Furosemide 20 mg DAILY PO 12/07/24 10:00 12/07/24 10:58 20 MG Metoprolol Succinate 50 mg DAILY PO 12/07/24 10:00 12/07/24 10:58 50 MG Atorvastatin Calcium 40 mg HS PO 12/06/24 22:00 12/07/24 20:12 40 MG Spironolactone 25 mg DAILY PO 12/07/24 10:00 Ondansetron HCl 4 mg Q4HP PRN IV 12/06/24 19:45 12/07/24 12:57 4 MG Acetaminophen 650 mg Q6HP PRN PO 12/06/24 19:45 Morphine Sulfate 2 mg Q30MIN PRN IV 12/07/24 01:30 12/08/24 05:32 2 MG laboratory and microbiology Laboratory Tests 12/07/24 04:56 Test 12/07/24 04:56 Range/Units Serum Glucose 102 74-106 mg/dL Problem List CHEST PAIN RADIATING TO THE LEFT ARM SIMILAR TO SX PRIOR TO AL SIGNIFICANT CARDIAC HX WITH MULTIPLE STENTS IN THE RCA PMH; BLADDER CA S/P SURGERY NOW WITH HEMATURIA ABD PAIN PMH CAD S/P PTCA STENT MULTIPLE INTERVENTIONS RECENT ACUTE AL X2 NOW AGAIN WITH CHEST PAIN HX OF TRANSITIONAL CA OF THE BLADDER HX OF HEMATURIA CAD HYPERLIPIDEMIA HYPOKALEMIA S/P [facility] Assessment/Plan [facility] S/P PTCA STENT LEFT MAIN S/P PTCA STENT CX OCCLUDED RCA EF 45% HOWEVER IT WAS NOTED THAT PT WITH SEVERE PAD BILATERAL 95% STENOSIS OF ILIACS S/P BILATERAL ILIAC STENTS Plan discussed with: Patient Critical Care Time(min): 35 MILLICENT HERNANDEZ MD Dec 08, 2024 11:56
--- NOTE | 2024-12-08 12:10 | DVHOP ---
PROCEDURES TO BE PERFORMED: * Selective left and right coronary angiography. * Ventriculogram. * Angioplasty with stent placement of the left main with thrombectomy with a 3 mm x 13 mm shockwave device. Angioplasty with stent placement of the proximal to mid circumflex with a 2.5 x 21 mm [place] Wheat[place] stent with thrombectomy of the left iliac shockwave and also FFR of the circumflex artery. INDICATIONS: The patient who presented with chest pain and multiple angioplasty and stent placement in the right coronary system. DESCRIPTION OF PROCEDURE: The patient was prepped and draped in a sterile condition. 1% Xylocaine used to anesthetize the right groin. Conscious sedation was given using a 6-[place] sheath into the right groin. Then, using a 6-[place] JL4 catheter, 6-[place] JR4 catheter, selective left and right coronary angiographies were performed. Using a 6-[place] pigtail catheter, ventriculogram was done. Then after, the angiogram was performed. Following that, the 6-[place]an diagnostic system was exchanged for a 6-[place] interventional system. A 6-[place] XB 3.5 guide catheter was used to cannulate the left main. Using a ChoICE PT extra support wire, the wire was placed in the left anterior descending artery. A second wire, a Runthrough wire was then placed in the circumflex artery. FFR was performed. This is the artery that has a culprit lesion. The ChoICE PT wire was extra support to manipulate the left main more accurately since there is an ostial lesion of the left main as well. Using a 3 mm x 12 mm [place] Wheat[place] stent was deployed in the left main at 16 atmospheres. FFR following the treatment with shockwave device 2.5 x 13 mm shockwave thrombectomy catheter. Following that, similar shockwave thrombectomy catheter was used to angioplasty the circumflex artery and a 2.5 x 21 mm [place] Wheat[place] stent was then deployed across the lesion. Intraarterial nitroglycerin was given. There was a little bit of plaque shift more distally, but it resolved with nitroglycerin therapy. CONCLUSION: * Left main had a 90% ostial narrowing status post angioplasty with stent placement with a 3.0 x 12 mm [place] Wheat[place] stent following thrombectomy treatment with less than 10% residual stenosis. * Left anterior descending artery had moderate diffuse disease throughout the anatomy with extensive branches coming out of the left anterior descending artery providing bridging collaterals to the right coronary artery. * Circumflex artery had a 90% narrowing after imaging with FFR, status post angioplasty with stent placement with a 2.5 x 21 mm [place] Wheat[place] stent with less than 10% residual stenosis. * Right coronary artery was chronically occluded where it is an artery with multiple stents, have been placed in the past, not only multiple stents but overlapping stents as well, but it was getting bridging collaterals from the left. * Left ventricular function shows moderate apical hypokinesis, mild inferior hypokinesis with an estimated EF around 45% with an LVEDP of 16 mmHg with no gradient across the aortic valve. CONCLUSION: * The patient with severe peripheral vascular disease, now status post revascularization of the bilateral iliac. * The patient had high-grade narrowing, 90% narrowing of the left main, status post FFR with thrombectomy with less than 10% residual stenosis following stent placement. * Circumflex artery, 95% narrowing of the mid to proximal circumflex, status post thrombectomy with angioplasty with stent placement with less than 10% residual stenosis, still moderate diffuse throughout the length of the circumflex distal to the stent placement. * Right coronary artery was chronically occluded where it was the site of multiple interventions with overlapping stents and also in-stent restenosis intervention as well. At this time, the patient's ejection fraction is 45%. Now that we have revascularized the left main and the circumflex, I do not believe any additional therapy is required. EECP would be beneficial for the patient. He has high degree for bleeding diathesis since the patient has bladder cancer and he has a urostomy pouch. We will continue to follow the patient. Brandan Haywood MD SA/CM TID: [id number] RECEIPT: [id number]
[2024-12-08] MEDS: FUROSEMIDE 20 MG/2 ML VIAL IV ONE (13:17)
[2024-12-08] MEDS ORDERED: ACCU-CHEK COMFORT CURVE STRIP VI SCH (20:00)
[2024-12-08] MEDS ORDERED: InsuLIN REG 1unit/0.01ml Soln (100units/ml) SC SCH (20:00)
[2024-12-08] MEDS ORDERED: InsuLIN REG 1unit/0.01ml Soln (100units/ml) IV ONE (20:00)
[2024-12-08] MEDS ORDERED: DEXTROSE (50%) 50ML SYRG IV PRN (20:00)
--- NOTE | 2024-12-08 20:04 | DVHPN2 ---
Subjective Came from cath and feeling well Reviewed: H&P, Labs Changes from previous H/P or p: No Changes Objective Vitals Vital Signs Date Time Temp Pulse Resp B/P (MAP) Pulse Ox O2 Delivery O2 Flow Rate FiO2 12/08/24 17:00 98.0 73 18 123/77 (92) 96 98.0 12/08/24 07:38 Room Air* 0 21 Intake/Output Intake and Output 12/08/24 07:00 Intake Total 400 ml Balance 400 ml Intake Oral 400 ml # Voids 7 # Bowel Movements 1 General Appearance: Alert, Oriented X3 Lungs: Clear to auscultation Cardiovascular: Regular rate, Normal S1, Normal S2 Medications Current Medications Medications Dose Ordered Sig/Tyler Route Start Time Stop Time Status Last Admin Dose Admin Nitroglycerin 0.4 mg Q5MINP PRN SL 12/06/24 19:45 Aspirin 162 mg DAILY PO 12/07/24 10:00 Clopidogrel Bisulfate 75 mg DAILY PO 12/07/24 10:00 12/07/24 10:57 75 MG Furosemide 20 mg DAILY PO 12/07/24 10:00 12/07/24 10:58 20 MG Metoprolol Succinate 50 mg DAILY PO 12/07/24 10:00 12/07/24 10:58 50 MG Atorvastatin Calcium 40 mg HS PO 12/06/24 22:00 12/07/24 20:12 40 MG Spironolactone 25 mg DAILY PO 12/07/24 10:00 Ondansetron HCl 4 mg Q4HP PRN IV 12/06/24 19:45 12/07/24 12:57 4 MG Acetaminophen 650 mg Q6HP PRN PO 12/06/24 19:45 Morphine Sulfate 2 mg Q30MIN PRN IV 12/07/24 01:30 12/08/24 13:17 2 MG Carvedilol 3.125 mg Q12HR PO 12/08/24 22:00 UNV Atorvastatin Calcium 40 mg HS PO 12/08/24 22:00 UNV Aspirin 81 mg DAILY PO 12/09/24 10:00 UNV Clopidogrel Bisulfate 75 mg DAILY PO 12/09/24 10:00 UNV Lisinopril 2.5 mg DAILY PO 12/09/24 10:00 UNV Diagnostic Test (Pha) 1 strip IQ4HR 12/08/24 20:00 UNV Insulin Human Regular IQ4HR SC 12/08/24 20:00 UNV Dextrose 50 ml UD PRN IV 12/08/24 20:00 UNV Laboratory Results Laboratory Tests 12/07/24 04:56 Urinalysis Test 12/06/24 19:58 Urine Color Light-yellow (Yellow) Urine Clarity Clear (Clear) Urine pH 7.5 (5.0-9.0) Urine Specific [place] 1.025 (1.001-1.035) Urine Protein Negative (Negative) Urine Ketones Negative (Negative) Urine Blood Negative /uL (Negative) Urine Nitrite 2+ (Negative) H Urine Bilirubin Negative (Negative) Urine Urobilinogen Normal mg/dL (Negative) Urine Leukocyte Esterase Negative /uL (Negative) Urine RBC 1 /hpf (0 - 3) Urine Microscopic WBC 9 /HPF (0-3) H Urine Squamous Epithelial Cells None seen /hpf (<5) Urine Bacteria None seen /hpf (None Seen) Urine Glucose Normal mg/dL (Normal) Assessment/Plan Assessment/Plan * acute mi: angio today * History of bladder cancer/sp surgery * Coronary artery disease, status post stents. * Chronic systolic/diastolic heart failure. * Chronic obstructive pulmonary disease. * Chronic respiratory failure. * Hyperlipidemia. * Obesity * Benign prostatic hyperplasia. * Hypertension. * anemia: monitor Plan discussed with: Patient Date of Service: Dec 08, 2024 Billing Provider: NATE DE JESUS MD Common Visit Codes: [id number] INP/OBS CARE(HIGH) ANTE DE JESUS MD Dec 08, 2024 20:03
[2024-12-08] MEDS: HYDROcodone-ACET 5/325MG TAB PO PRN (21:15)
[2024-12-08 21:39] LABS: Lactic Acid w/Reflex 2.9 mmol/L (0.4-2.0)
[2024-12-08] MEDS ORDERED: ATORVASTATIN 20 MG TAB PO SCH (22:00)
[2024-12-08] MEDS ORDERED: CARVEDILOL 3.125 MG TAB PO SCH (22:00)
--- NOTE | 2024-12-08 23:34 | ECG ---
[facility] Test Date: 2024-12-08 Test Time: 01:07:45 Pat Name: AISHWARYA WILSON Department: Room: [facility] A Gender: M Wound Specialist: : [id number] Requested By: NATE DE JESUS Order Number: [id number] Reading MD: Eduardo Villeda Measurements Intervals [place] Rate: 62 P: 21 [place]: 167 QRS: 0 QRSD: 96 T: -41 QT: 403 QTc: 410 Interpretive Statements Sinus rhythm Abnormal R-wave progression, early transition Repol abnrm suggests ischemia, anterolateral Electronically Signed On 12-10-2024 17:35:18 PDT by Eduardo Villeda Please click the below link to view image of tracing.
[2024-12-09] VITALS (10 sets, daily range): BP systolic 105–128; BP diastolic 60–75; PULSE 67–91; RESP 16–18; TEMP 97.4–98.1; O2SAT 97–99
[2024-12-09] MEDS: CLOPIDOGREL BISULFATE 75 MG TAB PO SCH (09:42)
[2024-12-09] MEDS ORDERED: CLOPIDOGREL BISULFATE 75 MG TAB PO SCH (10:00)
[2024-12-09] MEDS ORDERED: LISINOPRIL 5 MG TAB PO SCH (10:00)
[2024-12-09] MEDS ORDERED: ASPirin 81 mg TAB PO SCH (10:00)
[2024-12-09] MEDS: APIXABAN 2.5 MG TAB PO SCH (12:22)
[2024-12-09] MEDS: HYDROcodone-ACET 10/325MG TAB PO PRN (12:23)
--- NOTE | 2024-12-09 15:14 | DVHPN2 ---
Subjective Having some pain at groin site today Reviewed: H&P, Labs Changes from previous H/P or p: No Changes Objective Vitals Vital Signs Date Time Temp Pulse Resp B/P (MAP) Pulse Ox O2 Delivery O2 Flow Rate FiO2 12/09/24 12:22 97.7 67 18 118/63 (81) 98 97.7 12/09/24 07:38 Room Air* 0 21 Intake/Output Intake and Output 12/09/24 07:00 Intake Total 1463 ml Output Total 775 ml Balance 688 ml Intake Oral 1463 ml Output Urine Total 775 ml # Voids 2 # Bowel Movements 1 General Appearance: Alert, Oriented X3 Lungs: Clear to auscultation Cardiovascular: Regular rate, Normal S1, Normal S2 Medications Current Medications Medications Dose Ordered Sig/Tyler Route Start Time Stop Time Status Last Admin Dose Admin Nitroglycerin 0.4 mg Q5MINP PRN SL 12/06/24 19:45 Furosemide 20 mg DAILY PO 12/07/24 10:00 12/09/24 09:42 20 MG Metoprolol Succinate 50 mg DAILY PO 12/07/24 10:00 12/09/24 09:43 50 MG Spironolactone 25 mg DAILY PO 12/07/24 10:00 Ondansetron HCl 4 mg Q4HP PRN IV 12/06/24 19:45 12/07/24 12:57 4 MG Acetaminophen 650 mg Q6HP PRN PO 12/06/24 19:45 Morphine Sulfate 2 mg Q30MIN PRN IV 12/07/24 01:30 12/08/24 13:17 2 MG Carvedilol 3.125 mg Q12HR PO 12/08/24 22:00 Cancel Atorvastatin Calcium 40 mg HS PO 12/08/24 22:00 Cancel Aspirin 81 mg DAILY PO 12/09/24 10:00 Cancel Clopidogrel Bisulfate 75 mg DAILY PO 12/09/24 10:00 Cancel Lisinopril 2.5 mg DAILY PO 12/09/24 10:00 Cancel Diagnostic Test (Pha) 1 strip IQ4HR 12/08/24 20:00 Cancel Insulin Human Regular IQ4HR SC 12/08/24 20:00 Cancel Dextrose 50 ml UD PRN IV 12/08/24 20:00 Cancel Acetaminophen/ Hydrocodone Bitart 1 tab Q6HPRN PRN PO 12/08/24 20:45 12/09/24 08:34 1 TAB Clopidogrel Bisulfate 75 mg DAILY PO 12/09/24 10:00 12/09/24 09:42 75 MG Acetaminophen/ Hydrocodone Bitart 1 tab Q4HP PRN PO 12/09/24 09:00 12/09/24 12:23 1 TAB Apixaban 2.5 mg BID PO 12/09/24 10:00 12/09/24 12:22 2.5 MG Laboratory Results Laboratory Tests 12/07/24 04:56 Urinalysis Test 12/06/24 19:58 Urine Color Light-yellow (Yellow) Urine Clarity Clear (Clear) Urine pH 7.5 (5.0-9.0) Urine Specific [place] 1.025 (1.001-1.035) Urine Protein Negative (Negative) Urine Ketones Negative (Negative) Urine Blood Negative /uL (Negative) Urine Nitrite 2+ (Negative) H Urine Bilirubin Negative (Negative) Urine Urobilinogen Normal mg/dL (Negative) Urine Leukocyte Esterase Negative /uL (Negative) Urine RBC 1 /hpf (0 - 3) Urine Microscopic WBC 9 /HPF (0-3) H Urine Squamous Epithelial Cells None seen /hpf (<5) Urine Bacteria None seen /hpf (None Seen) Urine Glucose Normal mg/dL (Normal) Assessment/Plan Assessment/Plan * acute mi: s/p angio and stent LM, Circumflex and also left iliac artery Continue pain control * History of bladder cancer/sp surgery * Coronary artery disease, status post stents. * Chronic systolic/diastolic heart failure. * Chronic obstructive pulmonary disease. * Chronic respiratory failure. * Hyperlipidemia. * Obesity * Benign prostatic hyperplasia. * Hypertension. * anemia: monitor Plan discussed with: Patient My Orders Orders - NATE DE JESUS MD Procedure Category Date Status Time Clopidogrel Bisulfate PHA 12/09/24 In Process (Plavix) 10:00 Hydrocodone-Acet PHA 12/09/24 In Process 10/325mg Tab ([place] 09:00 Date of Service: Dec 09, 2024 Billing Provider: NATE DE JESUS MD Common Visit Codes: [id number] INP/OBS CARE(HIGH) NATE DE JESUS MD Dec 09, 2024 15:14
[2024-12-10] VITALS (7 sets, daily range): BP systolic 107–116; BP diastolic 60–67; PULSE 67–75; RESP 18; TEMP 36.4; O2SAT 95–98
--- NOTE | 2024-12-10 18:29 | DVHDS2 ---
Discharge Summary Date of Admission Dec 06, 2024 at 19:39 Date of Discharge: Dec 10, 2024 Labs/Diagnostic Data: Laboratory Results Test 12/10/24 03:37 12/08/24 23:05 12/07/24 04:56 12/06/24 20:49 Creatinine 1.16 mg/dL (0.700-1.30) Glomerular Filtration Rate Calc 69 mL/min (>90) Lactic Acid Level 1.9 mmol/L (0.4-2.0) White Blood Count 11.2 10^3/uL (4.4-10.8) Red Blood Count 3.69 10^6/uL (4.5-5.90) Hemoglobin 7.8 g/dL (13.5-17.5) Hematocrit 25.3 % (41.0-53.0) Mean Corpuscular Volume 68.7 fL (80.0-100.0) Mean Corpuscular Hemoglobin 21.2 pg (28.0-32.0) Mean Corpuscular Hemoglobin Concent 30.9 g/dL (32.0-36.0) Red Cell Distribution Width 16.8 % (11.8-14.3) Platelet Count 217 10^3/uL (140-450) Mean Platelet Volume 7.8 fL (6.9-10.8) Neutrophils (%) (Auto) 83.7 % (37.0-80.0) Lymphocytes (%) (Auto) 10.0 % (10.0-50.0) Monocytes (%) (Auto) 6.2 % (0.0-12.0) Eosinophils (%) (Auto) 0.0 % (0.0-7.0) Basophils (%) (Auto) 0.1 % (0.0-2.0) Neutrophils # (Auto) 9.4 10 ^3/uL (1.6-8.6) Lymphocytes # (Auto) 1.1 10 ^3/uL (0.4-5.4) Monocytes # (Auto) 0.7 10 ^3/uL (0-1.3) Eosinophils # (Auto) 0 10 ^3/uL (0-0.8) Basophils # (Auto) 0 10 ^3/uL (0-0.2) Nucleated Red Blood Cells 0.0 % Sodium Level 139 mmol/L (136-145) Potassium Level 4.1 mmol/L (3.5-5.1) Chloride Level 107 mmol/L (98-107) Carbon Dioxide Level 21 mmol/L (20-31) Anion Gap 11 (5-15) Blood Urea Nitrogen 17 mg/dL (9-23) BUN/Creatinine Ratio 15.7 (10.0-20.0) Serum Glucose 102 mg/dL (74-106) Calcium Level 9.4 mg/dL (8.7-10.4) Total Bilirubin 0.2 mg/dL (0.2-1.0) Aspartate Amino Transferase (AST) 21 U/L (13-40) Alanine Aminotransferase (ALT) 9 U/L (7-40) Alkaline Phosphatase 33 U/L (46-116) Total Protein 6.8 g/dL (5.7-8.2) Albumin 4.4 g/dL (3.2-4.8) Triglycerides Level 144 mg/dL (< 150) Cholesterol Level 143 mg/dL (< 200) LDL Cholesterol 97 mg/dL (< 100) HDL Cholesterol 34 mg/dL (40-59) Thyroid Stimulating Hormone (TSH) 0.67 uIU/mL (0.55-4.78) Troponin I High Sensitivity 312 ng/L (</=54) Test 12/06/24 19:58 12/06/24 17:48 Urine Color Light-yellow (Yellow) Urine Clarity Clear (Clear) Urine pH 7.5 (5.0-9.0) Urine Specific [place] 1.025 (1.001-1.035) Urine Protein Negative (Negative) Urine Ketones Negative (Negative) Urine Blood Negative /uL (Negative) Urine Nitrite 2+ (Negative) Urine Bilirubin Negative (Negative) Urine Urobilinogen Normal mg/dL (Negative) Urine Leukocyte Esterase Negative /uL (Negative) Urine RBC 1 /hpf (0 - 3) Urine Microscopic WBC 9 /HPF (0-3) Urine Squamous Epithelial Cells None seen /hpf (<5) Urine Bacteria None seen /hpf (None Seen) Urine Glucose Normal mg/dL (Normal) Prothrombin Time 11.4 sec (9.3-11.8) Prothrombin Time INR 1.08 (0.9-1.15) Activated Partial Thromboplast Time 23.9 SEC (24.5-34.5) B-Type Natriuretic Peptide 158.98 pg/mL (0-100) Other Laboratory Tests 12/10/24 03:37 12/07/24 04:56 Brief Hx & Hospital Course: 69-year-old male presents for evaluation of chest pain. Patient with a history of multiple stents reports a one day history of substernal pressure-like nonradiating chest pain. She also reports shortness for breath. No nausea or vomiting. No cough or fever. Had cardiac cath s/p angio and stent LM, Circumflex and also left iliac artery Condition at Discharge: Good Final Diagnosis/Problems List acute coronary syndrome NSTEMI Discharge Disposition: Home Discharge Instruct/Medications Diet: Regular Activity: No Restrictions, As Tolerated Follow Up/Referral: PCP in 7 days Medications: same home medications Discharge Statement: "Patient was advised to return to the ER or call 911 if any headaches, dizziness, shortness of breath, chest pain, abdominal pain, bleeding, fevers, or worsening of medical condition. Patient was counseled about treatment plan, medications, possible side effects, patientverbalized understanding. All questions were answered to the best of my ability. This discharge took greater then 30 minutes in planning, reviewing documentation, counseling the patient, and discussing with other team members." ASSESSMENT ASSESSMENT Assessment acute coronary syndrome NSTEMI Date of Service: Dec 10, 2024 Billing Provider: NATE DE JESUS MD Common Visit Codes: [id number] DISCH DAY >30min NATE DE JESUS MD Dec 10, 2024 18:29
== END 2024-12-10 16:38 | disposition home or self-care (01) | DRG 270 ==
LOC: EDBD 17:04 → ER 17:07 → OVERFLOW 19:39 → EEVIPCON 19:39 → OVERFLOW 19:40 → TELE-WESTW 23:49
PROVIDERS: ADMIT Hospitalist; ATTEND Hospitalist
PROC: 04CH3ZZ Extirpation of Matter from Right External Iliac Artery, Percutaneous Approach (ICD-10-PCS; principal; 2024-12-08)
PROC: 047J3DZ Dilation of Left External Iliac Artery with Intraluminal Device, Percutaneous Approach (ICD-10-PCS; 2024-12-08)
PROC: 047H3DZ Dilation of Right External Iliac Artery with Intraluminal Device, Percutaneous Approach (ICD-10-PCS; 2024-12-08)
PROC: 04CJ3ZZ Extirpation of Matter from Left External Iliac Artery, Percutaneous Approach (ICD-10-PCS; 2024-12-08)
PROC: 027135Z Dilation of Coronary Artery, Two Arteries with Two Drug-eluting Intraluminal Devices, Percutaneous Approach (ICD-10-PCS; 2024-12-08)
PROC: 02F03ZZ Fragmentation in Coronary Artery, One Artery, Percutaneous Approach (ICD-10-PCS; 2024-12-08)
PROC: 02C03ZZ Extirpation of Matter from Coronary Artery, One Artery, Percutaneous Approach (ICD-10-PCS; 2024-12-08)
PROC: B4101ZZ Fluoroscopy of Abdominal Aorta using Low Osmolar Contrast (ICD-10-PCS; 2024-12-08)
PROC: B41G1ZZ Fluoroscopy of Left Lower Extremity Arteries using Low Osmolar Contrast (ICD-10-PCS; 2024-12-08)
PROC: B41F1ZZ Fluoroscopy of Right Lower Extremity Arteries using Low Osmolar Contrast (ICD-10-PCS; 2024-12-08)
PROC: 4A023N7 Measurement of Cardiac Sampling and Pressure, Left Heart, Percutaneous Approach (ICD-10-PCS; 2024-12-08)
PROC: 4A033BC Measurement of Arterial Pressure, Coronary, Percutaneous Approach (ICD-10-PCS; 2024-12-08)
PROC: B2111ZZ Fluoroscopy of Multiple Coronary Arteries using Low Osmolar Contrast (ICD-10-PCS; 2024-12-08)
PROC: B2151ZZ Fluoroscopy of Left Heart using Low Osmolar Contrast (ICD-10-PCS; 2024-12-08)
DX: T82.855A Stenosis of coronary artery stent, initial encounter (principal); I21.4 Non-ST elevation (NSTEMI) myocardial infarction; I50.42 Chronic combined systolic (congestive) and diastolic (congestive) heart failure; J96.11 Chronic respiratory failure with hypoxia; D64.9 Anemia, unspecified; E78.5 Hyperlipidemia, unspecified; J44.9 Chronic obstructive pulmonary disease, unspecified; N40.0 Benign prostatic hyperplasia without lower urinary tract symptoms; E66.9 Obesity, unspecified; E11.51 Type 2 diabetes mellitus with diabetic peripheral angiopathy without gangrene; I25.10 Atherosclerotic heart disease of native coronary artery without angina pectoris; E87.6 Hypokalemia; Y83.1 Surgical operation with implant of artificial internal device as the cause of abnormal reaction of the patient, or of later complication, without mention of misadventure at the time of the procedure; I11.0 Hypertensive heart disease with heart failure; D69.9 Hemorrhagic condition, unspecified; Z85.51 Personal history of malignant neoplasm of bladder; Z88.5 Allergy status to narcotic agent; Z88.8 Allergy status to other drugs, medicaments and biological substances; Z91.041 Radiographic dye allergy status; Z79.01 Long term (current) use of anticoagulants; Z79.899 Other long term (current) drug therapy; Z79.2 Long term (current) use of antibiotics; Z79.891 Long term (current) use of opiate analgesic; Z79.1 Long term (current) use of non-steroidal anti-inflammatories (NSAID); I25.2 Old myocardial infarction; Y92.89 Other specified places as the place of occurrence of the external cause; Z68.28 Body mass index [BMI] 28.0-28.9, adult
CPT/HCPCS: 36415; 37186; 71045; 75625; 80053; 80061; 81001; 82565; 83605; 83880; 84443; 84484; 85025; 85610; 85730; 86850; 86900; 86901; 92941; 92973; 93005; 93306; 93458; 94640; 96372; 96374; 99152; 99291; C1874; G0378; J2250; J2405; J3490

== ENCOUNTER → 2024-12-27 | Outpatient (CLI) | payer MEDICARE, MEDICAID ==
[~2024-12-27] MED LIST changes: -ASPI-543 PO; -FERR325T20 PO; -TAMS0.4C39 PO
== END | disposition home or self-care (01) ==
LOC: Rad HDHVI 11:08
PROVIDERS: ATTEND Internal Medicine Cardiovascular Disease
DX: I08.8 Other rheumatic multiple valve diseases (principal); I11.0 Hypertensive heart disease with heart failure; I50.9 Heart failure, unspecified; R06.02 Shortness of breath
CPT/HCPCS: 93306

== ENCOUNTER → 2025-01-03 | Outpatient (CLI) | payer MEDICARE, MEDICAID ==
[~2025-01-03] MED LIST changes: +FER325T PO; +FLUO-470 PO
== END | disposition home or self-care (01) ==
LOC: Rad HDHVI 16:50
PROVIDERS: ATTEND Internal Medicine Cardiovascular Disease
DX: I82.621 Acute embolism and thrombosis of deep veins of right upper extremity (principal)
CPT/HCPCS: 93925

== ENCOUNTER 2025-01-09 14:19 | Inpatient (IN) | payer MEDICARE, MEDICAID ==
[~2025-01-09] VITALS: Ht 162.6 cm; Wt 75.9 kg
[~2025-01-09 14:19] MED LIST changes: -FER325T PO; -FLUO-470 PO
--- NOTE | 2025-01-09 15:24 | ED.PDOC ---
History of Present Illness HPI Comments 69 y/o M, with PMHx of bladder cancer, SC, HTN, CHF, and HLD presents to the ED for CC of abnormal labs. Patient states, he had his labs drawn [id number] ago and received a call from his PCP to refer to the ED for a blood transfusion d/t a Hbg level of 7.8. Patient reports, to be experiencing symptoms of fatigue, weakness, and shortness of breath. Patient comments, to be on continuous oxygen at home. Patient denies melena, hematemesis, fever, or chills. No other symptoms or modifying factors present at this time. Chief Complaint: Abnormal LAB's Time Seen by MD: 15:15 Primary Care Provider: TAMMY Reviewed Notes: Nurses Notes, Medications, Allergies Allergies: Coded Allergies: Carisoprodol (Verified Allergy, Unknown, 05/16/19) Iodide (Verified Allergy, Unknown, 07/04/24) Meperidine (Verified Allergy, Unknown, 05/16/19) Oxycodone (Verified Allergy, Unknown, 05/16/19) Piroxicam (Verified Allergy, Unknown, 05/16/19) Propoxyphene (Verified Allergy, Unknown, 05/16/19) Home Meds Active Scripts Methocarbamol (Methocarbamol) 500 Mg Tab, 500 MG PO QID for 5 Days, #20 TAB Prov:BALTAZAR BERRIOS MD 07/04/24 Apixaban Base (ELIQUIS) 2.5 Mg Tab, 2.5 MG PO BID for 30 Days, #60 TAB 1 Refill Prov:KAIT CHAPARRO MD 01/31/24 Levofloxacin Hemihydrate (LEVAQUIN 500 MG) 500 Mg Tab, 500 MG PO DAILY for 10 Days, #10 TAB Prov:KAIT CHAPARRO MD 01/31/24 Reported Medications Meclizine Hcl (Meclizine Hcl) 25 Mg Tab, 25 MG PO DAILY for 30 Days, MG 01/28/24 Clopidogrel Bisulfate (CLOPIDOGREL) 75 Mg Tab, 75 MG PO DAILY for 30 Days, MG 01/28/24 Vericiguat (Verquvo) 2.5 Mg Tab, 5 MG PO DAILY, TAB 01/03/24 Metoprolol Succinate (Metoprolol Succinate Er) 50 Mg Tab, 50 MG PO DAILY, TAB 01/03/24 Fenofibrate (Fenofibrate) 160 Mg Tab, 160 MG PO DAILY, TAB 01/03/24 Patients Own Medication (PATIENTS OWN MEDICATION) ., 61 MG PO DAILY PTS OWN MED-OBTAIN FROM PT AND SEND TO RX DRUG: [id number] 61 MG CAPSULE FREQ: TAKE 1 CAPSULE BY MOUTH DAILY RX# EXP: DATE DISP: TECH: RPH: 11/23/23 Hydrocodone-Acetaminophen (Hydrocodone Bitartrate/AC 10-325 mg) 1 Tab Tab, 1 TAB PO Q6HR 11/23/23 Potassium Chloride (POTASSIUM CHLORIDE CR) 10 Meq Tb, 1 TAB PO DAILY 11/23/23 Furosemide (Furosemide) 20 Mg Tab, 1 TAB PO DAILY 11/23/23 Nitroglycerin (NTROSTAT SUBLINGUAL) 0.4 Mg Sl, 0.4 MG SL PRN, TAB *MAY REPEAT EVERY 5 MINUTES X 3 TOTAL IF NO RELIEF, INITIATE ANALGESIC THERAPY. NOTIFY PHYSICIAN *Do not crush. 11/22/23 Fluoxetine Hcl (Fluoxetine Hcl) 20 Mg Cap, 20 MG PO DAILY, MG 11/22/23 Finasteride (Finasteride) 5 Mg Tab, 1 TAB PO DAILY 08/24/23 Formoterol Fumarate Dihydrate (Formoterol Fumarate) 20 Mcg/2 Ml Neb, 1 INH INH BID 08/24/23 Cholecalciferol (Vitamin D) 2,000 Unit Cap, 1 CAP PO DAILY 08/24/23 Rosuvastatin Calcium (Rosuvastatin Calcium) 40 Mg Tab, 40 MG PO DAILY, TAB 01/27/23 Docusate Sodium (Docusil) 100 Mg Cap, 100 MG PO BID, CAP 05/08/20 Spironolactone (Aldactone) 25 Mg Tab, 1 TAB PO DAILY for SP, #90 TAB 1 Refill 05/16/19 Albuterol Sulfate (VENTOLIN MDI) 90 Mcg Ih, 1 PUFF INH Q4-6HR PRN 06/07/18 Dexlansoprazole (Dexilant) 60 Mg Cap, 60 MG PO DAILY, CAP 08/06/15 Gabapentin (Neurontin) 300 Mg Cap, 1 TAB PO TID 01/15/11 Information Source: Patient, Spouse Mode of Arrival: Ambulatory Severity: Moderate Timing: Weeks Duration: Since onset Prehospital treatment: None Past Medical History PAST MEDICAL HISTORY: CAD, Cancer, CHF, COPD, DM, High Lipids, HTN, SC, UTI'S Surgical History: PTCA Family History Family History: No family hx of DM, No family hx of Heart reid, Family hx of Cancer Social History Smoker: Non-Smoker, Quit Greater Than 1 Year Alcohol: Denies ETOH Use Drugs: Denies Drug Use Lives In: Home Constitutional: reports: fatigue, weakness; denies: chills, diaphoresis, fever, malaise, sweats, others EENTM: denies: blurred vision, double vision, ear bleeding, ear discharge, ear drainage, ear pain, ear ringing, eye pain, eye redness, hearing loss, mouth pain, mouth swelling, nasal discharge, nose bleeding, nose congestion, nose pain, photophobia, tearing, throat pain, throat swelling, voice changes, others Respiratory: reports: shortness of breath; denies: cough, hemoptysis, orthopnea, SOB at rest, SOB with excertion, stridor, wheezing, others Cardiovascular: denies: chest pain, dizzy spells, diaphoresis, Dyspnea on exertion, edema, irregular heart beat, left arm pain, lightheadedness, p alpitations, PND, syncope, others Gastrointestinal: denies: abdomen distended, abdominal pain, blood streaked bowels, constipated, diarrhea, dysphagia, difficulty swallowing, hematemesis, melena, nausea, poor appetite, poor fluid intake, rectal bleeding, rectal pain, vomiting, others Genitourinary: denies: burning, dysuria, flank pain, frequency, hematuria, incontinence, penile discharge, penile sore, pain, testicle pain, testicle swelling, urgency, others Neurological: denies: dizziness, fainting, headache, left sided numbness, left sided weakness, numbness, paresthesia, pre-existing deficit, right sided numbness, right sided weakness, seizure, speech problems, tingling, tremors, weakness, others Musculoskeletal: denies: back pain, gout, joint pain, joint swelling, muscle pain, muscle stiffness, neck pain, others Integumetry: denies: bruises, change in color, change in hair/nails, dryness, laceration, lesions, lumps, rash, wounds, others Allergic/Immunocompromised: denies: Difficulty Healing, Frequent Infections, Hives, Itching, others Hematologic/Lymphatic: denies: anemia, blood clots, easy bleeding, easy b ruising, swollen glands, others Endocrine: denies: excessive hunger, excessive sweating, excessive thirst, excessive urination, flushing, intolerance to cold, intolerance to heat, unexplained weight gain, unexplained weight loss, others Psychiatric: denies: anxiety, bipolar disorder, depression, hopeless, panic disorder, schizophrenia, sleepless, suicidal, others All Other Systems: Reviewed and Negative Physical Exam General Appearance: No Apparent Distress, Normal HEENT: Normal ENT Inspection, Pharynx Normal Neck: Full Range of Motion, Non-Tender, Normal, Normal Inspection Respiratory: Chest Non-Tender, Lungs Clear, No Accessory Muscle Use, No Respiratory Distress, Normal Breath Sounds Cardiovascular: No Edema, No Murmur, No Gallop, Normal Peripheral Pulses, Regular Rate/Rhythm Breast Exam: Deferred Gastrointestinal: No Organomegaly, Non Tender, No Pulsatile Mass, Normal Bowel Sounds, Soft Genitalia: Deferred Pelvic: Deferred Rectal: Deferred Extremities: No calf tenderness, Normal capillary refill, Normal inspection, Normal range of motion, Non-tender, No pedal edema Musculoskeletal : Apperance: Normal Neurologic: Alert, olive grower II-XII nml as Tested, No Motor Deficits, Normal Affect, Normal Mood, No Sensory Deficits Cerebellar Function: Normal Reflexes: Normal Skin: Dry, Normal Color, Warm Lymphatic: No Adenopathy Was a procedure done? Was a procedure done?: No Differential Dx Considerations may include: ANEMIA, GI HEMORRHAGE, IRON DEFICIENCY X-Ray, Labs, Meds, VS Vital Signs Date Time Temp Pulse Resp B/P (MAP) Pulse Ox O2 Delivery O2 Flow Rate FiO2 01/09/25 14:44 72 01/09/25 14:38 97.8 78 20 126/49 (74) 100 97.8 Lab Test 01/09/25 16:18 Range/Units White Blood Count 5.9 4.4-10.8 10^3/uL Red Blood Count 3.91 L 4.5-5.90 10^6/uL Hemoglobin 7.8 L 13.5-17.5 g/dL Hematocrit 25.8 L 41.0-53.0 % Mean Corpuscular Volume 66.0 L 80.0-100.0 fL Mean Corpuscular Hemoglobin 20.0 L 28.0-32.0 pg Mean Corpuscular Hemoglobin Concent 30.2 L 32.0-36.0 g/dL Red Cell Distribution Width 18.2 H 11.8-14.3 % Platelet Count 245 140-450 10^3/uL Mean Platelet Volume 7.8 6.9-10.8 fL Neutrophils (%) (Auto) 55.6 37.0-80.0 % Lymphocytes (%) (Auto) 30.7 10.0-50.0 % Monocytes (%) (Auto) 11.3 0.0-12.0 % Eosinophils (%) (Auto) 1.0 0.0-7.0 % Basophils (%) (Auto) 1.4 0.0-2.0 % Neutrophils # (Auto) 3.3 1.6-8.6 10 ^3/uL Lymphocytes # (Auto) 1.8 0.4-5.4 10 ^3/uL Monocytes # (Auto) 0.7 0-1.3 10 ^3/uL Eosinophils # (Auto) 0.1 0-0.8 10 ^3/uL Basophils # (Auto) 0.1 0-0.2 10 ^3/uL Nucleated Red Blood Cells 0.1 % Sodium Level 138 136-145 mmol/L Potassium Level 4.6 3.5-5.1 mmol/L Chloride Level 104 98-107 mmol/L Carbon Dioxide Level 26 20-31 mmol/L Anion Gap 8 5-15 Blood Urea Nitrogen 22 9-23 mg/dL Creatinine 1.32 H 0.700-1.30 mg/dL Glomerular Filtration Rate Calc 59 >90 mL/min BUN/Creatinine Ratio 16.7 10.0-20.0 Serum Glucose 87 74-106 mg/dL Calcium Level 10.0 8.7-10.4 mg/dL Troponin I High Sensitivity 6 </=54 ng/L B-Type Natriuretic Peptide 146.64 0-100 pg/mL Time of 1ST Reevaluation: 15:45 Reevaluation 1ST: Unchanged Patient Education/Counseling: Diagnosis, Treatment Family Education/Counseling: Diagnosis, Treatment SEPSIS Sepsis Screen Date sepsis recognized/suspect: Jan 09, 2025 Time Sepsis recognized/suspect: 1437 Recent Procedure: No On Antibiotic Therapy: No Respiratory Rate >20: No Heart Rate >90: No Temp<36 C (96.8 F) or >38.3 C: No SBP <90 or MAP <65 mmHG: No New Acute Mental Status Change: No Is the patient on CPAP, BIPAP,: No Physician Orders Electrocardigram (01/09/25 14:41) Type And Screen (01/09/25 16:05) Urinalysis (01/09/25 16:05) Chest Portable (01/09/25 16:05) Troponin-I Hs (01/09/25 17:05) Troponin-I Hs (01/09/25 19:05) Vital Signs Date Time Temp Pulse Resp B/P (MAP) Pulse Ox O2 Delivery O2 Flow Rate FiO2 01/09/25 14:44 72 01/09/25 14:38 97.8 78 20 126/49 (74) 100 97.8 Laboratory Tests Test 01/09/25 16:18 White Blood Count 5.9 10^3/uL (4.4-10.8) Departure 1 Departure Time of Disposition: 17:15 (Patient with a worsening weakness and symptomatic anemia. We will admit patient for further workup and expert consultation) Impression: Primary Impression: Symptomatic anemia Additional Impression: Generalized weakness Disposition: ADMITTED INPATIENT Admit to: Med Surg Condition: Serious Critical Care Note Critical Care Time?: Yes Critical care comment: Worsening hypoxia and symptomatic anemia Authorized and Performed by: Jose Ramon Olvera MD Total critical care time: Approximately 38 minutes Due to a high probability of clinically significant, life threatening deterioration, the patient required my highest level of preparedness to intervene emergently and I personally spent this critical care time directly and personally managing the patient. This critical care time included obtaining a history; examining the patient; pulse oximetry; ordering and review of studies; arranging urgent treatment with development of a management plan; evaluation of patient's response to treatment; frequent reassessment; and, discussions with other providers. This critical care time was performed to assess and manage the high probability of imminent, life-threatening deterioration that could result in multi-organ failure. It was exclusive of separately billable procedures and treating other patients and teaching time. Please see my other sections and the rest of the note for further information on patient assessment and treatment. Stability Stability form required: No Heart Score Heart Score: Heart Score Response (Comments) Value History Highly Suspicious 2 EKG N/A 0 Age >65 2 Risk Factors 1 or 2 risk factors 1 Troponin N/A 0 Total 5 I personally scribed for JOSE RAMON OLVEAR MD ([email or web address]) on 01/09/25 at 15:24. Electronically submitted by Lia Leong ([email or web address]). I personally scribed for JOSE RAMON OLVERA MD ([email or web address]) on 01/09/25 at 16:00. Electronically submitted by Lia Leong [email or web address]). JOSE RAMON OLVERA MD Jan 09, 2025 15:24
[2025-01-09 16:28] LABS: Hematocrit 25.8 % (41.0-53.0); Hemoglobin 7.8 g/dL (13.5-17.5); Mean Corpuscular Hemoglobin 20.0 pg (28.0-32.0); Mean Corpuscular Volume 66.0 fL (80.0-100.0); Nucleated Red Blood Cells % 0.1 %
--- NOTE | 2025-01-09 16:36 | DVH ---
CHEST RADIOGRAPH Indication: weakness Technique: Single frontal view of the chest was obtained COMPARISON: XY CHEST PORTABLE on DOS: 12/06/24, XY CHEST PORTABLE on DOS: 01/27/24, XY CHEST XRAY 1 VIEW on DOS: 01/01/24, XY CHEST PORTABLE on DOS: 11/22/23, XY CHEST PORTABLE on DOS: 08/24/23 FINDINGS: Lines and Tubes: None Lungs: Increased interstitial prominence Pleura: No effusion. No pneumothorax. Cardiomediastinal contours: Unremarkable Bones: Unremarkable IMPRESSION: Pulmonary vascular congestion or viral pneumonia.
[2025-01-09 16:38] LABS: Anion Gap 8 (5-15); Carbon Dioxide 26 mmol/L (20-31); Chloride 104 mmol/L (98-107); Potassium 4.6 mmol/L (3.5-5.1); Sodium 138 mmol/L (136-145)
[2025-01-09 16:39] LABS: Calcium 10.0 mg/dL (8.7-10.4)
[2025-01-09 16:44] LABS: BUN/Creatinine Ratio 16.7 (10.0-20.0); Blood Urea Nitrogen 22 mg/dL (9-23); Glucose 87 mg/dL (74-106)
[2025-01-09 19:55] VITALS: PULSE 77; RESP 12; O2SAT 99
--- NOTE | 2025-01-09 22:28 | DVHHP2 ---
History of Present Illness History of Present Illness Patient is 69 years old male with past medical history of hypertension, diabetes mellitus type 2, HFpEF, 55%, CAD-TN, status post PTCA, Bilateral stent placement of the ostial iliac, on the left iliac and and stent in the right iliac ostium, history of bladder carcinoma, status post surgery, COPD on home [place] O2 2 L/min, BPH came to the hospital due to abdominal lab. As per patient his lab was drawn at his primary care's office 2 weeks before and received a call today from his PCP office due to abnormal lab with a hemoglobin of 7.8 and patient was referred to ER for blood transfusion. Patient reported feeling fatigue and generalized weakness for past 2 weeks and exertional shortness of breath as well. Patient reported having colonoscopy 5 years before but no significant finding, patient also headache endoscopy 1 and half month before but does not know the report yet. Patient denied any fever, bloody diarrhea, bloody vomiting, hematuria, chest pain, acute joint pain or swelling. Initial lab workup revealed hemoglobin 7.8, MCV 66.0, RDW 18.2, serum creatinine 1.32, BNP 132, troponin I within normal limit, serum iron 22, ferritin 5.7, % saturation 5.4. Urinalysis revealed nitrite 2+, leukocyte esterase 1+, WBC 11. Chest x- ray pulmonary vascular congestion/viral pneumonitis. 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 Selective left and right lower extremity angiography, Thrombectomy of left and right iliac ostium. Thrombectomy with shockwave of left and right external iliac. Bilateral stent placement of the ostial iliac with an 8 mm x 27 mm on the left iliac and an 8 mm x 37 mm Express stent in the right iliac ostium. Also Selective left and right coronary angiography.Ventriculogram. * Angioplasty with stent placement of the left main with thrombectomy with a 3 mm x 13 mm shockwave device. Angioplasty with stent placement of the proximal to mid circumflex with a 2.5 x 21 mm [place] stent with thrombectomy of the left iliac shockwave and also FFR of the circumflex artery. Past Medical History hypertension, diabetes mellitus type 2, HFpEF, 55%, CAD-TN, status post PTCA, Bilateral stent placement of the ostial iliac on the left iliac and AN stent in the right iliac ostium, history of bladder carcinoma, status post surgery, COPD on home [place] O2 2 L/min, BPH Past Surgical History Bladder surgery due to Ca urinary bladder, back surgery after an accident status post PTCA Past Social History Ex-smoker, denies alcoholism, substance abuse, lives with family Review of Systems Review of Systems Allergy- carisoprodol, iodine, meperidine, oxycodone, piroxicam, propoxyphene Patient was seen today at the bedside Cardiovascular- deny acute chest pain, cough or palpitation Respiratory denies cough or wheezing Gastrointestinal- denies any rectal bleeding, nausea or vomiting Musculoskeletal-denies acute joint swelling or tenderness or redness Neurological- denies acute dysarthria, dysphagia, change in vision Psychiatry- denies depression or SI or HI Skin- denies acute rash or purpura Allergies: Coded Allergies: Carisoprodol (Verified Allergy, Unknown, 05/16/19) Iodide (Verified Allergy, Unknown, 07/04/24) Meperidine (Verified Allergy, Unknown, 05/16/19) Oxycodone (Verified Allergy, Unknown, 05/16/19) Piroxicam (Verified Allergy, Unknown, 05/16/19) Propoxyphene (Verified Allergy, Unknown, 05/16/19) Exam Vital Signs Vital Signs Date Time Temp Pulse Resp B/P (MAP) Pulse Ox O2 Delivery O2 Flow Rate FiO2 01/09/25 20:00 70 01/09/25 18:30 12 123/61 (81) 100 01/09/25 17:39 Nasal Cannula* 2 28 01/09/25 17:39 98.7 98.7 Exam General examination- awake, alert, ovarian HEENT- PEERLA, no acute nasal discharge Cardiovascular- S1-S2 audible, rate and rhythm regular, systolic murmur+ Respiratory- CTAB, no wheeze or rhonchi Gastrointestinal-nontender, bowel sound+. Nondistended Musculoskeletal-no acute joint swelling or tenderness or redness Digital rectal examination was done in presence of child caregiver private home Sarah, no external or internal hemorrhoids or rectal mass noted Lower extremity- leg edema Neurological- cranial nerves intact, no acute dysarthria or dysphagia Psychiatry- denies depression or SI or HI Skin- no acute rash or purpura Labs/Xrays Labs Test 01/09/25 19:17 01/09/25 16:18 Range/Units Troponin I High Sensitivity 7 </=54 ng/L White Blood Count 5.9 4.4-10.8 10^3/uL Red Blood Count 3.91 L 4.5-5.90 10^6/uL Hemoglobin 7.8 L 13.5-17.5 g/dL Hematocrit 25.8 L 41.0-53.0 % Mean Corpuscular Volume 66.0 L 80.0-100.0 fL Mean Corpuscular Hemoglobin 20.0 L 28.0-32.0 pg Mean Corpuscular Hemoglobin Concent 30.2 L 32.0-36.0 g/dL Red Cell Distribution Width 18.2 H 11.8-14.3 % Platelet Count 245 140-450 10^3/uL Mean Platelet Volume 7.8 6.9-10.8 fL Neutrophils (%) (Auto) 55.6 37.0-80.0 % Lymphocytes (%) (Auto) 30.7 10.0-50.0 % Monocytes (%) (Auto) 11.3 0.0-12.0 % Eosinophils (%) (Auto) 1.0 0.0-7.0 % Basophils (%) (Auto) 1.4 0.0-2.0 % Neutrophils # (Auto) 3.3 1.6-8.6 10 ^3/uL Lymphocytes # (Auto) 1.8 0.4-5.4 10 ^3/uL Monocytes # (Auto) 0.7 0-1.3 10 ^3/uL Eosinophils # (Auto) 0.1 0-0.8 10 ^3/uL Basophils # (Auto) 0.1 0-0.2 10 ^3/uL Nucleated Red Blood Cells 0.1 % Sodium Level 138 136-145 mmol/L Potassium Level 4.6 3.5-5.1 mmol/L Chloride Level 104 98-107 mmol/L Carbon Dioxide Level 26 20-31 mmol/L Anion Gap 8 5-15 Blood Urea Nitrogen 22 9-23 mg/dL Creatinine 1.32 H 0.700-1.30 mg/dL Glomerular Filtration Rate Calc 59 >90 mL/min BUN/Creatinine Ratio 16.7 10.0-20.0 Serum Glucose 87 74-106 mg/dL Calcium Level 10.0 8.7-10.4 mg/dL B-Type Natriuretic Peptide 146.64 0-100 pg/mL SEPSIS Sepsis Screen Date sepsis recognized/suspect: Jan 09, 2025 Time Sepsis recognized/suspect: 1437 Recent Procedure: No On Antibiotic Therapy: No Respiratory Rate >20: No Heart Rate >90: No Temp<36 C (96.8 F) or >38.3 C: No SBP <90 or MAP <65 mmHG: No New Acute Mental Status Change: No Is the patient on CPAP, BIPAP,: No Physician Orders Electrocardigram (01/09/25 14:41) Urinalysis (01/09/25 16:05) Chest Portable (01/09/25 16:05) Admit (01/09/25 22:25) Code Status (01/09/25:25) Renal Standard(2gna,3gk,Lopho) (01/10/25 Breakfast) Sodium Chloride Lock (Saline Lock Ns) (01/10/25 06:00) Complete Blood Count (01/10/25 04:00) Comprehensive Metabolic Panel (01/10/25 04:00) Cardiac Diet-2gna,Lofat,Lochol (01/10/25 Breakfast) Acetaminophen Tablet (Tylenol Tablet) (01/09/25 22:30) Notify Md Of Changes From Base (01/09/25 22:25) Round Kiln Drawer For 24 Hours (01/09/25 22:25) Vital Signs Date Time Temp Pulse Resp B/P (MAP) Pulse Ox O2 Delivery O2 Flow Rate FiO2 01/09/25 20:00 70 01/09/25 18:30 65 12 123/61 (81) 100 01/09/25 18:15 71 01/09/25 17:39 Nasal Cannula* 2 28 01/09/25 17:39 98.7 78 20 126/56 (79) 100 98.7 01/09/25 17:30 Nasal Cannula* 2 28 01/09/25 14:44 72 01/09/25 14:38 97.8 78 20 126/49 (74) 100 97.8 Laboratory Tests Test 01/09/25 16:18 White Blood Count 5.9 10^3/uL (4.4-10.8) Assessment/Plan Assessment/Plan Assessment and plan #Severe anemia likely due to microcytic anemia/iron deficiency anemia -blood transfusion order in place - serum iron 22, ferritin 5.7, % saturation 5.4. -monitor CBC -Pending stool for occult blood test -ordered IV iron supplement # GILBERTO likely due to VMN -avoid dehydration and nephrotoxic drugs #Acute complicated cystitis -urinalysis revealed leukocyte esterase 1+, nitrite 2+, WBC 11 -continue ceftriaxone 1 g IV daily -pending urine culture # CAD, status post PTCA # hypertension # HFpEF, EF 55% # hyperlipidemia -resumed home medication Lasix and spironolactone and metoprolol and Vericiguat -continue metoprolol 50 mg p.o. daily -spironolactone 25 mg p.o. daily -continue fenofibrate 160 mg p.o. daily -rosuvastatin 40 mg p.o. daily # diabetes mellitus type 2 -diet controlled HGB A1c # COPD, no acute exacerbation -nebulization PRN # history of bladder carcinoma, status post surgery # BPH -continue finasteride 5 mg p.o. daily -outpatient with the primary care physician Diet-Cardiac diet, diabetic diet PCP [facility] - Dr. Gipson Goals of care, Code status full code; discussed with >15 minutes PUD prophylaxis: Pantoprazole DVT prophylaxis: SCD Plan discussed with Dr. Huang , nursing staff, Total time spent on patient evaluation, chart review, assessment and plan, discussion discussion >35 minutes Plan discussed with: Patient, Spouse, Other My Orders Orders - ZENA PRINCE RESIDENT Procedure Category Date Status Time Admit ADMIT 01/09/25 Verified 22:25 Code Status CODE 01/09/25 Verified 22:25 Renal DIET 01/10/25 Verified Standard(2gna,3gk,Lopho) Breakfast Sodium Chloride Lock PHA 01/10/25 Verified (Saline Lock Ns) 06:00 Complete Blood Count LAB 01/10/25 Verified 04:00 Comprehensive LAB 01/10/25 Verified Metabolic Panel 04:00 Cardiac DIET 01/10/25 Verified Diet-2gna,Lofat,Lochol Breakfast Acetaminophen Tablet PHA 01/09/25 Verified (Tylenol Tablet) 22:30 Notify Of Changes BEBO 01/09/25 Verified From Base 22:25 Round Kiln Drawer For [facility] [place] 01/09/25 Verified 24 Hours 22:25 Date of Service: Jan 09, 2025 Billing Provider: EVELYN HUANG MD Common Visit Codes: 94196-KWCLYJV INP/OBS CARE (HIGH) Secondary Visit Codes: 66005-SZZTCOTA CARE PLAN 30 MINUTES ZENA PRINCE RESIDENT Jan 09, 2025 22:28
[2025-01-09 22:50] LABS: Alanine Aminotransferase 12 U/L (7-40); Albumin 4.5 g/dL (3.2-4.8); Total Protein 6.6 g/dL (5.7-8.2)
[2025-01-09 22:51] LABS: Alkaline Phosphatase 35 U/L (46-116); Bilirubin, Direct < 0.1 mg/dL (<0.3); Bilirubin, Total 0.2 mg/dL (0.2-1.0); Magnesium 1.5 mg/dL (1.6-2.6)
[2025-01-09] MEDS: HYDROcodone-ACET 10/325MG TAB PO SCH (23:29)
[2025-01-09 23:33] LABS: Urine Amorphous Crystal FEW /hpf (None Seen); Urine Protein, UAD Negative (Negative)
[2025-01-10] VITALS (13 sets, daily range): BP systolic 105–131; BP diastolic 57–74; PULSE 67–86; RESP 16–18; TEMP 97.5–98.9; O2SAT 99–100
[2025-01-10] MEDS: cefTRIAXone 1GM/50ML D5W 50 ML IV ONE (01:11)
[2025-01-10] MEDS: MAGNESIUM SULFATE 1GM/100ML 100 ML IV SCH (01:12)
[2025-01-10] MEDS ORDERED: FLUO-470 PO (01:37)
[2025-01-10] MEDS: PANTOPRAZOLE 40 MG TAB PO ONE (04:25)
[2025-01-10 05:40] LABS: Opiate Scree,Urine Pos (NEGATIVE)
[2025-01-10 05:46] LABS: Amphetamine Screen, Urine Neg (NEGATIVE); Barbiturate Scree,Urine Neg (NEGATIVE); Benzodiazephine Screen, Urine Neg (NEGATIVE); Cannabinoid Screen, Urine Neg (NEGATIVE); Cocaine Screen, Urine Neg (NEGATIVE); Phencyclidine Screen, Urine Neg (NEGATIVE)
[2025-01-10] MEDS: SODIUM CHLOR 0.9% PF (SALINE LOCK) 10ML VIAL/SYR IV SCH (05:58)
[2025-01-10] MEDS: GABAPENTIN 300 MG CAP PO SCH (05:59)
[2025-01-10 06:48] LABS: Hematocrit 23.9 % (41.0-53.0); Hemoglobin 7.2 g/dL (13.5-17.5); Mean Corpuscular Hemoglobin 19.8 pg (28.0-32.0); Mean Corpuscular Volume 66.0 fL (80.0-100.0); Nucleated Red Blood Cells % 0.0 %
[2025-01-10 06:56] LABS: Iron 22.0 ug/dL (65-175)
[2025-01-10 06:57] LABS: Total Iron Binding Capacity 404.0 ug/dL (250-425)
[2025-01-10 07:01] LABS: Albumin 4.3 g/dL (3.2-4.8); Anion Gap 9 (5-15); BUN/Creatinine Ratio 14.3 (10.0-20.0); Blood Urea Nitrogen 18 mg/dL (9-23); Calcium 9.1 mg/dL (8.7-10.4); Carbon Dioxide 26 mmol/L (20-31); Chloride 105 mmol/L (98-107); Ferritin 5.7 ng/mL (22-322); Glucose 78 mg/dL (74-106); Potassium 4.0 mmol/L (3.5-5.1); Sodium 140 mmol/L (136-145); Total Protein 6.5 g/dL (5.7-8.2)
[2025-01-10 07:02] LABS: Alanine Aminotransferase < 9 U/L (7-40); Alkaline Phosphatase 33 U/L (46-116); Bilirubin, Total 0.2 mg/dL (0.2-1.0)
[2025-01-10 08:07] LABS: INR 1.02 (0.9-1.15); Partial Thromboplastin Time 23.1 SEC (24.5-34.5); Prothrombin Time 10.8 sec (9.3-11.8)
--- NOTE | 2025-01-10 09:35 | ECG ---
[facility] Test Date: 2025-01-09 Test Time: 14:44:15 Pat Name: AISHWARYA WILSON Department: ER Room: 0246 B Gender: M Town Administrator: SALLY : [id number] Requested By: JOSE RAMON OLVERA Order Number: [id number] Reading MD: Eduardo Villeda Measurements Intervals [place] Rate: 72 P: 43 [place]: 170 QRS: 27 QRSD: 91 T: -44 QT: 367 QTc: 402 Interpretive Statements Sinus rhythm Inferior infarct, age indeterminate Abnormal lateral Q waves Abnrm T, consider ischemia, anterolateral lds Baseline wander in lead(s) V6 Electronically Signed On 01-15-2025 22:08:25 PDT by Eduardo Villeda Please click the below link to view image of tracing.
[2025-01-10] MEDS: Fenofibrate 160 MG PO SCH (10:00)
[2025-01-10] MEDS ORDERED: levoFLOXacin 500 MG TAB PO SCH (10:00)
[2025-01-10] MEDS: FINASTERIDE 5 MG TAB PO SCH (10:56)
[2025-01-10] MEDS: PANTOPRAZOLE 40 MG/10 ML VIAL INJ IV SCH (10:56)
[2025-01-10] MEDS: CLOPIDOGREL BISULFATE 75 MG TAB PO SCH (10:57)
[2025-01-10] MEDS: FUROSEMIDE 20 MG TAB PO SCH (10:57)
[2025-01-10] MEDS: CHOLECALCIFEROL (VITD3) 1,000UNIT=25mCg TAB PO SCH (10:57)
[2025-01-10] MEDS: METOPROLOL SUCCINATE XL 50 MG TAB PO SCH (10:58)
[2025-01-10] MEDS: SPIRONOLACTONE 25 MG TAB PO SCH (10:58)
[2025-01-10] MEDS: IRON SUCROSE COMPLEX 110 ML IV SCH (12:10)
--- NOTE | 2025-01-10 13:51 | DVHPN2 ---
Progress Note Date Seen: Jan 10, 2025 Medical Necessity Reason Pt with a Central, PICC or Fol: No Subjective Patient reports: No new complaints Review of Systems: HEENT:Normal, CVS:Normal, RESPIRATORY:Normal, GI:Normal, :Normal, MSK:Normal, NEURO:Normal Objective vital signs Vital Sign Date Time Temp Pulse Resp B/P (MAP) Pulse Ox O2 Delivery O2 Flow Rate FiO2 01/10/25 10:58 74 111/61 01/10/25 09:00 97.5 16 100 97.5 01/10/25 01:01 Room Air* 0 21 Total Intake and Output 01/09/25 01/09/25 01/10/25 15:00 23:00 07:00 Intake Total 150 ml Output Total 325 ml Balance -175 ml medications Current Medications Medications Dose Ordered Sig/Tyler Route Start Time Stop Time Status Last Admin Dose Admin Sodium Chloride 10 ml Q8HR IV 01/10/25 06:00 01/10/25 13:32 10 ML Acetaminophen 650 mg Q6HP PRN PO 01/09/25 22:30 Acetaminophen/ Hydrocodone Bitart 1 tab Q6HR PO 01/10/25 00:00 01/10/25 13:31 1 TAB Finasteride 5 mg DAILY PO 01/10/25 10:00 01/10/25 10:56 5 MG Fluoxetine HCl 20 mg DAILY PO 01/10/25 10:00 01/10/25 10:57 20 MG Furosemide 20 mg DAILY PO 01/10/25 10:00 01/10/25 10:57 20 MG Gabapentin 300 mg TID PO 01/10/25 06:00 01/10/25 13:32 300 MG Metoprolol Succinate 50 mg DAILY PO 01/10/25 10:00 01/10/25 10:58 50 MG Spironolactone 25 mg DAILY PO 01/10/25 10:00 01/10/25 10:58 25 MG Cholecalciferol 2,000 unit DAILY PO 01/10/25 10:00 01/10/25 10:57 2,000 UNIT Patient Own Medication 160 mg DAILY PO 01/10/25 10:00 Atorvastatin Calcium 80 mg HS PO 01/10/25 22:00 Patient Own Medication 5 mg DAILY PO 01/10/25 10:00 Clopidogrel Bisulfate 75 mg DAILY PO 01/10/25 10:00 01/10/25 10:57 75 MG Ceftriaxone Sodium 50 ml @ 100 mls/hr DAILY@09 IV 01/11/25 09:00 Iron Sucrose 110 ml @ 110 mls/hr DAILY@1200 IV 01/10/25 12:00 01/14/25 12:59 01/10/25 12:10 110 MLS/HR Pantoprazole Sodium 40 mg DAILY IV 01/10/25 10:00 01/10/25 10:56 40 MG Examination: GENERAL:Normal, HEENT:Normal, NECK:Normal, LUNGS:Normal, LUNGS:Abnormal (on oxygen), CVS:Normal, ABDOMEN:Normal, MSK:Normal, SKIN:Normal, NEURO:Normal, :Normal laboratory and microbiology Laboratory Tests 01/10/25 05:29 Test 01/10/25 05:29 Range/Units Serum Glucose 78 74-106 mg/dL Problem List/Assessment/Plan Problem List/Assessment/Plan * anemia: transfuse * History of bladder cancer/sp surgery * Coronary artery disease, status post stents. * Chronic systolic/diastolic heart failure. * Chronic obstructive pulmonary disease. * Chronic respiratory failure. * Hyperlipidemia. * Obesity * Benign prostatic hyperplasia. * Hypertension. advance care planning- full code- time spent 19 mins Plan discussed with: Patient, Spouse My Orders My Orders Orders - KAIT CHAPARRO MD Procedure Category Date Status Time * Cardiology Consult CONS 01/10/25 Transmitted 13:41 Obtain Consent For: ORDERS 01/10/25 Transmitted 13:47 Packedcell-Noactive BBK 01/10/25 Transmitted Bleeding 13:47 Type And Screen BBK 01/10/25 Transmitted 13:47 Vital Signs BEBO 01/10/25 Transmitted 13:47 Basic Metabolic Panel LAB 01/11/25 Verified 06:00 Complete Blood Count LAB 01/11/25 Verified 06:00 Date of Service: Jan 10, 2025 Billing Provider: KAIT CHAPARRO MD Common Visit Codes: [id number] INP/OBS CARE(HIGH) Secondary Visit Codes: [id number] CARE PLAN 30 MINUTES KAIT CHAPARRO MD Jan 10, 2025 13:51
[2025-01-10 13:57] LABS: Hematocrit 25.2 % (41.0-53.0); Hemoglobin 7.6 g/dL (13.5-17.5); Mean Corpuscular Hemoglobin 20.1 pg (28.0-32.0); Mean Corpuscular Volume 66.3 fL (80.0-100.0); Nucleated Red Blood Cells % 0.0 %
[2025-01-10] MEDS: ATORVASTATIN 20 MG TAB PO SCH (22:15)
[2025-01-11] MEDS: ACETAMINOPHEN 325 MG TAB PO PRN (00:29)
[2025-01-11 01:00] VITALS: BP 101/53; PULSE 88; RESP 18; TEMP 98.8; O2SAT 98
[2025-01-11 01:12] LABS: Hematocrit 28.6 % (41.0-53.0); Hemoglobin 8.9 g/dL (13.5-17.5)
[2025-01-11 05:00] VITALS: BP 108/53; PULSE 72; RESP 18; TEMP 98.5; O2SAT 99
[2025-01-11] MEDS ORDERED: PANTOPRAZOLE 40 MG TAB PO SCH (06:00)
[2025-01-11 06:27] LABS: Anion Gap 8 (5-15); Carbon Dioxide 25 mmol/L (20-31); Chloride 106 mmol/L (98-107); Potassium 3.9 mmol/L (3.5-5.1); Sodium 139 mmol/L (136-145)
[2025-01-11 06:28] LABS: Calcium 9.8 mg/dL (8.7-10.4)
[2025-01-11 06:33] LABS: BUN/Creatinine Ratio 16.5 (10.0-20.0); Blood Urea Nitrogen 20 mg/dL (9-23)
[2025-01-11 06:37] LABS: Hematocrit 28.9 % (41.0-53.0); Hemoglobin 9.0 g/dL (13.5-17.5); Mean Corpuscular Hemoglobin 21.7 pg (28.0-32.0); Mean Corpuscular Volume 69.3 fL (80.0-100.0); Nucleated Red Blood Cells % 0.2 %
[2025-01-11 07:03] LABS: Glucose 82 mg/dL (74-106)
[2025-01-11 08:00] VITALS: PULSE 78; RESP 18; O2SAT 99
[2025-01-11] MEDS: cefTRIAXone 1GM/50ML D5W 50 ML IV SCH (08:22)
[2025-01-11 09:00] VITALS: BP 122/53; PULSE 68; RESP 16; TEMP 98.3; O2SAT 98
--- NOTE | 2025-01-11 11:22 | DVHPN2 ---
Progress Note - Dictate Date Seen: Jan 10, 2025 Medical Necessity Reason Pt with a Central, PICC or Fol: No Subjective PT WITH SEVERE LETHARGY NOW WITH SEVERE ANEMIA MICROCYTIC IRON DEFICIENCY NO HEMATURIA IN THE PAST BECAUSE OF BLADER CA WAS HAVING RECURRENT HEMATURIA NOW S/P RESECTION WITH CHEMO THERAPY MOST LIKELY NOW WITH GI BLOOD LOST EGD NEGATIVE S/P TRANSFUSION X 2 OF PRBC PMH; CHEST PAIN RADIATING TO THE LEFT ARM SIMILAR TO SX PRIOR TO NE SIGNIFICANT CARDIAC HX WITH MULTIPLE STENTS IN THE RCA PMH; BLADDER CA S/P SURGERY HX HEMATURIA ABD PAIN PMH CAD S/P PTCA STENT MULTIPLE INTERVENTIONS RECENT ACUTE NE X2 NOW AGAIN WITH CHEST PAIN HX OF TRANSITIONAL CA OF THE BLADDER HX OF HEMATURIA CAD HYPERLIPIDEMIA HYPOKALEMIA S/P [facility] FOR [facility]ADDER SURGERY [facility] S/P PTCA STENT LEFT MAIN S/P PTCA STENT CX OCCLUDED RCA EF 55% recent echo HOWEVER IT WAS NOTED THAT PT WITH SEVERE PAD BILATERAL 95% STENOSIS OF ILIACS S/P BILATERAL ILIAC STENTS vital signs Vital Sign Date Time Temp Pulse Resp B/P (MAP) Pulse Ox O2 Delivery O2 Flow Rate FiO2 01/11/25 09:00 98.3 68 16 122/53 (76) 98 98.3 01/11/25 08:00 Nasal Cannula* 2 28 Total Intake and Output 01/10/25 01/10/25 01/11/25 15:00 23:00 07:00 Intake Total 110 ml 995 ml 350 ml Output Total 500 ml Balance 110 ml 495 ml 350 ml medications Current Medications Medications Dose Ordered Sig/Tyler Route Start Time Stop Time Status Last Admin Dose Admin Sodium Chloride 10 ml Q8HR IV 01/10/25 06:00 01/11/25 06:06 10 ML Acetaminophen 650 mg Q6HP PRN PO 01/09/25 22:30 01/11/25 00:29 650 MG Acetaminophen/ Hydrocodone Bitart 1 tab Q6HR PO 01/10/25 00:00 01/11/25 06:07 1 TAB Finasteride 5 mg DAILY PO 01/10/25 10:00 01/11/25 08:25 5 MG Fluoxetine HCl 20 mg DAILY PO 01/10/25 10:00 01/11/25 08:24 20 MG Furosemide 20 mg DAILY PO 01/10/25 10:00 01/11/25 08:24 20 MG Gabapentin 300 mg TID PO 01/10/25 06:00 01/11/25 06:07 300 MG Metoprolol Succinate 50 mg DAILY PO 01/10/25 10:00 01/11/25 08:23 50 MG Spironolactone 25 mg DAILY PO 01/10/25 10:00 01/11/25 08:22 25 MG Cholecalciferol 2,000 unit DAILY PO 01/10/25 10:00 01/11/25 08:24 2,000 UNIT Patient Own Medication 160 mg DAILY PO 01/10/25 10:00 Atorvastatin Calcium 80 mg HS PO 01/10/25 22:00 01/10/25 22:15 80 MG Patient Own Medication 5 mg DAILY PO 01/10/25 10:00 Clopidogrel Bisulfate 75 mg DAILY PO 01/10/25 10:00 01/11/25 08:23 75 MG Ceftriaxone Sodium 50 ml @ 100 mls/hr DAILY@09 IV 01/11/25 09:00 01/11/25 08:22 100 MLS/HR Iron Sucrose 110 ml @ 110 mls/hr DAILY@1200 IV 01/10/25 12:00 01/14/25 12:59 01/10/25 12:10 110 MLS/HR Pantoprazole Sodium 40 mg DAILY IV 01/10/25 10:00 01/11/25 08:21 40 MG laboratory and microbiology Laboratory Tests 01/11/25 05:33 Test 01/11/25 05:33 Range/Units Serum Glucose 82 74-106 mg/dL Problem List SEVERE LETHARGY NOW WITH SEVERE ANEMIA MICROCYTIC IRON DEFICIENCY NO HEMATURIA IN THE PAST BECAUSE OF BLADER CA WAS HAVING RECURRENT HEMATURIA NOW S/P RESECTION WITH CHEMO THERAPY MOST LIKELY NOW WITH GI BLOOD LOST EGD NEGATIVE S/P TRANSFUSION X 2 OF PRBC PMH; CHEST PAIN RADIATING TO THE LEFT ARM SIMILAR TO SX PRIOR TO NE SIGNIFICANT CARDIAC HX WITH MULTIPLE STENTS IN THE RCA PMH; BLADDER CA S/P SURGERY HX HEMATURIA ABD PAIN PMH CAD S/P PTCA STENT MULTIPLE INTERVENTIONS RECENT ACUTE NE X2 NOW AGAIN WITH CHEST PAIN HX OF TRANSITIONAL CA OF THE BLADDER HX OF HEMATURIA CAD HYPERLIPIDEMIA HYPOKALEMIA S/P [facility] FOR BLADDER SURGERY [facility] S/P PTCA STENT LEFT MAIN S/P PTCA STENT CX OCCLUDED RCA EF 55% recent echo HOWEVER IT WAS NOTED THAT PT WITH SEVERE PAD BILATERAL 95% STENOSIS OF ILIACS S/P BILATERAL ILIAC STENTS Assessment/Plan IRON REPLACEMENT HOLD DAPT FOR NOW CONSIDER COLONOSCOPY Plan discussed with: Patient, Spouse Critical Care Time(min): 35 MILLICENT HERNANDEZ MD Jan 11, 2025 11:22
--- NOTE | 2025-01-11 11:23 | DVHPN2 ---
Progress Note - Dictate Date Seen: Jan 11, 2025 Medical Necessity Reason Pt with a Central, PICC or Fol: No Subjective PT WITH SEVERE LETHARGY NOW WITH SEVERE ANEMIA MICROCYTIC IRON DEFICIENCY NO HEMATURIA IN THE PAST BECAUSE OF BLADER CA WAS HAVING RECURRENT HEMATURIA NOW S/P RESECTION WITH CHEMO THERAPY MOST LIKELY NOW WITH GI BLOOD LOST EGD NEGATIVE S/P TRANSFUSION X 2 OF PRBC PMH; CHEST PAIN RADIATING TO THE LEFT ARM SIMILAR TO SX PRIOR TO [place] SIGNIFICANT CARDIAC HX WITH MULTIPLE STENTS IN THE RCA PMH; BLADDER CA S/P SURGERY HX HEMATURIA ABD PAIN PMH CAD S/P PTCA STENT MULTIPLE INTERVENTIONS RECENT ACUTE [place] X2 NOW AGAIN WITH CHEST PAIN HX OF TRANSITIONAL CA OF THE BLADDER HX OF HEMATURIA CAD HYPERLIPIDEMIA HYPOKALEMIA S/P [facility] SUR[facility] S/P PTCA STENT LEFT MAIN S/P PTCA STENT CX OCCLUDED RCA EF 55% recent echo HOWEVER IT WAS NOTED THAT PT WITH SEVERE PAD BILATERAL 95% STENOSIS OF ILIACS S/P BILATERAL ILIAC STENTS vital signs Vital Sign Date Time Temp Pulse Resp B/P (MAP) Pulse Ox O2 Delivery O2 Flow Rate FiO2 01/11/25 09:00 98.3 68 16 122/53 (76) 98 98.3 01/11/25 08:00 Nasal Cannula* 2 28 Total Intake and Output 01/10/25 01/10/25 01/11/25 15:00 23:00 07:00 Intake Total 110 ml 995 ml 350 ml Output Total 500 ml Balance 110 ml 495 ml 350 ml medications Current Medications Medications Dose Ordered Sig/Tyler Route Start Time Stop Time Status Last Admin Dose Admin Sodium Chloride 10 ml Q8HR IV 01/10/25 06:00 01/11/25 06:06 10 ML Acetaminophen 650 mg Q6HP PRN PO 01/09/25 22:30 01/11/25 00:29 650 MG Acetaminophen/ Hydrocodone Bitart 1 tab Q6HR PO 01/10/25 00:00 01/11/25 06:07 1 TAB Finasteride 5 mg DAILY PO 01/10/25 10:00 01/11/25 08:25 5 MG Fluoxetine HCl 20 mg DAILY PO 01/10/25 10:00 01/11/25 08:24 20 MG Furosemide 20 mg DAILY PO 01/10/25 10:00 01/11/25 08:24 20 MG Gabapentin 300 mg TID PO 01/10/25 06:00 01/11/25 06:07 300 MG Metoprolol Succinate 50 mg DAILY PO 01/10/25 10:00 01/11/25 08:23 50 MG Spironolactone 25 mg DAILY PO 01/10/25 10:00 01/11/25 08:22 25 MG Cholecalciferol 2,000 unit DAILY PO 01/10/25 10:00 01/11/25 08:24 2,000 UNIT Patient Own Medication 160 mg DAILY PO 01/10/25 10:00 Atorvastatin Calcium 80 mg HS PO 01/10/25 22:00 01/10/25 22:15 80 MG Patient Own Medication 5 mg DAILY PO 01/10/25 10:00 Clopidogrel Bisulfate 75 mg DAILY PO 01/10/25 10:00 01/11/25 08:23 75 MG Ceftriaxone Sodium 50 ml @ 100 mls/hr DAILY@09 IV 01/11/25 09:00 01/11/25 08:22 100 MLS/HR Iron Sucrose 110 ml @ 110 mls/hr DAILY@1200 IV 01/10/25 12:00 01/14/25 12:59 01/10/25 12:10 110 MLS/HR Pantoprazole Sodium 40 mg DAILY IV 01/10/25 10:00 01/11/25 08:21 40 MG laboratory and microbiology Laboratory Tests 01/11/25 05:33 Test 01/11/25 05:33 Range/Units Serum Glucose 82 74-106 mg/dL Problem List SEVERE LETHARGY NOW WITH SEVERE ANEMIA MICROCYTIC IRON DEFICIENCY NO HEMATURIA IN THE PAST BECAUSE OF BLADER CA WAS HAVING RECURRENT HEMATURIA NOW S/P RESECTION WITH CHEMO THERAPY MOST LIKELY NOW WITH GI BLOOD LOST EGD NEGATIVE S/P TRANSFUSION X 2 OF PRBC PMH; CHEST PAIN RADIATING TO THE LEFT ARM SIMILAR TO SX PRIOR TO [place] SIGNIFICANT CARDIAC HX WITH MULTIPLE STENTS IN THE RCA PMH; BLADDER CA S/P SURGERY HX HEMATURIA ABD PAIN PMH CAD S/P PTCA STENT MULTIPLE INTERVENTIONS RECENT ACUTE [place] X2 NOW AGAIN WITH CHEST PAIN HX OF TRANSITIONAL CA OF THE BLADDER HX OF HEMATURIA CAD HYPERLIPIDEMIA HYPOKALEMIA S/P [facility] S/P PTCA STENT LEFT MAIN S/P PTCA STENT CX OCCLUDED RCA EF 55% recent echo HOWEVER IT WAS NOTED THAT PT WITH SEVERE PAD BILATERAL 95% STENOSIS OF ILIACS S/P BILATERAL ILIAC STENTS Assessment/Plan IRON REPLACEMENT HOLD DAPT FOR NOW CONSIDER COLONOSCOPY HEMATOCRIT 28% Plan discussed with: Patient, Spouse MILLICENT HERNANDEZ MD Jan 11, 2025 11:23
[2025-01-11 13:00] VITALS: BP_SYST 117; BP_SYST 135; BP_DIAS 69; BP_DIAS 88; PULSE 66; PULSE 91; RESP 17; TEMP 96.2; TEMP 96.9; O2SAT 95; O2SAT 97
--- NOTE | 2025-01-11 13:07 | DVHPN2 ---
Progress Note Date Seen: Jan 11, 2025 Medical Necessity Reason Pt with a Central, PICC or Fol: No Subjective Patient reports: No new complaints Review of Systems: HEENT:Normal, CVS:Normal, RESPIRATORY:Normal, GI:Normal, :Normal, MSK:Normal, NEURO:Normal Objective vital signs Vital Sign Date Time Temp Pulse Resp B/P (MAP) Pulse Ox O2 Delivery O2 Flow Rate FiO2 01/11/25 09:00 98.3 68 16 122/53 (76) 98 98.3 01/11/25 08:00 Nasal Cannula* 2 28 Total Intake and Output 01/10/25 01/10/25 01/11/25 15:00 23:00 07:00 Intake Total 110 ml 995 ml 350 ml Output Total 500 ml Balance 110 ml 495 ml 350 ml medications Current Medications Medications Dose Ordered Sig/Tyler Route Start Time Stop Time Status Last Admin Dose Admin Sodium Chloride 10 ml Q8HR IV 01/10/25 06:00 01/11/25 06:06 10 ML Acetaminophen 650 mg Q6HP PRN PO 01/09/25 22:30 01/11/25 00:29 650 MG Acetaminophen/ Hydrocodone Bitart 1 tab Q6HR PO 01/10/25 00:00 01/11/25 12:00 1 TAB Finasteride 5 mg DAILY PO 01/10/25 10:00 01/11/25 08:25 5 MG Fluoxetine HCl 20 mg DAILY PO 01/10/25 10:00 01/11/25 08:24 20 MG Furosemide 20 mg DAILY PO 01/10/25 10:00 01/11/25 08:24 20 MG Gabapentin 300 mg TID PO 01/10/25 06:00 01/11/25 06:07 300 MG Metoprolol Succinate 50 mg DAILY PO 01/10/25 10:00 01/11/25 08:23 50 MG Spironolactone 25 mg DAILY PO 01/10/25 10:00 01/11/25 08:22 25 MG Cholecalciferol 2,000 unit DAILY PO 01/10/25 10:00 01/11/25 08:24 2,000 UNIT Patient Own Medication 160 mg DAILY PO 01/10/25 10:00 Atorvastatin Calcium 80 mg HS PO 01/10/25 22:00 01/10/25 22:15 80 MG Patient Own Medication 5 mg DAILY PO 01/10/25 10:00 Clopidogrel Bisulfate 75 mg DAILY PO 01/10/25 10:00 01/11/25 08:23 75 MG Ceftriaxone Sodium 50 ml @ 100 mls/hr DAILY@09 IV 01/11/25 09:00 01/11/25 08:22 100 MLS/HR Iron Sucrose 110 ml @ 110 mls/hr DAILY@1200 IV 01/10/25 12:00 01/14/25 12:59 01/11/25 12:00 110 MLS/HR Pantoprazole Sodium 40 mg DAILY IV 01/10/25 10:00 01/11/25 08:21 40 MG Examination: GENERAL:Normal, HEENT:Normal, NECK:Normal, LUNGS:Normal, LUNGS:Abnormal (on oxygen), CVS:Normal, ABDOMEN:Normal, MSK:Normal, SKIN:Normal, NEURO:Normal, :Normal laboratory and microbiology Laboratory Tests 01/11/25 05:33 Test 01/11/25 05:33 Range/Units Serum Glucose 82 74-106 mg/dL Microbiology Date/Time Source Procedure Growth Status 01/09/25 23:20 Voided Urine Urine Culture - Preliminary Resulted Problem List/Assessment/Plan Problem List/Assessment/Plan * anemia/ iron def: iv iron, transfusion * History of bladder cancer/sp surgery * Coronary artery disease, status post stents. * Chronic systolic/diastolic heart failure. * Chronic obstructive pulmonary disease. * Chronic respiratory failure. * Hyperlipidemia. * Obesity * Benign prostatic hyperplasia. * Hypertension. * pvd s/p iliac stents advance care planning- full code- time spent 19 mins Plan discussed with: Patient, Spouse My Orders My Orders Orders - KAIT CHAPARRO MD Procedure Category Date Status Time * Cardiology Consult CONS 01/10/25 Transmitted 13:41 Obtain Consent For: ORDERS 01/10/25 Transmitted 13:47 Vital Signs BEBO 01/10/25 In Process 13:47 Date of Service: Jan 11, 2025 Billing Provider: KAIT CHAPARRO MD Common Visit Codes: [id number] INP/OBS CARE(HIGH) KAIT CHAPARRO MD Jan 11, 2025 13:07
[2025-01-11] MEDS ORDERED: FER325T PO (13:53)
--- NOTE | 2025-01-11 13:54 | DVHDS2 ---
Discharge Summary Date of Admission Jan 09, 2025 at 22:25 Date of Discharge: Jan 11, 2025 Labs/Diagnostic Data: Laboratory Results Test 01/11/25 05:33 01/10/25 05:29 01/10/25 05:26 01/09/25 23:20 White Blood Count 5.3 10^3/uL (4.4-10.8) Red Blood Count 4.17 10^6/uL (4.5-5.90) Hemoglobin 9.0 g/dL (13.5-17.5) Hematocrit 28.9 % (41.0-53.0) Mean Corpuscular Volume 69.3 fL (80.0-100.0) Mean Corpuscular Hemoglobin 21.7 pg (28.0-32.0) Mean Corpuscular Hemoglobin Concent 31.3 g/dL (32.0-36.0) Red Cell Distribution Width 20.8 % (11.8-14.3) Platelet Count 204 10^3/uL (140-450) Mean Platelet Volume 8.5 fL (6.9-10.8) Neutrophils (%) (Auto) 70.4 % (37.0-80.0) Lymphocytes (%) (Auto) 17.0 % (10.0-50.0) Monocytes (%) (Auto) 11.0 % (0.0-12.0) Eosinophils (%) (Auto) 1.0 % (0.0-7.0) Basophils (%) (Auto) 0.6 % (0.0-2.0) Neutrophils # (Auto) 3.8 10 ^3/uL (1.6-8.6) Lymphocytes # (Auto) 0.9 10 ^3/uL (0.4-5.4) Monocytes # (Auto) 0.6 10 ^3/uL (0-1.3) Eosinophils # (Auto) 0.1 10 ^3/uL (0-0.8) Basophils # (Auto) 0 10 ^3/uL (0-0.2) Nucleated Red Blood Cells 0.2 % Sodium Level 139 mmol/L (136-145) Potassium Level 3.9 mmol/L (3.5-5.1) Chloride Level 106 mmol/L (98-107) Carbon Dioxide Level 25 mmol/L (20-31) Anion Gap 8 (5-15) Blood Urea Nitrogen 20 mg/dL (9-23) Creatinine 1.21 mg/dL (0.700-1.30) Glomerular Filtration Rate Calc 65 mL/min (>90) BUN/Creatinine Ratio 16.5 (10.0-20.0) Serum Glucose 82 mg/dL (74-106) Calcium Level 9.8 mg/dL (8.7-10.4) Prothrombin Time 10.8 sec (9.3-11.8) Prothrombin Time INR 1.02 (0.9-1.15) Activated Partial Thromboplast Time 23.1 SEC (24.5-34.5) Magnesium Level 2.3 mg/dL (1.6-2.6) Iron Level 22 ug/dL (65-175) Total Iron Binding Capacity 404 ug/dL (250-425) Percent Iron Saturation 5.4 % (20-55) Ferritin 5.7 ng/mL (22-322) Total Bilirubin 0.2 mg/dL (0.2-1.0) Aspartate Amino Transferase (AST) 16 U/L (13-40) Alanine Aminotransferase (ALT) < 9 U/L (7-40) Alkaline Phosphatase 33 U/L (46-116) Total Protein 6.5 g/dL (5.7-8.2) Albumin 4.3 g/dL (3.2-4.8) Vitamin B12 Level 245 pg/mL (211-911) Vitamin D 25-Hydroxy 36.8 ng/mL (30.0-100) Folic Acid 16.52 ng/mL (>5.38) Hemoglobin A1c 5.6 % A1C (<5.7) Urine Color Colorless (Yellow) Urine Clarity Clear (Clear) Urine pH 6.5 (5.0-9.0) Urine Specific Mcdonald 1.010 (1.001-1.035) Urine Protein Negative (Negative) Urine Ketones Negative (Negative) Urine Blood Negative /uL (Negative) Urine Nitrite 2+ (Negative) Urine Bilirubin Negative (Negative) Urine Urobilinogen Normal mg/dL (Negative) Urine Leukocyte Esterase 1+ /uL (Negative) Urine RBC 2 /hpf (0 - 3) Urine Microscopic WBC 11 /HPF (0-3) Urine Squamous Epithelial Cells None seen /hpf (<5) Urine Amorphous Crystals Few /hpf (None Seen) Urine Bacteria None seen /hpf (None Seen) Urine Glucose Normal mg/dL (Normal) Urine Opiates Screen Pos (NEGATIVE) Urine Fentanyl Screen Neg (NEGATIVE) Urine Barbiturates Screen Neg (NEGATIVE) Urine Phencyclidine Screen Neg (NEGATIVE) Urine Amphetamines Screen Neg (NEGATIVE) Urine Benzodiazepines Screen Neg (NEGATIVE) Urine Cocaine Screen Neg (NEGATIVE) Urine Cannabinoids Screen Neg (NEGATIVE) Test 01/09/25 19:17 01/09/25 16:18 Direct Bilirubin < 0.1 mg/dL (<0.3) Troponin I High Sensitivity 7 ng/L (</=54) B-Type Natriuretic Peptide 146.64 pg/mL (0-100) Other Laboratory Tests 01/11/25 05:33 Brief Hx & Hospital Course: SEE DICTATED NOTE Condition at Discharge: Fair Final Diagnosis/Problems List ANEMIA Discharge Disposition: Home Discharge Instruct/Medications Diet: Cardiac 2g Na,low cholest Activity: No Restrictions, As Tolerated Follow Up/Referral: FU WITH DR RICKS/GI GROUP Medications: RESUME HOME MEDS EXCEPT ELIQUIS AND ASA. CONTINUE PLAVIX SCRIPT TO PHARMACY Scheduled Albuterol Sulfate (Ventolin Mdi), 1 PUFF INH Q4-6HR PRN, (Reported) Apixaban Base (Eliquis), 2.5 MG PO BID Cholecalciferol (Vitamin D), 1 CAP PO DAILY, (Reported) Clopidogrel Bisulfate (Clopidogrel), 75 MG PO DAILY, (Reported) Dexlansoprazole (Dexilant), 60 MG PO DAILY, (Reported) Docusate Sodium (Docusil), 100 MG PO BID, (Reported) Fenofibrate (Fenofibrate), 160 MG PO DAILY, (Reported) Ferrous Sulfate (Ferrous Sulfate), 1 TAB PO BID Finasteride (Finasteride), 1 TAB PO DAILY, (Reported) Fluoxetine HCl (Fluoxetine HCl), 1 CAP PO DAILY, (Reported) Fluoxetine Hcl (Fluoxetine Hcl), 20 MG PO DAILY, (Reported) Formoterol Fumarate Dihydrate (Formoterol Fumarate), 1 INH INH BID, (Reported) Furosemide (Furosemide), 1 TAB PO DAILY, (Reported) Gabapentin (Neurontin), 1 TAB PO TID, (Reported) Hydrocodone-Acetaminophen (Hydrocodone Bitartrate/AC 10-325 mg), 1 TAB PO Q6HR, (Reported) Levofloxacin Hemihydrate (Levaquin 500 Mg), 500 MG PO DAILY Meclizine Hcl (Meclizine Hcl), 25 MG PO DAILY, (Reported) Methocarbamol (Methocarbamol), 500 MG PO QID Metoprolol Succinate (Metoprolol Succinate Er), 50 MG PO DAILY, (Reported) Nitroglycerin (Ntrostat Sublingual), 0.4 MG SL PRN, (Reported) Patients Own Medication (Patients Own Medication), 61 MG PO DAILY, (Reported) Potassium Chloride (Potassium Chloride Cr), 1 TAB PO DAILY, (Reported) Rosuvastatin Calcium (Rosuvastatin Calcium), 40 MG PO DAILY, (Reported) Spironolactone (Aldactone), 1 TAB PO DAILY, (Reported) Vericiguat (Verquvo), 5 MG PO DAILY, (Reported) Discharge Statement: "Patient was advised to return to the ER or call 911 if any headaches, dizziness, shortness of breath, chest pain, abdominal pain, bleeding, fevers, or worsening of medical condition. Patient was counseled about treatment plan, medications, possible side effects, patientverbalized understanding. All questions were answered to the best of my ability. This discharge took greater then 30 minutes in planning, reviewing documentation, counseling the patient, and discussing with other team members." ASSESSMENT ASSESSMENT Assessment ANEMIA Date of Service: Jan 11, 2025 Billing Provider: KAIT CHAPARRO MD Common Visit Codes: [id number] DISCH DAY >30min KAIT CHAPARRO MD Jan 11, 2025 13:54
--- NOTE | 2025-01-11 14:27 | DVHDS ---
DATE OF DISCHARGE: 01/11/2025 HISTORY OF PRESENT ILLNESS: The patient is a 69-year-old gentleman who was admitted after he was noted to have a low hemoglobin. The patient has a history of bladder cancer, coronary artery disease with stents, COPD, chronic respiratory failure, hypertension, diabetes, and peripheral vascular disease. HOSPITAL COURSE: The patient was transfused blood. Hemoglobin at the time of discharge is 9. The patient's creatinine was about 1.21. The patient's iron panel showed evidence of iron deficiency. Chest x-ray showed mild infiltrates. The patient will now be discharged home as per my discussion with Dr. Gipson. He is to resume his home medications except for aspirin and Eliquis. He is to continue the Plavix. The patient is scheduled to undergo a colonoscopy on the with the gastro group. The patient will therefore be discharged home to follow up and also take iron sulfate 325 mg p.o. b.i.d. FINAL DIAGNOSES: * Anemia with iron deficiency, status post transfusion. * History of bladder cancer, status post surgery. * Coronary artery disease with multiple stents. * Chronic systolic/diastolic heart failure. * COPD with chronic respiratory failure. * Hyperlipidemia. * Obesity. * BPH. * Hypertension. * Peripheral vascular disease with status post iliac stents. Time spent in discharge planning and review of plan with the patient, relationship consultant and nursing was 39 minutes. MD DARRYL Irwin/AARON TID: [id number] RECEIPT: [id number]
== END 2025-01-11 18:00 | disposition home or self-care (01) | DRG 812 ==
LOC: ER 14:19 → OVERFLOW 22:25 → EAST 01-10 00:50
PROVIDERS: ADMIT Internal Medicine; ATTEND Internal Medicine
PROC: 30233N1 Transfusion of Nonautologous Red Blood Cells into Peripheral Vein, Percutaneous Approach (ICD-10-PCS; principal; 2025-01-10)
DX: D50.9 Iron deficiency anemia, unspecified (principal); J96.10 Chronic respiratory failure, unspecified whether with hypoxia or hypercapnia; I50.42 Chronic combined systolic (congestive) and diastolic (congestive) heart failure; N30.00 Acute cystitis without hematuria; Z99.81 Dependence on supplemental oxygen; I11.0 Hypertensive heart disease with heart failure; E11.51 Type 2 diabetes mellitus with diabetic peripheral angiopathy without gangrene; E66.9 Obesity, unspecified; J44.9 Chronic obstructive pulmonary disease, unspecified; I25.10 Atherosclerotic heart disease of native coronary artery without angina pectoris; E78.5 Hyperlipidemia, unspecified; N40.0 Benign prostatic hyperplasia without lower urinary tract symptoms; Z68.26 Body mass index [BMI] 26.0-26.9, adult; Z95.5 Presence of coronary angioplasty implant and graft; Z87.891 Personal history of nicotine dependence; Z85.51 Personal history of malignant neoplasm of bladder; Z79.899 Other long term (current) drug therapy; I25.2 Old myocardial infarction; Z88.5 Allergy status to narcotic agent
CPT/HCPCS: 36415; 36430; 71045; 80048; 80053; 80076; 80307; 81001; 82306; 82607; 82728; 82746; 83036; 83540; 83550; 83735; 83880; 84484; 85014; 85018; 85025; 85610; 85730; 86850; 86900; 86901; 86920; 87086; 93005; 99291; G0378; J1756; J2470